=== PATIENT | female | born 1970 | race Caucasian/White ===

== ENCOUNTER 2019-06-14 15:24 | Outpatient (RCR) | payer MEDICARE, MEDICAID, SELFPAY | END 2019-06-28 00:01 | LOC: SPT 15:24 | PROVIDERS: Family Provider Family Medicine; Visit Provider Family Medicine | DX: M54.12 Radiculopathy, cervical region (principal) | CPT/HCPCS: 97110 ×2; 97140 ×2; 97161 ==

== ENCOUNTER 2019-06-29 09:11 | Outpatient (RCR) | payer MEDICARE, MEDICAID, SELFPAY | END 2019-07-29 23:59 | disposition home or self-care (01) | LOC: SPT 09:11 | PROVIDERS: Family Provider Family Medicine; PCP Family Medicine; Visit Provider Family Medicine | DX: M54.9 Dorsalgia, unspecified (principal) | CPT/HCPCS: 97110; 97140; 97164 ==

== ENCOUNTER 2019-08-01 06:00 | Outpatient (RCR) | payer MEDICARE, MEDICAID, SELFPAY | END 2019-08-27 23:59 | disposition home or self-care (01) | LOC: SPT 06:00 | PROVIDERS: Family Provider Family Medicine; PCP Family Medicine; Visit Provider Family Medicine | DX: M54.9 Dorsalgia, unspecified (principal) | CPT/HCPCS: 97110; 97124; 97140 ==

== ENCOUNTER 2019-08-28 06:00 | Outpatient (RCR) | payer MEDICARE, MEDICAID, SELFPAY | END 2019-09-27 23:59 | disposition home or self-care (01) | LOC: SPT 06:00 | PROVIDERS: Family Provider Family Medicine; PCP Family Medicine; Visit Provider Family Medicine | DX: M54.9 Dorsalgia, unspecified (principal) | CPT/HCPCS: 97110; 97112; 97140; 97530 ==

== ENCOUNTER 2019-09-06 11:32 | Emergency (ER) | payer MEDICARE, MEDICAID, SELFPAY ==
[2019-09-06 11:36] VITALS: BP 207/112; PULSE 81; RESP 20; TEMP 36.4; O2SAT 96; BMI 73.8
--- NOTE | 2019-09-06 11:46 | ED_ITS ---
Entered by Betty García, acting as scribe for Salud Robertson HPI - General Adult General: Chief complaint: General Medical Stated complaint: BLOOD PRESSURE, CHEST COLD Time Seen by Provider: 09/06/19 11:45 Source: patient Mode of arrival: ambulatory Limitations: no limitations History of Present Illness: HPI narrative: 49 yo Female presents to ED with complaint of elevated blood pressure and cold symptoms. Pt states that she hasn't been feeling well since last week. Pt states that she has had a head and chest cold but no fever. Pt states that she has had a productive cough with yellow sputum. MD complaint: Elevated blood pressure/cold symptoms Onset (ago): week(s) Location: head and chest Radiation: non-radiation Quality: constant Pain Consistency: constant Relieving factors: none Exacerbating factors: none Associated symptoms: Reports cough, dyspnea, malaise and short of breath; Deny chest pain, confusion, fevers/chills, headache(s), nausea, rash, palpitations, syncope or vomiting Treatments prior to arrival: none Review of Systems General: Reports: other (negative unless marked) Const: Reports: malaise; Denies: fever or chills Eyes: Denies: change in vision or blurry vision ENMT: Denies: throat pain, painful swallowing, hoarseness, ear pain, ear discharge, Change in hearing or nasal discharge Card: Reports: shortness of breath when lying down; Denies: chest pain, palpitations, irregular heart rhythm, syncope, pre-syncope or shortness of breath on exertion Resp: Reports: shortness of breath, productive cough, change in phlegm color and chest congestion GI: Denies: abdominal pain, nausea, vomiting, vomiting blood, coffee grounds in vomit, diarrhea, constipation, cramping, blood in stool or black tarry stool : Denies: flank pain, painful urination, urinary frequency, urinary urgency, decreased urine ouput, urinary incontinence or blood in urine Musc: Denies: neck pain, back pain, extremity pain, extremity swelling, joint pain, joint swelling, joint warmth or joint stiffness Skin/Breast: Denies: rash, skin tenderness or yellow skin Neuro: Denies: headache, numbness in extremities, weakness in extremities, changes in sensation, lack of coordination, difficulty walking, dizziness, vertigo or confusion Endo: Denies: excessive thirst, tired all the time, cold intolerance, excessive sweating, flushing or hot flashes Rahat/Lymph: Denies: easy bruising, easy bleeding, petechiae or enlarged lymph nodes All/Imm: Denies: hives, throat swelling, tongue swelling, facial swelling or acute wheezing PFSH ED PFSH: Medical History Asthma Calcium deposit in bursa of left hip CALCIUM DEPOSIT REMOVED FROM LEFT BUTTOCK 1991 X3. Carpal tunnel syndrome on both sides Cervical radiculopathy HTN (hypertension), benign Obesity Surgical History H/O exploratory laparotomy EXPLORATORY SURGERY ON FEMALE PART A INFANT Family History Mother Hypertension Grandmother Heart disease Mother Diabetes Family/Other Breast cancer Social History Smoking and tobacco status: former smoker Quit status (tobacco): has quit using tobacco Alcohol intake: current Alcohol intake frequency: holidays/special occasions only Desire information about substance/drug rehabilitation?: No Counseling given: No Female Reproductive History: Para: 0 Spontaneous abortions: Yes Physical Exam Const: COMMON NORMALS: no apparent distress, oriented x3, no limitations, healthy appearing and well nourished EXAM LIMITATIONS: no altered mental status GENERAL APPEARANCE: cooperative, well kempt and well developed ORIENTATION/CONSCIOUSNESS: Yes awake HENMT: COMMON NORMALS: normocephalic, head/scalp atraumatic, hearing grossly normal bilaterally, external ears normal, EAC's normal, external nose normal and moist oral mucous membranes HEAD & SCALP: normal to inspection, normocephalic and atraumatic FACE & SINUS: normal facial exam and face symmetric NOSE: external nose normal and nares normal EXTERNAL EAR: Yes external ears normal EXTERNAL AUDITORY CANAL: EAC's normal MOUTH: oral and palatal mucosa normal and tongue normal Eye: COMMON NORMALS: PERRL, EOMs intact bilaterally, conjunctivae normal and no scleral icterus GENERAL EYE: normal appearance of both eyes and normal light reflex CONJUNCTIVA: Yes conjunctivae normal SCLERA: sclerae normal CORNEA: Yes corneas normal PUPIL: Yes PERRL DIRECT OPHTHALMOSCOPY: Yes normal light reflex Neck/C-Spine: COMMON NORMALS: full ROM, no lymphadenopathy, supple, no meningeal signs and no JVD GENERAL: Yes normal visual inspection and Yes trachea midline CERVICAL SPINE: Yes cervical ROM normal Chest: COMMONS NORMALS: inspection of chest normal and palpation of chest normal Resp: COMMON NORMALS: normal respiratory effort, no retractions, no use of accessory muscles and clear to auscultation bilaterally EFFORT & INSPECTION: Yes able to speak in complete sentences AUSCULTATION: clear to auscultation bilaterally Cardio: COMMON NORMALS: no JVD, regular rate, regular rhythm, S1 normal heart sound, S2 normal heart sound, no gallops, no clicks, no murmurs and no rub JUGULAR VENOUS DISTENTION: no JVD RATE: regular rate RHYTHM: regular rhythm HEART SOUNDS: S1 normal and S2 normal GI: COMMON NORMALS: soft to palpation, non-tender, no hepatosplenomegaly and no masses INSPECTION: Yes normal to inspection PALPATION: Yes soft and Yes no hepatosplenomegaly : COMMON NORMALS: Yes no CVA tenderness BLADDER/KIDNEY EXAM: Yes no CVA tenderness Back/Pelvis: COMMON NORMALS: no CVA tenderness, thoracic and lumbar spine normal to inspection, no thoracic nor lumbar tenderness and thoraco-lumbar ROM normal Extremity: COMMON NORMALS: normal to inspection, full ROM, normal capillary refill, no joint enlargement, no clubbing, cyanosis or edema and no calf tenderness Neuro: COMMON NORMALS: oriented x3, CN's II-XII intact bilaterally, moves all extremities, no focal motor deficits and no sensory deficits noted MENINGEAL SIGNS: Yes no meningeal signs Psych: COMMON NORMALS: mental status grossly normal, thought process normal, cooperative, affect normal, speech normal and activity/motor behavior normal APPEARANCE: Yes well kempt SPEECH: Yes normal speech THOUGHT PROCESS: normal thought process Skin: COMMON NORMALS: no rashes or lesions noted, skin turgor normal, no jaundice, no petechiae and no mottling GENERAL SKIN EXAM: no rashes or lesions noted and turgor normal Course Vital Signs: Vital signs: Vital Signs Temperature 97.6 F 09/06/19 11:36 Pulse Rate 79 09/06/19 14:06 Respiratory Rate 16 09/06/19 13:41 Blood Pressure 207/112 09/06/19 11:36 Pulse Oximetry 98 09/06/19 13:41 MDM - General Adult MDM Narrative: Medical decision making narrative: Ms. Pollard is a 49-year-old female who comes in with cough, congestion and occasional shortness of breath. She states that she has a head and chest cold. Patient was concerned about her blood pressure today but she has no chest pain and her EKGs are normal and her chest x-ray shows no evidence of pulmonary edema or congestive heart failure. Patient is refusing a second blood draw for troponin but her first was completely normal. On exam she had wheezing inspiratory and expiratory but that is improved dramatically since her breathing treatment. She states she has albuterol at home. I will place her on prednisone as she agrees to follow-up with her doctor for further evaluation of her blood pressure. Lab Data: Attestation: I reviewed the patient's lab results. Labs: Lab Results 09/06/19 09/06/19 09/06/19 Range/Units 12:07 12:07 12:07 WBC 6.2 (4.0-10.0) 10^3/ uL RBC 4.93 (4.1-5.3) 10^6/u L Hgb 13.1 (11.5-15.3) g/dL Hct 41.9 (37.0-47.0) % MCV 85.0 (81-99) fL MCH 26.6 L (28.0-34.0) pg MCHC 31.3 (30.0-36.0) g/dL RDW 12.7 (12.1-15.1) % Plt Count 289 (130-400) 10^3/c mm MPV 10.0 (7.4-10.4) fL Neut % (Auto) 57.1 % Lymph % (Auto) 33.2 % [place] % (Auto) 5.7 % Eos % (Auto) 3.2 % Baso % (Auto) 0.5 % Neut # (Auto) 3.5 (1.8-7.7) 10^3/u L Lymph # (Auto) 2.1 (0.8-4.8) 10^3/u L [place] # (Auto) 0.4 (0.2-0.9) 10^3/u L Eos # (Auto) 0.2 (0.0-0.8) 10^3/u L Baso # (Auto) 0.0 (0.0-0.1) 10^3/u L Nucleated RBC % (a uto) 0 % Nucleated RBCs # 0.0 /100WBC Sodium 138 (136-145) mmol/L Potassium 4.2 (3.5-5.1) mmol/L Chloride 97 L (98-107) mmol/L Carbon Dioxide 30 H (22-29) mmol/L Anion Gap 15.2 (5-19) BUN 17 (6-20) mg/dL Creatinine 0.7 (0.5-0.9) mg/dL GFR Calculation 88.6 L (90-130) mL/min Glucose 100 (65-115) mg/dL Calculated Osmolal ity 282 L (285-295) mOsm/k g Calcium 9.8 (8.5-10.5) mg/dL Magnesium 2.1 (1.7-2.3) mg/dL Total Bilirubin 0.3 (0.15-1.2) mg/dL AST 18 (0-32) U/L ALT 14 (0-33) U/L Alkaline Phosphata se 92 (35-105) IU/L Troponin T Baselin e 6 (0-10) ng/mL Total Protein 6.8 (6.6-8.7) g/dL Albumin 4.2 (3.5-5.2) g/dL Globulin 2.6 (1.3-4.6) g/dL Urine Color (Yellow) Urine Appearance (CLEAR) Urine pH (5-7) Ur Specific Gravit y (1.005-1.030) Urine Protein (Negative) Urine Glucose (UA) (Normal) Urine Ketones (Negative) Urine Blood (Negative) Urine Nitrate (Negative) Urine Bilirubin (NEGATIVE) Urine Urobilinogen (Negative) mg/dL Ur Leukocyte Vera ase (Negative) Urine RBC (0-2) /hpf Urine WBC (0-5) /hpf Ur Squamous Epith Cells (0-5) Urine Bacteria (NONE) Influenza Type A A g (Negative) POC Influenza B Ag (Negative) 09/06/19 09/06/19 Range/Units 12:18 12:19 WBC (4.0-10.0) 10^3/ uL RBC (4.1-5.3) 10^6/u L Hgb (11.5-15.3) g/dL Hct (37.0-47.0) % MCV (81-99) fL MCH (28.0-34.0) pg MCHC (30.0-36.0) g/dL RDW (12.1-15.1) % Plt Count (130-400) 10^3/c mm MPV (7.4-10.4) fL Neut % (Auto) % Lymph % (Auto) % [place] % (Auto) % Eos % (Auto) % Baso % (Auto) % Neut # (Auto) (1.8-7.7) 10^3/u L Lymph # (Auto) (0.8-4.8) 10^3/u L [place] # (Auto) (0.2-0.9) 10^3/u L Eos # (Auto) (0.0-0.8) 10^3/u L Baso # (Auto) (0.0-0.1) 10^3/u L Nucleated RBC % (a uto) % Nucleated RBCs # /100WBC Sodium (136-145) mmol/L Potassium (3.5-5.1) mmol/L Chloride (98-107) mmol/L Carbon Dioxide (22-29) mmol/L Anion Gap (5-19) BUN (6-20) mg/dL Creatinine (0.5-0.9) mg/dL GFR Calculation (90-130) mL/min Glucose (65-115) mg/dL Calculated Osmolal ity (285-295) mOsm/k g Calcium (8.5-10.5) mg/dL Magnesium (1.7-2.3) mg/dL Total Bilirubin (0.15-1.2) mg/dL AST (0-32) U/L ALT (0-33) U/L Alkaline Phosphata se (35-105) IU/L Troponin T Baselin e (0-10) ng/mL Total Protein (6.6-8.7) g/dL Albumin (3.5-5.2) g/dL Globulin (1.3-4.6) g/dL Urine Color Straw (Yellow) Urine Appearance Clear (CLEAR) Urine pH 7 (5-7) Ur Specific Gravit y 1.005 (1.005-1.030) Urine Protein Neg (Negative) Urine Glucose (UA) Norm (Normal) Urine Ketones Negative (Negative) Urine Blood Neg (Negative) Urine Nitrate Negative (Negative) Urine Bilirubin Neg (NEGATIVE) Urine Urobilinogen Norm (Negative) mg/dL Ur Leukocyte Vera ase Negative (Negative) Urine RBC None (0-2) /hpf Urine WBC None (0-5) /hpf Ur Squamous Epith Cells Rare (0-5) Urine Bacteria Trace (NONE) Influenza Type A A g Negative (Negative) POC Influenza B Ag Negative (Negative) Imaging Data^: CXR: Radiologist's impression: [address] [address] XRay Report Signed Patient: Jaye Pollard #: [id number] : 1970Acct#:[id number] Age/Sex: 49 / FADM Date: 09/06/19 Loc: ERRoom/Bed: Attending Dr: Ordering Provider/Ordering MD: Salud Robertson DO Date of Service: 09/06/19 Procedure(s): XR chest 1V portable [id number] Accession Number(s): [id number] Report Number: [id number] WS: [id number] Portable AP upright chest, 09/06/2019 Clinical Data: cough Comparison: Portable chest, 06/25/2019. Findings: No nodules, masses or effusions are seen. The heart is normal. The pulmonary vascularity is not increased. No pneumonia or pneumothorax is seen. XR/XR chest 1V portable [id number] Impression: Negative chest. Dictated By:Nneka Gaona MD Signed By:Nneka Gaona MDSigned Date/Time:09/06/191212 DD/ 12 EKG Data^: EKG 1: Attestation: I personally reviewed and interpreted this EKG as follows: EKG interpretation date: 09/06/19 EKG interpretation time: 12:09 Interpretation: Normal sinus rhythm at 74 beats a minute, normal axis, no blocks, normal intervals, T wave inverted in V2 otherwise unremarkable. Similar to previous. Computer generated interpretation: Chest X-Ray 09/06/19 11:55 Impression: Negative chest. EKG 2: Attestation: I personally reviewed and interpreted this EKG as follows: EKG interpretation date: 09/06/19 EKG interpretation time: 13:43 Interpretation: Normal sinus rhythm at 72 beats a minute, no acute ST or T wave changes. Computer generated interpretation: Chest X-Ray 09/06/19 11:55 Impression: Negative chest. Discharge Plan Discharge Patient Disposition: Home, Self-Care Clinical Impression: Acute bronchitis with bronchospasm Hypertension Qualifiers: Hypertension type: unspecified Qualified Code(s): I10 - Essential (primary) hypertension Condition: Stable Prescriptions: New doxycycline hyclate 100 mg capsule 100 mg PO BID 10 Days Qty: 20 RF: 0 Zofran 4 mg tablet 4 mg PO Q6H PRN (Reason: nausea and vomiting) Qty: 20 RF: 0 prednisone 10 mg tablets,dose pack See Rx Instructions .ROUTE .COMPLEX Qty: 21 RF: 0 No Action metoprolol tartrate 25 mg tablet 25 mg PO BID 60 Days Qty: 120 RF: 0 albuterol sulfate [Ventolin HFA] 90 mcg/actuation HFA aerosol inhaler 2 puff INHALATION Q6H PRN (Reason: shortness of breath) Qty: 18 RF: 0 albuterol sulfate 2.5 mg /3 mL (0.083 %) Solution For Nebulization 2.5 mg INHALATION QID PRN (Reason: Shortness Of Breath) RF: 0 naproxen 500 mg Tablet,Delayed Release (Dr/Ec) 500 mg PO BID RF: 0 hydrochlorothiazide 12.5 mg Tablet 12.5 mg PO DAILY RF: 0 Adult Multivitamin Gummies 200 mcg Tablet,Chewable 400 mcg PO DAILY RF: 0 amitriptyline 25 mg tablet 25 mg PO BEDTIME RF: 0 cyclobenzaprine 10 mg Tablet 10 mg PO TID PRN (Reason: Spasms) RF: 0 Discharge Orders: Discharge Order (Routine); Ordered 09/06/19 Ordered By: Salud Robertson Referrals: Claudia Paniagua DO [Primary Care Provider] - 1-3 days Discharge Diet: Advance as tolerated Discharge Activity: Increase activity as tolerated Patient Instructions: Acute Bronchitis (ED), Hypertension (ED), Bronchospasm (ED) Activity Restrictions/Additional Instructions: Please return to the ER immediately for any of the signs or symptoms listed on your discharge instruction sheets, worsening/changing of your symptoms, you are not getting better as quickly as expected, or for ANY other cause or concerns. Call your doctor today for an appointment to be seen as soon as possible to evaluate further for your high blood pressure. If you develop chest pain, shortness of breath, leg swelling or edema or have any other symptoms please return to the ER immediately for recheck. Coding Level of Care Code ED Dial Lathe Operator for Chg Fwd Exam Comprehensive The documentation recorded by the Raquel davis Carmen, accurately reflects the service I personally performed and the decisions made by me, Salud Robertson
--- NOTE | 2019-09-06 11:55 | XR_ITS ---
WS: [id number] Portable AP upright chest, 09/06/2019 Clinical Data: cough Comparison: Portable chest, 06/25/2019. Findings: No nodules, masses or effusions are seen. The heart is normal. The pulmonary vascularity is not increased. No pneumonia or pneumothorax is seen. XR/XR chest 1V portable [id number] Impression: Negative chest.
--- NOTE | 2019-09-06 11:56 | ECG_ITS ---
Measurements Intervals [place] Rate: 74 P: 39 SC: 155 QRS: 45 QRSD: 89 T: 47 QT: 385 QTc: 429 SINUS RHYTHM LOW QRS VOLTAGE IN PRECORDIAL LEADS [QRS DEFLECTION < 1.0 mV IN CHEST LEADS] Compared to ECG 06/25/2019 11:58:01 No significant changes Electronically Signed On 09-07-2019 9:00:46 CDT by Slade Alexander M.D. [id number] f
[2019-09-06 12:18] LABS: Basophils % 0.5 %; Eosinophils # 0.2 10^3/uL (0.0-0.8); Eosinophils % 3.2 %; Hematocrit 41.9 % (37.0-47.0); Hemoglobin 13.1 g/dL (11.5-15.3); Lymphocytes # 2.1 10^3/uL (0.8-4.8); Lymphocytes % 33.2 %; Mean Corpuscular HGB Conc 31.3 g/dL (30.0-36.0); Mean Corpuscular Hemoglobin 26.6 pg (28.0-34.0); Monocytes # 0.4 10^3/uL (0.2-0.9); Monocytes % 5.7 %; Neutrophils # 3.5 10^3/uL (1.8-7.7); Neutrophils % 57.1 %; Nucleated Red Blood Cells % 0 %; Platelet Count 289 10^3/cmm (130-400); Red Blood Count 4.93 10^6/uL (4.1-5.3); Red Cell Distribution Width 12.7 % (12.1-15.1); White Blood Count 6.2 10^3/uL (4.0-10.0)
[2019-09-06 12:36] LABS: Alanine Aminotransferase 14 U/L (0-33); Albumin Level 4.2 g/dL (3.5-5.2); Alkaline Phosphatase 92 IU/L (35-105); Anion Gap 15.2 (5-19); Aspartate Amino Transferase 18 U/L (0-32); Blood Urea Nitrogen 17 mg/dL (6-20); Calcium 9.8 mg/dL (8.5-10.5); Carbon Dioxide 30 mmol/L (22-29); Chloride 97 mmol/L (98-107); Globulin 2.6 g/dL (1.3-4.6); Glomerular Filtration Rate 88.6 mL/min (90-130); Glucose 100 mg/dL (65-115); Magnesium 2.1 mg/dL (1.7-2.3); Osmolality Calculated 282 mOsm/kg (285-295); Potassium 4.2 mmol/L (3.5-5.1); Sodium 138 mmol/L (136-145); Total Bilirubin 0.3 mg/dL (0.15-1.2); Total Protein 6.8 g/dL (6.6-8.7)
[2019-09-06 12:37] LABS: Troponin(5th) Baseline 6 ng/mL (0-10)
[2019-09-06] MEDS: labetalol 5 mg/mL SDV 20mL 10 MG IVP (12:58)
[2019-09-06 13:12] LABS: Influenza A by IFA Negative (Negative); Influenza B by IFA Negative (Negative)
[2019-09-06 13:22] LABS: Bilirubin Urine Neg (NEGATIVE); Blood Urine Neg (Negative); Glucose Urine UA Norm (Normal); Ketones Urine Negative (Negative); Leukocyte Esterase Urine Negative (Negative); Nitrate Urine Negative (Negative); Protein Urine Neg (Negative); Specific Gravity, Urine 1.005 (1.005-1.030); Urine Appearance Clear (CLEAR); Urine Color Straw (Yellow); Urobilinogen Urine Norm (Negative); pH Urine 7 (5-7)
[2019-09-06 13:23] LABS: Add Urine Culture? No; Bacteria Urine TRACE; Squamous Epithelial Cell Urine RARE (0-5)
[2019-09-06] MEDS: ipratropium-albuterol 3 mL Neb 9 ML INHALATION (13:40)
[2019-09-06 13:41] VITALS: PULSE 74; RESP 16; O2SAT 98
--- NOTE | 2019-09-06 13:56 | ECG_ITS ---
Measurements Intervals [place] Rate: 72 P: 37 ND: 155 QRS: 35 QRSD: 94 T: 47 QT: 403 QTc: 442 SINUS RHYTHM LOW QRS VOLTAGE IN PRECORDIAL LEADS [QRS DEFLECTION < 1.0 mV IN CHEST LEADS] Compared to ECG 06/25/2019 11:58:01 No significant changes Electronically Signed On 09-07-2019 9:06:35 CDT by Slade Alexander M.D. [id number] f
[2019-09-06 14:06] VITALS: PULSE 79
[2019-09-06 15:28] VITALS: BP 211/107; PULSE 91; RESP 20; O2SAT 95
== END 2019-09-06 15:28 | disposition home or self-care (01) ==
PROVIDERS: Emergency Provider Emergency Medicine; Family Provider Family Medicine; PCP Family Medicine
DX: J20.9 Acute bronchitis, unspecified (principal); J45.909 Unspecified asthma, uncomplicated; I10 Essential (primary) hypertension; Z87.891 Personal history of nicotine dependence
CPT/HCPCS: 12345; 36415; 71045; 80053; 81001; 83735; 84484; 85025; 87804; 93005; 94640; 96374; 96375; 99283; 99284; A9270; J2930; J3490

== ENCOUNTER 2019-11-10 10:24 | Day surgery (SDC) | payer MEDICARE, MEDICAID, SELFPAY ==
[2019-11-08 12:16] VITALS: BMI 72.4
[2019-11-10 10:42] VITALS: BP 148/98; PULSE 104; RESP 18; TEMP 36.3; O2SAT 95
[2019-11-10 10:42] LABS: OR HCG Qualitative Urine Negative (Negative)
[2019-11-10] MEDS: sodium chloride 0.9% 1,000 ML 30 ML IV (10:50)
--- NOTE | 2019-11-10 11:06 | P.HP_ITS ---
Providers/Chief Complaint Primary Care Provider: Chuck Jerome MD Chief Complaint: Screening for colon cancer History of Present Illness Jaye Pollard is a 49 year old female who has been referred for screening colonoscopy Review of Systems General: Reports: 10 or more systems reviewed and unremarkable except in HPI and below Medications/Allergies Home Medications Medication Instructions Recorded Confirmed Last Taken Type albuterol sulfate 90 mcg/actuation 2 puff INHALATION Q6H PRN #18 gm 07/14/19 11/10/19 11/09/19 Rx aerosol inhaler albuterol sulfate 2.5 mg INHALATION QID PRN 09/06/19 11/10/19 11/07/19 History amitriptyline 25 mg PO BEDTIME 09/06/19 11/10/19 11/08/19 History multivit with min-folic acid 400 mcg PO DAILY 09/06/19 11/10/19 11/08/19 History [Adult Multivitamin Gummies] metoprolol tartrate 50 mg tablet 50 mg PO BID 90 Days #180 tab 09/07/19 11/10/19 11/09/19 09:00 Rx naproxen 500 mg tablet,delayed 750 mg PO BID 90 Days #270 tab 09/07/19 11/10/19 11/09/19 Rx release hydrochlorothiazide 25 mg tablet 25 mg PO DAILY 90 Days #90 tab 09/29/19 11/10/19 11/09/19 Rx cyclobenzaprine 10 mg PO BEDTIME 11/08/19 11/10/19 11/08/19 History Allergies Allergy/AdvReac Type Severity Reaction Status Date / Time lisinopril Allergy Intermediate lip Verified 11/10/19 10:40 swelling pregabalin [From Lyrica] Allergy Mild rash Verified 11/10/19 10:40 codeine Allergy HIVES Verified 11/10/19 10:40 hydrocortisone Allergy HIVES Verified 11/10/19 10:40 grapes Allergy Unknown Unknown Uncoded 11/10/19 10:40 PFSH PFSH: Medical History Asthma Calcium deposit in bursa of left hip CALCIUM DEPOSIT REMOVED FROM LEFT BUTTOCK 1991 X3. Carpal tunnel syndrome on both sides Cervical radiculopathy HTN (hypertension), benign Obesity Surgical History H/O exploratory laparotomy EXPLORATORY SURGERY ON FEMALE PART A Family History Mother Hypertension Grandmother Heart disease Mother Diabetes Family/Other Breast cancer Social History Smoking and tobacco status: former smoker Quit status (tobacco): has quit using tobacco Alcohol intake: current Alcohol intake frequency: holidays/special occasions only Desire information about substance/drug rehabilitation?: No Counseling given: No Female Reproductive History: Para: 0 Spontaneous abortions: Yes Vital Signs Vitals Signs: Last Vital Signs Temp 97.3 F L 11/10/19 10:42 Pulse 104 H 11/10/19 10:42 Resp 18 11/10/19 10:42 BP 148/98 11/10/19 10:42 Pulse Ox 95 11/10/19 10:42 Weight: Weight last 48 hrs Weight 295 lb Physical Exam Narrative: EXAM NARRATIVE: HEENT: Normocephalic Eye: Sclera /conjunctiva normal Respiratory and chest: Bilateral clear breath sounds on auscultation Cardiovascular: Normal S1 and S2 heart sounds Abdomen: Soft to palpation Neurological: Oriented to place person and time Skin: Intact, no lesions appreciated on gross exam A&P Assessment and plan (1) Encounter for screening colonoscopy: The patient is scheduled for colonoscopy under MAC. The procedure risks and benefits, including infection, bleeding and bowel injury, has been explained to the patient, who has consented to the procedure. Information about the prep has been provided to the patient. Status: Acute Coding Level of Care Code Acute Education Reporter for Chg Fwd Diagnoses Encounter for screening colonoscopy Z12.11
--- NOTE | 2019-11-10 11:16 | ANES.PREANE2 ---
Pre-Anesthetic Assessment Pre-Anesthetic Assessment: Height/Weight: Height 1.36 m Weight 133.81 kg Temp Pulse Resp BP Pulse Ox 97.3 F L 104 H 18 148/98 95 11/10/19 10:42 11/10/19 10:42 11/10/19 10:42 11/10/19 10:42 11/10/19 10:42 Preop Diagnosis: Screening Proposed Procedure: Operation Date: 11/10/19 11:50 Proposed Procedures p Colonoscopy 26349 Z12.11(Not Applicable) - Deshawn White MD Last intake: Intake Last Liquid Date 11/09/19 Last Solid Date 11/08/19 Social: Social History: Alcohol () and Tobacco (2015) Exam: Pre-Anes Outpt Exam: alert, oriented x 3, clear to auscultation bilaterally and regular rate & rhythm Airway: Submandibular: WNL Cervical ROM: WNL MP: 2 Dentition: Other (teeth ok) History/ROS: No significant history except as noted Pulmonary: Pulmonary: MICHELLE and Sleep apnea CV/HEM: CV/HEM: HTN : : None reported Hepatic: Hepatic: Hepatitis (H/O Hep C) GI: GI: GERD (occ) Metabolic: Metabolic: Morbid obesity Musc/skel: Musc/skel: Lower Back Pain and OA/DJD Neuropsych: Neuropsych: Anxiety and Depression Anesthetic Plan: ASA status: 3 Anesthesia: Anesthesia Evaluation and MAC Risk of > 500 ml blood loss (7ml/kg in children): No PFSH Anesthesia PFSH: Medical History Asthma Calcium deposit in bursa of left hip CALCIUM DEPOSIT REMOVED FROM LEFT BUTTOCK 1991 X3. Carpal tunnel syndrome on both sides Cervical radiculopathy HTN (hypertension), benign Obesity Surgical History H/O exploratory laparotomy EXPLORATORY SURGERY ON FEMALE PART A INFANT Family History Mother Hypertension Grandmother Heart disease Mother Diabetes Family/Other Breast cancer Social History Smoking and tobacco status: former smoker Quit status (tobacco): has quit using tobacco Alcohol intake: current Alcohol intake frequency: holidays/special occasions only Desire information about substance/drug rehabilitation?: No Counseling given: No Female Reproductive History: Para: 0 Spontaneous abortions: Yes Data Anesthesia Other Labs: Laboratory Results - last 48 hr 11/10/19 10:41 Urine HCG, Qual Negative Cardiac Studies: No Data to Display
[2019-11-10 13:08] VITALS: BP 134/90; PULSE 103; RESP 18; TEMP 36.1; O2SAT 93
== END 2019-11-10 13:45 | disposition home or self-care (01) ==
PROVIDERS: Anesthesiology; PCP Family Medicine; Visit Provider Surgery
PROC: 0DJD8ZZ Inspection of Lower Intestinal Tract, Via Natural or Artificial Opening Endoscopic (ICD-10-PCS; CPT 45378; principal; 2019-11-10 11:45)
DX: Z12.11 Encounter for screening for malignant neoplasm of colon (principal); K57.30 Diverticulosis of large intestine without perforation or abscess without bleeding; D12.5 Benign neoplasm of sigmoid colon; I10 Essential (primary) hypertension; Z86.19 Personal history of other infectious and parasitic diseases; E66.01 Morbid (severe) obesity due to excess calories; Z68.45 Body mass index [BMI] 70 or greater, adult; M19.90 Unspecified osteoarthritis, unspecified site; Z82.49 Family history of ischemic heart disease and other diseases of the circulatory system
CPT/HCPCS: G0121; 12345; 45380; 81025; 84703; 88305; J2704; J7030

== ENCOUNTER 2019-11-29 06:00 | Outpatient (RCR) | payer MEDICARE, MEDICAID, SELFPAY | END 2019-12-27 23:59 | disposition home or self-care (01) | LOC: SPT 06:00 | PROVIDERS: PCP Family Medicine; Referring Provider Family Medicine; Visit Provider Family Medicine | DX: M54.9 Dorsalgia, unspecified (principal) | CPT/HCPCS: 97110 ==

== ENCOUNTER 2019-11-30 16:13 | Emergency (ER) | payer MEDICARE, MEDICAID, SELFPAY ==
[2019-11-30 16:28] VITALS: BP 173/69; PULSE 88; RESP 18; O2SAT 97; BMI 76.3
--- NOTE | 2019-11-30 16:45 | XR_ITS ---
WS: [id number] XR chest 1V portable [id number] REASON FOR EXAM: SOB FINDINGS: Portable one view chest shows normal mediastinum and heart interfaces. The lung camejo are well aerated. The overall appearance the chest is similar to September 06, 2019. There was no definite pneumonia, pleural effusion, pulmonary edema, or pneumothorax. No osseous abnormalities. The hilum and apices normal. XR/XR chest 1V portable [id number] IMPRESSION: Negative chest for acute pathology.
--- NOTE | 2019-11-30 16:46 | ECG_ITS ---
Measurements Intervals [place] Rate: 78 P: 24 MS: 147 QRS: 31 QRSD: 103 T: 31 QT: 379 QTc: 432 SINUS RHYTHM LOW QRS VOLTAGE IN PRECORDIAL LEADS [QRS DEFLECTION < 1.0 mV IN CHEST LEADS] Compared to ECG 09/06/2019 13:43:56 No significant changes Electronically Signed On 11-30-2019 20:58:18 CDT by Nae Park M.D. [id number]
[2019-11-30 17:19] LABS: Basophils # 0.1 10^3/uL (0.0-0.1); Basophils % 0.6 %; Eosinophils # 0.2 10^3/uL (0.0-0.8); Eosinophils % 2.7 %; Hematocrit 42.6 % (37.0-47.0); Hemoglobin 13.3 g/dL (11.5-15.3); Lymphocytes # 2.5 10^3/uL (0.8-4.8); Lymphocytes % 28.1 %; Mean Corpuscular HGB Conc 31.2 g/dL (30.0-36.0); Mean Corpuscular Volume 86.4 fL (81-99); Mean Platelet Volume 10.2 fL (7.4-10.4); Monocytes # 0.6 10^3/uL (0.2-0.9); Monocytes % 6.1 %; Neutrophils # 5.6 10^3/uL (1.8-7.7); Neutrophils % 62.2 %; Nucleated Red Blood Cells % 0 %; Platelet Count 300 10^3/cmm (130-400); Red Blood Count 4.93 10^6/uL (4.1-5.3); Red Cell Distribution Width 12.8 % (12.1-15.1)
[2019-11-30 17:37] LABS: Troponin(5th) Baseline 6 ng/mL (0-10)
[2019-11-30 17:46] LABS: Alanine Aminotransferase 13 U/L (0-33); Albumin Level 4.2 g/dL (3.5-5.2); Alkaline Phosphatase 93 IU/L (35-105); Anion Gap 14.8 (5-19); Aspartate Amino Transferase 19 U/L (0-32); Blood Urea Nitrogen 19 mg/dL (6-20); Calcium 9.6 mg/dL (8.5-10.5); Carbon Dioxide 32 mmol/L (22-29); Chloride 97 mmol/L (98-107); Globulin 2.9 g/dL (1.3-4.6); Glomerular Filtration Rate 88.6 mL/min (90-130); Glucose 76 mg/dL (65-115); NT Pro B Type Natriuretic Pept 200 pg/mL (0-125); Osmolality Calculated 285 mOsm/kg (285-295); Potassium 3.8 mmol/L (3.5-5.1); Sodium 140 mmol/L (136-145); Total Bilirubin 0.2 mg/dL (0.15-1.2); Total Protein 7.1 g/dL (6.6-8.7)
--- NOTE | 2019-11-30 18:37 | W.ED.SOB ---
HPI - SOB/Dyspnea General: Chief Complaint: Shortness of Breath/Dyspnea Stated Complaint: abnormal weight gain/high bp Time Seen by Provider: 11/30/19 16:31 Source: patient Mode of arrival: ambulatory Limitations: no limitations History of Present Illness: HPI Narrative: Patient presents with progressively worsening shortness of breath. She says she has had this happen over the last 3 days. In that timeframe she has gained 15 pounds. She does not have a history of congestive heart failure but has had to take Lasix in the past due to leg swelling. She states her legs have increased in swelling over the last 3 days and especially last night was the worst. There is associated pain in the legs. MD elicited complaint: shortness of breath Onset (ago): day(s) (3) Timing: constant and progressively worsening Severity: moderate Exacerbating factors: nothing Relieving factors: nothing Associated symptoms: Reports other (leg swelling); Deny abdominal pain, fever(s), nausea, palpitations, polydipsia, polyuria or vomiting Treatment prior to arrival: none Review of Systems General: Reports: 10 or more systems reviewed and unremarkable except in HPI and below Const: Denies: fever(s), chills or body aches Card: Denies: palpitations, irregular heart rhythm, edema or swelling of feet/ankles Resp: Reports: dyspnea; Denies: productive cough or non-productive cough GI: Denies: abdominal pain, nausea or vomiting : Denies: flank pain, difficulty voiding, dysuria, urinary frequency, urinary urgency or urinary hesitancy Musc: Reports: extremity swelling; Denies: neck pain or back pain Skin/Breast: Denies: rash, pruritus or erythema Neuro: Denies: headache(s), numbness in extremities or weakness in extremities Endo: Denies: polyuria, polydipsia or tired all the time PFSH ED PFSH: Medical History (Updated 11/30/19 @ 20:01 by Kyle Small MD, [facility]) Asthma Calcium deposit in bursa of left hip CALCIUM DEPOSIT REMOVED FROM LEFT BUTTOCK 1991 X3. Carpal tunnel syndrome on both sides Cervical radiculopathy HTN (hypertension), benign Obesity Surgical History (Updated 11/10/19 @ 13:09 by Deshawn White MD) H/O exploratory laparotomy EXPLORATORY SURGERY ON FEMALE PART A INFANT Status post colonoscopy with polypectomy (11/10/19) Family History Mother Hypertension Grandmother Heart disease Mother Diabetes Family/Other Breast cancer Social History Smoking and tobacco status: former smoker Quit status (tobacco): has quit using tobacco Alcohol intake: current Alcohol intake frequency: holidays/special occasions only Desire information about substance/drug rehabilitation?: No Counseling given: No Female Reproductive History: Para: 0 Spontaneous abortions: Yes Physical Exam Const: COMMON NORMALS: no acute distress, average body habitus, patient oriented x3, no limitations, healthy appearing, alert and well nourished Neck/C-Spine: COMMON NORMALS: full ROM, supple, no meningeal signs, no JVD and No carotid bruits Resp: COMMON NORMALS: normal respiratory effort, No retractions, No use of accessory muscles, clear to auscultation bilaterally and percussion normal AUSCULTATION: clear to auscultation bilaterally PERCUSSION: percussion normal Cardio: COMMON NORMALS: no JVD, regular rate, regular rhythm, S1 normal heart sound present, S2 normal heart sound present, No gallops present (Cardio), No clicks present (Cardio), No murmurs present (Cardio), No rub (Cardio) and Peripheral pulses 2+ throughout RATE: regular rate RHYTHM: regular rhythm HEART SOUNDS: S1 normal heart sound present and S2 normal heart sound present PERIPHERAL PULSES: Peripheral pulses 2+ throughout GI: COMMON NORMALS: Normal to inspection, nondistended, normoactive bowel sounds present, Soft to palpation, non-tender, No hepatosplenomegaly present, no masses and no bruits PALPATION: Yes Soft to palpation and Yes No hepatosplenomegaly present : COMMON NORMALS: Yes no CVA tenderness BLADDER/KIDNEY EXAM: Yes no CVA tenderness Back/Pelvis: COMMON NORMALS: no CVA tenderness Extremity: COMMON NORMALS: normal to inspection, full ROM, capillary refill normal and no calf tenderness GENERAL: Yes edema (2+ bilateral) Neuro: COMMON NORMALS: patient oriented x3 SENSORIUM/ORIENTATION: Yes alert MENINGEAL SIGNS: Yes no meningeal signs Skin: COMMON NORMALS: no rashes or lesions noted, no wounds, turgor normal, no jaundice, no petechiae and no mottling GENERAL SKIN EXAM: no rashes or lesions noted and turgor normal Course Reevaluation(s): Reevaluation #1: Discussed her lab and imaging findings with her. proBNP very mildly elevated. Troponin negative x2. Other labs unremarkable. Chest x-ray negative for acute findings. She has started diuresing. I cannot tell the cause for her increased swelling and shortness of breath but will order an outpatient echocardiogram. She voiced understanding and is in agreement with the plan. Time: 19:55 Vital Signs: Vital signs: Vital Signs Pulse Rate 98 11/30/19 20:28 Respiratory Rate 18 11/30/19 20:28 Blood Pressure 173/69 11/30/19 16:28 Pulse Oximetry 97 11/30/19 20:28 MDM - SOB/Dyspnea MDM Narrative: Medical decision making narrative: 49-year-old female patient who presents with 15 pound weight gain, pedal edema, difficulty breathing. Evaluation in the emergency department is not consistent with congestive heart failure. She has had episodes similar to this in the past. At that time she was only given as needed doses of Lasix. She was given an intravenous dose of IV Lasix and then discharged home on oral Lasix. She will be scheduled for an outpatient echocardiogram. Differential Diagnosis: Shortness of Breath Differential Diagnosis: Likely acute exacerbation of chronic obstructive airways disease, congestive heart failure and community acquired pneumonia Medical Records: Attestation: I reviewed the patient's medical records. Lab Data: Attestation: I reviewed the patient's lab results. Labs: Lab Results 11/30/19 11/30/19 11/30/19 Range/Units 17:13 17:13 17:13 WBC 9.0 (4.0-10.0) 10^3/ uL RBC 4.93 (4.1-5.3) 10^6/u L Hgb 13.3 (11.5-15.3) g/dL Hct 42.6 (37.0-47.0) % MCV 86.4 (81-99) fL MCH 27.0 L (28.0-34.0) pg MCHC 31.2 (30.0-36.0) g/dL RDW 12.8 (12.1-15.1) % Plt Count 300 (130-400) 10^3/c mm MPV 10.2 (7.4-10.4) fL Neut % (Auto) 62.2 % Lymph % (Auto) 28.1 % [place] % (Auto) 6.1 % Eos % (Auto) 2.7 % Baso % (Auto) 0.6 % Neut # (Auto) 5.6 (1.8-7.7) 10^3/u L Lymph # (Auto) 2.5 (0.8-4.8) 10^3/u L [place] # (Auto) 0.6 (0.2-0.9) 10^3/u L Eos # (Auto) 0.2 (0.0-0.8) 10^3/u L Baso # (Auto) 0.1 (0.0-0.1) 10^3/u L Nucleated RBC % (a uto) 0 % Nucleated RBCs # 0.0 /100WBC D-Dimer (0-0.59) ug/mIFE U Sodium 140 (136-145) mmol/L Potassium 3.8 (3.5-5.1) mmol/L Chloride 97 L (98-107) mmol/L Carbon Dioxide 32 H (22-29) mmol/L Anion Gap 14.8 (5-19) BUN 19 (6-20) mg/dL Creatinine 0.7 (0.5-0.9) mg/dL GFR Calculation 88.6 L (90-130) mL/min Glucose 76 (65-115) mg/dL Calculated Osmolal ity 285 (285-295) mOsm/k g Calcium 9.6 (8.5-10.5) mg/dL Total Bilirubin 0.2 (0.15-1.2) mg/dL AST 19 (0-32) U/L ALT 13 (0-33) U/L Alkaline Phosphata se 93 (35-105) IU/L Troponin T Baselin e 6 (0-10) ng/mL Troponin T 120 Min misty (0-10) ng/mL Delta Troponin T (0-10) ABS# NT-Pro-B Natriuret Pep 200 H (0-125) pg/mL Total Protein 7.1 (6.6-8.7) g/dL Albumin 4.2 (3.5-5.2) g/dL Globulin 2.9 (1.3-4.6) g/dL 11/30/19 11/30/19 Range/Units 17:13 18:48 WBC (4.0-10.0) 10^3/ uL RBC (4.1-5.3) 10^6/u L Hgb (11.5-15.3) g/dL Hct (37.0-47.0) % MCV (81-99) fL MCH (28.0-34.0) pg MCHC (30.0-36.0) g/dL RDW (12.1-15.1) % Plt Count (130-400) 10^3/c mm MPV (7.4-10.4) fL Neut % (Auto) % Lymph % (Auto) % [place] % (Auto) % Eos % (Auto) % Baso % (Auto) % Neut # (Auto) (1.8-7.7) 10^3/u L Lymph # (Auto) (0.8-4.8) 10^3/u L [place] # (Auto) (0.2-0.9) 10^3/u L Eos # (Auto) (0.0-0.8) 10^3/u L Baso # (Auto) (0.0-0.1) 10^3/u L Nucleated RBC % (a uto) % Nucleated RBCs # /100WBC D-Dimer 0.51 (0-0.59) ug/mIFE U Sodium (136-145) mmol/L Potassium (3.5-5.1) mmol/L Chloride (98-107) mmol/L Carbon Dioxide (22-29) mmol/L Anion Gap (5-19) BUN (6-20) mg/dL Creatinine (0.5-0.9) mg/dL GFR Calculation (90-130) mL/min Glucose (65-115) mg/dL Calculated Osmolal ity (285-295) mOsm/k g Calcium (8.5-10.5) mg/dL Total Bilirubin (0.15-1.2) mg/dL AST (0-32) U/L ALT (0-33) U/L Alkaline Phosphata se (35-105) IU/L Troponin T Baselin e (0-10) ng/mL Troponin T 120 Min misty 6.00 (0-10) ng/mL Delta Troponin T 0 (0-10) ABS# NT-Pro-B Natriuret Pep (0-125) pg/mL Total Protein (6.6-8.7) g/dL Albumin (3.5-5.2) g/dL Globulin (1.3-4.6) g/dL EKG Data^: EKG 1: Attestation: I personally reviewed and interpreted this EKG as follows: EKG Interpretation Date: 11/30/19 EKG interpretation time: 17:53 Prior EKG tracings: not available for review Interpretation: Normal sinus rhythm. Heart rate [address] changes Normal axis. EKG 2: Attestation: I personally reviewed and interpreted this EKG as follows: EKG Interpretation Date: 11/30/19 EKG interpretation time: 19:19 Prior EKG tracings: available for review Interpretation: Sinus rhythm. Heart rate [address] changes. Unchanged from earlier today Discharge Plan Discharge Patient Disposition: Home, Self-Care Clinical Impression: Pedal edema, Shortness of breath Condition: Stable Prescriptions: New Lasix 40 mg tablet 40 mg PO QAM Qty: 5 RF: 0 Continued metoprolol tartrate 50 mg tablet 50 mg PO BID 90 Days Qty: 180 RF: 0 naproxen 500 mg tablet,delayed release (DR/EC) 750 mg PO BID 90 Days Qty: 270 RF: 0 hydrochlorothiazide 25 mg tablet 25 mg PO DAILY 90 Days Qty: 90 RF: 0 albuterol sulfate [Ventolin HFA] 90 mcg/actuation HFA aerosol inhaler 2 puff INHALATION Q6H PRN (Reason: shortness of breath) Qty: 18 RF: 0 cyclobenzaprine 10 mg Tablet 10 mg PO BEDTIME RF: 0 albuterol sulfate 2.5 mg /3 mL (0.083 %) Solution For Nebulization 2.5 mg INHALATION QID PRN (Reason: Shortness Of Breath) RF: 0 Adult Multivitamin Gummies 200 mcg Tablet,Chewable 400 mcg PO DAILY RF: 0 Discharge Orders: Discharge Order (Routine); Ordered 11/30/19 Ordered By: Kyle Small Other Ambulatory Orders: CV echo complete* [id number] (Routine) Timeframe: 1 Year Facility: [facility] - Location: Radiology Ordered By: Kyle Small Patient Instructions: Leg Edema (ED) Activity Restrictions/Additional Instructions: Return for any new or worsening symptoms. Follow-up with your primary care provider within 3 days. You will be contacted to schedule an echocardiogram. Take the Lasix as prescribed. Consume a low-salt diet Discharge Date/Time: 11/30/19 20:30 Coding Level of Care Code ED Rn Compliance for Chg Fwd Exam Comprehensive
[2019-11-30] MEDS: FUROsemide 10 mg/mL SDV 4mL 40 MG IVP (18:47)
[2019-11-30 19:00] LABS: D Dimer 0.51 ug/mIFEU (0-0.59)
[2019-11-30 19:18] LABS: Troponin 5 2HR Delta 0 ABS# (0-10)
--- NOTE | 2019-11-30 19:23 | PC.NURSE ---
EKG done at 1913 and shown to ER doctor
[2019-11-30 20:28] VITALS: PULSE 98; RESP 18; O2SAT 97
--- NOTE | 2019-11-30 22:46 | ECG_ITS ---
Measurements Intervals [place] Rate: 77 P: 33 VT: 148 QRS: 29 QRSD: 96 T: 31 QT: 383 QTc: 434 SINUS RHYTHM LOW QRS VOLTAGE IN PRECORDIAL LEADS [QRS DEFLECTION < 1.0 mV IN CHEST LEADS] Compared to ECG 09/06/2019 13:43:56 No significant changes Electronically Signed On 11-30-2019 21:02:44 CDT by Nae Park M.D. [id number]
--- NOTE | 2019-12-02 15:54 | DCPLANNER ---
Addendum entered by Samanta Aranda 12/07/19 10:45: Patient has an echo scheduled for Thursday, January 02, 2020 at 12:45. affiliate manager called the office of HOME HEALTH CAREGIVER, Gerri López, spoke with Chelo, a follow up appointment is scheduled for Sunday, January 05, 2020 at 9:00. affiliate manager called patient with appointment information, was asked to mail a letter to patient with the appointment information. affiliate manager mailed patient a letter with appointment information. Original Note: affiliate manager had message to schedule a out patient echo cardiogram for patient. affiliate manager called patient to confirm that patient wanted to have test and who patient seen for primary care. Patient stated that she does not have a primary care physician. affiliate manager will fax order to centralized scheduling and will get a follow up appointment for patient with HOME HEALTH CAREGIVER, Gerri López. affiliate manager will have the results to go to Rene. affiliate manager will call for appointment information.
--- NOTE | 2020-01-06 14:47 | DCPLANNER ---
Patient did attend appointment scheduled for 01.03.20 for an echo.
--- NOTE | 2020-01-09 14:34 | DCPLANNER ---
Appointment scheduled for 01.05.20 with AUTO ELECTRICAL TECHNICIAN, Gerri López, was cancelled.
== END 2019-11-30 20:30 | disposition home or self-care (01) ==
PROVIDERS: Emergency Provider Family Medicine
DX: R06.02 Shortness of breath (principal); R60.0 Localized edema; I10 Essential (primary) hypertension; J45.909 Unspecified asthma, uncomplicated; Z87.891 Personal history of nicotine dependence
CPT/HCPCS: 12345; 36415; 71045; 80053; 83880; 84484; 85025; 85378; 93005; 96374; 96375; 99282; 99284; J1940

== ENCOUNTER 2019-12-28 02:55 | Outpatient (RCR) | payer MEDICARE, MEDICAID, SELFPAY | END 2020-01-27 23:59 | disposition home or self-care (01) | LOC: SPT 02:55 | PROVIDERS: PCP Family Medicine; Referring Provider Family Medicine; Visit Provider Family Medicine | DX: M54.2 Cervicalgia (principal); M54.12 Radiculopathy, cervical region; M54.5 Low back pain | CPT/HCPCS: 97110 ==

== ENCOUNTER 2020-01-02 12:37 | Outpatient (CLI) | payer MEDICARE, MEDICAID, SELFPAY ==
--- NOTE | 2020-01-02 12:45 | USCV_ITS ---
Jaye Pollard Age: 49 Gender: F : 1970 Exam Date: 01/02/2020 12:55 Ordering Phys: Kyle Small MD [facility] Technologist: Pramod Werner Exam Location: [facility] [place] Indication: PEDAL EDEMA BP: 140 / 87 HR: 69 Rhythm: Sinus Technical Quality: Poor MEASUREMENTS (Male / Female) Normal Values 2D ECHO LV Diastolic Diameter PLAX 4.4 cm 4.2 - 5.9 / 3.9 - 5.3 cm LV Systolic Diameter PLAX 3.0 cm IVS Diastolic Thickness 1.2 cm 0.6 - 1.0 / 0.6 - 0.9 cm IVS Systolic Thickness 1.4 cm LVPW Diastolic Thickness 1.0 cm 0.6 - 1.0 / 0.6 - 0.9 cm LVPW Systolic Thickness 1.2 cm LVOT Diameter 2.5 cm LV Ejection Fraction 2D Teich 57.8 % LV Ejection Fraction MOD 2C 70.9 % LV Ejection Fraction 2C AL 70.5 % LA Diameter 4.2 cm LA Width 3.5 cm LA Height 4.9 cm RA Width 4.3 cm RA Height 3.6 cm Aorta at Sinotubular Diameter 2.4 cm M-MODE LV Diastolic Diameter MM 6.2 cm 4.2 - 5.9 / 3.9 - 5.3 cm LV Systolic Diameter MM 3.9 cm LV Ejection Fraction MM Teich 66.1 % IVS Diastolic Thickness MM 1.1 cm 0.6 - 1.0 / 0.6 - 0.9 cm IVS Systolic Thickness MM 1.8 cm LVPW Diastolic Thickness MM 1.1 cm 0.6 - 1.0 / 0.6 - 0.9 cm LVPW Systolic Thickness MM 1.7 cm RV Diastolic Diameter MM 1.4 cm Aortic Annulus Diameter 3.7 cm LA Ao Ratio MM 1.1 MV E Point Septal Separation 1.5 cm DOPPLER AV Peak Velocity 166.0 cm/s LVOT Peak Velocity 86.0 cm/s AV Area Cont Eq vti 3.0 cm squared AV Area Cont Eq pk 2.6 cm squared MV Area PHT 5.0 cm squared Mitral E to A Ratio 0.8 MV E' Velocity 13.0 cm/s Mitral E to MV E' Ratio 5.8 Mitral E to LV E' Lateral Ratio 5.0 Mitral E to LV E' Septal Ratio 6.9 TR Peak Velocity 146.0 cm/s TR Peak Gradient 8.5 mmHg PV Peak Velocity 120.0 cm/s FINDINGS Left Ventricle The ventricle is poorly seen. There is likely normal left ventricular size and function. No obvious wall motion disturbances. Ejection fraction approximately 65%. Grade 2 diastolic dysfunction. Right Ventricle Right ventricle not well visualized. Normal right ventricular size and systolic function. Right Atrium Mildly increased right atrial size. Left Atrium Mildly increased left atrial size. Mitral Valve Poorly seen. No obvious regurgitation or stenosis. Aortic Valve Poorly seen. No obvious regurgitation or stenosis. Tricuspid Valve Poorly seen. No obvious regurgitation. Pulmonic Valve Pulmonic valve not well visualized. Pericardium Normal pericardium without effusion. Aorta Normal ascending aorta dimension. CONCLUSIONS The ventricle is poorly seen. There is likely normal left ventricular size and function. No obvious wall motion disturbances. Ejection fraction approximately 65%. Grade 2 diastolic dysfunction. Mildly increased right atrial size. Mildly increased left atrial size. There are no prior echocardiogram studies to compare. Dr. Slade Alexander MD (Electronically Signed) Final Date: 02 January 2020 17:15 S
== END 2020-01-02 12:38 | disposition home or self-care (01) ==
LOC: US 12:39
PROVIDERS: PCP Family Medicine; Visit Provider Family Medicine
DX: R60.9 Edema, unspecified (principal); I51.81 Takotsubo syndrome; I51.7 Cardiomegaly
CPT/HCPCS: 93306

== ENCOUNTER 2020-06-13 20:00 | Outpatient (CLI) | payer MEDICARE, MEDICAID, SELFPAY | END 2020-06-13 20:01 | disposition home or self-care (01) | LOC: SLEEP 06-14 09:15 | PROVIDERS: PCP Family Medicine; Visit Provider Family Medicine | DX: G47.10 Hypersomnia, unspecified (principal); R06.83 Snoring; G47.33 Obstructive sleep apnea (adult) (pediatric) | CPT/HCPCS: 95810 ==

== ENCOUNTER 2020-07-18 20:00 | Outpatient (CLI) | payer MEDICARE, MEDICAID, SELFPAY | END 2020-07-18 20:01 | disposition home or self-care (01) | LOC: SLEEP 07-19 10:33 | PROVIDERS: PCP Family Medicine; Visit Provider Family Medicine | DX: G47.33 Obstructive sleep apnea (adult) (pediatric) (principal) | CPT/HCPCS: 95811 ==

== ENCOUNTER 2020-08-10 11:32 | Emergency (ER) | payer MEDICARE, MEDICAID, SELFPAY ==
[2020-08-10 11:37] VITALS: BP 147/92; PULSE 75; RESP 20; TEMP 36.2; O2SAT 98; BMI 72.4
--- NOTE | 2020-08-10 11:43 | XR_ITS ---
WS: [id number] Portable AP upright chest, 08/10/2020 Clinical Data: cp Comparison: Portable chest, 11/30/2019. Findings: No nodules, masses or effusions are seen. The heart is normal. The pulmonary vascularity is not increased. No pneumonia or pneumothorax is seen. XR/XR chest 1V portable [id number] Impression: Negative chest.
--- NOTE | 2020-08-10 11:43 | ECG_ITS ---
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 Measurements Intervals [place] Rate: 72 P: 18 [place]: 165 QRS: 32 QRSD: 98 T: 43 QT: 382 QTc: 418 Interpretive Statements SINUS RHYTHM LOW QRS VOLTAGE IN PRECORDIAL LEADS [QRS DEFLECTION < 1.0 mV IN CHEST LEADS] POSSIBLE ANTERIOR MYOCARDIAL INFARCTION , PROBABLY OLD [30 ms Q WAVE IN V3/V4, OR R < 0.2 mV IN V4] Compared to ECG 11/30/2019 19:19:06 Myocardial infarct finding now present Electronically Signed On 08-11-2020 19:17:19 [employer]. [employer]GER [employer] COMMUNICATIONS by Nae Park M.D. [id number]
--- NOTE | 2020-08-10 11:54 | W.ED.CHESTPA ---
HPI - Chest Pain General: Chief Complaint: Chest Pain Stated Complaint: CHEST PAIN, LOW BP 99/68, DIZZY Time Seen by Provider: 08/10/20 11:42 History of Present Illness: HPI narrative: The patient is a 50-year-old female who comes to the ER complaining of left-sided chest pain radiating to her left arm. She was formerly a smoker and is morbidly obese. She is tender to palpation in her left chest reproducing her chief complaint. She also says this morning she took her blood pressure and it was 99/68. She is a hypertensive patient on 3 different blood pressure medicines and she took them this morning. Blood pressure in the ER 156/91 MD complaint: chest pain Onset: during rest Pain location: left chest Pain radiation: left arm Severity: mild Quality: sharp Exacerbating factors: movement Associated symptoms: Reports no associated symptoms; Deny abdominal pain, dyspnea or palpitations Treatment prior to arrival: none Review of Systems General: Reports: 10 or more systems reviewed and unremarkable except in HPI and below Const: Denies: fatigue Eyes: Denies: change in vision, blurry vision or eye redness ENMT: Denies: throat pain, swelling of lips/tongue, ear or mastoid pain or nasal congestion Card: Denies: chest pain, palpitations, irregular heart rhythm, edema, dyspnea on exertion or orthopnea Resp: Denies: dyspnea, productive cough or non-productive cough GI: Denies: abdominal pain, diarrhea or GI cramping : Denies: flank pain, difficulty voiding, urinary frequency or urinary urgency Musc: Denies: neck pain, back pain, extremity pain, joint pain, joint redness, limited range of motion or muscle weakness Skin/Breast: Denies: rash, pruritus, erythema, skin pain or skin tenderness Neuro: Denies: headache(s), numbness in extremities, weakness in extremities, sensory changes, difficulty walking, dizziness, confusion or Slurred speech present Psych: Denies: anxiety or depression Endo: Denies: polyuria All/Imm: Denies: urticaria, throat swelling or tongue swelling PFSH ED PFSH: Medical History Asthma Calcium deposit in bursa of left hip CALCIUM DEPOSIT REMOVED FROM LEFT BUTTOCK 1991 X3. Carpal tunnel syndrome on both sides Cervical radiculopathy HTN (hypertension), benign Obesity Surgical History H/O exploratory laparotomy EXPLORATORY SURGERY ON FEMALE PART A INFANT Status post colonoscopy with polypectomy (11/10/19) Family History Mother Hypertension Grandmother Heart disease Mother Diabetes Family/Other Breast cancer Social History Smoking and tobacco status: former smoker Quit status (tobacco): has quit using tobacco Alcohol intake: current Alcohol intake frequency: holidays/special occasions only Desire information about substance/drug rehabilitation?: No Counseling given: No Female Reproductive History: Para: 0 Spontaneous abortions: Yes Physical Exam Const: COMMON NORMALS: no acute distress, average body habitus, patient oriented x3, no limitations, healthy appearing, alert and well nourished GENERAL APPEARANCE: cooperative, comfortable, well kempt and well developed ORIENTATION/CONSCIOUSNESS: Yes awake, Yes oriented to person, Yes oriented to place and Yes oriented to time HENMT: COMMON NORMALS: normocephalic, external ears normal and Normal external nose present HEAD & SCALP: normal to inspection and normocephalic NOSE: Normal external nose present EXTERNAL EAR: Yes external ears normal MOUTH: Normal oral and palatal mucosa present THROAT: posterior oropharynx normal Eye: COMMON NORMALS: Equal, round and reactive pupils present and EOMs intact bilaterally GENERAL EYE: appearance normal, both eyes and all related structures PUPIL: Yes Equal, round and reactive pupils present Neck/C-Spine: COMMON NORMALS: full ROM, no lymphadenopathy, no meningeal signs and no JVD GENERAL: Yes normal visual inspection Lymph: LYMPHATIC: no lymphadenopathy noted Chest: COMMONS NORMALS: normal inspection of the chest and normal palpation of entire chest wall Resp: COMMON NORMALS: normal respiratory effort, No retractions, No use of accessory muscles, clear to auscultation bilaterally and percussion normal EFFORT & INSPECTION: Yes able to speak in complete sentences AUSCULTATION: clear to auscultation bilaterally PERCUSSION: percussion normal Cardio: COMMON NORMALS: no JVD, regular rate, regular rhythm, S1 normal heart sound present, S2 normal heart sound present and Peripheral pulses 2+ throughout RATE: regular rate RHYTHM: regular rhythm HEART SOUNDS: S1 normal heart sound present and S2 normal heart sound present PERIPHERAL PULSES: Peripheral pulses 2+ throughout GI: COMMON NORMALS: Normal to inspection, nondistended, normoactive bowel sounds present, Soft to palpation, non-tender and no masses INSPECTION: Yes normal to inspection PALPATION: Yes Soft to palpation : COMMON NORMALS: Yes no CVA tenderness BLADDER/KIDNEY EXAM: Yes no CVA tenderness Back/Pelvis: COMMON NORMALS: no CVA tenderness, thoracic and lumbar spine normal to inspection, no thoracic nor lumbar tenderness and thoraco-lumbar ROM normal Extremity: COMMON NORMALS: normal to inspection, full ROM, capillary refill normal, no joint enlargement and no pedal edema GENERAL: Yes normal exam except as noted Neuro: COMMON NORMALS: patient oriented x3, CN's II-XII intact bilaterally, moves all extremities, no focal motor deficits, no sensory deficits noted and gait normal SENSORIUM/ORIENTATION: Yes alert, Yes oriented to person, Yes oriented to place and Yes oriented to time MENINGEAL SIGNS: Yes no meningeal signs Psych: COMMON NORMALS: mental status grossly normal, Normal thought process present, cooperative, normal affect and speech normal APPEARANCE: Yes well kempt ATTITUDE: Yes calm SPEECH: Yes normal speech THOUGHT PROCESS: Normal thought process present Skin: COMMON NORMALS: no rashes or lesions noted GENERAL SKIN EXAM: no rashes or lesions noted Course Vital Signs: Vital signs: Vital Signs Temperature 97.1 F L 08/10/20 11:37 Pulse Rate 67 08/10/20 14:19 Respiratory Rate 20 H 08/10/20 14:19 Blood Pressure 132/89 08/10/20 14:19 Pulse Oximetry 97 08/10/20 14:19 MDM - Chest Pain MDM Narrative: Medical decision making narrative: The patient comes in complaining of atypical left-sided chest pain. She is very tender in the area. Most likely musculoskeletal. First troponin and EKG are normal. We are unable to get a second troponin after a few different tries and she is refusing further attempts. I feel comfortable discharging her because it is so atypical. Recommended follow-up with primary care physician in a few days to discuss further and I placed a case management consult for a cardiology follow-up. ER with return of symptoms Lab Data: Labs: Lab Results 08/10/20 08/10/20 08/10/20 Range/Units 13:05 13:05 13:05 WBC 7.6 (4.0-10.0) 10^3/ uL RBC 5.27 (4.1-5.3) 10^6/u L Hgb 14.4 (11.5-15.3) g/dL Hct 45.2 (37.0-47.0) % MCV 85.8 (81-99) fL MCH 27.3 L (28.0-34.0) pg MCHC 31.9 (30.0-36.0) g/dL RDW 12.8 (12.1-15.1) % Plt Count 270 (130-400) 10^3/c mm MPV 10.8 H (7.4-10.4) fL Neut % (Auto) 53.4 % Lymph % (Auto) 37.4 % [place] % (Auto) 5.4 % Eos % (Auto) 2.9 % Baso % (Auto) 0.5 % Neut # (Auto) 4.03 (1.8-7.7) 10^3/u L Lymph # (Auto) 2.8 (0.8-4.8) 10^3/u L [place] # (Auto) 0.4 (0.2-0.9) 10^3/u L Eos # (Auto) 0.2 (0.0-0.8) 10^3/u L Baso # (Auto) 0.0 (0.0-0.1) 10^3/u L Nucleated RBC % (a uto) 0 % Nucleated RBCs # 0.0 /100WBC D-Dimer 0.43 (0-0.59) ug/mIFE U Sodium 139 (136-145) mmol/L Potassium 4.3 (3.5-5.1) mmol/L Chloride 97 L (98-107) mmol/L Carbon Dioxide 33 H (22-29) mmol/L Anion Gap 13.3 (5-19) BUN 18 (6-20) mg/dL Creatinine 0.5 (0.5-0.9) mg/dL GFR Calculation 130.1 H (90-130) mL/min Glucose 86 (65-115) mg/dL Calculated Osmolal ity 289 (285-295) mOsm/k g Calcium 9.1 (8.5-10.5) mg/dL Total Bilirubin 0.3 (0.15-1.2) mg/dL AST 15 (0-32) U/L ALT 12 (0-33) U/L Alkaline Phosphata se 105 (35-105) IU/L Troponin T Baselin e (0-10) ng/L NT-Pro-B Natriuret Pep 189 H (0-125) pg/mL Total Protein 7.2 (6.6-8.7) g/dL Albumin 4.2 (3.5-5.2) g/dL Globulin 3.0 (1.3-4.6) g/dL 08/10/20 Range/Units 13:05 WBC (4.0-10.0) 10^3/ uL RBC (4.1-5.3) 10^6/u L Hgb (11.5-15.3) g/dL Hct (37.0-47.0) % MCV (81-99) fL MCH (28.0-34.0) pg MCHC (30.0-36.0) g/dL RDW (12.1-15.1) % Plt Count (130-400) 10^3/c mm MPV (7.4-10.4) fL Neut % (Auto) % Lymph % (Auto) % [place] % (Auto) % Eos % (Auto) % Baso % (Auto) % Neut # (Auto) (1.8-7.7) 10^3/u L Lymph # (Auto) (0.8-4.8) 10^3/u L [place] # (Auto) (0.2-0.9) 10^3/u L Eos # (Auto) (0.0-0.8) 10^3/u L Baso # (Auto) (0.0-0.1) 10^3/u L Nucleated RBC % (a uto) % Nucleated RBCs # /100WBC D-Dimer (0-0.59) ug/mIFE U Sodium (136-145) mmol/L Potassium (3.5-5.1) mmol/L Chloride (98-107) mmol/L Carbon Dioxide (22-29) mmol/L Anion Gap (5-19) BUN (6-20) mg/dL Creatinine (0.5-0.9) mg/dL GFR Calculation (90-130) mL/min Glucose (65-115) mg/dL Calculated Osmolal ity (285-295) mOsm/k g Calcium (8.5-10.5) mg/dL Total Bilirubin (0.15-1.2) mg/dL AST (0-32) U/L ALT (0-33) U/L Alkaline Phosphata se (35-105) IU/L Troponin T Baselin e 6 (0-10) ng/L NT-Pro-B Natriuret Pep (0-125) pg/mL Total Protein (6.6-8.7) g/dL Albumin (3.5-5.2) g/dL Globulin (1.3-4.6) g/dL Discharge Plan Discharge Patient Disposition: Home Clinical Impression: Atypical chest pain Condition: Stable Prescriptions: No Action cyclobenzaprine 10 mg Tablet 10 mg PO DAILY@22 RF: 0 Wixela Inhub 250-50 mcg/dose blister with device 1 inh INHALATION BID RF: 0 metoprolol tartrate 100 mg tablet 100 mg PO Q12H RF: 0 nifedipine 60 mg tablet extended release 24hr 60 mg PO DAILY@08 RF: 0 Aleve 220 mg Tablet 660 mg PO BID RF: 0 montelukast 10 mg tablet 10 mg PO DAILY@22 RF: 0 hydrochlorothiazide 25 mg tablet 25 mg PO DAILY@08 RF: 0 Ventolin HFA 90 mcg/actuation HFA aerosol inhaler 2 puff INHALATION Q4H PRN (Reason: shortness of breath) RF: 0 albuterol sulfate 2.5 mg /3 mL (0.083 %) Solution For Nebulization 2.5 mg INHALATION QID PRN (Reason: Shortness Of Breath) RF: 0 Adult Multivitamin Gummies 200 mcg Tablet,Chewable 400 mcg PO DAILY@08 RF: 0 Discharge Orders: Discharge ED (Routine); Ordered 08/10/20 Ordered By: Tra Angel Referrals: Cande Nelson MD [Primary Care Provider] - Discharge Diet: Advance as tolerated Discharge Activity: Resume usual activity Patient Instructions: Chest Pain - Chest Wall, Chest Pain (ED), Opioid Safety Activity Restrictions/Additional Instructions: You most likely have pain in your chest wall which is giving you the feeling of chest pain. Please take ibuprofen at home and follow-up with your primary care physician. I have placed a referral with our supportive employment case manager who will help you get an appointment with a food service clerk. Please answer your phone so she can help arrange this. Return to the ER with worsening symptoms Coding Level of Care Code ED Electrical Appliance Mechanic for Jm Fwd Exam Comprehensive
[2020-08-10] MEDS: aspirin 81 mg Chew Tablet 324 MG PO (12:01)
[2020-08-10] MEDS: nitroglycerin 0.4 mg sublingual Tablet SUBLINGUAL ×2 (12:02→12:15)
--- NOTE | 2020-08-10 13:08 | PC.NURSE ---
US IV placed, blood drawn.
[2020-08-10] MEDS: sodium chloride 0.9% 1,000 ML 999 ML IV (13:09)
[2020-08-10 13:20] LABS: Basophils % 0.5 %; Eosinophils # 0.2 10^3/uL (0.0-0.8); Eosinophils % 2.9 %; Hematocrit 45.2 % (37.0-47.0); Hemoglobin 14.4 g/dL (11.5-15.3); Lymphocytes # 2.8 10^3/uL (0.8-4.8); Lymphocytes % 37.4 %; Mean Corpuscular HGB Conc 31.9 g/dL (30.0-36.0); Mean Corpuscular Hemoglobin 27.3 pg (28.0-34.0); Mean Corpuscular Volume 85.8 fL (81-99); Mean Platelet Volume 10.8 fL (7.4-10.4); Monocytes # 0.4 10^3/uL (0.2-0.9); Monocytes % 5.4 %; Neutrophils # 4.03 10^3/uL (1.8-7.7); Neutrophils % 53.4 %; Nucleated Red Blood Cells % 0 %; Platelet Count 270 10^3/cmm (130-400); Red Blood Count 5.27 10^6/uL (4.1-5.3); Red Cell Distribution Width 12.8 % (12.1-15.1); White Blood Count 7.6 10^3/uL (4.0-10.0)
--- NOTE | 2020-08-10 13:43 | ECG_ITS ---
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 Measurements Intervals [place] Rate: 65 P: 15 GA: 156 QRS: 23 QRSD: 98 T: 34 QT: 409 QTc: 428 Interpretive Statements SINUS RHYTHM LOW QRS VOLTAGE IN PRECORDIAL LEADS [QRS DEFLECTION < 1.0 mV IN CHEST LEADS] Poor R wave progression Compared to ECG 08/10/2020 11:42:16 Myocardial infarct finding no longer present Electronically Signed On 08-11-2020 19:32:23 CHANNEL MARKETING COORDINATOR by Nae Park M.D. [id number]
[2020-08-10 13:58] LABS: D Dimer 0.43 ug/mIFEU (0-0.59); Troponin(5th) Baseline 6 ng/L (0-10)
[2020-08-10 14:01] VITALS: PULSE 64; RESP 20; O2SAT 96
[2020-08-10 14:08] LABS: Alanine Aminotransferase 12 U/L (0-33); Albumin Level 4.2 g/dL (3.5-5.2); Alkaline Phosphatase 105 IU/L (35-105); Anion Gap 13.3 (5-19); Aspartate Amino Transferase 15 U/L (0-32); Blood Urea Nitrogen 18 mg/dL (6-20); Calcium 9.1 mg/dL (8.5-10.5); Carbon Dioxide 33 mmol/L (22-29); Chloride 97 mmol/L (98-107); Glomerular Filtration Rate 130.1 mL/min (90-130); Glucose 86 mg/dL (65-115); NT Pro B Type Natriuretic Pept 189 pg/mL (0-125); Osmolality Calculated 289 mOsm/kg (285-295); Potassium 4.3 mmol/L (3.5-5.1); Sodium 139 mmol/L (136-145); Total Bilirubin 0.3 mg/dL (0.15-1.2); Total Protein 7.2 g/dL (6.6-8.7)
[2020-08-10 14:19] VITALS: BP 132/89; PULSE 67; RESP 20; O2SAT 97
--- NOTE | 2020-08-10 14:45 | PC.NURSE ---
EKG done at 1445 and shown to ER doctor
[2020-08-10 16:12] VITALS: BP 138/84; PULSE 67; RESP 21; O2SAT 96
--- NOTE | 2020-08-13 09:55 | DCPLANNER ---
nonprofit manager received message to schedule cardiology follow up appointment. nonprofit manager called cardiology and schedule patient mackenzie. appointment with Dr. Leavitt for 08/22/20 @ 9:15am.
--- NOTE | 2020-09-05 13:38 | DCPLANNER ---
Patient had a follow up appointment scheduled for 08.22.20 with [facility] - patient did attend appointment.
== END 2020-08-10 16:13 | disposition home or self-care (01) ==
PROVIDERS: Emergency Provider Family Medicine; PCP Family Medicine
DX: R07.89 Other chest pain (principal); I10 Essential (primary) hypertension; Z87.891 Personal history of nicotine dependence
CPT/HCPCS: 71045; 80053; 83880; 84484; 85025; 85378; 93005; 96360; 99284; J7030

== ENCOUNTER 2020-11-22 09:51 | Outpatient (CLI) | payer MEDICARE, MEDICAID, SELFPAY ==
--- NOTE | 2020-11-22 09:55 | MM_ITS ---
WS: [id number] BILATERAL SCREENING DIGITAL MAMMOGRAM WITH CAD HISTORY: SCREENING COMPARISON: 01/30/2017 and 01/18/2016 Bilateral CC and MLO views submitted. Computer aided detection analyzed. Breast composition: There are scattered areas of fibroglandular density. No suspicious masses, microc alcifications or architectural distortion. Scattered asymmetries and calcifications are stable. MM/[id number] IMPRESSION: BI-RADS: 2-Benign FOLLOW UP: 1 Year Follow-up
== END 2020-11-22 09:52 | disposition home or self-care (01) ==
LOC: RADSHAW 09:54
PROVIDERS: PCP Family Medicine; Visit Provider Family Medicine
DX: Z12.31 Encounter for screening mammogram for malignant neoplasm of breast (principal)
CPT/HCPCS: 77067

== ENCOUNTER → 2020-12-20 10:32 | Outpatient (BNVA) | payer MEDICARE, MEDICAID, SELFPAY | PROVIDERS: PCP Family Medicine; Visit Provider Obstetrics & Gynecology | DX: N92.6 Irregular menstruation, unspecified (principal); N93.9 Abnormal uterine and vaginal bleeding, unspecified | CPT/HCPCS: 84443; 85025; 88305 ==

== ENCOUNTER → 2020-12-24 11:02 | Outpatient (BNVA) | payer MEDICARE, MEDICAID, SELFPAY | PROVIDERS: PCP Family Medicine; Visit Provider Obstetrics & Gynecology | DX: N93.9 Abnormal uterine and vaginal bleeding, unspecified (principal) | CPT/HCPCS: 76830 ==

== ENCOUNTER → 2021-01-24 11:18 | Outpatient (BNVA) | payer MEDICARE, MEDICAID, SELFPAY | PROVIDERS: PCP Family Medicine; Visit Provider Obstetrics & Gynecology | DX: N93.9 Abnormal uterine and vaginal bleeding, unspecified (principal) | CPT/HCPCS: 87635 ==

== ENCOUNTER 2021-01-29 11:09 | Day surgery (SDC) | payer MEDICARE, MEDICAID, SELFPAY ==
[2021-01-24 12:17] VITALS: BMI 75.6
[2021-01-24 12:45] LABS: Basophils % 0.5 %; Eosinophils # 0.3 10^3/uL (0.0-0.8); Hematocrit 45.1 % (37.0-47.0); Hemoglobin 14.1 g/dL (11.5-15.3); Lymphocytes # 2.4 10^3/uL (0.8-4.8); Lymphocytes % 28.3 %; Mean Corpuscular HGB Conc 31.3 g/dL (30.0-36.0); Mean Corpuscular Hemoglobin 27.4 pg (28.0-34.0); Mean Corpuscular Volume 87.6 fL (81-99); Mean Platelet Volume 9.5 fL (7.4-10.4); Monocytes # 0.4 10^3/uL (0.2-0.9); Monocytes % 4.2 %; Neutrophils # 5.29 10^3/uL (1.8-7.7); Neutrophils % 63.4 %; Nucleated Red Blood Cells % 0 %; Platelet Count 354 10^3/cmm (130-400); Red Blood Count 5.15 10^6/uL (4.1-5.3); Red Cell Distribution Width 12.6 % (12.1-15.1); White Blood Count 8.3 10^3/uL (4.0-10.0)
[2021-01-24 13:11] LABS: Alanine Aminotransferase 13 U/L (0-33); Albumin Level 3.9 g/dL (3.5-5.2); Alkaline Phosphatase 113 IU/L (35-105); Anion Gap 14.5 (5-19); Aspartate Amino Transferase 17 U/L (0-32); Blood Urea Nitrogen 17 mg/dL (6-20); Carbon Dioxide 30 mmol/L (22-29); Chloride 100 mmol/L (98-107); Globulin 3.7 g/dL (1.3-4.6); Glucose 88 mg/dL (65-115); Osmolality Calculated 291 mOsm/kg (285-295); Potassium 4.5 mmol/L (3.5-5.1); Sodium 140 mmol/L (136-145); Total Bilirubin 0.2 mg/dL (0.15-1.2); Total Protein 7.6 g/dL (6.6-8.7)
--- NOTE | 2021-01-24 14:16 | P.ANESASSM_ITS ---
Pre-Anesthetic Assessment Pre-Anesthetic Assessment: Height/Weight: Height 1.36 m Weight 139.706 kg Preop Diagnosis: AUB, thickened endometrium, morbid obesity Proposed Procedure: Operation Date: 01/29/21 11:25 Proposed Procedures p Hysteroscopy w/ Myosure Martha [id number] N93.9(Not Applicable) - Aurelia Barbosa MD s Dilation And Curettage (D&C)(Not Applicable) - Aurelia Barbosa MD Was Beta Edwar taken within 24 hours: Yes Was Clonidine taken within 24 hours: N/A Social: Social History: No alcohol and No tobacco Exam: Pre-Anes Outpt Exam: alert, oriented x 3, clear to auscultation bilaterally and regular rate & rhythm Airway: Submandibular: WNL Cervical ROM: WNL MP: 2 Dentition: Full Pulmonary: Pulmonary: Asthma and Sleep apnea CV/HEM: CV/HEM: CHF and HTN Metabolic: Metabolic: Morbid obesity Musc/skel: Musc/skel: Lower Back Pain Anesthetic Plan: ASA status: 3 Anesthesia: General Risk of > 500 ml blood loss (7ml/kg in children): No PFSH Anesthesia PFSH: Medical History Asthma Calcium deposit in bursa of left hip CALCIUM DEPOSIT REMOVED FROM LEFT BUTTOCK 1991 X3. Carpal tunnel syndrome on both sides Cervical radiculopathy CHF (congestive heart failure), NYHA class III HTN (hypertension), benign Obesity Surgical History H/O exploratory laparotomy EXPLORATORY SURGERY ON FEMALE PART A Status post colonoscopy with polypectomy (11/10/19) Family History Mother Hypertension Grandmother Heart disease Cancer Paternal -- stomach Mother Diabetes Family/Other Breast cancer Maternal Aunt Denies family history of Clotting disorder Hyperlipidemia Chronic kidney disease (CKD) Thyroid disease Stroke Female Reproductive History: Date of last menstrual period: 01/12/21 Para: 0 Spontaneous abortions: Yes Data Anesthesia CBC & Chem 7: 01/24/21 12:37 01/24/21 12:37 Other Labs: Laboratory Results - last 48 hr 07/29/21 07/29/21 12:37 12:37 WBC 8.3 RBC 5.15 Hgb 14.1 Hct 45.1 MCV 87.6 MCH 27.4 L MCHC 31.3 RDW 12.6 Plt Count 354 MPV 9.5 Neut % (Auto) 63.4 Lymph % (Auto) 28.3 [place] % (Auto) 4.2 Eos % (Auto) 3.0 Baso % (Auto) 0.5 Neut # (Auto) 5.29 Lymph # (Auto) 2.4 [place] # (Auto) 0.4 Eos # (Auto) 0.3 Baso # (Auto) 0.0 Nucleated RBC % (auto) 0 Nucleated RBCs # 0.0 Sodium 140 Potassium 4.5 Chloride 100 Carbon Dioxide 30 H Anion Gap 14.5 BUN 17 Creatinine 0.6 GFR Calculation 105.0 Glucose 88 Calculated Osmolality 291 Calcium 9.0 Total Bilirubin 0.2 AST 17 ALT 13 Alkaline Phosphatase 113 H Total Protein 7.6 Albumin 3.9 Globulin 3.7 Cardiac Studies: No Data to Display
[2021-01-29] VITALS (10 sets, daily range): BP systolic 102–161; BP diastolic 52–91; PULSE 65–72; RESP 12–18; TEMP 36.3–36.4; O2SAT 92–100
[2021-01-29] MEDS: sodium chloride 0.9% 1,000 ML 30 ML IV (11:44)
[2021-01-29 11:46] LABS: OR HCG Qualitative Urine Negative (Negative)
--- NOTE | 2021-01-29 12:27 | W.PM.OPSUD ---
Surgery/Procedure H&P Update DATE OF PROCEDURE: January 29, 2021 DATE H&P PERFORMED: 01/24/21 H&P UPDATE INFORMATION: I have reviewed H&P completed within last 30 days, I have examined patient prior to procedure and No changes to prior documentation PREOP DIAGNOSIS: AUB, thickened endometrium, morbid obesity PLANNED PROCEDURE: Operation Date: 01/29/21 12:40 Proposed Procedures p Hysteroscopy w/ Myosure Martha [id number] N93.9(Not Applicable) - Aurelia Barbosa MD s Dilation And Curettage (D&C)(Not Applicable) - Aurelia Barbosa MD
--- NOTE | 2021-01-29 12:50 | P.ANESUD_ITS ---
Pre-Anesthetic Update Pre-Anesthetic Assessment: Date of Surgery/Procedure: 01/29/21 Preop Jaimie gnosis: AUB, thickened endometrium, morbid obesity Proposed Procedure: Operation Date: 01/29/21 12:40 Proposed Procedures p Hysteroscopy w/ Myosure Martha [id number] N93.9(Not Applicable) - Aurelia Barbosa MD s Dilation And Curettage (D&C)(Not Applicable) - Aurelia Barbosa MD Any changes to Pre-Anesthetic Assessment?: No Last Intake: Intake Last Liquid Date 01/28/21 Last Liquid Time 21:00 Last Solid Date 01/28/21 Last Solid Time 21:00 Labs Last 48hrs: Laboratory Results - last 48 hr 01/29/21 11:45 Urine HCG, Qual Negative Vitals: Temperature 97.5 F L 01/29/21 11:31 Pulse Rate 65 01/29/21 11:31 Respiratory Rate 18 01/29/21 11:31 Blood Pressure 161/91 01/29/21 11:31 Blood Pressure Moon n 114 01/29/21 11:31 Pulse Oximetry 96 01/29/21 11:31 Oxygen Delivery Me thod 01/29/21 11:52 Exam: Pre-Anes Outpt Exam: alert, oriented x 3, clear to auscultation bilaterally and regular rate & rhythm Other Pertinent Information: Other Pertinent Information: super morbid obesity Cardiac Studies: No Data to Display
[2021-01-29] MEDS: ceFAZolin 3,000 MG in sodium chloride 0.9% (100 ml) 100 ML 200 MG IV (13:47)
--- NOTE | 2021-01-29 14:52 | P.OP_ITS ---
Operative Report Date of procedure: January 29, 2021 Pre-op Diagnosis: AUB, thickened endometrium, morbid obesity Post-op diagnosis: same Post-op Findings: right sided endometrial polyp Procedure Done: hysteroscopy, dilation and curettage with myosure Specimens removed/disposition: endometrial curettings and polyp to pathology Surgeon: Aurelia Barbosa Anesthesia: General Estimated blood loss (mL): 5 IV fluids (mL): 800 Complications: none Findings: thickened endometrium with endometrial polyp hysteroscopy deficit 370 Condition: stable Disposition: PACU Procedure: The patient was taken to the operating room where monitored anesthesia was administered and to be adequate. She was prepped and draped in the normal sterile fashion in the dorsal lithotomy position in [facility]. A weighted speculum was placed into the vagina and the anterior lip of the cervix grasped with a single-tooth tenaculum. The uterus was sounded to 9 cm. The cervix was dilated to 15 English. The hysteroscope was advanced into the endometrial cavity. There was a polyp near the right tubal ostia as well as excessive tissue visualized. The MyoSure device was activated and the tissue was removed. Pictures were taken pre and post procedure. All instruments were removed. The patient tolerated the procedure well. Sponge lap and needle counts were correct x3. She was taken to the recovery room in stable condition.
--- NOTE | 2021-01-29 15:01 | PM.DCS ---
Discharge Providers Date of Discharge: January 29, 2021 Attending Provider at Discharge: Aurelia Barbosa MD Primary Care Provider: Cande Nelson MD Diagnoses at Discharge Discharge Diagnosis (1) Postoperative state: Status: Acute Reason for Visit Reason for Visit: hysteroscopy, d and c Hospital Course Hospital Course The patient was admitted for surgery. she did well postoperatively and was ready for discharge. Discharge Data Data Completed and Pending: Pending at discharge Category Date Time Status ES surgery / GI i mages Routine Exams 01/29/21 12:14 Taken Pathology: Surgic al [PTH] Routine Pth 01/29/21 14:48 Ordered Labs from last 24 hours 01/29/21 11:45 Urine HCG, Qual Negative Vitals: Last Vital Signs Temp 97.5 F L 01/29/21 11:31 Pulse 65 01/29/21 11:31 Resp 18 01/29/21 11:31 BP 161/91 01/29/21 11:31 Pulse Ox 96 01/29/21 11:31 Discharge Plan Discharge Patient Disposition: Home Condition: Stable Prescriptions: Continued cyclobenzaprine 10 mg Tablet 10 mg PO DAILY@22 RF: 0 fluticasone propion-salmeterol [Wixela Inhub] 250-50 mcg/dose blister with device 1 inh INHALATION BID RF: 0 metoprolol tartrate 100 mg tablet 100 mg PO Q12H RF: 0 naproxen sodium [Aleve] 220 mg Tablet 660 mg PO BID RF: 0 montelukast 10 mg tablet 10 mg PO DAILY@22 RF: 0 albuterol sulfate [Ventolin HFA] 90 mcg/actuation HFA aerosol inhaler 2 puff INHALATION Q4H PRN (Reason: shortness of breath) RF: 0 furosemide 40 mg tablet 40 mg PO DAILY RF: 0 amlodipine 5 mg Tablet 5 mg PO DAILY RF: 0 albuterol sulfate 2.5 mg /3 mL (0.083 %) Solution For Nebulization 2.5 mg INHALATION QID PRN (Reason: Shortness Of Breath) RF: 0 Adult Multivitamin Gummies 200 mcg Tablet,Chewable 400 mcg PO DAILY@08 RF: 0 Discharge Orders: Discharge Order (Routine); Ordered 01/29/21 Ordered By: Aurelia Barbosa Discharge Attestations Time Spent in Discharge Care*: less than 30 min Quality Metrics Clinical Quality Measures During this hospital stay, did patient experience: None Coding Level of Care Code Acute Chg FW DC note Diagnoses Postoperative state Z98.890
--- NOTE | 2021-01-29 17:09 | ANE.PACU2 ---
Inpatient post-anesthesia follow up: Airway intact: Yes Vital signs: Temperature 97.6 F Pulse Rate 71 Respiratory Rate 18 Blood Pressure 132/56 Pulse Oximetry 94 Oxygen Delivery Me thod Room Air Oxygen Flow Rate 8 Fraction of Inspir ed Oxygen Hydration adequate: Yes Nausea and vomiting: No Pain level: 2 Mental status: Baseline
== END 2021-01-29 16:35 | disposition home or self-care (01) ==
PROVIDERS: Anesthesiology; PCP Family Medicine; Visit Provider Obstetrics & Gynecology
PROC: 0UDB8ZZ Extraction of Endometrium, Via Natural or Artificial Opening Endoscopic (ICD-10-PCS; CPT 58558; principal; 2021-01-29 12:40)
PROC: (CPT 58120; 2021-01-29 12:40)
DX: N93.9 Abnormal uterine and vaginal bleeding, unspecified (principal); R93.89 Abnormal findings on diagnostic imaging of other specified body structures; E66.01 Morbid (severe) obesity due to excess calories; Z68.45 Body mass index [BMI] 70 or greater, adult; I11.0 Hypertensive heart disease with heart failure; I50.9 Heart failure, unspecified; G47.30 Sleep apnea, unspecified
CPT/HCPCS: 58558; 36415; 80053; 84703; 85025; 87086; 88305; J0330; J0690; J1100; J2405; J2704; J3010; J7030

== ENCOUNTER → 2021-02-21 14:10 | Outpatient (BNVA) | payer MEDICARE, MEDICAID, SELFPAY | PROVIDERS: PCP Family Medicine; Visit Provider Obstetrics & Gynecology | DX: Z30.9 Encounter for contraceptive management, unspecified (principal); Z30.430 Encounter for insertion of intrauterine contraceptive device | CPT/HCPCS: 81025 ==

== ENCOUNTER → 2021-02-28 08:58 | Outpatient (BNVA) | payer MEDICARE, MEDICAID, SELFPAY | PROVIDERS: PCP Family Medicine; Visit Provider Obstetrics & Gynecology | DX: Z30.431 Encounter for routine checking of intrauterine contraceptive device (principal) | CPT/HCPCS: 76830 ==

== ENCOUNTER → 2021-03-11 14:54 | Outpatient (BNVA) | payer MEDICARE, MEDICAID, SELFPAY | PROVIDERS: PCP Family Medicine; Visit Provider Obstetrics & Gynecology | DX: Z30.431 Encounter for routine checking of intrauterine contraceptive device (principal); Z30.9 Encounter for contraceptive management, unspecified | CPT/HCPCS: 87070; 87205 ==

== ENCOUNTER 2021-06-19 10:12 | Emergency (ER) | payer MEDICARE, MEDICAID, SELFPAY ==
[2021-06-19 10:33] VITALS: BP 172/106; PULSE 107; RESP 22; TEMP 36.9; O2SAT 96
--- NOTE | 2021-06-19 10:38 | XRR_ITS ---
PROCEDURE INFORMATION: Exam: XR Chest Exam date and time: 06/19/2021 10:38 AM Age: 51 years old Clinical indication: Shortness of breath. History of COVID 19. Extreme shortness of breath. TECHNIQUE: Imaging protocol: XR of the chest. Views: 1 view. COMPARISON: CR XR chest 1V portable [id number] 08/10/2020 11:53 AM FINDINGS: Lungs: There is hazy opacity at the left base. Pleural spaces: No pleural effusion. No pneumothorax. Heart/Mediastinum: Cardiac silhouette is approximately unchanged. No gross evidence of pneumomediastinum. Bones/joints: No gross fracture. XR/XR chest 1V portable [id number] IMPRESSION: There is hazy opacity at the left base suspicious for pneumonia. Consider CT to better characterize.
--- NOTE | 2021-06-19 10:41 | W.ED.COVID ---
Documented by User: LAVERNE Perkins 06/19/21 11:04 HPI - COVID General: Chief Complaint: COVID symptoms Stated Complaint: COVID +/EXTREMELY SOB Time Seen by Provider: 06/19/21 10:37 Triage information: No fever, cough or shortness of breath. No known COVID + exposure last 14 days History of Present Illness: HPI Narrative: Patient states that she has been sick for the last 3 weeks. Said her oxygen level dropped down last night to the high 80s and she went to [facility] to get checked today and he tested Covid positive said she finished a round of doxycycline and prednisone yesterday. complaint: known COVID positive Prior covid testing: yes, results known Prior testing date: 06/19/21 COVID 19 common symptoms: positive non-productive cough and dyspnea; negative fever(s), chills, body aches, headache(s), throat pain, nasal congestion, nausea or vomiting COVID 19 other sytmptoms: negative chest pain Onset (ago): week(s) Severity: mild Pertinent comorbid conditions: hypertension Treatment prior to arrival: antibiotics and steroids COVID Results: Nasal/Oral Coronavirus 2019 PCR Not detected 01/24/21 11:18 01/24/21 Review of Systems Const: Denies: fever(s), chills or body aches Eyes: Denies: change in vision or blurry vision ENMT: Denies: throat pain or nasal congestion Card: Denies: chest pain or dyspnea on exertion Resp: Reports: dyspnea and non-productive cough GI: Denies: abdominal pain, nausea or vomiting Musc: Denies: extremity pain Skin/Breast: Denies: rash Neuro: Denies: headache(s) Psych: Denies: anxiety or depression Rahat/Lymph: Denies: easy bruising PFSH ED PFSH: Medical History Asthma Calcium deposit in bursa of left hip CALCIUM DEPOSIT REMOVED FROM LEFT BUTTOCK 1991 X3. Carpal tunnel syndrome on both sides Cervical radiculopathy CHF (congestive heart failure), NYHA class III HTN (hypertension), benign Obesity Surgical History H/O exploratory laparotomy EXPLORATORY SURGERY ON FEMALE PART A INFANT Status post colonoscopy with polypectomy (11/10/19) Family History Mother Hypertension Grandmother Heart disease Cancer Paternal -- stomach Mother Diabetes Family/Other Breast cancer Maternal Aunt Denies family history of Clotting disorder Hyperlipidemia Chronic kidney disease (CKD) Thyroid disease Stroke Female Reproductive History: Date of last menstrual period: 01/12/21 Para: 0 Spontaneous abortions: Yes Physical Exam Const: COMMON NORMALS: no acute distress, average body habitus and patient oriented x3 HENMT: COMMON NORMALS: normocephalic HEAD & SCALP: normal to inspection and normocephalic FACE & SINUS: normal facial exam Eye: COMMON NORMALS: conjunctivae normal GENERAL EYE: appearance normal, both eyes and all related structures CONJUNCTIVA: Yes conjunctivae normal Neck/C-Spine: COMMON NORMALS: no JVD Chest: COMMONS NORMALS: normal inspection of the chest Resp: COMMON NORMALS: normal respiratory effort Cardio: COMMON NORMALS: no JVD and regular rhythm RATE: tachycardic RHYTHM: regular rhythm GI: INSPECTION: Yes normal to inspection Extremity: COMMON NORMALS: normal to inspection and full ROM Neuro: COMMON NORMALS: patient oriented x3 Course Vital Signs: Vital signs: Vital Signs Temperature 98.5 F 06/19/21 10:33 Pulse Rate 124 H 06/19/21 10:47 Respiratory Rate 20 H 06/19/21 10:47 Blood Pressure 187/111 06/19/21 10:47 Pulse Oximetry 95 06/19/21 10:47 MDM - COVID MDM Narrative: Medical decision making narrative: Patient presents here with Covid positive test and shortness of breath related to Covid. Chest x-ray appears similar to previous. Patient size precludes self tachycardia and that she just finished a round of prednisone yesterday. Patient does also have hypertension and takes medication for that. Patient encouraged to follow back up primary care provider if worsening symptoms are return here. COVID Results: Nasal/Oral Coronavirus 2019 PCR Not detected 01/24/21 11:18 01/24/21 Discharge Plan Discharge Patient Disposition: Home Clinical Impression: COVID-19 Condition: Stable Prescriptions: New Decadron 6 mg tablet 6 mg PO DAILY Qty: 7 RF: 0 No Action cetirizine [Zyrtec] 10 mg tablet 10 mg PO DAILY PRNRF: 0 Neuriva Plus 0.85 mg-200 mcg-1.2 mcg tablet,chewable PO RF: 0 ultra co q 10 .Route RF: 0 calcium carbonate-vitamin D3 [Caltrate with Vitamin D3] 600 mg(1,500mg) -800 unit tablet 1 tab PO DAILY RF: 0 fluticasone propionate [Allergy Relief (fluticasone)] 50 mcg/actuation spray,suspension 1 spray intranasal DAILY RF: 0 medroxyprogesterone [Provera] 5 mg tablet 5 mg PO DAILY Qty: 30 RF: 5 amlodipine 5 mg tablet 5 mg PO DAILY Qty: 90 RF: 2 furosemide 40 mg tablet 60 mg PO DAILY Qty: 135 RF: 2 metoprolol tartrate 100 mg tablet 100 mg PO Q12H Qty: 180 RF: 2 cyclobenzaprine 10 mg Tablet 10 mg PO DAILY@22 RF: 0 fluticasone propion-salmeterol [Wixela Inhub] 250-50 mcg/dose blister with device 1 inh INHALATION BID RF: 0 naproxen sodium [Aleve] 220 mg Tablet 660 mg PO BID RF: 0 montelukast 10 mg tablet 10 mg PO DAILY@22 RF: 0 albuterol sulfate [Ventolin HFA] 90 mcg/actuation HFA aerosol inhaler 2 puff INHALATION Q4H PRN (Reason: shortness of breath) RF: 0 albuterol sulfate 2.5 mg /3 mL (0.083 %) Solution For Nebulization 2.5 mg INHALATION QID PRN (Reason: Shortness Of Breath) RF: 0 Adult Multivitamin Gummies 200 mcg Tablet,Chewable 400 mcg PO DAILY@08 RF: 0 Discharge Orders: Discharge ED (Routine); Ordered 06/19/21 Ordered By: Emigdio Senior Referrals: Cande Nelson MD [Primary Care Provider] - Discharge Diet: Usual diet Discharge Activity: Increase activity as tolerated Patient Instructions: COVID-19 (Coronavirus Disease 2019) (ED) Activity Restrictions/Additional Instructions: Follow-up with medical provider as directed. Take medications as prescribed. Return to the ER or your medical provider if condition worsens. Please read and understand discharge instructions. If any questions ask please. Coding Level of Care Code ED Speech/Language Therapist for Chg Fwd Exam Comprehensive Documented by User: Floyd Soliz MD 06/25/21 19:56 HPI - COVID General: Chief Complaint: COVID symptoms Stated Complaint: COVID +/EXTREMELY SOB Time Seen by Provider: 06/19/21 10:37 COVID Results: Nasal/Oral Coronavirus 2019 PCR Not detected 01/24/21 11:18 01/24/21 PFSH ED PFSH: Medical History Asthma Calcium deposit in bursa of left hip CALCIUM DEPOSIT REMOVED FROM LEFT BUTTOCK 1992 X3. Carpal tunnel syndrome on both sides Cervical radiculopathy CHF (congestive heart failure), NYHA class III HTN (hypertension), benign Obesity Surgical History H/O exploratory laparotomy EXPLORATORY SURGERY ON FEMALE PART A INFANT Status post colonoscopy with polypectomy (11/10/19) Family History Mother Hypertension Grandmother Heart disease Cancer Paternal -- stomach Mother Diabetes Family/Other Breast cancer Maternal Aunt Denies family history of Clotting disorder Hyperlipidemia Chronic kidney disease (CKD) Thyroid disease Stroke Course Vital Signs: Vital signs: Vital Signs Temperature 98.5 F 06/19/21 10:33 Pulse Rate 124 H 06/19/21 10:47 Respiratory Rate 20 H 06/19/21 10:47 Blood Pressure 187/111 06/19/21 10:47 Pulse Oximetry 95 06/19/21 10:47 MDM - COVID MDM Narrative: Medical decision making narrative: I reviewed this documentation. Floyd Soliz MD Emergency Medicine COVID Results: Nasal/Oral Coronavirus 2019 PCR Not detected 01/24/21 11:18 01/24/21 Discharge Plan Discharge Patient Disposition: Home Clinical Impression: COVID-19 Condition: Stable Prescriptions: New Decadron 6 mg tablet 6 mg PO DAILY Qty: 7 RF: 0 No Action cetirizine [Zyrtec] 10 mg tablet 10 mg PO DAILY PRNRF: 0 Neuriva Plus 0.85 mg-200 mcg-1.2 mcg tablet,chewable PO RF: 0 ultra co q 10 .Route RF: 0 calcium carbonate-vitamin D3 [Caltrate with Vitamin D3] 600 mg(1,500mg) -800 unit tablet 1 tab PO DAILY RF: 0 fluticasone propionate [Allergy Relief (fluticasone)] 50 mcg/actuation spray,suspension 1 spray intranasal DAILY RF: 0 medroxyprogesterone [Provera] 5 mg tablet 5 mg PO DAILY Qty: 30 RF: 5 amlodipine 5 mg tablet 5 mg PO DAILY Qty: 90 RF: 2 furosemide 40 mg tablet 60 mg PO DAILY Qty: 135 RF: 2 metoprolol tartrate 100 mg tablet 100 mg PO Q12H Qty: 180 RF: 2 cyclobenzaprine 10 mg Tablet 10 mg PO DAILY@22 RF: 0 fluticasone propion-salmeterol [Wixela Inhub] 250-50 mcg/dose blister with device 1 inh INHALATION BID RF: 0 naproxen sodium [Aleve] 220 mg Tablet 660 mg PO BID RF: 0 montelukast 10 mg tablet 10 mg PO DAILY@22 RF: 0 albuterol sulfate [Ventolin HFA] 90 mcg/actuation HFA aerosol inhaler 2 puff INHALATION Q4H PRN (Reason: shortness of breath) RF: 0 albuterol sulfate 2.5 mg /3 mL (0.083 %) Solution For Nebulization 2.5 mg INHALATION QID PRN (Reason: Shortness Of Breath) RF: 0 Adult Multivitamin Gummies 200 mcg Tablet,Chewable 400 mcg PO DAILY@08 RF: 0 Discharge Orders: Discharge ED (Routine); Ordered 06/19/21 Ordered By: Emigdio Senior Referrals: Cande Nelson MD [Primary Care Provider] - Discharge Diet: Usual diet Discharge Activity: Increase activity as tolerated Patient Instructions: COVID-19 (Coronavirus Disease 2019) (ED) Activity Restrictions/Additional Instructions: Follow-up with medical provider as directed. Take medications as prescribed. Return to the ER or your medical provider if condition worsens. Please read and understand discharge instructions. If any questions ask please. Coding Level of Care Code ED Speech/Language Therapist for Prateekg Fwd Exam Comprehensive
[2021-06-19 10:45] VITALS: O2SAT 95
[2021-06-19 10:47] VITALS: BP 187/111; PULSE 124; RESP 20; O2SAT 95
== END 2021-06-19 11:31 | disposition home or self-care (01) ==
PROVIDERS: Emergency Provider Nurse Practitioner Family; PCP Family Medicine
DX: U07.1 COVID-19 (principal); I11.0 Hypertensive heart disease with heart failure; I50.9 Heart failure, unspecified
CPT/HCPCS: 71045; 99283

== ENCOUNTER 2021-08-03 09:34 | Emergency (ER) | payer MEDICARE, MEDICAID, SELFPAY ==
[2021-08-03 09:47] VITALS: BP 144/70; PULSE 71; RESP 24; TEMP 37; O2SAT 95; BMI 75.0
--- NOTE | 2021-08-03 09:48 | XRR_ITS ---
PROCEDURE INFORMATION: Exam: XR Left Ribs with PA Chest Exam date and time: 08/03/2021 9:48 AM Age: 51 years old Clinical indication: Other: Left rib pain; Patient HX: Pain in lateral L rib area after sneezing TECHNIQUE: Imaging protocol: XR Left ribs with PA chest. Views: 3 views COMPARISON: CR XR chest 1V portable [id number] 06/19/2021 10:52 AM FINDINGS: Lungs: Minimal bibasilar atelectasis. No consolidation. Pleural spaces: Unremarkable. No pleural effusion. No pneumothorax. Heart/Mediastinum: Stable cardiomediastinal silhouette. Bones/joints: Degenerative changes of the spine seen. XR/XR ribs LT mn 3V w CXR1V [id number] IMPRESSION: No evidence of active cardiopulmonary disease.
--- NOTE | 2021-08-03 09:52 | W.ED.CHESTPA ---
HPI - Chest Pain General: Chief Complaint: General Medical Stated Complaint: L side pain Time Seen by Provider: 08/03/21 09:35 Source: patient Mode of arrival: ambulatory Limitations: no limitations History of Present Illness: 51-year-old morbidly obese female presents emergency room complaining of left lower rib pain. She was fine this morning and then had at what she describes a sneezing fit and has severe pain under the left breast it is reproducible with movement deep breath and extremely tender with palpation to that area. She has a history of asthma she is a former smoker she still uses albuterol as needed prior to this episode she was not having any shortness of breath or significant cough. MD complaint: chest pain Onset (ago): minute(s) Timing of current episode: episodic Onset: during rest (After sneezing) Relieving factors: nothing Exacerbating factors: nothing Associated symptoms: Reports dyspnea; Deny abdominal pain, diaphoresis, fever(s), leg edema, nausea, palpitations, sense of impending doom, syncope or vomiting Treatment prior to arrival: none Review of Systems Const: Denies: fever(s) or diaphoresis Card: Denies: palpitations or syncope Resp: Reports: dyspnea GI: Denies: abdominal pain, nausea or vomiting : Denies: flank pain, difficulty voiding, dysuria, urinary frequency or urinary urgency Skin/Breast: Denies: rash or pruritus [facility] ED PFSH: Medical History Asthma Calcium deposit in bursa of left hip CALCIUM DEPOSIT REMOVED FROM LEFT BUTTOCK 1991 X3. Carpal tunnel syndrome on both sides Cervical radiculopathy CHF (congestive heart failure), NYHA class III HTN (hypertension), benign Obesity Surgical History H/O exploratory laparotomy EXPLORATORY SURGERY ON FEMALE PART A INFANT Status post colonoscopy with polypectomy (11/10/19) Family History Mother Hypertension Grandmother Heart disease Cancer Paternal -- stomach Mother Diabetes Family/Other Breast cancer Maternal Aunt Denies family history of Clotting disorder Hyperlipidemia Chronic kidney disease (CKD) Thyroid disease Stroke Female Reproductive History: Date of last menstrual period: 07/17/21 Para: 0 Spontaneous abortions: Yes Physical Exam Const: COMMON NORMALS: no acute distress GENERAL APPEARANCE: cooperative and comfortable ORIENTATION/CONSCIOUSNESS: Yes awake, Yes oriented to person, Yes oriented to place and Yes oriented to time HENMT: COMMON NORMALS: normocephalic, atraumatic and hearing grossly normal bilaterally HEAD & SCALP: normocephalic and atraumatic Neck/C-Spine: COMMON NORMALS: no JVD Lymph: LYMPHATIC: no lymphadenopathy noted and no lymphedema noted Resp: COMMON NORMALS: normal respiratory effort, No retractions, No use of accessory muscles and clear to auscultation bilaterally AUSCULTATION: clear to auscultation bilaterally Cardio: COMMON NORMALS: no JVD, regular rate, regular rhythm and No murmurs present (Cardio) RATE: regular rate RHYTHM: regular rhythm Extremity: COMMON NORMALS: normal to inspection, capillary refill normal, no clubbing, cyanosis or edema, no calf tenderness and no pedal edema Neuro: SENSORIUM/ORIENTATION: Yes oriented to person, Yes oriented to place and Yes oriented to time Skin: COMMON NORMALS: no rashes or lesions noted GENERAL SKIN EXAM: no rashes or lesions noted Course Vital Signs: Vital signs: Vital Signs Temperature 98.0 F 08/03/21 11:17 Pulse Rate 65 08/03/21 11:17 Respiratory Rate 16 08/03/21 11:17 Blood Pressure 122/70 08/03/21 11:17 Pulse Oximetry 97 08/03/21 11:17 MDM - Chest Pain Medical Decision Making X-ray unremarkable pain very reproducible. Started on pain medications minimize activity that exacerbates follow-up as needed Lab Data Radiology Impressions Ribs X-Ray 08/03/21 09:48 IMPRESSION: No evidence of active cardiopulmonary disease. Discharge Plan Discharge Patient Disposition: Home Clinical Impression: Rib pain on left side Condition: Stable Prescriptions: New hydrocodone-acetaminophen 5-325 mg tablet 1 tab PO Q6H PRN (Reason: pain) Qty: 10 0RF diclofenac sodium 75 mg tablet,delayed release (DR/EC) 75 mg PO Q12H PRN (Reason: pain) Qty: 20 0RF Discontinued naproxen sodium [Aleve] 220 mg Tablet 660 mg PO BID 0RF No Action cetirizine [Zyrtec] 10 mg tablet 10 mg PO DAILY PRN0RF Neuriva Plus 0.85 mg-200 mcg-1.2 mcg tablet,chewable PO 0RF ultra co q 10 .Route 0RF Rx Instructions: OTC 1 tab/day calcium carbonate-vitamin D3 [Caltrate with Vitamin D3] 600 mg(1,500mg) -800 unit tablet 1 tab PO DAILY 0RF fluticasone propionate [Allergy Relief (fluticasone)] 50 mcg/actuation spray,suspension 1 spray intranasal DAILY 0RF Rx Instructions: administer into each nostril medroxyprogesterone [Provera] 5 mg tablet 5 mg PO DAILY Qty: 30 5RF Rx Instructions: take 1st-10th of month amlodipine 5 mg tablet 5 mg PO DAILY Qty: 90 2RF furosemide 40 mg tablet 60 mg PO DAILY Qty: 135 2RF metoprolol tartrate 100 mg tablet 100 mg PO Q12H Qty: 180 2RF cyclobenzaprine 10 mg Tablet 10 mg PO DAILY@22 0RF fluticasone propion-salmeterol [Wixela Inhub] 250-50 mcg/dose blister with device 1 inh INHALATION BID 0RF montelukast 10 mg tablet 10 mg PO DAILY@22 0RF albuterol sulfate [Ventolin HFA] 90 mcg/actuation HFA aerosol inhaler 2 puff INHALATION Q4H PRN (Reason: shortness of breath) 0RF albuterol sulfate 2.5 mg /3 mL (0.083 %) Solution For Nebulization 2.5 mg INHALATION QID PRN (Reason: Shortness Of Breath) 0RF Adult Multivitamin Gummies 200 mcg Tablet,Chewable 400 mcg PO DAILY@08 0RF Decadron 6 mg tablet 6 mg PO DAILY Qty: 7 0RF Discharge Orders: Discharge ED (Routine); Ordered 08/03/21 Ordered By: Cash Johnson Referrals: Cande Nelson MD [Primary Care Provider] - Discharge Diet: Usual diet Discharge Activity: Increase activity as tolerated Patient Instructions: Opioid Safety Coding Level of Care Code ED Gluing Machine Operator Automatic for Chg Fwd Exam Comprehensive
[2021-08-03 10:01] VITALS: BP 123/71; PULSE 63; RESP 16; TEMP 36.5; O2SAT 97
[2021-08-03] MEDS: ketorolac 30 mg/mL INJ IM (10:07)
[2021-08-03 10:08] VITALS: RESP 16; O2SAT 97
[2021-08-03] MEDS: morphine 4 mg/mL SDV 1 mL IM (10:08)
[2021-08-03 11:17] VITALS: BP 122/70; PULSE 65; RESP 16; TEMP 36.7; O2SAT 97
== END 2021-08-03 11:15 | disposition home or self-care (01) ==
PROVIDERS: Emergency Provider Family Medicine; PCP Family Medicine
DX: R07.81 Pleurodynia (principal); I11.0 Hypertensive heart disease with heart failure; I50.9 Heart failure, unspecified
CPT/HCPCS: 71101; 96372; 99283; J1885; J2270

== ENCOUNTER 2021-08-04 14:14 | Emergency (ER) | payer MEDICARE, MEDICAID, SELFPAY ==
--- NOTE | 2021-08-04 14:18 | ED_ITS ---
HPI - Abdominal Pain General: Chief Complaint: Abdominal Pain Stated Complaint: ABD PAIN Time Seen by Provider: 08/04/21 14:17 History of Present Illness: Ms. Pollard is a 51-year-old lady with significant past medical history of morbid obesity, heart failure, hypertension who presents emergency department due to severe left side pain. She presented yesterday after which she described as a sneezing fit where she had severe left lower rib pain. She was evaluated in the emergency department and had a x-ray that did not reveal acute fracture and she was discharged home. However, since discharge she reports progressive worsening of symptoms. She now has severe which she describes as back pain which is sharp and spasming. This radiates across her abdomen. Symptoms come in waves however at baseline are moderate and the waves are severe in intensity. Worse with movement and recurrent coughing or sneezing. No other specific change in health, exacerbating, relieving factors identified. Pertinent past history: other Onset (ago): day(s) Pain Consistency: constant and colicky Location: LUQ, LLQ, L flank and Other Severity: severe Quality: sharp and other Exacerbating factors: movement and other Relieving factors: nothing Treatments prior to arrival: NSAIDs and other Related Data: Date of Last Menstrual Period: 01/12/21 Review of Systems General: Reports: 10 or more systems reviewed and unremarkable except in HPI and below PFSH ED PFSH: Medical History Asthma Calcium deposit in bursa of left hip CALCIUM DEPOSIT REMOVED FROM LEFT BUTTOCK 1991 X3. Carpal tunnel syndrome on both sides Cervical radiculopathy CHF (congestive heart failure), NYHA class III HTN (hypertension), benign Obesity Surgical History H/O exploratory laparotomy EXPLORATORY SURGERY ON FEMALE PART A INFANT Status post colonoscopy with polypectomy (11/10/19) Family History Mother Hypertension Grandmother Heart disease Cancer Paternal -- stomach Mother Diabetes Family/Other Breast cancer Maternal Aunt Denies family history of Clotting disorder Hyperlipidemia Chronic kidney disease (CKD) Thyroid disease Stroke Female Reproductive History: Date of last menstrual period: 01/12/21 Para: 0 Spontaneous abortions: Yes Physical Exam Const: COMMON NORMALS: alert GENERAL APPEARANCE: cooperative, well developed and in distress (pain) NUTRITIONAL APPEARANCE: obese morbidly obese HENMT: COMMON NORMALS: normocephalic and atraumatic HEAD & SCALP: normocephalic and atraumatic THROAT: posterior oropharynx normal Eye: COMMON NORMALS: conjunctivae normal CONJUNCTIVA: Yes conjunctivae normal SCLERA: sclerae normal Neck/C-Spine: COMMON NORMALS: supple GENERAL: Yes trachea midline Resp: COMMON NORMALS: normal respiratory effort and clear to auscultation bilaterally EFFORT & INSPECTION: Yes able to speak in complete sentences AUSCULTATION: clear to auscultation bilaterally Cardio: COMMON NORMALS: regular rate and regular rhythm RATE: regular rate RHYTHM: regular rhythm GI: COMMON NORMALS: Soft to palpation PALPATION: Yes Soft to palpation and Yes Tenderness to palpation present (GI) Details: LLQ and LUQ Extremity: GENERAL: Yes normal exam except as noted and No edema Neuro: COMMON NORMALS: moves all extremities SENSORIUM/ORIENTATION: Yes alert and No Orientation impaired Psych: COMMON NORMALS: mental status grossly normal and Normal thought process present THOUGHT PROCESS: Normal thought process present Course ED course: - Patient was seen and evaluated by me at bedside - Patient placed on cardiac monitors, IV access obtained - Initial evaluation notable for distress due to pain - Analgesia and antispasm treatment ordered - Labs notable for no leukocytosis. Mild dehydration likely on metabolic panel, mild elevation in AST of unclear etiology. Lipase is mildly elevated. No e vidence of urinary tract infection. - With regards to elevated lipase the patient does not meet clinical diagnosis of pancreatitis nor do I believe that she requires additional evaluation with ultrasound of the biliary system given normal findings on CT scan. Elevated lipase was discussed with the patient. - Given patient's severe pain additional imaging is warranted. Imaging notable for no acute finding to explain symptoms. Pulmonary nodules follow-up given to patient. - Upon serial reexamination after treatment the patient was improved. She tolerated p.o. intake and was able to ambulate. - Based on patient history, evaluation, labs, and imaging as interpreted the most likely cause of the patient's condition is severe pain related to musculoskeletal injury/muscle spasms - The results of ED evaluation were discussed with the patient including prescriptions and/or symptomatic cares (if applicable) including appropriate and responsible use, followup plan, and return precautions. I discussed regarding prescriptions that the patient is high risk and should use medications extremely cautiously given her obesity and risk for EXTENSION PROFESSOR and respiratory depression. The patient verbalized understanding and felt safe for discharge. - Patient discharged in satisfactory condition. Note: Click bubbles or prepopulated camejo in note writing are used for assistance with data collection and billing and are inherently more limited than narrative and other text portions of this note. Please use narrative for additional clinical history and defer to narrative/free test for any case of contradictory information. If information appears in only free text or click bubble it should be considered present or absent as reported. Please contact note travel writer for clarifications of clinical information or contradictory information. MDM is a brief summary, contradictory or erroneous seeming information should be clarified and full note should be reviewed. Vital Signs: Vital signs: Vital Signs Temperature 97.6 F 08/04/21 14:22 Pulse Rate 79 08/04/21 17:32 Respiratory Rate 20 H 08/04/21 17:32 Blood Pressure 144/81 08/04/21 17:32 Pulse Oximetry 98 08/04/21 17:32 MDM - Abdominal Pain Medical Decision Making 51-year-old lady who returns to the emergency department after being seen 1 day ago for left rib pain after sneezing fit. Patient in marked distress upon arrival and required additional evaluation. Labs and imaging unremarkable for acute pathology to cause symptoms. Patient improved with symptom treatment and satisfactory for further outpatient management. Medical Records I reviewed the patient's medical records. Lab Data I reviewed the patient's lab results. : 08/04/21 15:15 08/04/21 15:15 Labs/Radiology: Radiology Impressions Chest/Abdomen/Pelvis CT 08/04/21 14:51 IMPRESSION: 1. No acute findings. 2. Scattered solid pulmonary nodules within both lungs measuring up to 8 mm on the right and 7 mm on the left. Fleischner criteria given below. IMPRESSION: No acute findings. Laboratory Results WBC 9.5 10^3/uL (4.0-10.0) 08/04/21 15:15 RBC 5.22 10^6/uL (4.1-5.3) 08/04/21 15:15 Hgb 14.2 g/dL (11.5-15.3) 08/04/21 15:15 Hct 44.9 % (37.0-47.0) 08/04/21 15:15 MCV 86.0 fl (81-99) 08/04/21 15:15 MCH 27.2 pg (28.0-34.0) L 08/04/21 15:15 MCHC 31.6 g/dL (30.0-36.0) 08/04/21 15:15 RDW 14.1 % (12.1-15.1) 08/04/21 15:15 Plt Count 367 10^3/cmm (130-400) 08/04/21 15:15 MPV 10.7 fL (7.4-10.4) H 08/04/21 15:15 Neut % (Auto) 77.4 % 08/04/21 15:15 Lymph % (Auto) 16.4 % 08/04/21 15:15 [place] % (Auto) 4.3 % 08/04/21 15:15 Eos % (Auto) 1.3 % 08/04/21 15:15 Baso % (Auto) 0.3 % 08/04/21 15:15 Neut # (Auto) 7.39 10^3/uL (1.8-7.7) 08/04/21 15:15 Lymph # (Auto) 1.6 10^3/uL (0.8-4.8) 08/04/21 15:15 [place] # (Auto) 0.4 10^3/uL (0.2-0.9) 08/04/21 15:15 Eos # (Auto) 0.1 10^3/uL (0.0-0.8) 08/04/21 15:15 Baso # (Auto) 0.0 10^3/uL (0.0-0.1) 08/04/21 15:15 Nucleated RBC % (auto) 0 % 08/04/21 15:15 Nucleated RBCs # 0.0 /100WBC 08/04/21 15:15 Sodium 136 mmol/L (136-145) 08/04/21 15:15 Potassium 4.4 mmol/L (3.5-5.1) 08/04/21 15:15 Chloride 95 mmol/L (98-107) L 08/04/21 15:15 Carbon Dioxide 25 mmol/L (22-29) 08/04/21 15:15 Anion Gap 20.4 (5-19) H 08/04/21 15:15 BUN 20 mg/dL (6-20) 08/04/21 15:15 Creatinine 0.7 mg/dL (0.5-0.9) 08/04/21 15:15 GFR Calculation 87.9 mL/min (90-130) L 08/04/21 15:15 Glucose 125 mg/dL (65-115) H 08/04/21 15:15 Calculated Osmolality 286 mOsm/kg (285-295) 08/04/21 15:15 Calcium 9.4 mg/dL (8.5-10.5) 08/04/21 15:15 Total Bilirubin 0.4 mg/dL (0.15-1.2) 08/04/21 15:15 AST 35 U/L (0-32) H 08/04/21 15:15 ALT 20 U/L (0-33) 08/04/21 15:15 Alkaline Phosphatase 113 IU/L (35-105) H 08/04/21 15:15 Total Protein 8.4 g/dL (6.6-8.7) 08/04/21 15:15 Albumin 4.5 g/dL (3.5-5.2) 08/04/21 15:15 Globulin 3.9 g/dL (1.3-4.6) 08/04/21 15:15 Lipase 71 U/L (13-60) H 08/04/21 15:15 Urine Color Straw (Yellow) 08/04/21 15:00 Urine Appearance Clear (CLEAR) 08/04/21 15:00 Urine pH 6 (5-7) 08/04/21 15:00 Ur Specific [place] 1.015 (1.005-1.030) 08/04/21 15:00 Urine Protein Neg (Negative) 08/04/21 15:00 Urine Glucose (UA) Norm (Normal) 08/04/21 15:00 Urine Ketones Negative (Negative) 08/04/21 15:00 Urine Blood Neg (Negative) 08/04/21 15:00 Urine Nitrate Negative (Negative) 08/04/21 15:00 Urine Bilirubin Neg (Negative) 08/04/21 15:00 Urine Urobilinogen Norm mg/dL (Negative) 08/04/21 15:00 Ur Leukocyte Esterase Negative (Negative) 08/04/21 15:00 Discharge Plan Discharge Patient Disposition: Home Clinical Impression: Back muscle spasm, Abdominal pain, Acute flank pain, Back pain, Multiple pulmonary nodules Condition: Stable Prescriptions: New Valium 5 mg tablet 5 mg PO TID PRN (Reason: muscle spasm) Qty: 6 0RF No Action fluticasone propionate [Allergy Relief (fluticasone)] 50 mcg/actuation spray,suspension 1 spray intranasal DAILY 0RF Rx Instructions: administer into each nostril medroxyprogesterone [Provera] 5 mg tablet 5 mg PO DAILY Qty: 30 5RF Rx Instructions: take 1st-10th of month amlodipine 5 mg tablet 5 mg PO DAILY Qty: 90 2RF furosemide 40 mg tablet 60 mg PO DAILY Qty: 135 2RF metoprolol tartrate 100 mg tablet 100 mg PO Q12H Qty: 180 2RF cyclobenzaprine 10 mg Tablet 10 mg PO DAILY@22 0RF fluticasone propion-salmeterol [Wixela Inhub] 250-50 mcg/dose blister with device 1 inh INHALATION BID 0RF montelukast 10 mg tablet 10 mg PO DAILY@22 0RF albuterol sulfate [Ventolin HFA] 90 mcg/actuation HFA aerosol inhaler 2 puff INHALATION Q4H PRN (Reason: shortness of breath) 0RF albuterol sulfate 2.5 mg /3 mL (0.083 %) Solution For Nebulization 2.5 mg INHALATION QID PRN (Reason: Shortness Of Breath) 0RF Adult Multivitamin Gummies 200 mcg Tablet,Chewable 400 mcg PO DAILY@08 0RF hydrocodone-acetaminophen 5-325 mg tablet 1 tab PO Q6H PRN (Reason: pain) Qty: 10 0RF diclofenac sodium 75 mg tablet,delayed release (DR/EC) 75 mg PO Q12H PRN (Reason: pain) Qty: 20 0RF Discharge Orders: Discharge ED (Routine); Ordered 08/04/21 Ordered By: Floyd Soliz Referrals: Cande Nelson MD [Primary Care Provider] - Discharge Diet: Advance as tolerated and Clear Liquid Discharge Activity: Increase activity as tolerated Patient Instructions: Diazepam (By mouth), Abdominal Pain (ED), Muscle Spasm (ED), Back Pain (ED), Opioid Safety Activity Restrictions/Additional Instructions: Thank you for visiting the emergency department. You were seen and evaluated for back pain and abdominal pain. The exact cause of the symptoms is unclear though based on your history likely related to muscle spasms. I am pleased that this has improved with treatment. As discussed your lipase is mildly elevated. This would be very atypical for your symptoms and no evidence of inflammation was found on CT. I will give you a prescription for Valium. As discussed do not combine this with your previously prescribed opioids or any other sedating medications. This can cause EXTENSION PROFESSOR and respiratory depression, I believe that you are at higher risk and this should be used extremely cautiously. Please follow-up with your primary care provider. Please return to the emergency department for uncontrolled symptoms or anything else that you are concerned about and feel needs emergency department evaluation. As incidental findings you were noted to have Scattered solid rounded nodules noted within both lungs. The largest on the right measures 8 mm in the superior aspect of the right lower lobe. The largest on the left measures 7 mm at the posterior left lung base. For patients without smoking or cancer history your most likely low risk and the following recommendations are given: Low-risk patients: CT at 3-6 months, then consider CT at 18-24 months High-risk patients: CT at 3-6 months, then CT at 18-24 months This can further be discussed with your primary care provider and CT scans can be ordered by your primary care provider. I do not believe that these nodules are related to your presenting symptoms/pain. Coding Level of Care Code ED Grounds Restoration Specialist for Jm Blank
[2021-08-04 14:22] VITALS: BP 143/94; PULSE 88; RESP 18; TEMP 36.4; O2SAT 96
[2021-08-04 14:26] VITALS: BMI 75.0
[2021-08-04 14:40] VITALS: BP 142/89; PULSE 77; RESP 20; O2SAT 97
--- NOTE | 2021-08-04 14:51 | CTR_ITS ---
PROCEDURE INFORMATION: Exam: CT Chest With Contrast; Diagnostic Exam date and time: 08/04/2021 2:51 PM Age: 51 years old Clinical indication: Abdominal pain; Left-sided; Patient HX: C/O L flank and rib pain w/o injury; Additional info: Severe left upper back, rib, flank, abd pain TECHNIQUE: Imaging protocol: Diagnostic computed tomography of the chest with contrast. Radiation optimization: All CT scans at this facility use at least one of these dose optimization techniques: automated exposure control; mA and/or kV adjustment per patient size (includes targeted exams where dose is matched to clinical indication); or iterative reconstruction. Contrast material: OMNI 300; Contrast volume: 95 ml; Contrast route: INTRAVENOUS (IV); COMPARISON: CR (CHEST, ) 08/03/2021 10:19 AM RADIATION DOSE METRICS: Total DLP (mGy-cm): 2445.94 FINDINGS: Lungs: No consolidation. Scattered solid rounded nodules noted within both lungs. The largest on the right measures 8 mm in the superior aspect of the right lower lobe as seen on series 2, image 25. The largest on the left measures 7 mm at the posterior left lung base series 2, image 42. Pleural spaces: Unremarkable. No pneumothorax. No pleural effusion. Heart: Unremarkable. No cardiomegaly. No pericardial effusion. Aorta: Unremarkable. No aortic aneurysm. Lymph nodes: Unremarkable. No enlarged lymph nodes. Bones/joints: No acute fracture. Soft tissues: Unremarkable. Low-risk patients: CT at 3-6 months, then consider CT at 18-24 months High-risk patients: CT at 3-6 months, then CT at 18-24 months PROCEDURE INFORMATION: Exam: CT Abdomen And Pelvis With Contrast Exam date and time: 08/04/2021 2:51 PM Age: 51 years old Clinical indication: Abdominal pain; Left-sided; Patient HX: C/O L flank and rib pain w/o injury; Additional info: Severe left upper back, rib, flank, abd pain TECHNIQUE: Imaging protocol: Computed tomography of the abdomen and pelvis with contrast. Radiation optimization: All CT scans at this facility use at least one of these dose optimization techniques: automated exposure control; mA and/or kV adjustment per patient size (includes targeted exams where dose is matched to clinical indication); or iterative reconstruction. Contrast material: OMNI 300; Contrast volume: 95 ml; Contrast route: INTRAVENOUS (IV); COMPARISON: CR (CHEST, ) 08/03/2021 10:19 AM RADIATION DOSE METRICS: Total DLP (mGy-cm): 2445.94 FINDINGS: Liver: Normal. No mass. Gallbladder and bile ducts: Normal. No calcified stones. No ductal dilation. Pancreas: Normal. No ductal dilation. Spleen: Normal. No splenomegaly. Adrenal glands: Normal. No mass. Kidneys and ureters: Normal. No hydronephrosis. No renal stones. Stomach and bowel: Colonic diverticulosis without findings of acute diverticulitis. No obstruction. No mucosal thickening. Appendix: No evidence of appendicitis. Intraperitoneal space: Unremarkable. No free air. No significant fluid collection. Vasculature: No abdominal aortic aneurysm. Lymph nodes: Unremarkable. No enlarged lymph nodes. Urinary bladder: Unremarkable as visualized. Reproductive: Linear coarse calcification in the uterine fundus, most likely a small fibroid. Bones/joints: No acute fracture. Soft tissues: Unremarkable. CT/CT chest abd pel w con* IMPRESSION: 1. No acute findings. 2. Scattered solid pulmonary nodules within both lungs measuring up to 8 mm on the right and 7 mm on the left. Fleischner criteria given below. IMPRESSION: No acute findings.
[2021-08-04 15:25] VITALS: RESP 20
[2021-08-04] MEDS: diazePAM 5 mg Tablet PO (15:25)
[2021-08-04] MEDS: fentaNYL 50 mcg/mL INJ 2mL IVP (15:25)
[2021-08-04 15:45] LABS: Basophils % 0.3 %; Eosinophils # 0.1 10^3/uL (0.0-0.8); Eosinophils % 1.3 %; Hematocrit 44.9 % (37.0-47.0); Hemoglobin 14.2 g/dL (11.5-15.3); Lymphocytes # 1.6 10^3/uL (0.8-4.8); Lymphocytes % 16.4 %; Mean Corpuscular HGB Conc 31.6 g/dL (30.0-36.0); Mean Corpuscular Hemoglobin 27.2 pg (28.0-34.0); Mean Platelet Volume 10.7 fL (7.4-10.4); Monocytes # 0.4 10^3/uL (0.2-0.9); Monocytes % 4.3 %; Neutrophils # 7.39 10^3/uL (1.8-7.7); Neutrophils % 77.4 %; Nucleated Red Blood Cells % 0 %; Platelet Count 367 10^3/cmm (130-400); Red Blood Count 5.22 10^6/uL (4.1-5.3); Red Cell Distribution Width 14.1 % (12.1-15.1); White Blood Count 9.5 10^3/uL (4.0-10.0)
[2021-08-04 15:49] LABS: Add Urine Microscopic? NO; Bilirubin Urine Neg (Negative); Blood Urine Neg (Negative); Charge for UA Resulting for Rev; Glucose Urine UA Norm (Normal); Ketones Urine Negative (Negative); Leukocyte Esterase Urine Negative (Negative); Nitrate Urine Negative (Negative); Protein Urine Neg (Negative); Specific Gravity, Urine 1.015 (1.005-1.030); Urine Appearance Clear (CLEAR); Urine Color Straw (Yellow); Urobilinogen Urine Norm (Negative); pH Urine 6 (5-7)
[2021-08-04 16:05] LABS: Alanine Aminotransferase 20 U/L (0-33); Albumin Level 4.5 g/dL (3.5-5.2); Alkaline Phosphatase 113 IU/L (35-105); Anion Gap 20.4 (5-19); Aspartate Amino Transferase 35 U/L (0-32); Blood Urea Nitrogen 20 mg/dL (6-20); Calcium 9.4 mg/dL (8.5-10.5); Carbon Dioxide 25 mmol/L (22-29); Chloride 95 mmol/L (98-107); Globulin 3.9 g/dL (1.3-4.6); Glomerular Filtration Rate 87.9 mL/min (90-130); Glucose 125 mg/dL (65-115); Lipase 71 U/L (13-60); Osmolality Calculated 286 mOsm/kg (285-295); Potassium 4.4 mmol/L (3.5-5.1); Sodium 136 mmol/L (136-145); Total Bilirubin 0.4 mg/dL (0.15-1.2); Total Protein 8.4 g/dL (6.6-8.7)
[2021-08-04] MEDS: iohexol 300 mg/mL 100 mL Btl IV (16:27)
[2021-08-04 17:32] VITALS: BP 144/81; PULSE 79; RESP 20; O2SAT 98
== END 2021-08-04 18:21 | disposition home or self-care (01) ==
PROVIDERS: Emergency Provider Emergency Medicine; PCP Family Medicine
DX: R10.9 Unspecified abdominal pain (principal); M62.830 Muscle spasm of back; R91.8 Other nonspecific abnormal finding of lung field; I11.0 Hypertensive heart disease with heart failure; I50.9 Heart failure, unspecified
CPT/HCPCS: 71260; 74177; 80053; 81003; 83690; 85025; 96374; 99283; J3010; Q9967

== ENCOUNTER 2021-10-10 14:01 | Outpatient (CLI) | payer MEDICARE, MEDICAID, SELFPAY ==
--- NOTE | 2021-10-10 14:10 | XR_ITS ---
WS: [id number] DEXA (DUAL ENERGY X-RAY ABSORPTIOMETRY) Bone mineral density was performed using a [employer] machine. HISTORY: POSTMENOPAUSAL COMPARISON: None available. Lumbar spine BMD (L1-L4): 1.679 g/cm2 T score: 4.2 Z score: 3.6 Total hip BMD: Left: 1.098 g/cm2. T score: 0.7 Z score: 0.4 Right: 1.074 g/cm2. T score: 0.5 Z score: 0.3 10 year probability of a major osteoporotic fracture is 3%. XR/XR DEXA axial skeleton* [id number] IMPRESSION: NORMAL BONE MINERAL DENSITY based upon the WHO classification for females.
== END 2021-10-10 14:02 | disposition home or self-care (01) ==
LOC: RAD 14:06
PROVIDERS: PCP Family Medicine; Visit Provider Nurse Practitioner Family
DX: Z78.0 Asymptomatic menopausal state (principal)
CPT/HCPCS: 77080

== ENCOUNTER 2021-10-23 13:37 | Outpatient (RCR) | payer MEDICARE, MEDICAID, SELFPAY | END 2021-10-26 23:59 | disposition home or self-care (01) | LOC: SPT 13:37 | PROVIDERS: PCP Family Medicine; Referring Provider Nurse Practitioner Family; Visit Provider Nurse Practitioner Family | DX: N39.46 Mixed incontinence (principal) | CPT/HCPCS: 97161 ==

== ENCOUNTER 2021-10-27 | Outpatient (RCR) | payer MEDICARE, MEDICAID, SELFPAY | END 2021-11-26 23:59 | disposition home or self-care (01) | LOC: SPT | PROVIDERS: PCP Family Medicine; Referring Provider Nurse Practitioner Family; Visit Provider Nurse Practitioner Family | DX: N39.46 Mixed incontinence (principal) | CPT/HCPCS: 97110; 97530 ==

== ENCOUNTER 2021-11-01 08:33 | Outpatient (CLI) | payer MEDICARE, MEDICAID, SELFPAY ==
--- NOTE | 2021-11-01 08:48 | CT_ITS ---
WS: [id number] CT CHEST TECHNIQUE: Contrast enhanced CT of the chest with coronal and sagittal reformatted images. CLINICAL INFORMATION: MULTIPLE PULMONARY NODULES DETERMINED BY CT LUNG COMPARISON: CT August 04, 2021 DLP: 731.[address] scans at [facility] use at least one of these dose optimization techniques: automated e xposure control; mA and/or kV adjustment per patient size (includes targeted exams where dose is matc hed to clinical indication); or iterative reconstruction. FINDINGS: Bilateral solid pulmonary nodules largest in the RIGHT measuring 8 mm and 7 mm in the LEFT are stable compared to previous. Nodular pleural thickening RIGHT lower lobe posterior medially has progressed compared to previous. A djacent subpleural pulmonary nodules some of which are new from previous. Subpleural nodule RIGHT brianna g base measuring 11 mm. Slight patchy infiltrates in the LEFT upper lobe laterally and lingula likely infectious or inflammatory. New nodules LEFT lower lobe laterally measuring 5 to 7 mm New hazy subpleural opacity in the RIGHT lower lobe laterally is new from previous near the fissure. Normal caliber thoracic aorta. Mild aortic calcification. No mediastinal or hilar lymphadenopathy. No axillary lymphadenopathy. Adrenal glands are normal. Hepatomegaly. Celiac and SMA are patent in the upper abdomen. Mild thoraci c curve. Mild thoracic kyphosis. Hypertrophic changes mid and lower thoracic spine. CT/CT chest w con* [id number] IMPRESSION: 1. New pleural thickening in the RIGHT lower lobe with subpleural nodularity t he largest nodule measuring 11 mm in the RIGHT lower lobe with a small amount o f patchy infiltrates in the RIGHT lower lobe near the diaphragm. Recommend 3 mo nth follow-up. Findings may be infectious or inflammatory. 2. Previously described pulmonary nodules are stable largest measuring 7-8mm. 3. Slight patchy infiltrates in the LEFT upper lobe laterally and lingula like ly infectious or inflammatory. 4. No mediastinal or hilar lymphadenopathy. No axillary lymphadenopathy.
[2021-11-01] MEDS: iohexol 350 mg/mL 100 mL Btl IV (09:17)
== END 2021-11-01 08:34 | disposition home or self-care (01) ==
LOC: RAD 08:39
PROVIDERS: PCP Family Medicine; Visit Provider Family Medicine
DX: R91.8 Other nonspecific abnormal finding of lung field (principal)
CPT/HCPCS: 71260

== ENCOUNTER → 2021-11-14 08:46 | Outpatient (BNVA) | payer MEDICARE, MEDICAID, SELFPAY | PROVIDERS: PCP Family Medicine; Referring Provider Family Medicine; Visit Provider Internal Medicine Rheumatology | DX: M05.79 Rheumatoid arthritis with rheumatoid factor of multiple sites without organ or systems involvement (principal); Z79.899 Other long term (current) drug therapy; Z11.59 Encounter for screening for other viral diseases; Z11.1 Encounter for screening for respiratory tuberculosis; Z86.19 Personal history of other infectious and parasitic diseases; Z71.85 Encounter for immunization safety counseling | CPT/HCPCS: 36415; 73130; 73630; 80076; 82306; 82565; 85025; 86140; 86200; 86480; 86704; 86803; 87340; 87522; 99204 ==

== ENCOUNTER 2021-11-27 06:00 | Outpatient (RCR) | payer MEDICARE, MEDICAID, SELFPAY | END 2021-12-26 23:59 | disposition home or self-care (01) | LOC: SPT 06:00 | PROVIDERS: PCP Family Medicine; Referring Provider Nurse Practitioner Family; Visit Provider Nurse Practitioner Family | DX: N39.46 Mixed incontinence (principal) | CPT/HCPCS: 97110; 97530 ==

== ENCOUNTER 2021-12-03 09:42 | Outpatient (CLI) | payer MEDICARE, MEDICAID, SELFPAY ==
--- NOTE | 2021-12-03 09:52 | MM_ITS ---
WS: [id number] BILATERAL SCREENING DIGITAL BREAST TOMOSYNTHESIS MAMMOGRAM WITH CAD HISTORY: SCREENING COMPARISON: 11/22/2020, 04/19/2014 and 01/30/2017 Bilateral CC and MLO views with tomosynthesis and synthetic mammography submitted. Computer aided det ection analyzed. Breast composition: There are scattered areas of fibroglandular density. No suspicious masses, microc alcifications or architectural distortion. Benign calcifications and nodules in the breast. MM/[place] [id number] IMPRESSION: BI-RADS: 2-Benign FOLLOW UP: 1 Year Follow-up
== END 2021-12-03 09:43 | disposition home or self-care (01) ==
LOC: RAD 09:45
PROVIDERS: PCP Family Medicine; Visit Provider Family Medicine
DX: Z12.31 Encounter for screening mammogram for malignant neoplasm of breast (principal)
CPT/HCPCS: 77063; 77067

== ENCOUNTER 2021-12-17 12:15 | Outpatient (CLI) | payer MEDICARE, MEDICAID, SELFPAY ==
[2021-12-17 12:42] LABS: Basophils % 0.3 %; Eosinophils # 0.1 10^3/uL (0.0-0.8); Eosinophils % 1.1 %; Hematocrit 42.8 % (37.0-47.0); Hemoglobin 13.7 g/dL (11.5-15.3); Lymphocytes # 1.4 10^3/uL (0.8-4.8); Lymphocytes % 21.4 %; Mean Corpuscular Volume 84.4 fl (81-99); Mean Platelet Volume 10.6 fL (7.4-10.4); Monocytes # 0.3 10^3/uL (0.2-0.9); Monocytes % 4.2 %; Neutrophils # 4.62 10^3/uL (1.8-7.7); Neutrophils % 72.5 %; Nucleated Red Blood Cells % 0 %; Platelet Count 285 10^3/cmm (130-400); Red Blood Count 5.07 10^6/uL (4.1-5.3); Red Cell Distribution Width 13.7 % (12.1-15.1); White Blood Count 6.4 10^3/uL (4.0-10.0)
[2021-12-17 13:05] LABS: Alanine Aminotransferase 21 U/L (0-33); Albumin Level 4.3 g/dL (3.5-5.2); Alkaline Phosphatase 105 IU/L (35-105); Aspartate Amino Transferase 16 U/L (0-32); C Reactive Protein 14.5 mg/L (0.0-4.9); Globulin 3.5 g/dL (1.3-4.6); Total Bilirubin 0.3 mg/dL (0.15-1.2); Total Protein 7.8 g/dL (6.6-8.7)
== END 2021-12-17 12:16 | disposition home or self-care (01) ==
LOC: LAB 12:22
PROVIDERS: PCP Family Medicine; Visit Provider Internal Medicine Rheumatology
DX: M05.79 Rheumatoid arthritis with rheumatoid factor of multiple sites without organ or systems involvement (principal); Z79.899 Other long term (current) drug therapy
CPT/HCPCS: 36415; 80076; 82565; 85025; 86140

== ENCOUNTER → 2021-12-25 15:32 | Outpatient (BNVA) | payer MEDICARE, MEDICAID, SELFPAY | PROVIDERS: PCP Family Medicine; Visit Provider Internal Medicine Cardiovascular Disease | DX: I11.0 Hypertensive heart disease with heart failure (principal); I50.9 Heart failure, unspecified; E66.9 Obesity, unspecified; Z68.45 Body mass index [BMI] 70 or greater, adult; M54.12 Radiculopathy, cervical region | CPT/HCPCS: 99214 ==

== ENCOUNTER 2021-12-26 06:00 | Outpatient (RCR) | payer MEDICARE, MEDICAID, SELFPAY | END 2021-12-26 23:55 | disposition home or self-care (01) | LOC: SPT 06:00 | PROVIDERS: PCP Family Medicine; Referring Provider Family Medicine; Visit Provider Family Medicine | DX: M25.562 Pain in left knee (principal) | CPT/HCPCS: 97161 ==

== ENCOUNTER 2021-12-27 06:00 | Outpatient (RCR) | payer MEDICARE, MEDICAID, SELFPAY | END 2022-01-26 23:59 | disposition home or self-care (01) | LOC: SPT 06:00 | PROVIDERS: PCP Family Medicine; Referring Provider Family Medicine; Visit Provider Family Medicine | DX: M25.562 Pain in left knee (principal) | CPT/HCPCS: 97110; 97530 ==

== ENCOUNTER 2022-01-19 08:48 | Emergency (ER) | payer MEDICARE, MEDICAID, SELFPAY ==
[2022-01-19 09:01] VITALS: BP 174/108; PULSE 72; RESP 16; TEMP 36.5; O2SAT 97; BMI 72.3
[2022-01-19 09:06] VITALS: BP 174/108; O2SAT 96
--- NOTE | 2022-01-19 09:23 | ECG_ITS ---
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 Measurements Intervals [place] Rate: 71 P: 34 OK: 146 QRS: 36 QRSD: 88 T: 43 QT: 379 QTc: 414 Interpretive Statements SINUS RHYTHM LOW QRS VOLTAGE IN PRECORDIAL LEADS [QRS DEFLECTION < 1.0 mV IN CHEST LEADS] Compared to ECG 08/10/2020 14:42:29 Poor R-wave progression no longer present Electronically Signed On 01-19-2022 20:59:30 CDT by Nae Park M.D. [id number]
--- NOTE | 2022-01-19 09:23 | XRR_ITS ---
PROCEDURE INFORMATION: Exam: XR Chest Exam date and time: 01/19/2022 9:58 AM Age: 52 years old Clinical indication: Pain; Chest pressure; Additional info: Chest pain TECHNIQUE: Imaging protocol: Radiologic exam of the chest. Views: 1 view. COMPARISON: CT chest w con* [id number] 11/01/2021 9:09 AM FINDINGS: Lungs: The lung parenchyma is clear. Pleural spaces: No pneumothorax. No pleural effusion. Heart/Mediastinum: The cardiomediastinal silhouette is within normal limits. Bones/joints: Unremarkable. XR/XR chest 1V portable [id number] IMPRESSION: No acute cardiopulmonary abnormality.
--- NOTE | 2022-01-19 09:24 | ED_ITS ---
HPI - Chest Pain General: Chief Complaint: Chest Pain Stated Complaint: cp Time Seen by Provider: 01/19/22 08:59 History of Present Illness: Patient comes in with chest pain. States that it started 2 days ago. Describes it as left-sided, dull ache with episodes of sharp. States it started about a day after she tripped and fell hitting that side of her chest on a piece of furniture. Denies sick symptoms including no fever, cough, vomiting, diarrhea. Associated symptoms: Deny abdominal pain, dyspnea, fever(s), nausea, palpitations or vomiting Review of Systems Const: Denies: fever(s) or body aches Eyes: Denies: change in vision or blurry vision ENMT: Denies: throat pain or odynophagia Card: Reports: chest pain; Denies: palpitations Resp: Denies: dyspnea or productive cough GI: Denies: abdominal pain, nausea or vomiting : Denies: flank pain or dysuria Musc: Denies: neck pain or back pain Skin/Breast: Denies: rash or pruritus Neuro: Denies: headache(s) or numbness in extremities Psych: Denies: anxiety or change in appetite Endo: Denies: polyuria or excessive sweating PFSH ED PFSH: Medical History Asthma Calcium deposit in bursa of left hip CALCIUM DEPOSIT REMOVED FROM LEFT BUTTOCK 1991 X3. Carpal tunnel syndrome on both sides Cervical radiculopathy CHF (congestive heart failure), NYHA class III High risk medication use HTN (hypertension), benign Immunization counseling Obesity Seropositive rheumatoid arthritis of multiple sites Surgical History H/O exploratory laparotomy EXPLORATORY SURGERY ON FEMALE PART A INFANT Status post colonoscopy with polypectomy (11/10/19) Family History Mother Hypertension Grandmother Heart disease Cancer Paternal -- stomach Mother Diabetes Family/Other Breast cancer Maternal Aunt Denies family history of Clotting disorder Hyperlipidemia Chronic kidney disease (CKD) Thyroid disease Stroke Social History Smoking and tobacco status: never smoked Female Reproductive History: Date of last menstrual period: 01/12/21 Para: 0 Spontaneous abortions: Yes Physical Exam Const: COMMON NORMALS: no acute distress, patient oriented x3, healthy appearing and alert HENMT: COMMON NORMALS: normocephalic and atraumatic HEAD & SCALP: normocephalic and atraumatic Eye: COMMON NORMALS: Equal, round and reactive pupils present and EOMs intact bilaterally PUPIL: Yes Equal, round and reactive pupils present Neck/C-Spine: COMMON NORMALS: full ROM and supple Resp: COMMON NORMALS: normal respiratory effort, No retractions and No use of accessory muscles Cardio: COMMON NORMALS: regular rate and regular rhythm RATE: regular rate RHYTHM: regular rhythm GI: COMMON NORMALS: Normal to inspection, nondistended, normoactive bowel sounds present, Soft to palpation and non-tender PALPATION: Yes Soft to palpation Back/Pelvis: COMMON NORMALS: thoracic and lumbar spine normal to inspection and no thoracic nor lumbar tenderness Extremity: COMMON NORMALS: normal to inspection and full ROM Neuro: COMMON NORMALS: patient oriented x3 SENSORIUM/ORIENTATION: Yes alert Psych: COMMON NORMALS: mental status grossly normal and cooperative Skin: COMMON NORMALS: no rashes or lesions noted and no wounds GENERAL SKIN EXAM: no rashes or lesions noted Course Vital Signs: Vital signs: Vital Signs Temperature 97.7 F 01/19/22 09:01 Pulse Rate 69 01/19/22 11:00 Respiratory Rate 13 01/19/22 10:15 Blood Pressure 170/101 01/19/22 11:00 Pulse Oximetry 97 01/19/22 11:00 MDM - Chest Pain Medical Decision Making Patient comes in with chest pain. States that it started 2 days ago. Describes it as left-sided, dull ache with episodes of sharp. States it started about a day after she tripped and fell hitting that side of her chest on a piece of furniture. Denies sick symptoms including no fever, cough, vomiting, diarrhea. Physical exam is unremarkable. Will check labs, EKG, x-ray, and reassess. On reassessment I talked to the patient about the test results. Will discharge home with precautions to return for worsening or changing symptoms. Lab Data : 01/19/22 09:18 01/19/22 09:18 Radiology Impressions Chest X-Ray 01/19/22 09:23 IMPRESSION: No acute cardiopulmonary abnormality. Laboratory Results WBC 6.2 10^3/uL (4.0-10.0) 01/19/22 09:18 RBC 4.63 10^6/uL (4.1-5.3) 01/19/22 09:18 Hgb 12.8 g/dL (11.5-15.3) 01/19/22 09:18 Hct 40.5 % (37.0-47.0) 01/19/22 09:18 MCV 87.5 fl (81-99) 01/19/22 09:18 MCH 27.6 pg (28.0-34.0) L 01/19/22 09:18 MCHC 31.6 g/dL (30.0-36.0) 01/19/22 09:18 RDW 13.7 % (12.1-15.1) 01/19/22 09:18 Plt Count 258 10^3/cmm (130-400) 01/19/22 09:18 MPV 11.6 fL (7.4-10.4) H 01/19/22 09:18 Neut % (Auto) 53.7 % 01/19/22 09:18 Lymph % (Auto) 32.3 % 01/19/22 09:18 [place] % (Auto) 7.9 % 01/19/22 09:18 Eos % (Auto) 5.1 % 01/19/22 09:18 Baso % (Auto) 0.8 % 01/19/22 09:18 Neut # (Auto) 3.34 10^3/uL (1.8-7.7) 01/19/22 09:18 Lymph # (Auto) 2.0 10^3/uL (0.8-4.8) 01/19/22 09:18 [place] # (Auto) 0.5 10^3/uL (0.2-0.9) 01/19/22 09:18 Eos # (Auto) 0.3 10^3/uL (0.0-0.8) 01/19/22 09:18 Baso # (Auto) 0.1 10^3/uL (0.0-0.1) 01/19/22 09:18 Nucleated RBC % (auto) 0 % 01/19/22 09:18 Nucleated RBCs # 0.0 /100WBC 01/19/22 09:18 Sodium 138 mmol/L (136-145) 01/19/22 09:18 Potassium 4.2 mmol/L (3.5-5.1) 01/19/22 09:18 Chloride 99 mmol/L (98-107) 01/19/22 09:18 Carbon Dioxide 28 mmol/L (22-29) 01/19/22 09:18 Anion Gap 15.2 (5-19) 01/19/22 09:18 BUN 21 mg/dL (6-20) H 01/19/22 09:18 Creatinine 0.6 mg/dL (0.5-0.9) 01/19/22 09:18 GFR Calculation 104.6 mL/min (90-130) 01/19/22 09:18 Glucose 85 mg/dL (65-115) 01/19/22 09:18 Calculated Osmolality 288 mOsm/kg (285-295) 01/19/22 09:18 Calcium 9.0 mg/dL (8.5-10.5) 01/19/22 09:18 Total Bilirubin 0.2 mg/dL (0.15-1.2) 01/19/22 09:18 AST 15 U/L (0-32) 01/19/22 09:18 ALT 16 U/L (0-33) 01/19/22 09:18 Alkaline Phosphatase 96 IU/L (35-105) 01/19/22 09:18 Troponin T Baseline 6 ng/L (0-10) 01/19/22 09:18 Total Protein 7.0 g/dL (6.6-8.7) 01/19/22 09:18 Albumin 4.0 g/dL (3.5-5.2) 01/19/22 09:18 Globulin 3.0 g/dL (1.3-4.6) 01/19/22 09:18 Discharge Plan Discharge Patient Disposition: Home Clinical Impression: Nonspecific chest pain Condition: Stable Prescriptions: No Action fluticasone propionate [Allergy Relief (fluticasone)] 50 mcg/actuation spray,suspension 1 spray intranasal DAILY 0RF Rx Instructions: administer into each nostril medroxyprogesterone [Provera] 5 mg tablet 5 mg PO DAILY Qty: 30 5RF Rx Instructions: take 1st-10th of month amlodipine 5 mg tablet 5 mg PO DAILY Qty: 90 2RF metoprolol tartrate 100 mg tablet 100 mg PO Q12H Qty: 180 2RF furosemide 40 mg tablet 40 mg PO DAILY 0RF naproxen sodium [Aleve] 220 mg tablet 440 mg PO BID 0RF omeprazole 40 mg capsule,delayed release(DR/EC) 40 mg PO DAILY Qty: 30 3RF leflunomide 20 mg tablet 20 mg PO DAILY Qty: 30 3RF prednisone 10 mg tablet See Rx Instructions PO .COMPLEX Qty: 90 1RF Rx Instructions: take 20mg daily [id number],then take 15mg daily [id number], then 10mg daily x10day then stay on 5mg daily PO; cyclobenzaprine 10 mg Tablet 10 mg PO DAILY@22 0RF fluticasone propion-salmeterol [Wixela Inhub] 250-50 mcg/dose blister with device 1 inh INHALATION BID 0RF montelukast 10 mg tablet 10 mg PO DAILY@22 0RF albuterol sulfate [Ventolin HFA] 90 mcg/actuation HFA aerosol inhaler 2 puff INHALATION Q4H PRN (Reason: shortness of breath) 0RF albuterol sulfate 2.5 mg /3 mL (0.083 %) Solution For Nebulization 2.5 mg INHALATION QID PRN (Reason: Shortness Of Breath) 0RF Adult Multivitamin Gummies 200 mcg Tablet,Chewable 400 mcg PO DAILY@08 0RF Discharge Orders: Discharge ED (Routine); Ordered 01/19/22 Ordered By: Leandro Galarza Referrals: Cande Nelson MD [Primary Care Provider] - Coding Level of Care Code ED Professor Of Biological Sciences for Chg Fwd Exam Comprehensive
--- NOTE | 2022-01-19 09:27 | PC.NURSE ---
PT PLACED ON CONTINUOUS NIBP, SPO2, AND CM
[2022-01-19 09:32] LABS: Basophils # 0.1 10^3/uL (0.0-0.1); Basophils % 0.8 %; Eosinophils # 0.3 10^3/uL (0.0-0.8); Eosinophils % 5.1 %; Hematocrit 40.5 % (37.0-47.0); Hemoglobin 12.8 g/dL (11.5-15.3); Lymphocytes % 32.3 %; Mean Corpuscular HGB Conc 31.6 g/dL (30.0-36.0); Mean Corpuscular Hemoglobin 27.6 pg (28.0-34.0); Mean Corpuscular Volume 87.5 fl (81-99); Mean Platelet Volume 11.6 fL (7.4-10.4); Monocytes # 0.5 10^3/uL (0.2-0.9); Monocytes % 7.9 %; Neutrophils # 3.34 10^3/uL (1.8-7.7); Neutrophils % 53.7 %; Nucleated Red Blood Cells % 0 %; Platelet Count 258 10^3/cmm (130-400); Red Blood Count 4.63 10^6/uL (4.1-5.3); Red Cell Distribution Width 13.7 % (12.1-15.1); White Blood Count 6.2 10^3/uL (4.0-10.0)
[2022-01-19 09:59] LABS: Troponin(5th) Baseline 6 ng/L (0-10)
[2022-01-19 10:06] LABS: Alanine Aminotransferase 16 U/L (0-33); Alkaline Phosphatase 96 IU/L (35-105); Anion Gap 15.2 (5-19); Aspartate Amino Transferase 15 U/L (0-32); Blood Urea Nitrogen 21 mg/dL (6-20); Carbon Dioxide 28 mmol/L (22-29); Chloride 99 mmol/L (98-107); Glomerular Filtration Rate 104.6 mL/min (90-130); Glucose 85 mg/dL (65-115); Osmolality Calculated 288 mOsm/kg (285-295); Potassium 4.2 mmol/L (3.5-5.1); Sodium 138 mmol/L (136-145); Total Bilirubin 0.2 mg/dL (0.15-1.2)
[2022-01-19 10:15] VITALS: BP 156/97; PULSE 67; RESP 13; O2SAT 98
[2022-01-19 11:00] VITALS: BP 170/101; PULSE 69; O2SAT 97
[2022-01-19 11:31] VITALS: PULSE 77; RESP 19; O2SAT 97
[2022-01-19 11:40] LABS: Troponin 5 2HR 6.84 ng/L (0-10)
[2022-01-19 11:47] LABS: Troponin 5 2HR Delta 0.84 ABS# (0-10)
== END 2022-01-19 11:32 | disposition home or self-care (01) ==
PROVIDERS: Emergency Provider Emergency Medicine; PCP Family Medicine
DX: R07.89 Other chest pain (principal); I11.0 Hypertensive heart disease with heart failure; I50.9 Heart failure, unspecified
CPT/HCPCS: 71045; 80053; 84484; 85025; 93005; 99285

== ENCOUNTER → 2022-01-23 10:43 | Outpatient (BNVA) | payer MEDICARE, MEDICAID, SELFPAY | PROVIDERS: PCP Family Medicine; Visit Provider Podiatrist Foot & Ankle Surgery | DX: L60.0 Ingrowing nail (principal) | CPT/HCPCS: 11750; A6219; A6446 ==

== ENCOUNTER 2022-01-27 06:00 | Outpatient (RCR) | payer MEDICARE, MEDICAID, SELFPAY | END 2022-02-26 23:59 | disposition home or self-care (01) | LOC: SPT 06:00 | PROVIDERS: PCP Family Medicine; Visit Provider Family Medicine | DX: M25.562 Pain in left knee (principal) | CPT/HCPCS: 97110 ==

== ENCOUNTER → 2022-02-13 11:45 | Outpatient (BNVA) | payer MEDICARE, MEDICAID, SELFPAY | PROVIDERS: PCP Family Medicine; Visit Provider Podiatrist Foot & Ankle Surgery | DX: L60.0 Ingrowing nail (principal) | CPT/HCPCS: 99213 ==

== ENCOUNTER → 2022-02-18 13:26 | Outpatient (BNVA) | payer MEDICARE, MEDICAID, SELFPAY | PROVIDERS: PCP Family Medicine; Visit Provider Internal Medicine Rheumatology | DX: M05.79 Rheumatoid arthritis with rheumatoid factor of multiple sites without organ or systems involvement (principal); Z79.899 Other long term (current) drug therapy; Z71.85 Encounter for immunization safety counseling; Z86.19 Personal history of other infectious and parasitic diseases; R91.8 Other nonspecific abnormal finding of lung field | CPT/HCPCS: 99214 ==

== ENCOUNTER 2022-02-19 09:22 | Outpatient (CLI) | payer MEDICARE, MEDICAID, SELFPAY ==
--- NOTE | 2022-02-19 09:30 | XR_ITS ---
WS: [id number] Left knee, 3 views, 02/19/2022 Clinical Data: M25.569 - Pain in unspecified knee Comparison: Left knee, 12/09/2021. Findings: No fractures or dislocations are seen. There is medial joint compartment narrowing. There is spurring of the medial and lateral femoral condyles and medial and lateral tibial plateau. There is posterior patellar spurring. The soft tissues are normal.. XR/XR knee LT 3V* [id number] Impression: Moderate osteoarthritis of the left knee unchanged. Kellgren-Raffaele Classification: grade 3 (moderate): moderate multiple osteoph ytes, definite narrowing of joint space and some sclerosis and possible deformi ty of bone ends
== END 2022-02-19 09:23 | disposition home or self-care (01) ==
LOC: RAD 09:26
PROVIDERS: PCP Family Medicine; Visit Provider Internal Medicine Rheumatology
DX: M17.12 Unilateral primary osteoarthritis, left knee
CPT/HCPCS: 73562

== ENCOUNTER 2022-02-27 06:00 | Outpatient (RCR) | payer MEDICARE, MEDICAID, SELFPAY | END 2022-03-28 23:59 | disposition home or self-care (01) | LOC: SPT 06:00 | PROVIDERS: PCP Family Medicine; Visit Provider Family Medicine | DX: M25.562 Pain in left knee (principal) | CPT/HCPCS: 97110; 97530 ==

== ENCOUNTER 2022-03-14 15:53 | Outpatient (CLI) | payer MEDICARE, MEDICAID, SELFPAY ==
--- NOTE | 2022-03-14 | CTR_ITS ---
PROCEDURE INFORMATION: Exam: CT Chest With Contrast; Diagnostic Exam date and time: 03/14/2022 4:11 PM Age: 52 years old Clinical indication: Condition or disease; Lung condition and disease; Other: Mulitple pulmonary nodules TECHNIQUE: Imaging protocol: Diagnostic computed tomography of the chest with contrast. Radiation optimization: All CT scans at this facility use at least one of these dose optimization techniques: automated exposure control; mA and/or kV adjustment per patient size (includes targeted exams where dose is matched to clinical indication); or iterative reconstruction. Contrast material: OMNI 350; Contrast volume: 80 ml; Contrast route: INTRAVENOUS (IV); COMPARISON: CT chest w con* [id number] 11/01/2021 9:09 AM RADIATION DOSE METRICS: Total DLP (mGy-cm): 821.5 FINDINGS: Lungs: Bibasilar atelectasis versus minimal infiltrate. Pleural spaces: Unremarkable. No pneumothorax. No pleural effusion. Heart: Minimal coronary artery atherosclerotic calcifications. Lymph nodes: Unremarkable. No enlarged lymph nodes. Vasculature: Unremarkable. No aortic aneurysm. Kidneys and ureters: Left kidney all upper pole 13 mm cystic lesion with some potential internal contrast enhancement, somewhat more prominent compared to exam from 08/04/2021, further evaluation with nonemergent ultrasound advised to determine cystic versus solid nature. Bones/joints: Unremarkable. No acute fracture. Soft tissues: Unremarkable. CT/CT chest w con* [id number] IMPRESSION: 1. Bibasilar atelectasis versus minimal infiltrate. 2. Left kidney all upper pole 13 mm cystic lesion with some potential internal contrast enhancement, somewhat more prominent compared to exam from 08/04/2021, further evaluation with nonemergent ultrasound advised to determine cystic versus solid nature. 3. Minimal coronary artery atherosclerotic calcifications.
[2022-03-14] MEDS: iohexol 350 mg/mL 100 mL Btl IV (16:02)
== END 2022-03-14 15:54 | disposition home or self-care (01) ==
LOC: RAD 15:54
PROVIDERS: PCP Family Medicine; Visit Provider Family Medicine
DX: R91.8 Other nonspecific abnormal finding of lung field (principal)
CPT/HCPCS: 71260

== ENCOUNTER → 2022-03-17 08:48 | Outpatient (BNVA) | payer MEDICARE, MEDICAID, SELFPAY | PROVIDERS: PCP Family Medicine; Referring Provider Internal Medicine Rheumatology; Visit Provider Internal Medicine Pulmonary Disease | DX: J45.909 Unspecified asthma, uncomplicated (principal); R06.09 Other forms of dyspnea; Z87.891 Personal history of nicotine dependence; M05.79 Rheumatoid arthritis with rheumatoid factor of multiple sites without organ or systems involvement; Z79.899 Other long term (current) drug therapy; I50.9 Heart failure, unspecified; E66.01 Morbid (severe) obesity due to excess calories; Z68.45 Body mass index [BMI] 70 or greater, adult; F12.90 Cannabis use, unspecified, uncomplicated; R91.8 Other nonspecific abnormal finding of lung field | CPT/HCPCS: 36415; 80076; 82565; 82785; 85025; 86003; 86140; 99204 ==

== ENCOUNTER 2022-03-29 19:05 | Outpatient (RCR) | payer MEDICARE, MEDICAID, SELFPAY | END 2022-04-28 23:59 | disposition home or self-care (01) | LOC: SPT 19:05 | PROVIDERS: PCP Family Medicine; Visit Provider Family Medicine | DX: M25.562 Pain in left knee (principal) | CPT/HCPCS: 97110; 97530 ==

== ENCOUNTER → 2022-04-01 15:51 | Outpatient (BNVA) | payer MEDICARE, MEDICAID, SELFPAY | PROVIDERS: PCP Family Medicine; Visit Provider Podiatrist Foot & Ankle Surgery | DX: L03.031 Cellulitis of right toe (principal); Z98.890 Other specified postprocedural states | CPT/HCPCS: 73630; 99214 ==

== ENCOUNTER → 2022-04-15 15:24 | Outpatient (BNVA) | payer MEDICARE, MEDICAID, SELFPAY | PROVIDERS: PCP Family Medicine; Visit Provider Podiatrist Foot & Ankle Surgery | DX: Z98.890 Other specified postprocedural states (principal) | CPT/HCPCS: 99213 ==

== ENCOUNTER 2022-04-22 12:43 | Outpatient (CLI) | payer MEDICARE, MEDICAID, SELFPAY | END 2022-04-22 12:44 | disposition home or self-care (01) | LOC: RT 12:43 | PROVIDERS: PCP Family Medicine; Visit Provider Internal Medicine Pulmonary Disease | DX: R06.09 Other forms of dyspnea (principal) | CPT/HCPCS: 94010; 94618; 94726; 94729 ==

== ENCOUNTER → 2022-04-28 11:40 | Outpatient (BNVA) | payer MEDICARE, MEDICAID, SELFPAY | PROVIDERS: PCP Family Medicine; Visit Provider Internal Medicine Rheumatology | DX: M05.79 Rheumatoid arthritis with rheumatoid factor of multiple sites without organ or systems involvement (principal); Z79.899 Other long term (current) drug therapy; Z71.85 Encounter for immunization safety counseling; Z86.19 Personal history of other infectious and parasitic diseases; Z79.52 Long term (current) use of systemic steroids | CPT/HCPCS: 99214 ==

== ENCOUNTER 2022-04-29 06:00 | Outpatient (RCR) | payer MEDICARE, MEDICAID, SELFPAY | END 2022-05-28 23:59 | disposition home or self-care (01) | LOC: SPT 06:00 | PROVIDERS: PCP Family Medicine; Visit Provider Family Medicine | DX: M25.562 Pain in left knee (principal) | CPT/HCPCS: 97110; 97530 ==

== ENCOUNTER 2022-05-29 06:00 | Outpatient (RCR) | payer MEDICARE, MEDICAID, SELFPAY | END 2022-06-28 23:59 | disposition home or self-care (01) | LOC: SPT 06:00 | PROVIDERS: PCP Family Medicine; Visit Provider Family Medicine | DX: M25.562 Pain in left knee (principal) | CPT/HCPCS: 97110; 97530 ==

== ENCOUNTER 2022-06-10 09:40 | Outpatient (CLI) | payer MEDICARE, MEDICAID, SELFPAY ==
[2022-06-10 10:10] LABS: Basophils % 0.5 %; Eosinophils # 0.2 10^3/uL (0.0-0.8); Eosinophils % 2.3 %; Hematocrit 41.3 % (37.0-47.0); Lymphocytes # 2.4 10^3/uL (0.8-4.8); Lymphocytes % 29.7 %; Mean Corpuscular HGB Conc 31.5 g/dL (30.0-36.0); Mean Corpuscular Hemoglobin 26.7 pg (28.0-34.0); Mean Platelet Volume 9.9 fL (7.4-10.4); Monocytes # 0.4 10^3/uL (0.2-0.9); Monocytes % 5.3 %; Neutrophils # 4.91 10^3/uL (1.8-7.7); Neutrophils % 61.3 %; Nucleated Red Blood Cells % 0 %; Platelet Count 329 10^3/cmm (130-400); Red Blood Count 4.86 10^6/uL (4.1-5.3)
[2022-06-10 10:37] LABS: Alanine Aminotransferase 13 U/L (0-33); Albumin Level 4.1 g/dL (3.5-5.2); Alkaline Phosphatase 106 U/L (35-105); Aspartate Amino Transferase 14 U/L (0-32); C Reactive Protein 25.1 mg/L (0.0-4.9); Globulin 3.4 g/dL (1.3-4.6); Glomerular Filtration Rate 87.5 mL/min (90-130); Total Bilirubin 0.2 mg/dL (0.15-1.2); Total Protein 7.5 g/dL (6.6-8.7)
== END 2022-06-10 09:41 | disposition home or self-care (01) ==
LOC: LAB 09:44
PROVIDERS: PCP Family Medicine; Visit Provider Internal Medicine Rheumatology
DX: M05.79 Rheumatoid arthritis with rheumatoid factor of multiple sites without organ or systems involvement (principal); Z79.899 Other long term (current) drug therapy
CPT/HCPCS: 36415; 80076; 82565; 85025; 86140

== ENCOUNTER 2022-06-13 15:42 | Outpatient (CLI) | payer MEDICARE, MEDICAID, SELFPAY ==
--- NOTE | 2022-06-13 | CTR_ITS ---
PROCEDURE INFORMATION: Exam: CT Abdomen Without And With Contrast Exam date and time: 06/13/2022 4:31 PM Age: 52 years old Clinical indication: Condition or disease; Kidney or ureter condition; Other: Renal cysts TECHNIQUE: Imaging protocol: Computed tomography of the abdomen without and with contrast. Radiation optimization: All CT scans at this facility use at least one of these dose optimization techniques: automated exposure control; mA and/or kV adjustment per patient size (includes targeted exams where dose is matched to clinical indication); or iterative reconstruction. Contrast material: OMNI 350; Contrast volume: 95 ml; Contrast route: INTRAVENOUS (IV); COMPARISON: 1. CT chest abd pel w con* 08/04/2021 4:28 PM 2. US renal BI* [id number] 04/09/2022 10:[address] abdomen pelvis w con* [id number] 02/08/2019 10:44 PM RADIATION DOSE METRICS: Total DLP (mGy-cm): 1580.21 FINDINGS: Liver: Normal. No mass. Gallbladder and bile ducts: Normal. No calcified stones. No ductal dilation. Pancreas: Normal. No ductal dilation. Spleen: Normal. No splenomegaly. Adrenal glands: Normal. No mass. Kidneys and ureters: 1.4 cm nonenhancing round cortical cyst in the superior left kidney. This is unchanged in retrospect when compared to the CT abdomen on 08/04/2021 and is new since the CT abdomen on 02/08/2019. The right kidney is normal. Stomach and bowel: Diverticulosis of the colon without diverticulitis. Intraperitoneal space: Unremarkable. No free air. No significant fluid collection. Vasculature: Unremarkable. No abdominal aortic aneurysm. Lymph nodes: Unremarkable. No enlarged lymph nodes. Bones/joints: Unremarkable. No acute fracture. No dislocation. Soft tissues: Unremarkable. CT/CT abdomen wo/w con [id number] IMPRESSION: 1. 1.4 cm benign nonenhancing cortical cyst in the superior left kidney. COMMENTS: Consistent with the [employer]'s Incidental Findings Committee white paper (J Am Trevor Radiol 2018): Any incidental renal lesion less than 1 cm or classified as too small to characterize, or any incidental cystic renal lesion characterized as simple-appearing, is likely benign. No follow-up imaging is recommended for these lesions per consensus recommendations based on imaging criteria.
[2022-06-13] MEDS: iohexol 350 mg/mL 500 mL Btl (per mL) IV (16:07)
== END 2022-06-13 15:43 | disposition home or self-care (01) ==
LOC: RAD 15:44
PROVIDERS: PCP Family Medicine; Visit Provider Family Medicine
DX: N28.1 Cyst of kidney, acquired (principal)
CPT/HCPCS: 74170; Q9967

== ENCOUNTER → 2022-06-26 14:19 | Outpatient (BNVA) | payer MEDICARE, MEDICAID, SELFPAY | PROVIDERS: PCP Family Medicine; Visit Provider Internal Medicine Pulmonary Disease | DX: R06.09 Other forms of dyspnea (principal); Z87.891 Personal history of nicotine dependence; I50.9 Heart failure, unspecified; M05.79 Rheumatoid arthritis with rheumatoid factor of multiple sites without organ or systems involvement; E66.01 Morbid (severe) obesity due to excess calories; Z68.45 Body mass index [BMI] 70 or greater, adult; J82.83 Eosinophilic asthma; J45.909 Unspecified asthma, uncomplicated; F12.929 Cannabis use, unspecified with intoxication, unspecified | CPT/HCPCS: 99214 ==

== ENCOUNTER → 2022-07-21 14:31 | Outpatient (BNVA) | payer MEDICARE, MEDICAID, SELFPAY | PROVIDERS: PCP Family Medicine; Visit Provider Internal Medicine Rheumatology | DX: M05.79 Rheumatoid arthritis with rheumatoid factor of multiple sites without organ or systems involvement (principal); Z79.899 Other long term (current) drug therapy; Z71.85 Encounter for immunization safety counseling; E66.9 Obesity, unspecified; Z68.45 Body mass index [BMI] 70 or greater, adult | CPT/HCPCS: 99214 ==

== ENCOUNTER → 2022-09-24 15:17 | Outpatient (BNVA) | payer MEDICARE, MEDICAID, SELFPAY | PROVIDERS: PCP Family Medicine; Visit Provider Nurse Practitioner Family | DX: I11.0 Hypertensive heart disease with heart failure (principal); I50.9 Heart failure, unspecified; Z87.891 Personal history of nicotine dependence | CPT/HCPCS: 99214 ==

== ENCOUNTER → 2022-10-21 13:02 | Outpatient (BNVA) | payer MEDICARE, MEDICAID, SELFPAY | PROVIDERS: PCP Family Medicine; Visit Provider Internal Medicine Rheumatology | DX: M05.79 Rheumatoid arthritis with rheumatoid factor of multiple sites without organ or systems involvement (principal); Z71.85 Encounter for immunization safety counseling; E66.9 Obesity, unspecified; Z79.899 Other long term (current) drug therapy; Z68.41 Body mass index [BMI] 40.0-44.9, adult | CPT/HCPCS: 36415; 80076; 82565; 85025; 86140; 99214 ==

== ENCOUNTER → 2022-12-01 15:50 | Outpatient (BNVA) | payer MEDICARE, MEDICAID, SELFPAY | PROVIDERS: PCP Family Medicine; Visit Provider Obstetrics & Gynecology | DX: Z01.419 Encounter for gynecological examination (general) (routine) without abnormal findings (principal) | CPT/HCPCS: 87624 ==

== ENCOUNTER → 2022-12-04 09:01 | Outpatient (BNVA) | payer MEDICARE, MEDICAID, SELFPAY | PROVIDERS: PCP Family Medicine; Visit Provider Anesthesiology Pain Medicine | DX: M51.16 Intervertebral disc disorders with radiculopathy, lumbar region (principal) | CPT/HCPCS: 99204 ==

== ENCOUNTER 2022-12-18 15:03 | Outpatient (CLI) | payer MEDICARE, MEDICAID, SELFPAY ==
--- NOTE | 2022-12-18 15:15 | MR_ITS ---
WS: [id number] MRI LUMBAR SPINE NONCONTRAST HISTORY: M54.50 - Low back pain, unspecified COMPARISON: 02/15/2013 TECHNIQUE: Sagittal and axial multisequence imaging is submitted. Mild degenerative changes in the cervical spine. Small central disc protrusion is suspected at T5-6. L4 anterolisthesis by 3.5 mm. Disc spaces are mildly narrowed and desiccated. Most significant at L3- 4. Marrow signal changes involving the endplates of L3-4. Conus terminates normally at L1-2 disc level. L1-L2: Moderate annular disc bulging and mild osteophytic ridging and facet arthritis. Very shallow L EFT paracentral disc protrusion. Mild bilateral subarticular recess encroachment, LEFT greater than R IGHT. L2-L3: Mild annular disc bulging. Moderate bilateral ligamentum flavum and facet arthritis. Facet dis ease encroaches into the central canal. Mild central, bilateral subarticular recess and RIGHT foramin al stenosis. Mild encroachment upon the traversing L3 nerve roots. L3-L4: Marked annular disc bulge with a RIGHT paracentral disc protrusion. Marked ligamentum flavum a nd facet joint arthritis. Moderate central, bilateral subarticular recess and foraminal stenosis. Mos t significant stenosis involving the RIGHT foramen and RIGHT subarticular recess. Disc contacts and d isplaces the RIGHT traversing L4 nerve root. L4-L5: Diffuse annular disc bulging with ligamentum flavum and facet arthritis. Moderate central, radha ateral subarticular recess and mild foraminal stenosis. Significant encroachment upon the L5 nerve ro ots. L5-S1: Diffuse annular disc bulging with moderate ligamentum flavum and facet arthritis. Fluid in the facet joints. Moderate central, bilateral subarticular recess and mild foraminal stenosis. LEFT renal cyst 1.5 cm. MR/MR lumbar spine wo con* [id number] IMPRESSION: 1. L3-4: Moderate central, bilateral subarticular recess and foraminal stenosi s. Disc contacts and displaces the RIGHT traversing L4 nerve root. 2. L5-S1: Moderate central, bilateral subarticular recess and mild foraminal s tenosis. 3. Moderate central, bilateral subarticular recess and mild foraminal stenosis at L4-5. More significant encroachment upon the L5 nerve roots. 4. Mild bilateral subarticular recess encroachment at L1-2. 5. L2-3: Mild central, bilateral subarticular recess and RIGHT foraminal steno sis. Mild encroachment upon the traversing L3 nerve roots. 6. L4 anterolisthesis by 3.5 mm.
== END 2022-12-18 15:04 | disposition home or self-care (01) ==
LOC: RAD 15:06
PROVIDERS: PCP Family Medicine; Visit Provider Anesthesiology Pain Medicine
DX: M48.061 Spinal stenosis, lumbar region without neurogenic claudication (principal); M54.50 Low back pain, unspecified
CPT/HCPCS: 72148; 99204

== ENCOUNTER 2022-12-25 10:23 | Outpatient (CLI) | payer MEDICARE, MEDICAID, SELFPAY ==
--- NOTE | 2022-12-25 10:27 | MM_ITS ---
WS: [id number] VIEWS: MLO and CC views both breasts. 3D digital tomosynthesis is also included in this exam. Comparison made with prior exam of 01/16/2015, 01/18/2016, 01/30/2017, 11/22/2020. 12/03/2021.. Findings: There was no sign of mass, architectural distortion or suspicious calcification in either breast. Sta ble appearing nodular densities in both breasts.The breasts are heterogeneously dense which may obscu re small masses MM/[place] [id number] Impression: BI-RADS: 2-Benign finding. FOLLOW-UP: 1 Year Follow-up This mammogram was also analyzed by the Computer [employer].
== END 2022-12-25 10:24 | disposition home or self-care (01) ==
LOC: RAD 10:24
PROVIDERS: PCP Family Medicine; Visit Provider Family Medicine
DX: Z12.31 Encounter for screening mammogram for malignant neoplasm of breast (principal); J45.909 Unspecified asthma, uncomplicated; J82.83 Eosinophilic asthma; Z87.891 Personal history of nicotine dependence; R06.09 Other forms of dyspnea; I50.9 Heart failure, unspecified; M05.79 Rheumatoid arthritis with rheumatoid factor of multiple sites without organ or systems involvement; E66.01 Morbid (severe) obesity due to excess calories; Z68.44 Body mass index [BMI] 60.0-69.9, adult
CPT/HCPCS: 77063; 77067; 99214

== ENCOUNTER → 2023-01-06 10:01 | Outpatient (BNVA) | payer MEDICARE, MEDICAID, SELFPAY | PROVIDERS: PCP Family Medicine; Visit Provider Anesthesiology Pain Medicine | DX: M51.16 Intervertebral disc disorders with radiculopathy, lumbar region (principal); M79.605 Pain in left leg; M79.604 Pain in right leg | CPT/HCPCS: 99214 ==

== ENCOUNTER → 2023-01-20 12:52 | Outpatient (BNVA) | payer MEDICARE, MEDICAID, SELFPAY | PROVIDERS: PCP Family Medicine; Visit Provider Internal Medicine Rheumatology | DX: Z71.85 Encounter for immunization safety counseling (principal); E66.9 Obesity, unspecified; M05.79 Rheumatoid arthritis with rheumatoid factor of multiple sites without organ or systems involvement; Z79.899 Other long term (current) drug therapy; Z68.44 Body mass index [BMI] 60.0-69.9, adult | CPT/HCPCS: 80076; 82565; 85025; 86140; 99214 ==

== ENCOUNTER → 2023-01-29 14:39 | Outpatient (BNVA) | payer MEDICARE, MEDICAID, SELFPAY | PROVIDERS: PCP Family Medicine; Visit Provider Anesthesiology Pain Medicine | DX: M51.16 Intervertebral disc disorders with radiculopathy, lumbar region | CPT/HCPCS: 62323; J1040 ==

== ENCOUNTER → 2023-02-17 09:25 | Outpatient (BNVA) | payer MEDICARE, MEDICAID, SELFPAY | PROVIDERS: PCP Family Medicine; Visit Provider Anesthesiology Pain Medicine | DX: M51.16 Intervertebral disc disorders with radiculopathy, lumbar region | CPT/HCPCS: 99214 ==

== ENCOUNTER 2023-03-31 12:24 | Outpatient (RCR) | payer MEDICARE, MEDICAID, SELFPAY | END 2023-04-28 23:59 | disposition home or self-care (01) | LOC: SPT 12:24 | PROVIDERS: PCP Family Medicine; Visit Provider Anesthesiology Pain Medicine | DX: M50.30 Other cervical disc degeneration, unspecified cervical region (principal) | CPT/HCPCS: 97113; 97161 ==

== ENCOUNTER 2023-04-21 13:41 | Emergency (ER) | payer MEDICARE, MEDICAID, SELFPAY ==
--- NOTE | 2023-04-21 13:51 | ECG_ITS ---
[facility] Test Date: 2023-04-21 Pat Name: Jaye Pollard Department: Room: Gender: Female Bmet: : 1970 Requested By: Cash Morfin Order Number: [id number] Lesia MD: Dean Hensley M.D. Measurements Intervals [place] Rate: 58 P: 24 AL: 142 QRS: 12 QRSD: 89 T: 15 QT: 403 QTc: 397 Interpretive Statements SINUS BRADYCARDIA LOW QRS VOLTAGE IN PRECORDIAL LEADS [QRS DEFLECTION < 1.0 mV IN CHEST LEADS] Compared to ECG 01/19/2022 09:12:34 Sinus rhythm no longer present Electronically Signed On 04-21-2023 16:07:05 CDT by Dean Hensley M.D. [email or web address] f
[2023-04-21 13:54] VITALS: BP 153/97; PULSE 58; O2SAT 100
--- NOTE | 2023-04-21 13:54 | XR_ITS ---
WS: [id number] Exam: XR chest 1V portable [id number] Date/Time of Exam: 04/21/2023 1:57 PM Reason For Exam: chest pain Comparison 01/19/2022. Findings: The lungs are clear and fully expanded. Costophrenic angles are sharp. No infiltrates. Bronchovascula r relief appears normal. Cardiac silhouette is unremarkable. Bony elements are intact. IMPRESSION: Unremarkable chest radiograph.
[2023-04-21 13:58] VITALS: BP 198/85; PULSE 67; RESP 18; TEMP 36.6; O2SAT 99
[2023-04-21] MEDS: aspirin 81 mg Chew Tablet 324 MG PO (14:02)
[2023-04-21 14:23] LABS: Basophils % 0.4 %; Eosinophils # 0.1 10^3/uL (0.0-0.8); Eosinophils % 1.6 %; Hematocrit 41.4 % (36-47); Lymphocytes # 2.1 10^3/uL (0.8-4.8); Mean Corpuscular HGB Conc 32.6 g/dL (30-55); Mean Corpuscular Hemoglobin 28.5 pg (27-33); Mean Corpuscular Volume 87.5 fl (85-98); Mean Platelet Volume 10.7 fL (7.4-10.4); Monocytes # 0.4 10^3/uL (0.2-0.9); Monocytes % 6.3 %; Neutrophils # 3.12 10^3/uL (1.8-7.7); Neutrophils % 54.5 %; Nucleated Red Blood Cells % 0 %; Platelet Count 283 10^3/cmm (157-399); Red Blood Count 4.73 10^6/uL (3.85-5.65); Red Cell Distribution Width 13.7 % (12.1-15.1); White Blood Count 5.71 10^3/uL (3.29-11.43)
[2023-04-21 14:32] VITALS: BP 160/118; PULSE 59; O2SAT 100
[2023-04-21 14:48] LABS: Troponin(5th) Baseline < 6 ng/L (0-10)
[2023-04-21 14:51] LABS: Alanine Aminotransferase 11 U/L (0-33); Albumin Level 4.4 g/dL (3.5-5.2); Alkaline Phosphatase 92 U/L (35-105); Anion Gap 13.3 (5-19); Aspartate Amino Transferase 14 U/L (0-32); Blood Urea Nitrogen 16 mg/dL (6-20); Calcium 9.3 mg/dL (8.5-10.5); Carbon Dioxide 24 mmol/L (22-29); Chloride 105 mmol/L (98-107); Glomerular Filtration Rate 104.2 mL/min (90-130); Glucose 94 mg/dL (65-115); Osmolality Calculated 287 mOsm/kg (285-295); Potassium 4.3 mmol/L (3.5-5.1); Sodium 138 mmol/L (136-145); Total Bilirubin 0.4 mg/dL (0.15-1.2); Total Protein 6.4 g/dL (6.6-8.7)
[2023-04-21 15:02] VITALS: BP 170/74; PULSE 66; O2SAT 99
--- NOTE | 2023-04-21 15:34 | W.ED.CHESTPA ---
HPI - Chest Pain General: Chief Complaint: Chest Pain Stated Complaint: chest pain Time Seen by Provider: 04/21/23 13:48 Source: patient Mode of arrival: ambulatory History of Present Illness: 53-year-old female presents emergency room complaint of left-sided chest pain after physical therapy. No known cardiac history no previous evaluation. Patient's pain is nonradiating. No associated shortness of breath. No fever sweats chills or cough. No abdominal pain. She is not having any significant discomfort at this time. MD complaint: chest pain Onset (ago): hour(s) Timing of current episode: episodic Prior episodes: Yes Onset: during exertion Pain location: substernal and left chest Pain radiation: none Severity: mild Quality: tightness and aching Relieving factors: nothing Exacerbating factors: nothing Associated symptoms: Deny abdominal pain, diaphoresis, dyspnea, fever(s), leg edema, nausea, palpitations, sense of impending doom, syncope or vomiting Review of Systems Const: Denies: fever(s) or diaphoresis Card: Denies: palpitations or syncope Resp: Denies: dyspnea GI: Denies: abdominal pain, nausea or vomiting : Denies: dysuria, urinary frequency or urinary urgency Musc: Denies: neck pain or back pain Skin/Breast: Denies: rash PFSH ED PFSH: Medical History Asthma Calcium deposit in bursa of left hip CALCIUM DEPOSIT REMOVED FROM LEFT BUTTOCK 1991 X3. Carpal tunnel syndrome on both sides Cervical radiculopathy CHF (congestive heart failure), NYHA class III High risk medication use HTN (hypertension), benign Immunization counseling Nocturnal hypoxemia Obesity Obstructive sleep apnea on CPAP Seropositive rheumatoid arthritis of multiple sites Surgical History H/O exploratory laparotomy EXPLORATORY SURGERY ON FEMALE PART A INFANT Status post colonoscopy with polypectomy (11/10/19) Family History Mother Hypertension Grandmother Heart disease Cancer Paternal -- stomach Mother Diabetes Family/Other Breast cancer Maternal Aunt Denies family history of Clotting disorder Hyperlipidemia Chronic kidney disease (CKD) Thyroid disease Stroke Social History Smoking and tobacco/nicotine status: former use of tobacco/nicotine Quit status (tobacco/nicotine): has quit using Year quit tobacco: 2018 Former quit date comment: 0.5 ppd x 36 years Second hand smoke exposure: No Alcohol intake: never Substance/Drug Use: current Substance/Drug use frequency: daily Female Reproductive History: Para: 0 Spontaneous abortions: Yes Physical Exam Const: GENERAL APPEARANCE: cooperative and comfortable ORIENTATION/CONSCIOUSNESS: Yes awake, Yes oriented to person, Yes oriented to place and Yes oriented to time HENMT: COMMON NORMALS: normocephalic, atraumatic and hearing grossly normal bilaterally HEAD & SCALP: normocephalic and atraumatic Resp: COMMON NORMALS: normal respiratory effort, No retractions, No use of accessory muscles and clear to auscultation bilaterally AUSCULTATION: clear to auscultation bilaterally Cardio: COMMON NORMALS: regular rate, regular rhythm and No murmurs present (Cardio) RATE: regular rate RHYTHM: regular rhythm GI: COMMON NORMALS: Soft to palpation and No hepatosplenomegaly present AUSCULTATION: Yes normoactive bowel sounds PALPATION: Yes Soft to palpation, No Tenderness to palpation present (GI), No Guarding due to palpation present (GI) and Yes No hepatosplenomegaly present Extremity: COMMON NORMALS: normal to inspection, capillary refill normal, no clubbing, cyanosis or edema, no calf tenderness and no pedal edema Neuro: SENSORIUM/ORIENTATION: Yes oriented to person, Yes oriented to place and Yes oriented to time Skin: COMMON NORMALS: no rashes or lesions noted GENERAL SKIN EXAM: no rashes or lesions noted Course Vital Signs: Vital signs: Vital Signs Temperature 97.8 F 04/21/23 13:58 Pulse Rate 69 04/21/23 16:57 Respiratory Rate 18 04/21/23 13:58 Blood Pressure 170/74 04/21/23 15:54 Pulse Oximetry 99 04/21/23 16:57 Oxygen Delivery Me thod Room Air 04/21/23 16:57 MDM - Chest Pain Medical Decision Making Labs and imaging reviewed. EKG does not show any acute ST changes. Cardiac enzymes trending negative will start on enteric-coated aspirin and set up for outpatient stress testing. Suspect some of this may be GI related to her previous bariatric surgery. No acute abdominal findings at this time. Medical Records I reviewed the patient's medical records. Lab Data I reviewed the patient's lab results. 04/21/23 14:15 04/21/23 14:15 Laboratory Results WBC 5.71 10^3/uL (3.29-11.43) 04/21/23 14:15 RBC 4.73 10^6/uL (3.85-5.65) 04/21/23 14:15 Hgb 13.50 g/dL (11.27-16.99) 04/21/23 14:15 Hct 41.4 % (36-47) 04/21/23 14:15 MCV 87.5 fl (85-98) 04/21/23 14:15 MCH 28.5 pg (27-33) 04/21/23 14:15 MCHC 32.6 g/dL (30-55) 04/21/23 14:15 RDW 13.7 % (12.1-15.1) 04/21/23 14:15 Plt Count 283 10^3/cmm (157-399) 04/21/23 14:15 MPV 10.7 fL (7.4-10.4) H 04/21/23 14:15 Neut % (Auto) 54.5 % 04/21/23 14:15 Lymph % (Auto) 37.0 % 04/21/23 14:15 [place] % (Auto) 6.3 % 04/21/23 14:15 Eos % (Auto) 1.6 % 04/21/23 14:15 Baso % (Auto) 0.4 % 04/21/23 14:15 Neut # (Auto) 3.12 10^3/uL (1.8-7.7) 04/21/23 14:15 Lymph # (Auto) 2.1 10^3/uL (0.8-4.8) 04/21/23 14:15 [place] # (Auto) 0.4 10^3/uL (0.2-0.9) 04/21/23 14:15 Eos # (Auto) 0.1 10^3/uL (0.0-0.8) 04/21/23 14:15 Baso # (Auto) 0.0 10^3/uL (0.0-0.1) 04/21/23 14:15 Nucleated RBC % (auto) 0 % 04/21/23 14:15 Nucleated RBCs # 0.0 /100WBC 04/21/23 14:15 Sodium 138 mmol/L (136-145) 04/21/23 14:15 Potassium 4.3 mmol/L (3.5-5.1) 04/21/23 14:15 Chloride 105 mmol/L (98-107) 04/21/23 14:15 Carbon Dioxide 24 mmol/L (22-29) 04/21/23 14:15 Anion Gap 13.3 (5-19) 04/21/23 14:15 BUN 16 mg/dL (6-20) 04/21/23 14:15 Creatinine 0.6 mg/dL (0.5-0.9) 04/21/23 14:15 GFR Calculation 104.2 mL/min (90-130) 04/21/23 14:15 Glucose 94 mg/dL (65-115) 04/21/23 14:15 Calculated Osmolality 287 mOsm/kg (285-295) 04/21/23 14:15 Calcium 9.3 mg/dL (8.5-10.5) 04/21/23 14:15 Total Bilirubin 0.4 mg/dL (0.15-1.2) 04/21/23 14:15 AST 14 U/L (0-32) 04/21/23 14:15 ALT 11 U/L (0-33) 04/21/23 14:15 Alkaline Phosphatase 92 U/L (35-105) 04/21/23 14:15 Troponin T Baseline < 6 ng/L (0-10) 04/21/23 14:15 Troponin T 120 Minute 6.49 ng/L (0-10) 04/21/23 16:09 Delta Troponin T 0.91041 ABS# (0-10) 04/21/23 16:09 Total Protein 6.4 g/dL (6.6-8.7) L 04/21/23 14:15 Albumin 4.4 g/dL (3.5-5.2) 04/21/23 14:15 Globulin 2.0 g/dL (1.3-4.6) 04/21/23 14:15 All radiology interpretation(s) finalized by discharge Discharge Plan Discharge Patient Disposition: Home Clinical Impression: Atypical chest pain Condition: Stable Prescriptions: New Enteric Coated Aspirin 81 mg tablet,delayed release (DR/EC) 81 mg PO DAILY Qty: 30 0RF Discontinued omeprazole 20 mg capsule,delayed release(DR/EC) 20 mg PO DAILY Qty: 90 1RF No Action diclofenac sodium 1 % gel 2 g topical QID Qty: 100 2RF Rx Instructions: apply to affected area as needed (DME) Cpap Supplies See Rx Instructions .Route .MEDSUPPLY Qty: 1 0RF Rx Instructions: As directed albuterol sulfate [Ventolin HFA] 90 mcg/actuation HFA aerosol inhaler 2 puff INHALATION Q4H PRN (Reason: shortness of breath) Qty: 6.7 6RF Xeljanz 5 mg tablet 5 mg PO BID Qty: 60 3RF prednisone 2.5 mg tablet 2.5 mg PO DAILY Qty: 90 1RF pantoprazole 40 mg tablet,delayed release (DR/EC) 40 mg PO DAILY Qty: 30 0RF montelukast 10 mg tablet 10 mg PO QPM albuterol sulfate 2.5 mg /3 mL (0.083 %) Solution For Nebulization 2.5 mg INHALATION QID PRN (Reason: Shortness Of Breath) cyclobenzaprine 10 mg tablet 10 mg PO QPM metoprolol tartrate 100 mg tablet 100 mg PO BID Topamax 100 mg tablet 100 mg PO BID amlodipine 5 mg tablet 2.5 mg PO QPM Discharge Orders: Discharge ED (Routine); Ordered 04/21/23 Ordered By: Cash Johnson Referrals: Christopher Collado DO [Primary Care Provider] - Discharge Diet: Usual diet Discharge Activity: Resume usual activity Patient Instructions: Opioid Safety, Pain Management Activity Restrictions/Additional Instructions: You were seen today for chest pain. account general manager will make arrangements for you to have an outpatient Lexiscan sestamibi stress test. Recommend you stop the omeprazole start pantoprazole 40 mg daily and take an enteric-coated baby aspirin. Contact the bariatric surgeon about the aspirin as well. It is very important that you use the enteric-coated baby aspirin not regular. Coding Level of Care Code ED Television Announcer for Jm Blnak
--- NOTE | 2023-04-21 15:46 | ECG_ITS ---
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 Measurements Intervals [place] Rate: 56 P: 27 TX: 149 QRS: 13 QRSD: 92 T: 20 QT: 417 QTc: 405 Interpretive Statements SINUS BRADYCARDIA WITH SINUS ARRHYTHMIA LOW QRS VOLTAGE IN PRECORDIAL LEADS [QRS DEFLECTION < 1.0 mV IN CHEST LEADS] Compared to ECG 04/21/2023 13:51:00 No significant changes Electronically Signed On 04-21-2023 16:07:17 CDT by Dean Hensley M.D. [email or web address]
[2023-04-21 15:54] VITALS: BP 170/74; PULSE 65; O2SAT 100
[2023-04-21 16:57] VITALS: PULSE 69; O2SAT 99
[2023-04-21 17:20] LABS: Troponin 5 2HR 6.49 ng/L (0-10); Troponin 5 2HR Delta 0.49001 ABS# (0-10)
--- NOTE | 2023-04-23 09:51 | DCPLANNER ---
Faxed stress test order to centralized scheduling on 04/23/23 at 0907. Centralized scheduling to contact patient.
== END 2023-04-21 17:52 | disposition home or self-care (01) ==
PROVIDERS: Emergency Provider Family Medicine; PCP Family Medicine
DX: R07.89 Other chest pain (principal); Z87.891 Personal history of nicotine dependence; I11.0 Hypertensive heart disease with heart failure; I50.9 Heart failure, unspecified; M05.79 Rheumatoid arthritis with rheumatoid factor of multiple sites without organ or systems involvement; Z79.899 Other long term (current) drug therapy; Z71.85 Encounter for immunization safety counseling; E66.9 Obesity, unspecified; R07.9 Chest pain, unspecified
CPT/HCPCS: 36415; 71045; 80053; 84484; 85025; 93005; 99214; 99285

== ENCOUNTER 2023-04-29 06:00 | Outpatient (RCR) | payer MEDICARE, MEDICAID, SELFPAY | END 2023-05-28 23:59 | disposition home or self-care (01) | LOC: SPT 06:00 | PROVIDERS: PCP Family Medicine; Visit Provider Anesthesiology Pain Medicine | DX: M50.30 Other cervical disc degeneration, unspecified cervical region (principal) | CPT/HCPCS: 97110; 97113 ==

== ENCOUNTER → 2023-05-13 11:35 | Outpatient (BNVA) | payer MEDICARE, MEDICAID, SELFPAY | PROVIDERS: PCP Family Medicine; Visit Provider Internal Medicine Rheumatology | DX: M05.79 Rheumatoid arthritis with rheumatoid factor of multiple sites without organ or systems involvement (principal); Z79.899 Other long term (current) drug therapy; Z71.85 Encounter for immunization safety counseling; E66.9 Obesity, unspecified | CPT/HCPCS: 99214 ==

== ENCOUNTER → 2023-05-28 09:33 | Outpatient (BNVA) | payer MEDICARE, MEDICAID, SELFPAY | PROVIDERS: PCP Family Medicine; Visit Provider Anesthesiology Pain Medicine | DX: M51.16 Intervertebral disc disorders with radiculopathy, lumbar region | CPT/HCPCS: 99214 ==

== ENCOUNTER 2023-05-29 06:00 | Outpatient (RCR) | payer MEDICARE, MEDICAID, SELFPAY | END 2023-06-28 23:59 | disposition home or self-care (01) | LOC: SPT 06:00 | PROVIDERS: PCP Family Medicine; Visit Provider Anesthesiology Pain Medicine | DX: M50.30 Other cervical disc degeneration, unspecified cervical region (principal) | CPT/HCPCS: 97110; 97113 ==

== ENCOUNTER → 2023-06-04 13:11 | Outpatient (BNVA) | payer MEDICARE, MEDICAID, SELFPAY | PROVIDERS: PCP Family Medicine; Visit Provider Anesthesiology Pain Medicine | DX: M54.16 Radiculopathy, lumbar region (principal) | CPT/HCPCS: 62323; J1040 ==

== ENCOUNTER → 2023-06-12 10:43 | Outpatient (BNVA) | payer MEDICARE, MEDICAID, SELFPAY | PROVIDERS: PCP Family Medicine; Referring Provider Family Medicine; Visit Provider Student in an Organized Health Care Education/Training Program | DX: M17.0 Bilateral primary osteoarthritis of knee | CPT/HCPCS: 20610; 73560; 73565; 99204; J3301 ==

== ENCOUNTER → 2023-06-18 08:39 | Outpatient (BNVA) | payer MEDICARE, MEDICAID, SELFPAY | PROVIDERS: PCP Family Medicine; Visit Provider Anesthesiology Pain Medicine | DX: M51.16 Intervertebral disc disorders with radiculopathy, lumbar region | CPT/HCPCS: 99214 ==

== ENCOUNTER 2023-06-29 06:00 | Outpatient (RCR) | payer MEDICARE, MEDICAID, SELFPAY | END 2023-07-29 23:59 | disposition home or self-care (01) | LOC: SPT 06:00 | PROVIDERS: PCP Family Medicine; Visit Provider Anesthesiology Pain Medicine | DX: M50.30 Other cervical disc degeneration, unspecified cervical region (principal) | CPT/HCPCS: 97110; 97113 ==

== ENCOUNTER → 2023-07-16 08:23 | Outpatient (BNVA) | payer MEDICARE, MEDICAID, SELFPAY | PROVIDERS: PCP Family Medicine; Visit Provider Podiatrist Foot & Ankle Surgery | DX: L60.8 Other nail disorders (principal) | CPT/HCPCS: 11750 ==

== ENCOUNTER → 2023-07-27 09:55 | Outpatient (BNVA) | payer MEDICARE, MEDICAID, SELFPAY | PROVIDERS: PCP Family Medicine; Visit Provider Internal Medicine Pulmonary Disease | DX: J82.83 Eosinophilic asthma (principal); Z87.891 Personal history of nicotine dependence; I11.0 Hypertensive heart disease with heart failure; I50.9 Heart failure, unspecified | CPT/HCPCS: 99214 ==

== ENCOUNTER 2023-07-30 06:00 | Outpatient (RCR) | payer MEDICARE, MEDICAID, SELFPAY | END 2023-08-27 23:59 | disposition home or self-care (01) | LOC: SPT 06:00 | PROVIDERS: PCP Family Medicine; Visit Provider Anesthesiology Pain Medicine | DX: Z98.890 Other specified postprocedural states (principal) | CPT/HCPCS: 97110; 99213 ==

== ENCOUNTER 2023-08-06 07:40 | Outpatient (CLI) | payer MEDICARE, MEDICAID, SELFPAY ==
--- NOTE | 2023-08-06 08:00 | US_ITS ---
WS: [id number] RIGHT UPPER QUADRANT ULTRASOUND HISTORY: RUQ pain, elevated LFT's. COMPARISON: None available. Liver: 13.0 cm in length. Normal size liver and echogenicity. No bile duct dilatation or mass. Portal Vein: Normal hepatopetal flow with monophasic waveform. Gallbladder: Gallbladder is redundant. No stones or wall thickening. CBD: 0.4 cm Pancreas: Normal size and echogenicity. Right kidney: 9.0 cm in length. Normal size and echogenicity. No hydronephrosis or mass. Aorta and IVC: Unremarkable abdominal aorta and IVC. No ascites. IMPRESSION: Negative RIGHT upper quadrant ultrasound. No abnormality identified.
== END 2023-08-06 07:41 | disposition home or self-care (01) ==
LOC: RAD 07:41
PROVIDERS: PCP Family Medicine; Visit Provider Family Medicine
DX: R79.89 Other specified abnormal findings of blood chemistry (principal); R10.11 Right upper quadrant pain
CPT/HCPCS: 76705; 80053

== ENCOUNTER → 2023-08-11 09:44 | Outpatient (BNVA) | payer MEDICARE, MEDICAID, SELFPAY | PROVIDERS: PCP Family Medicine; Visit Provider Nurse Practitioner Family | DX: J06.9 Acute upper respiratory infection, unspecified (principal) | CPT/HCPCS: 87400 ==

== ENCOUNTER 2023-08-28 06:00 | Outpatient (RCR) | payer MEDICARE, MEDICAID, SELFPAY | END 2023-09-27 23:59 | disposition home or self-care (01) | LOC: SPT 06:00 | PROVIDERS: PCP Family Medicine; Visit Provider Anesthesiology Pain Medicine | DX: Z98.890 Other specified postprocedural states (principal) | CPT/HCPCS: 97110 ==

== ENCOUNTER → 2023-09-15 14:08 | Outpatient (BNVA) | payer MEDICARE, MEDICAID, SELFPAY | PROVIDERS: PCP Family Medicine; Visit Provider Student in an Organized Health Care Education/Training Program | DX: M17.0 Bilateral primary osteoarthritis of knee | CPT/HCPCS: 20610; 99213; J3301 ==

== ENCOUNTER → 2023-09-21 10:59 | Outpatient (BNVA) | payer MEDICARE, MEDICAID, SELFPAY | PROVIDERS: Visit Provider Anesthesiology Pain Medicine | DX: M51.16 Intervertebral disc disorders with radiculopathy, lumbar region | CPT/HCPCS: 99214 ==

== ENCOUNTER 2023-09-28 06:00 | Outpatient (RCR) | payer MEDICARE, MEDICAID, SELFPAY | END 2023-10-27 23:59 | disposition home or self-care (01) | LOC: SPT 06:00 | PROVIDERS: PCP Family Medicine; Visit Provider Anesthesiology Pain Medicine | DX: Z98.890 Other specified postprocedural states (principal) | CPT/HCPCS: 97110 ==

== ENCOUNTER → 2023-10-01 14:34 | Outpatient (BNVA) | payer MEDICARE, MEDICAID, SELFPAY | PROVIDERS: PCP Family Medicine; Visit Provider Anesthesiology Pain Medicine | DX: M54.16 Radiculopathy, lumbar region (principal) | CPT/HCPCS: 62323; J1010 ==

== ENCOUNTER → 2023-10-21 08:49 | Outpatient (BNVA) | payer MEDICARE, MEDICAID, SELFPAY | PROVIDERS: PCP Family Medicine; Visit Provider Anesthesiology Pain Medicine | DX: M51.16 Intervertebral disc disorders with radiculopathy, lumbar region | CPT/HCPCS: 99214 ==

== ENCOUNTER 2023-10-28 06:00 | Outpatient (RCR) | payer MEDICARE, MEDICAID, SELFPAY | END 2023-11-27 23:59 | disposition home or self-care (01) | LOC: SPT 06:00 | PROVIDERS: PCP Family Medicine; Visit Provider Anesthesiology Pain Medicine | DX: Z98.890 Other specified postprocedural states (principal) | CPT/HCPCS: 97110 ==

== ENCOUNTER 2023-11-28 06:00 | Outpatient (RCR) | payer MEDICARE, MEDICAID, SELFPAY | END 2023-12-24 23:59 | disposition home or self-care (01) | LOC: SPT 06:00 | PROVIDERS: PCP Family Medicine; Visit Provider Anesthesiology Pain Medicine | DX: Z98.890 Other specified postprocedural states (principal) | CPT/HCPCS: 97110 ==

== ENCOUNTER → 2023-12-02 11:42 | Outpatient (BNVA) | payer MEDICARE, MEDICAID, SELFPAY | PROVIDERS: PCP Family Medicine; Visit Provider Family Medicine | DX: R23.3 Spontaneous ecchymoses (principal); Z79.899 Other long term (current) drug therapy; K90.9 Intestinal malabsorption, unspecified; R79.89 Other specified abnormal findings of blood chemistry; I50.9 Heart failure, unspecified | CPT/HCPCS: 80053; 80061; 82306; 82607; 82728; 82746; 83550; 83735; 84100; 84443; 85025; 85610; 85651; 86140 ==

== ENCOUNTER → 2023-12-17 09:01 | Outpatient (BNVA) | payer MEDICARE, MEDICAID, SELFPAY | PROVIDERS: PCP Family Medicine; Visit Provider Anesthesiology Pain Medicine | DX: M51.16 Intervertebral disc disorders with radiculopathy, lumbar region; M43.16 Spondylolisthesis, lumbar region; M48.061 Spinal stenosis, lumbar region without neurogenic claudication | CPT/HCPCS: 99214 ==

== ENCOUNTER → 2023-12-22 14:36 | Outpatient (BNVA) | payer MEDICARE, MEDICAID, SELFPAY | PROVIDERS: PCP Family Medicine; Visit Provider Student in an Organized Health Care Education/Training Program | DX: M17.0 Bilateral primary osteoarthritis of knee | CPT/HCPCS: 99214 ==

== ENCOUNTER 2024-01-01 10:50 | Outpatient (CLI) | payer MEDICARE, MEDICAID, SELFPAY ==
--- NOTE | 2024-01-01 11:07 | MM_ITS ---
WS: [id number] BILATERAL 3D TOMOSYNTHESIS DIGITAL SCREENING MAMMOGRAPHY WITH CAD CLINICAL INFORMATION: SCREEN HISTORY: Screening mammogram. No current complaints. COMPARISON: 2022 TECHNIQUE: Bilateral CC and MLO views. FINDINGS: The breasts are composed of heterogeneous fibroglandular density tissue, which can limit the detectio n of small underlying mass lesions. No suspicious mass, asymmetry, calcifications, or architectural d istortion. No evidence of malignancy. Punctate and lucent centered calcifications. MM/[place] [id number] IMPRESSION: BI-RADS: 2-Benign FOLLOW UP: 1 Year Follow-up Recommend return to annual screening mammography.
== END 2024-01-01 10:51 | disposition home or self-care (01) ==
LOC: RAD 10:52
PROVIDERS: PCP Family Medicine; Visit Provider Family Medicine
DX: Z12.31 Encounter for screening mammogram for malignant neoplasm of breast (principal); R92.323 Mammographic fibroglandular density, bilateral breasts; R92.1 Mammographic calcification found on diagnostic imaging of breast
CPT/HCPCS: 77063; 77067

== ENCOUNTER → 2024-01-06 11:06 | Outpatient (BNVA) | payer MEDICARE, MEDICAID, SELFPAY | PROVIDERS: PCP Family Medicine; Visit Provider Obstetrics & Gynecology | DX: N95.1 Menopausal and female climacteric states (principal) | CPT/HCPCS: 76830 ==

== ENCOUNTER → 2024-02-08 11:55 | Outpatient (BNVA) | payer MEDICARE, MEDICAID, SELFPAY | PROVIDERS: PCP Family Medicine; Visit Provider Family Medicine | DX: Z01.818 Encounter for other preprocedural examination (principal) | CPT/HCPCS: 80053; 81003; 85025 ==

== ENCOUNTER 2024-02-11 07:42 | Outpatient (CLI) | payer MEDICARE, MEDICAID, SELFPAY ==
--- NOTE | 2024-02-11 08:00 | CT_ITS ---
WS: [id number] CT RIGHT KNEE, NONCONTRAST [facility] TECHNIQUE: Noncontrast CT of the RIGHT knee to include the RIGHT hip and ankle. CLINICAL INFORMATION: M17.11 - Unilateral primary osteoarthritis, right knee COMPARISON: CT abdomen pelvis 08/04/2021 DLP: 815.[address] scans at [facility] use at least one of these dose optimization techniques: automated e xposure control; mA and/or kV adjustment per patient size (includes targeted exams where dose is matc hed to clinical indication); or iterative reconstruction. FINDINGS: Calcified uterine fibroid similar to the prior studies. Sigmoid diverticulosis. Advanced tricompartme nt arthritis RIGHT knee. Hypertrophic patella. Trace suprapatellar fluid. Hypertrophic changes along the joint line. Moderate degenerative arthritis sacroiliac joints. CT/CT knee RT WES [id number] IMPRESSION: Images obtained for preoperative purposes.
== END 2024-02-11 07:43 | disposition home or self-care (01) ==
LOC: RAD 07:42
PROVIDERS: PCP Family Medicine; Visit Provider Student in an Organized Health Care Education/Training Program
DX: M17.11 Unilateral primary osteoarthritis, right knee (principal)
CPT/HCPCS: 73700

== ENCOUNTER 2024-02-22 14:29 | Observation (INO) | payer MEDICARE, MEDICAID, SELFPAY ==
[2024-02-22] VITALS (16 sets, daily range): BP systolic 95–164; BP diastolic 60–85; PULSE 47–82; RESP 16–19; TEMP 35.6–36.7; O2SAT 92–100; BMI 39.5
[2024-02-22 09:59] LABS: Basophils % 0.4 %; Eosinophils # 0.1 10^3/uL (0.0-0.8); Eosinophils % 2.5 %; Hematocrit 45.3 % (36-47); Lymphocytes # 1.8 10^3/uL (0.8-4.8); Lymphocytes % 34.7 %; Mean Corpuscular HGB Conc 32.9 g/dL (30-55); Mean Corpuscular Hemoglobin 29.2 pg (27-33); Mean Corpuscular Volume 88.6 fl (85-98); Monocytes # 0.4 10^3/uL (0.2-0.9); Monocytes % 6.8 %; Neutrophils # 2.87 10^3/uL (1.8-7.7); Neutrophils % 55.4 %; Nucleated Red Blood Cells % 0 %; Platelet Count 290 10^3/cmm (157-399); Red Blood Count 5.11 10^6/uL (3.85-5.65); Red Cell Distribution Width 12.6 % (12.1-15.1); White Blood Count 5.18 10^3/uL (3.29-11.43)
[2024-02-22] MEDS: lactated ringers 500 ML IV (10:00)
--- NOTE | 2024-02-22 10:01 | P.ANESASSM_ITS ---
Pre-Anesthetic Assessment Height/Weight: Height 4 ft 6 in Weight 164 lb Temp Pulse Resp BP Pulse Ox O2 Del Method 97.4 F L 52 L 16 164/85 98 Room Air 02/22/24 09:20 02/22/24 09:20 02/22/24 09:20 02/22/24 09:20 02/22/24 09:20 02/22/24 09:20 Operation Date: 02/22/24 10:35 Proposed Procedures p Gilberto Robot Total Knee Arthroplasty(Right) - Jack Wei DO Last intake: Intake Last Liquid Date 02/21/24 Last Liquid Time 23:30 Last Solid Date 02/21/24 Last Solid Time 23:30 Social smokes rolando Exam alert, oriented x 3, clear to auscultation bilaterally and regular rate & rhythm Airway Submandibular: within normal limits Cervical ROM: within normal limits Mallampati: Class III Comments: Comments: missing bottom teeth Anesthetic Plan ASA status: 3 Anesthesia: MAC and Regional (specify below) Other: No prior issues with anesthesia NPO since midnight Patient has a history of lip swelling with lisinopril, no angioedema noted Labs 02/21 reviewed and acceptable for surgery EKG showing sinus bradycardia Asthma, controlled with inhalers Prior LUIS, patient states that she has lost significant weight and has not needed it since that time Plan for spinal anesthetic with adductor canal block Medications/Allergies Home Medications Medication Instructions Recorded Confirmed Last Taken Type albuterol sulfate 2.5 mg/3 mL 2.5 mg inhalation QID PRN 09/06/19 02/19/24 01/28/21 History (0.083 %) solution for nebulization Shortness Of Breath montelukast 10 mg tablet 10 mg PO QPM 08/10/20 02/19/24 02/18/24 History lorazepam 0.5 mg tablet 0.5 mg PO DAILY PRN anxiety #20 11/11/23 02/19/24 Unknown Rx tabs metoprolol tartrate 100 mg tablet 100 mg PO BID #60 tabs 11/27/23 02/19/24 02/21/24 07:00 Rx albuterol sulfate 90 mcg/actuation 2 puff inhalation Q4H PRN 12/23/23 02/19/24 Unknown Rx aerosol inhaler (Ventolin HFA) shortness of breath #6.7 grams diclofenac sodium 1 % topical gel See Rx Instructions .Route 01/13/24 02/19/24 Unknown Rx .COMPLEX #100 grams tofacitinib 5 mg tablet (Xeljanz) 5 mg PO BID #60 tabs 01/13/24 02/19/24 02/19/24 Rx cyclobenzaprine 10 mg tablet 10 mg PO QPM #60 tabs 01/26/24 02/19/24 02/18/24 Rx omeprazole 20 mg capsule,delayed 20 mg PO DAILY 02/19/24 02/19/24 02/19/24 History release topiramate 50 mg tablet (Topamax) 25 mg PO BID 02/19/24 02/19/24 02/19/24 History Allergies Allergy/AdvReac Type Severity Reaction Status Date / Time lisinopril Allergy Intermediate lip Verified 02/08/24 11:35 swelling pregabalin [From Lyrica] Allergy Mild rash Verified 02/08/24 11:35 codeine Allergy HIVES Verified 02/08/24 11:35 hydrocortisone Allergy HIVES Verified 02/08/24 11:35 [facility] Anesthesia Medical History (Updated 02/12/24 @ 07:14 by Christopher Collado DO) Nocturnal hypoxemia Obstructive sleep apnea on CPAP Immunization counseling High risk medication use Seropositive rheumatoid arthritis of multiple sites CHF (congestive heart failure), NYHA class III HTN (hypertension), benign Asthma Obesity Cervical radiculopathy Calcium deposit in bursa of left hip CALCIUM DEPOSIT REMOVED FROM LEFT BUTTOCK 1991 X3. Carpal tunnel syndrome on both sides Surgical History (Updated 02/19/24 @ 11:12 by Reema Garcia RN) Status post colonoscopy with polypectomy (11/10/19) H/O exploratory laparotomy EXPLORATORY SURGERY ON FEMALE PART A INFANT Family History Mother Hypertension Grandmother Heart disease Cancer Paternal -- stomach Mother Diabetes Family/Other Breast cancer Maternal Aunt Denies family history of Clotting disorder Hyperlipidemia Chronic kidney disease (CKD) Thyroid disease Stroke Social History Smoking and tobacco/nicotine status: never used tobacco/nicotine Quit status (tobacco/nicotine): has quit using Year quit tobacco: 2017 Former quit date comment: 0.5 ppd x 36 years Second hand smoke exposure: No Alcohol intake: never Substance/Drug Use: current Substance/Drug use frequency: daily Female Reproductive History Para: 0 Spontaneous abortions: Yes Data Anesthesia 02/22/24 09:45 02/22/24 09:45 Short CBC 02/22/24 Range/Units 09:45 WBC 5.18 (3.29-11.43) 10^3/uL Hgb 14.90 (11.27-16.99) g/dL Hct 45.3 (36-47) % MCV 88.6 (85-98) fl Plt Count 290 (157-399) 10^3/cmm Neut % (Auto) 55.4 % Neut # (Auto) 2.87 (1.8-7.7) 10^3/uL Cardiac Studies: 2 Echocardiogram Ultrasound 01/02/20
[2024-02-22] MEDS: scopolamine 1.5 Patch 1 PATCH TRANSDERMA (10:04)
--- NOTE | 2024-02-22 10:07 | P.HP_ITS ---
Same Day Surgery H&P Indication for Procedure/HPI DATE OF PROCEDURE: February 22, 2024 CHIEF COMPLAINT/INDICATIONFOR SURGICAL PROCEDURE: Right knee degenerative joint disease PREOP DIAGNOSIS: Right knee degenerative joint disease PLANNED PROCEDURE: Operation Date: 02/22/24 10:35 Proposed Procedures p Gilberto Robot Total Knee Arthroplasty(Right) - Jack Wei DO Medications/Allergies* Home Medications Medication Instructions Recorded Confirmed Type albuterol sulfate 2.5 mg/3 mL 2.5 mg inhalation QID PRN 09/06/19 02/19/24 History (0.083 %) solution for nebulization Shortness Of Breath montelukast 10 mg tablet 10 mg PO QPM 08/10/20 02/19/24 History omeprazole 20 mg capsule,delayed 20 mg PO DAILY 02/19/24 02/19/24 History release topiramate 50 mg tablet (Topamax) 25 mg PO BID 02/19/24 02/19/24 History Allergies/Adverse Reactions Allergy/AdvReac Type Severity Reaction Status Date / Time lisinopril Allergy Intermediate lip Verified 02/08/24 11:35 swelling pregabalin [From Lyrica] Allergy Mild rash Verified 02/08/24 11:35 codeine Allergy HIVES Verified 02/08/24 11:35 hydrocortisone Allergy HIVES Verified 02/08/24 11:35 Pertinent History/Comorbid Conditions* Medical History (Updated 02/12/24 @ 07:14 by Christopher Collado DO) Nocturnal hypoxemia Obstructive sleep apnea on CPAP Immunization counseling High risk medication use Seropositive rheumatoid arthritis of multiple sites CHF (congestive heart failure), NYHA class III HTN (hypertension), benign Asthma Obesity Cervical radiculopathy Calcium deposit in bursa of left hip CALCIUM DEPOSIT REMOVED FROM LEFT BUTTOCK 1991 X3. Carpal tunnel syndrome on both sides Surgical History (Updated 02/12/24 @ 07:14 by Christopher Collado DO) Status post colonoscopy with polypectomy (11/10/19) H/O exploratory laparotomy EXPLORATORY SURGERY ON FEMALE PART A Family History (Updated 12/20/20 @ 09:50 by Mariela Farris LPN) Diabetes Mother Heart disease Grandmother Breast cancer Family/Other Maternal Aunt Cancer Grandmother Paternal -- stomach Hypertension Mother Denies family history of Clotting disorder Hyperlipidemia Chronic kidney disease (CKD) Thyroid disease Stroke Social History Smoking and tobacco/nicotine status: never used tobacco/nicotine Quit status (tobacco/nicotine): has quit using Year quit tobacco: 2018 Former quit date comment: 0.5 ppd x 36 years Second hand smoke exposure: No Alcohol intake: never Substance/Drug Use: current Substance/Drug use frequency: daily Pertinent Exam Findings alert, oriented x 3, operative site marked and procedure specific exam findings Please refer to detailed orthopedic examination on 12/22/2023 detailed below: obese female, has continued to lose weight, BMI is 39.5 today Right knee, about 10 degrees of varus or bow that is correctable on exam. Range of motion, greater than 115 with pain at end ranges of motion. Significant medial joint spa ce tender to palpation. Tender over the lateral joint space. Positive crepitus of the patella on the range of motion. On the left knee, varus, valgus stress 0 to greater than 115, 5 degree varus, correctable on exam. Tender over the medial joint space. Tenderness over the lateral joint space. Crepitus of the patella on knee range of motion. Mild swelling of the bilateral knees. Recommendations Surgery/Procedure today Other Plans: Plan to proceed to the OR today for a right total knee arthroplasty?Gilberto robotic assisted. Patient understands the ins and outs procedure risk benefits complication alternatives with surgery and through shared decision make elects proceed with surgical invention. All questions been answered at this time she is clear the preoperative clearance process with her preoperative clearance team no change in her health since last visit. All questions answered. Coding Level of Care Code Acute Code for Chg Fwd
[2024-02-22 10:17] LABS: Anion Gap 16.1 (5-19); Blood Urea Nitrogen 19 mg/dL (6-20); Calcium 9.1 mg/dL (8.5-10.5); Carbon Dioxide 25 mmol/L (22-29); Chloride 104 mmol/L (98-107); Creatinine Clr Calc Pharmacy 124.4122; Glomerular Filtration Rate 103.8 mL/min (90-130); Glucose 112 mg/dL (65-115); Osmolality Calculated 295 mOsm/kg (285-295); Potassium 4.1 mmol/L (3.5-5.1); Sodium 141 mmol/L (136-145)
--- NOTE | 2024-02-22 10:17 | ANES.PROC ---
Anesthesia Procedures Procedure/Date: 02/22/24 Nerve Block ^: Nerve Block 1: Main Anesthesia: other Time Out Performed: Yes Consent: requested by attending/covering physician and from patient Nerve block location: adductor canal Anesthesia monitors applied: pulse oximetry, EKG, BP cuff and oxygen Nerve block position: supine Anesthetic Used: ropivicaine 0.5% Amount of anesthesia used (mL): 20 Ultrasound used to: recognize landmarks Interscalene/Femoral BLK: 4 stimuplex 21 g needle used for position and inplane approach Injection: neg aspiration of heme Patient Tolerated Procedure: well Complications: none Additional Comments: decadron 4mg added to block
[2024-02-22] MEDS: ketorolac 30 mg/mL INJ IVP (10:18)
[2024-02-22] MEDS: acetaminophen 1,000 MG/100 ML PIGGYBACK 400 MG IV ×3 (10:21→22:31)
[2024-02-22] MEDS: sodium chloride 0.9% 1,000 ML 30 ML IV (10:34)
[2024-02-22] MEDS: ceFAZolin 2,000 MG in sodium chloride 0.9% (plus) 50 ML 100 MG IV ×2 (10:34→17:20)
--- NOTE | 2024-02-22 10:39 | SUR.PREOP ---
10:10 RIGHT LEG NERVE BLOCK PERFORMED BY ANESTHESIA.PT ON O2 AND MONITOR. PT TOLERATED PROCEDURE WELL. GOOD ROM AND SENSATION RIGHT TOES.
[2024-02-22] MEDS: tranexamic acid 1,000 mg/10mL SDV 1000 MG IV (11:18)
[2024-02-22] MEDS: ROPivacaine 0.2% Premix 100 mL 200 MG INTRA-ARTI (11:40)
[2024-02-22] MEDS: tranexamic acid 1,000 mg/10mL SDV 1000 MG XX (11:40)
[2024-02-22] MEDS: EPINEPHrine 1 mg/mL INJ XX (11:40)
[2024-02-22] MEDS: ketorolac 30 mg/mL INJ XX (11:40)
[2024-02-22] MEDS: vancomycin 1,000 MG SDV 1000 MG XX (11:42)
--- NOTE | 2024-02-22 12:59 | PM.OP ---
Operative Report Date of procedure: February 22, 2024 Surgeon: Jack Wei DO Fire Extinguisher Repairer Inspector: Torsten Wei PA-C: PA was necessary for assistance in this case with leg positioning retraction and protection of neurovascular structures as well as assistance in implantation wound closure and dressing application. Procedure: Preoperative diagnosis: Right knee degenerative joint disease Post-op diagnosis: Same Procedure done: Right total knee arthroplasty, cemented?robotic assisted Gilberto Implants: [place] triathlon size 2 femur CR cemented?Right [place] triathlon size? 1 tibia universal baseplate cemented Aakash triathlon symmetric patella size 27 mm Aakash triathlon polyethylene 11mm x 2 ( 1 was wasted) Surgeon: Jack Wei DO Estimated blood?loss: 20 mL Tourniquet 80 minutes IV fluids: 600 mL Urine output: 200 mL Complications: None Condition: stable Disposition: floor Brief History: Patient is a 54-year-old female with with chronic?Right knee degenerative joint disease.? Patient has been worked up in the outpatient setting in the orthopedic office at this point time through shared decision making given? [id number] arthritis as well as failed conservative treatment, and pt would?like to proceed with a?Right total knee arthroplasty.? Through shared decision making elected to proceed with surgical intervention for?Right total knee arthroplasty.? We talked about continued conservative treatment and surgical intervention as far as the risk benefits complications alternatives surgical and nonsurgical treatment options.? At this point time understanding patient risks with surgery pt agrees to proceed with surgical intervention.? ? Understanding these risks patient agrees to proceed with surgical intervention consent was obtained.? All questions answered. Procedure: Patient was seen and evaluated in the preoperative holding area.? Consent was reviewed and signed with patient with plan for?Right total knee arthroplasty.? All questions answered.? Correct extremity marked.? Patient seen and evaluated by the anesthesia department and once cleared for surgery was taken back to the operative suite.? Patient was placed into a supine position on the OR table.? All bony prominences were well-padded.? Patient was appropriately secured to the bed.? Patient underwent anesthesia per the anesthesia department.? Patient received spinal anesthesia and? Schmidt catheter was placed.? A nonsterile tourniquet was applied to the?Right thigh.? At this point in time a final timeout performed.? Patient received appropriate preoperative antibiotics and TXA. Next the?Right?lower extremity was then prepped and draped in standard orthopedic fashion. Esmarch tourniquet was used exsanguinate the?Right?lower extremity.? Tourniquet was insufflated to 250 mmHg. A standard anterior incision was made over midline of the knee.? Sharp scalpel excision through skin and subcutaneous tissue full-thickness skin flaps were made.? Fascia was elevated off of the extensor retinaculum was stable with medial parapatellar arthrotomy was then made.? The performed standard sequential releases..? Immediately on entry into the joint patient was found to have severe eburnated bone and tricompartmental arthritic changes noted.? With significant osteophyte formation.? Next the the patella was then stuffed and the knee was then flexed.?? Rod was placed superiorly around the anterior aspect of the femur this was freed of synovium and I subsequently then placed by 2 femur pins to establish my femur arrays for the Gilberto robot.? These were then placed bicortically and? femur array was then appropriately secured with appropriate visualization.? Next attention was turned towards the tibial rays.? These were then drilled sequentially bicortically in parallel fashion and intraincisional.? I then placed my guide as well as my tibial array on in place.? This was appropriately secured and had excellent visualization with the Gilberto robot.? Next the tibial checkpoint as well as femur checkpoint were then placed.? At this point time I then subsequently established my head center as well as my medial?lateral malleoli as well as my checkpoints.? Next utilizing standard Atbrox technology I then mapped out the appropriate points and confirmation points around the femur as well as the tibia in standard fashion.? Once this was then done I then removed all osteophytes in preparation for dynamic testing.? All osteophytes were removed as well as I removed the ACL and the PCL was excised due to its significant tearing and degeneration noted.? At this point time the knee was brought into full extension and we performed our standard evaluation of our gap balancing stressing his?ligaments and extension as well as flexion appropriate adjustments were made to have appropriate gap balancing in both flexion and extension.? This plan for final counts.? We get a preoperative plan evaluating our implants which was a size 2 femur and a size 1 tibia.? Next we brought in the Gilberto robot and sequentially made our femur cuts.? All excess bony cuts were then removed.? Finally we made our tibial cut.? Once this was done a standard PCL retractor was then placed into this position I excised the medial and?lateral meniscus.? The tibial cut was then subsequently removed all excess bony debris was removed.? I then utilized a?lamina yolk spray drier and remove the posterior osteophytes.? Patient did have 1 small osteophyte that was embedded within the capsule and the posterior lateral aspect of the knee. Work to get this was able to get some of the edges off of this however given this embedded numbness within the Proximity to the Neurovascular Structure of the I Utilized My Finger and This Had Excellent Space and Plenty of Room for the Implant As a Result of Her to Not Cause Any More Harm and Left the Small Posterior Palpable Feeling Osteophyte/Possible Flabella Alone. At this point time sized the tibia and confirmed this was a size 1.? I utilized our blunt probe to establish rotation of tibial implant.? Once this was done I then placed my tibia size 1 trial in appropriate position and then subsequently placed tibial pins to hold this into place placed a size 11 mm poly as well as a size 2 femur which was appropriately impacted in place knee was then subsequently brought into extension. Trials were then assessed,? this was stable with varus valgus stress in extension as well as had symmetrical translation when brought into flexion demonstrating symmetrical gaps. I had excellent balance gaps in flexion and extension with varus and valgus stresses.? At this point I was satisfied with these implants these were then verified and opened on the back table size 1 tibia, size 2 femur,? size 11 mm polythickness.? We did confirm appropriate gap balancing and stresses as well as alignment utilizing? Gilberto and were satisfied with this plan.? ?At this point time with my trials in place I then towel clip the patella everted this made appropriate measurements subsequently utilizing freehand technique performed by patellar resurfacing this was confirmed to be appropriate resection and subsequently sized to be a 27mm symmetric.? My drill peg guides were then clamped and appropriate position and appropriate position in the patella for appropriate tracking and parallel with the joint.? Pegs were drilled trial implant was placed and the knee was then subsequently ranged and found to have excellent patellar tracking.? Femur pegs were then drilled.?All checkpoints as well as guidepins and arrays were removed and appropriate counts made. Satisfied with our tibial placement rotation I then utilized the keel punch and prepped the tibia.? At this point time all of our trial implants were removed.? ? The wound bed? was thoroughly irrigated and dried and prepped for cementation.? Cement was mixed on the back table.? Once cement was ready this was then covered onto the tibia and the tibial baseplate was then impacted and all excess cement was removed.? Next the polyethylene was then impacted into place on the tibial baseplate.? Next cement was placed onto the femur. I attempted to try and place the femur implant then at this point in standard fashion however given her size of her soft tissue approximate the femur impinging on the leg cm this inhibited my ability to clear the posterior condyles of the implant and aligned Femur implant as a result I had to snap out the impacted poly to allow me to get access to appropriate placement position of the femoral implant. Once the poly was removed make sure all metal fragments of the snapping and polyethylene was removed as well as any plastic fragments. I then placed the femur implant had excellent position and alignment with the femur pegs and now at this point went ahead and impacted it in to place and all excess cement was extruded and removed.? Knee was taken into full extension? to clear all excess cement was removed.? Warm saline was placed over the joint.? I then towel clip patella and dried for cementation. cemented the patella into place.? This was all clamped and the cement was allowed to cure. I then placed the trial poly back in to allow for appropriate tensioning while the cement cured. Thorough irrigation performed with pulse?lavage.? I then placed my periarticular injection while the cement was curing.? Once cured the knee was taken through range of motion and had excellent stability and gaps were balanced in flexion and extension with the trial poly and then subsequently opened the new 11 mm poly and impacted this into place with excellent fixation. Tourniquet was then deflated. This had excellent balance gaps stable with flexion and extension with varus valgus stress. Hemostasis satisfactory with electrocautery.? Vancomycin powder was placed in the wound bed for antibiotic prophylaxis. Next I then subsequently closed the capsule with Ethibond suture as well as a running strata fix suture.? Knee was then taken through range of motion 20 times.? Next the skin was then closed in?layered fashion of running stratifix sutures of deep and subcutaneous tissue and skin.? ?closed in flexion and Prineo glue was then placed over the incision this allowed to cure.? Incision was covered with kaur incisional VAC, with ABDs soft roll and Roque wrap.? Patient was then awakened from anesthesia and taken to PACU in stable condition. Disposition: Patient taken to PACU in stable condition will be admitted to the floor for pain control PT/OT weight-bear as tolerated?Right?lower extremity dressing changes as needed, DVT prophylaxis. Pain control. Patient will receive appropriate postoperative antibiotics. patient will be seen today by the internal medicine team for medical management.? Patient will follow up with the office in 2 weeks.? Patient understands agrees with current plan.? All questions answered.
--- NOTE | 2024-02-22 13:14 | XR_ITS ---
WS: [id number] Exam: XR knee RT 1-2V [id number] Date/Time of Exam: 02/22/2024 1:42 PM Reason For Exam: s/p r tka Comparison 06/12/2023. A RIGHT total knee arthroplasty is in place in excellent position. Postoperative changes in the adjac ent soft tissues. XR/XR knee RT 1-2V 45078 IMPRESSION: 1. Total knee arthroplasty in satisfactory position without obvious complicatio n.
--- NOTE | 2024-02-22 13:28 | W.PM.BPON ---
Date of Procedure: [02/22/2024] Surgeon: [Dr. Wei DO] Death Claim Examiner(s): [Torsten Wei PA-C] Procedure(s) performed: [Right total knee arthroplasty with Gilberto robotic assist] Findings of the procedure(s): [Right knee degenerative joint disease] Estimated blood loss: [20 ml] Specimen(s) removed: [N/A] Post-operative diagnosis: [Right knee degenerative joint disease]
--- NOTE | 2024-02-22 13:28 | P.CONIM_ITS ---
Providers/Reason For Consult 2 Consulting Physician/Specialty*: Frase/Hospitalist Reason for Consult*: medical management HTN, asthma Requesting Physician: Dr Wei Attending Physician: Jack Wei DO Primary Care Provider: Christopher Collado DO History of Present Illness History of Present Illness Jaye Pollard is a 54 year old female who presented to [facility] on the day of admission for planned elective right total knee arthroplasty by Dr. Wei. Patient's journey to get here is longstanding. She has had issues with osteoarthritis/knee pain for many years but was limited in surgical management due to a BMI greater than 70. In 2021 she underwent gastric bypass surgery and BMI is currently below 40, allowing her to proceed today. She has a known history of rheumatoid arthritis and is followed by Dr. Chandler in the rheumatology clinic. She is on Xeljanz which she takes twice daily and has been for the last 2 weeks. She has previously been on 2.5 mg of prednisone daily earlier this year but has been off of it due to swelling and weight gain. Her rheumatoid arthritis has been doing well without it. She underwent Gilberto robotic assisted arthroplasty with cement today by Dr. Wei under spinal anesthesia. Estimated blood loss 20 mL. No immediate perioperative complications. She does have a Schmidt catheter in place. She is chronically on beta-blockade. Postoperative pulse generally has been in the 50s. She has had some variable blood pressures. She previously had been on amlodipine but it was recently stopped due to well- controlled blood pressures after her weight loss. She was able to come off of diuretic therapy sometime ago due to weight loss. She has a known history of diastolic dysfunction, grade 2 on last echocardiogram in 2019. At home blood pressures have been running no more than 120 systolic. She carries a diagnosis of asthma but it has been well-controlled with most recent use during a cutting time. Asthma is primarily eosinophilic in nature brought on by allergens. Prior to her bypass surgery she was on CPAP/BiPAP for sleep apnea. With the amount of weight that she is lost she has not been able to find a nasal mask that does not leak and has stopped using PAP support with sleep. She has not had a repeat sleep study since losing so much weight. No known issues with significant apnea or persistent nocturnal hypoxemia but has not been monitored. At the present time she is just beginning to feel some pain. No GI symptoms. No specific complaints. History is obtained from her and and review of records. Case also discussed with Dr. Wei. Review of Systems 2 General: Reports: Other (ROS as per HPI or as noted here) Card: Denies: chest pain, palpitations or edema Resp: Denies: dyspnea Medications/Allergies Home Medications Medication Instructions Recorded Confirmed Last Taken Type albuterol sulfate 2.5 mg/3 mL 2.5 mg inhalation QID PRN 09/06/19 02/19/24 01/28/21 History (0.083 %) solution for nebulization Shortness Of Breath montelukast 10 mg tablet 10 mg PO QPM 08/10/20 02/19/24 02/18/24 History lorazepam 0.5 mg tablet 0.5 mg PO DAILY PRN anxiety #20 11/11/23 02/19/24 Unknown Rx tabs metoprolol tartrate 100 mg tablet 100 mg PO BID #60 tabs 11/27/23 02/19/24 02/21/24 07:00 Rx albuterol sulfate 90 mcg/actuation 2 puff inhalation Q4H PRN 12/23/23 02/19/24 Unknown Rx aerosol inhaler (Ventolin HFA) shortness of breath #6.7 grams diclofenac sodium 1 % topical gel See Rx Instructions .Route 01/13/24 02/19/24 Unknown Rx .COMPLEX #100 grams tofacitinib 5 mg tablet (Xeljanz) 5 mg PO BID #60 tabs 01/13/24 02/19/24 02/19/24 Rx cyclobenzaprine 10 mg tablet 10 mg PO QPM #60 tabs 01/26/24 02/19/24 02/18/24 Rx omeprazole 20 mg capsule,delayed 20 mg PO DAILY 02/19/24 02/19/24 02/19/24 History release topiramate 50 mg tablet (Topamax) 25 mg PO BID 02/19/24 02/19/24 02/19/24 History Allergies Allergy/AdvReac Type Severity Reaction Status Date / Time lisinopril Allergy Intermediate lip Verified 02/08/24 11:35 swelling pregabalin [From Lyrica] Allergy Mild rash Verified 02/08/24 11:35 codeine Allergy HIVES Verified 02/08/24 11:35 hydrocortisone Allergy HIVES Verified 02/08/24 11:35 Current Medications Generic Name Dose Route Start Last Admin Trade Name Jerelq PRN Reason Stop Dose Admin Sodium Chloride 1,000 mls @ 30 mls/hr 02/22/24 09:00 02/22/24 10:34 Sodium Chloride 0.9% IV 02/23/24 08:59 30 mls/hr .Q24H ELIZABETH Administration PFSH Acute 2 PFSH: Medical History (Updated 02/22/24 @ 15:08 by Isidra Zhong MD) Degenerative arthritis of knee, bilateral History of multiple pulmonary nodules q18-24m CT recommended for follow up by pulmonology History of hepatitis C treated Eosinophilic asthma Obstructive sleep apnea on CPAP No longer on CPAP/BiPAP since gastric bypass surgery and significant weight loss but has not had a formal post gastric bypass sleep study (01/2024) High risk medication use GUSTAVO inhibitor, has been on steroids Seropositive rheumatoid arthritis of multiple sites CHF (congestive heart failure), NYHA class III HTN (hypertension), benign Obesity BMI > 70 prior to gastric bypass surgery in 2021 Cervical radiculopathy Calcium deposit in bursa of left hip Calcium deposit removed from left buttock 1991 x3 Carpal tunnel syndrome on both sides Surgical History (Updated 02/22/24 @ 14:19 by Isidra Zhong MD) History of gastric bypass (07/2021) Status post total right knee replacement using cement (02/22/24) with Dr Eriberto HARVEY Status post colonoscopy with polypectomy (11/10/19) H/O exploratory laparotomy Exploratory surgery on female part as an Family History Mother Hypertension Grandmother Heart disease Cancer Paternal -- stomach Mother Diabetes Family/Other Breast cancer Maternal Aunt Denies family history of Clotting disorder Hyperlipidemia Chronic kidney disease (CKD) Thyroid disease Stroke Social History (Updated 02/22/24 @ 13:35 by Isidra Zhong MD) Smoking and tobacco/nicotine status: former use of tobacco/nicotine Quit status (tobacco/nicotine): has quit using Year quit tobacco: 2017 Former quit date comment: 0.5 ppd x 36 years Second hand smoke exposure: No Alcohol intake: never Substance/Drug Use: current Substance/Drug use frequency: daily Female Reproductive History: Para: 0 Spontaneous abortions: Yes Vitals/I&O/Wt Last Vital Signs Temp 97.4 F L 02/22/24 09:20 Pulse 58 L 02/22/24 10:09 Resp 16 02/22/24 10:09 BP 144/81 02/22/24 10:09 Pulse Ox 100 02/22/24 10:09 O2 Del Method Nasal Cannula 02/22/24 10:09 O2 Flow Rate 2 02/22/24 10:09 02/21/24 02/22/24 02/22/24 22:59 06:59 14:59 Intake Total 550 / 550 Balance 550 / 550 Weight last 48 hrs Weight 74.389 kg Physical Exam 2 Narrative: Patient is awake and alert. Able to provide history. Extraocular movements are intact. Pupils are equally round and reactive to light. Oropharynx with slightly dry mucous membranes. Lungs are clear to auscultation bilaterally without any rales rhonchi or wheezes noted. Cardiovascular exam reveals a regular rate and rhythm without any murmurs gallops or rubs. Pulses are 2+ x 3 with brisk capillary refill noted at right foot. With dressing in place, pulses are palpable but diminished comparatively I believe due to dressing. Right lower extremity with postoperative dressing intact. Ice packs on. Schmidt catheter noted. Patient is short in stature. Data 02/22/24 09:45 02/22/24 09:45 Other Labs: Laboratory Results WBC 5.18 10^3/uL (3.29-11.43) 02/22/24 09:45 RBC 5.11 10^6/uL (3.85-5.65) 02/22/24 09:45 Hgb 14.90 g/dL (11.27-16.99) 02/22/24 09:45 Hct 45.3 % (36-47) 02/22/24 09:45 MCV 88.6 fl (85-98) 02/22/24 09:45 MCH 29.2 pg (27-33) 02/22/24 09:45 MCHC 32.9 g/dL (30-55) 02/22/24 09:45 RDW 12.6 % (12.1-15.1) 02/22/24 09:45 Plt Count 290 10^3/cmm (157-399) 02/22/24 09:45 MPV 11.0 fL (7.4-10.4) H 02/22/24 09:45 Neut % (Auto) 55.4 % 02/22/24 09:45 Lymph % (Auto) 34.7 % 02/22/24 09:45 [place] % (Auto) 6.8 % 02/22/24 09:45 Eos % (Auto) 2.5 % 02/22/24 09:45 Baso % (Auto) 0.4 % 02/22/24 09:45 Neut # (Auto) 2.87 10^3/uL (1.8-7.7) 02/22/24 09:45 Lymph # (Auto) 1.8 10^3/uL (0.8-4.8) 02/22/24 09:45 [place] # (Auto) 0.4 10^3/uL (0.2-0.9) 02/22/24 09:45 Eos # (Auto) 0.1 10^3/uL (0.0-0.8) 02/22/24 09:45 Baso # (Auto) 0.0 10^3/uL (0.0-0.1) 02/22/24 09:45 Nucleated RBC % (auto) 0 % 02/22/24 09:45 Nucleated RBCs # 0.0 /100WBC 02/22/24 09:45 Sodium 141 mmol/L (136-145) 02/22/24 09:45 Potassium 4.1 mmol/L (3.5-5.1) 02/22/24 09:45 Chloride 104 mmol/L (98-107) 02/22/24 09:45 Carbon Dioxide 25 mmol/L (22-29) 02/22/24 09:45 Anion Gap 16.1 (5-19) 02/22/24 09:45 BUN 19 mg/dL (6-20) 02/22/24 09:45 Creatinine 0.6 mg/dL (0.5-0.9) 02/22/24 09:45 GFR Calculation 103.8 mL/min (90-130) 02/22/24 09:45 Glucose 112 mg/dL (65-115) 02/22/24 09:45 Calculated Osmolality 295 mOsm/kg (285-295) 02/22/24 09:45 Calcium 9.1 mg/dL (8.5-10.5) 02/22/24 09:45 Blood Type B Positive 02/22/24 09:45 Rho(D) Type Rh positive 02/22/24 09:45 Antibody Screen Negative 02/22/24 09:45 A&P Assessment and plan (1) Status post total right knee replacement using cement: POD#0 Doing well (2) HTN (hypertension), benign: Chronically on metoprolol. Amlodipine recently stopped as BPs have improved with weight loss after gastric bypass. Currently with bradycardia that may be secondary to beta-blockade plus or minus perioperative anesthesia/sedation. On review of old records, only a few instances of heart rate in the upper 50s noted. (3) CHF (congestive heart failure), NYHA class III: EF from echo in 2020 65% with grade 2 diastolic dysfunction, on betablocker, not on diuretics chronically Qualifiers: Congestive heart failure chronicity: chronic Congestive heart failure type: diastolic Qualified Code(s): I50.32 - Chronic diastolic (congestive) heart failure (4) Seropositive rheumatoid arthritis of multiple sites: Chronically on tofacitinib through rheumatology clinic (5) Lumbar back pain: Chonically on diclofenac gel, flexeril. Also in topamax as part of pain management regimen but this is being tapered by PCP due to issues with brain fog. (6) High risk medication use: GUSTAVO inhibitor which is immunosuppressant Has been on steroid therapy within the last year per review of rheumatology notes (7) Asthma: Eosinophilic asthma, has as needed inhalers for mild intermittent symptoms Qualifiers: Asthma complication type: uncomplicated Asthma persistence: i ntermittent Asthma severity: mild Qualified Code(s): J45.20 - Mild intermittent asthma, uncomplicated (8) BMI 39.0-39.9,adult: Down from significantly higher (70+) before gastric bypass surgery, currently BMI 39 Plan Usual postoperative management as per Dr. Wei Schmidt catheter will need to be removed Perioperative antibiotics as ordered with vancomycin and cefazolin Plan is for Eliquis for VTE prophylaxis to start tomorrow Status post tranexamic acid Calcium plus vitamin D ordered along with iron polysaccharide complex Discussed with Dr. Wei management of Xeljanz. Plan is to hold Xeljanz for 2 weeks postoperatively due to immunosuppression and potential impact on healing. Should patient require additional pharmacological management for her rheumatoid arthritis she can take prednisone 2.5 mg daily up to 5 mg daily. I will provide a prescription for such she can fill upon discharge. I am continuing metoprolol but at 75 mg p.o. twice daily rather than the 100 secondary to bradycardia noted currently Maybe and anesthesia effect so anticipate resumption of the 100 mg daily upon discharge Monitor for signs and symptoms of acute CHF Continue home Flexeril Currently holding diclofenac gel as has received Toradol order Has as needed hydromorphone IV and oxycodone p.o. along with tramadol p.o. for pain control Bowel regimen ordered Continue home Topamax As needed albuterol Continuing home Singulair Continuing home as needed Ativan for anxiety Continuing home PPI VTE prophylaxis: Eliquis planned GI Prophylaxis: PPI Antibiotics: Perioperative prophylaxis Pending studies: Morning labs Telemetry: Ordered secondary to bradycardia present currently Schmidt: Perioperative Line(s): peripheral IVs Disposition plan: Home with outpatient follow up and home health planned for tomorrow as per discussion with Dr. Wei. Discussed with Mrs. Pollard talking to Dr. Arora, her PCP regarding eventual post gastric bypass sleep study to discern if she needs to continue CPAP/BiPAP. Would also benefit from follow-up CT imaging secondary to pulmonary nodules previously monitored by Dr. Whitehead (Last CT chest in 2021) Code Status: Full Code Supportive care otherwise Findings, concerns and plans were discussed with patient and her /father present and they were given an opportunity to ask questions Diagnoses Status post total right knee replacement using cement Z96.651 HTN (hypertension), benign I10 Chronic diastolic congestive heart failure, NYHA class 3 I50.32 Congestive heart failure chronicity: chronic Congestive heart failure type: diastolic Seropositive rheumatoid arthritis of multiple sites M05.79 Lumbar back pain M54.50 High risk medication use Z79.899 Mild intermittent asthma without complication J45.20 Asthma complication type: uncomplicated Asthma persistence: intermittent Asthma severity: mild BMI 39.0-39.9,adult Z68.39
--- NOTE | 2024-02-22 13:29 | PM.PACU ---
PACU note Narrative: Patient is a 54-year female just underwent a right total knee arthroplasty. Pt transferred to PACU in stable condition. Dressing is dry. pt is awake and alert. Compartments are soft compressible. Distal pulses are palpable toes are warm and well-perfused. Cap refill is normal and under 2 seconds. Unable to do any further assessment of motor or sensory function due to residual spinal block. Pain is controlled. Exam: awake Disposition: admitted
[2024-02-22] MEDS: lactated ringers 1,000 ML 100 ML IV (15:17)
[2024-02-22] MEDS: ketorolac 30 mg/mL INJ 15 MG IVP ×2 (15:18→22:30)
[2024-02-22] MEDS: oxyCODONE 5 mg IR Tab/Cap PO ×2 (15:18→20:09)
--- NOTE | 2024-02-22 16:11 | ANE.PACU2 ---
Inpatient post-anesthesia follow up: Airway intact: Yes Vital signs: Temperature 96.0 F Pulse Rate 47 Respiratory Rate 16 Blood Pressure 150/67 Pulse Oximetry 99 Oxygen Delivery Me thod Room Air Oxygen Flow Rate 2 Fraction of Inspir ed Oxygen Hydration adequate: Yes Nausea and vomiting: No Pain level: 1 Mental status: Baseline
[2024-02-22] MEDS: HYDROmorphone 1 mg/mL INJ 1 mL 0.5 MG IVP (17:08)
[2024-02-22] MEDS: chlorhexidine gluconate 0.12% Btl 473 mL 30 ML MUCOUS MEM ×2 (17:09→20:10)
[2024-02-22] MEDS: montelukast sodium 10 mg Tablet PO (17:09)
[2024-02-22] MEDS: calcium carb-vit d 600mg/400unit 1 Tablet 1 EACH PO (17:09)
[2024-02-22] MEDS: cyclobenzaprine 10 mg Tablet PO (17:09)
[2024-02-22] MEDS: sennosides-docusate Tablet 2 TAB PO (17:09)
[2024-02-22] MEDS: iron polysaccharide complex 150 mg Capsule PO (17:09)
[2024-02-22] MEDS: tranexamic acid 1,000 MG/100 ML PREMIX 600 MG IV (20:02)
[2024-02-22] MEDS: topiramate 25 mg Tablet PO (20:03)
[2024-02-22] MEDS: metoprolol tartrate 50 mg Tablet 75 MG PO (20:03)
[2024-02-23] VITALS (10 sets, daily range): BP systolic 103–161; BP diastolic 62–88; PULSE 50–61; RESP 16–18; TEMP 36.6–36.7; O2SAT 96–100
[2024-02-23] MEDS: oxyCODONE 5 mg IR Tab/Cap PO ×3 (00:13→12:11)
[2024-02-23] MEDS: lactated ringers 1,000 ML 100 ML IV (00:13)
[2024-02-23] MEDS: ceFAZolin 2,000 MG in sodium chloride 0.9% (plus) 50 ML 100 MG IV ×2 (02:53→11:03)
[2024-02-23] MEDS: TRAMadol 50 mg Tablet PO (02:54)
[2024-02-23] MEDS: acetaminophen 1,000 MG/100 ML PIGGYBACK 400 MG IV (05:02)
[2024-02-23 05:29] LABS: Basophils % 0.4 %; Eosinophils % 0.2 %; Hematocrit 36.7 % (36-47); Lymphocytes # 1.4 10^3/uL (0.8-4.8); Lymphocytes % 16.2 %; Mean Corpuscular HGB Conc 32.2 g/dL (30-55); Mean Corpuscular Hemoglobin 29.8 pg (27-33); Mean Corpuscular Volume 92.7 fl (85-98); Mean Platelet Volume 11.4 fL (7.4-10.4); Monocytes # 0.5 10^3/uL (0.2-0.9); Monocytes % 6.5 %; Neutrophils # 6.38 10^3/uL (1.8-7.7); Neutrophils % 76.5 %; Nucleated Red Blood Cells % 0 %; Platelet Count 216 10^3/cmm (157-399); Red Blood Count 3.96 10^6/uL (3.85-5.65); Red Cell Distribution Width 12.7 % (12.1-15.1); White Blood Count 8.34 10^3/uL (3.29-11.43)
[2024-02-23 05:49] LABS: Anion Gap 13.3 (5-19); Blood Urea Nitrogen 14 mg/dL (6-20); Calcium 8.4 mg/dL (8.5-10.5); Carbon Dioxide 22 mmol/L (22-29); Chloride 106 mmol/L (98-107); Creatinine Clr Calc Pharmacy 146.0805; Glomerular Filtration Rate 103.8 mL/min (90-130); Glucose 103 mg/dL (65-115); Osmolality Calculated 285 mOsm/kg (285-295); Potassium 4.3 mmol/L (3.5-5.1); Sodium 137 mmol/L (136-145)
[2024-02-23] MEDS: ondansetron 2 mg/ML SDV 2 mL 4 MG IVP (09:15)
[2024-02-23] MEDS: mupirocin oint 22 gm 1 APPLIC NASAL (09:16)
[2024-02-23] MEDS: chlorhexidine gluconate 0.12% Btl 473 mL 30 ML MUCOUS MEM ×2 (09:16→12:12)
[2024-02-23] MEDS: sennosides-docusate Tablet 2 TAB PO (09:17)
[2024-02-23] MEDS: apixaban 5 mg Tablet 2.5 MG PO (09:17)
[2024-02-23] MEDS: calcium carb-vit d 600mg/400unit 1 Tablet 1 EACH PO (09:17)
[2024-02-23] MEDS: multivitamin therapeutic Tablet 1 TAB PO (09:18)
[2024-02-23] MEDS: iron polysaccharide complex 150 mg Capsule PO (09:18)
[2024-02-23] MEDS: pantoprazole DR 40 mg Tablet PO (09:18)
[2024-02-23] MEDS: metoprolol tartrate 50 mg Tablet PO (09:19)
--- NOTE | 2024-02-23 09:19 | PC.NURSE ---
Gave metoprolol for HR 54. Dr. Barba stated to give if above 50. Hold and notify Dr. Barba if less than 50
[2024-02-23] MEDS: topiramate 25 mg Tablet PO (09:25)
--- NOTE | 2024-02-23 11:04 | P.PN_ITS ---
Subjective 2 Subjective: Complains of some nausea, no vomiting. Happened after medications per nursing. Has received zofran which she takes at home. On low fat diet usually. Pain tolerable. Did okay with PT today. No complaints of shortness of breath or chest pain. No papitations. Passing gas but no BM this morning. Schmidt is out. Heart rate remains low at times. Blood pressure at lower range of normal. Got 75mg metoprolol last evening versus usual home dose of 100mg. Medications: Reviewed: Yes Vitals/I&O/Wt Last Vital Signs Temp 97.8 F 02/23/24 07:41 Pulse 54 L 02/23/24 07:41 Resp 18 02/23/24 07:41 BP 109/71 02/23/24 07:41 Pulse Ox 98 02/23/24 07:41 O2 Del Method Room Air 02/23/24 07:41 O2 Flow Rate 2 02/22/24 10:09 02/22/24 02/23/24 02/23/24 22:59 06:59 14:59 Intake Total 829 / 1379 1043.333 / 2422.333 480 / 480 Output Total 1600 / 1620 100 / 1720 Balance -771 / -241 943.333 / 702.333 480 / 480 Weight last 48 hrs Weight 87.345 kg Weight 74.389 kg Weight 74.389 kg Physical Exam 2 Narrative: Patient is awake and alert. 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 Lungs are clear. Able to lay flat in bed. Regular rhythm. No murmurs. Abd soft, nontender. Dressing intact to surgical leg. Moves toes, good cap refill. Urinary Catheter Management: Schmidt: Cath Placed During This Visit: yes, but has since been removed by the nurse Reason for Continuing Indwelling Catheter: Decision to DC Catheter Urinary Catheter Date of Insertion: 02/22/24 Urinary Catheter Time of Insertion: 09:00 Date Urinary Catheter Removed: 02/23/24 Time Urinary Catheter Discontinued: 05:22 Data 02/23/24 05:12 02/23/24 05:12 A&P Assessment and plan (1) Status post total right knee replacement using cement: POD#1 Nausea this am, but otherwise doing okay Did well with PT Need to hold diclofenac while on other nsadis post op Eliquis has started Schmidt out Antibiotics completed (2) HTN (hypertension), benign: Stable on lower dose of metoprolol Looks like will tolerate a lower dose even Given bradycardia at times, will plan on 50 mg bid at discharge until followup with PCP Discussed with patient (3) CHF (congestive heart failure), NYHA class III: Chronic not acute Qualifiers: Congestive heart failure type: diastolic Congestive heart failure chronicity: chronic Qualified Code(s): I50.32 - Chronic diastolic (congestive) heart failure (4) Seropositive rheumatoid arthritis of multiple sites: Xeljanz to be held for 2 weeks. Prednisone prn RA flare in interim. Reviewed with patient and sent message to Dr Chandler and Dr Collado (5) Lumbar back pain: Chronic flexeril continues Home diclofenac gel held while on toradol On a tapering does of topamax, which is part of her pain management regimen, per PCP (6) High risk medication use: GUSTAVO inhibitor which is immunosuppressant Prenisone PRN (7) Asthma: Chronic, mild intermittent, not acute Qualifiers: Asthma severity: mild Asthma persistence: intermittent Asthma complication type: uncomplicated Qualified Code(s): J45.20 - Mild intermittent asthma, uncomplicated (8) BMI 39.0-39.9,adult: S/P gastric bypass and down from peak BMI > 70 Plan Hold Xeljanz for 2 weeks postoperatively due to immunosuppression and potential impact on healing. Should patient require additional pharmacological management for her rheumatoid arthritis she can take prednisone 2.5 mg daily up to 5 mg daily. Changing metoprolol to 50mg p.o. twice daily rather than the 100 secondary to bradycardia and lower normal blood pressures VTE prophylaxis: Eliquis GI Prophylaxis: PPI chroncially Antibiotics: Perioperative prophylaxis completed Pending studies: none Telemetry: ordered due to bradycardia and history of sleep apnea, no significant issues overnight, will DC Schmidt: removed Line(s): peripheral IVs Disposition plan: Home with outpatient follow up and home health planned for today. F/U Dr Wei on 03/08 F/U Dr Collado 2 wks for BP check as cut home metoprolol in half and will need to check on RA off Xeljanz - may benefit from outpt sleep study (not using PAP since wt loss) and follow up CT chest (for pulmonary nodules) May need sooner follow up with Dr Chandler depending on how she does off Xeljanz - currently scheduled for 05/25/2024 Code Status: Full Code Currently see no indication to delay disposition assuming nausea is controlled with oral medications and no new complaints arise today Plans were discussed with patient and her and they were given an opportunity to ask questions Completed DC instructions, problem list reconciliation, medication list from my perspective Only medications still needing addressed before DC is pain medication for acute post op pain management, calcium, iron, multivitamin, stool softer/laxative and and decision regarding diclofenac gel Attestations 2 Medical Necessity Statement*: as per attending Coding Level of Care Code 02865 Moderate Time for a total of 40 minutes, includes examining/interviewing patient, placing orders, counseling patient/family/other support, discussing plan of care with staff and documenting encounter Diagnoses Status post total right knee replacement using cement Z96.651 HTN (hypertension), benign I10 Chronic diastolic congestive heart failure, NYHA class 3 I50.32 Congestive heart failure type: diastolic Congestive heart failure chronicity: chronic Seropositive rheumatoid arthritis of multiple sites M05.79 Lumbar back pain M54.50 High risk medication use Z79.899 Mild intermittent asthma without complication J45.20 Asthma severity: mild Asthma persistence: intermittent Asthma complication type: uncomplicated BMI 39.0-39.9,adult Z68.39
--- NOTE | 2024-02-23 13:18 | P.DS_ITS ---
Discharge Providers Date of Admission: 02/22/24 14:29 Date of Discharge: February 23, 2024 Attending Provider at Admission: Jack Wei DO Attending Provider at Discharge: Jack Wei DO Primary Care Provider: Christopher Collado DO Diagnoses at Discharge Discharge Diagnosis (1) Status post total right knee replacement using cement: Status: Acute Permanent problem details: with Dr Eriberto HARVEY (2) HTN (hypertension), benign: Status: Chronic (3) CHF (congestive heart failure), NYHA class III: Status: Chronic Qualifiers: Congestive heart failure type: diastolic Congestive heart failure chronicity: chronic Qualified Code(s): I50.32 - Chronic diastolic (congestive) heart failure (4) Seropositive rheumatoid arthritis of multiple sites: Status: Chronic (5) Lumbar back pain: Status: Chronic (6) High risk medication use: Status: Chronic Permanent problem details: GUSTAVO inhibitor, has been on steroids (7) Asthma: Status: Chronic Qualifiers: Asthma severity: mild Asthma persistence: intermittent Asthma complication type: uncomplicated Qualified Code(s): J45.20 - Mild intermittent asthma, uncomplicated (8) BMI 39.0-39.9,adult: Status: Acute Reason for Visit Reason for Visit: M25.562 Physical Exam Urinary Catheter Management: Schmidt: Cath Placed During This Visit: yes, but has since been removed by the nurse Reason for Continuing Indwelling Catheter: Decision to DC Catheter Urinary Catheter Date of Insertion: 02/22/24 Urinary Catheter Time of Insertion: 09:00 Date Urinary Catheter Removed: 02/23/24 Time Urinary Catheter Discontinued: 05:22 Discharge Data Studies Completed and Pending Completed Studies During Hospitalization Category Date Time Status XR knee RT 1-2V 74091 Routine Exams 02/22/24 13:14 Completed Pending at discharge Category Date Time Status Basic Metabolic Panel AM LABS Lab 02/24/24 04:00 Ordered Basic Metabolic Panel AM LABS Lab 02/25/24 04:00 Ordered Complete Blood Count w/Auto AM LABS Lab 02/24/24 04:00 Ordered Complete Blood Count w/Auto AM LABS Lab 02/25/24 04:00 Ordered Radiology Impressions Knee X-Ray 02/22/24 13:14 IMPRESSION: 1. Total knee arthroplasty in satisfactory position without obvious complication. Laboratory Results WBC 8.34 10^3/uL (3.29-11.43) 02/23/24 05:12 RBC 3.96 10^6/uL (3.85-5.65) 02/23/24 05:12 Hgb 11.80 g/dL (11.27-16.99) 02/23/24 05:12 Hct 36.7 % (36-47) 02/23/24 05:12 MCV 92.7 fl (85-98) 02/23/24 05:12 MCH 29.8 pg (27-33) 02/23/24 05:12 MCHC 32.2 g/dL (30-55) 02/23/24 05:12 RDW 12.7 % (12.1-15.1) 02/23/24 05:12 Plt Count 216 10^3/cmm (157-399) 02/23/24 05:12 MPV 11.4 fL (7.4-10.4) H 02/23/24 05:12 Neut % (Auto) 76.5 % 02/23/24 05:12 Lymph % (Auto) 16.2 % 02/23/24 05:12 Loíza % (Auto) 6.5 % 02/23/24 05:12 Eos % (Auto) 0.2 % 02/23/24 05:12 Baso % (Auto) 0.4 % 02/23/24 05:12 Neut # (Auto) 6.38 10^3/uL (1.8-7.7) 02/23/24 05:12 Lymph # (Auto) 1.4 10^3/uL (0.8-4.8) 02/23/24 05:12 Loíza # (Auto) 0.5 10^3/uL (0.2-0.9) 02/23/24 05:12 Eos # (Auto) 0.0 10^3/uL (0.0-0.8) 02/23/24 05:12 Baso # (Auto) 0.0 10^3/uL (0.0-0.1) 02/23/24 05:12 Nucleated RBC % (auto) 0 % 02/23/24 05:12 Nucleated RBCs # 0.0 /100WBC 02/23/24 05:12 Sodium 137 mmol/L (136-145) 02/23/24 05:12 Potassium 4.3 mmol/L (3.5-5.1) 02/23/24 05:12 Chloride 106 mmol/L (98-107) 02/23/24 05:12 Carbon Dioxide 22 mmol/L (22-29) 02/23/24 05:12 Anion Gap 13.3 (5-19) 02/23/24 05:12 BUN 14 mg/dL (6-20) 02/23/24 05:12 Creatinine 0.6 mg/dL (0.5-0.9) 02/23/24 05:12 GFR Calculation 103.8 mL/min (90-130) 02/23/24 05:12 Glucose 103 mg/dL (65-115) 02/23/24 05:12 Calculated Osmolality 285 mOsm/kg (285-295) 02/23/24 05:12 Calcium 8.4 mg/dL (8.5-10.5) L 02/23/24 05:12 Blood Type B Positive 02/22/24 09:45 Rho(D) Type Rh positive 02/22/24 09:45 Antibody Screen Negative 02/22/24 09:45 Vitals Last Vital Signs Temp 97.8 F 02/23/24 12:07 Pulse 50 L 02/23/24 12:07 Resp 18 02/23/24 12:11 BP 161/88 02/23/24 12:07 Pulse Ox 100 02/23/24 12:11 O2 Del Method Room Air 02/23/24 12:07 O2 Flow Rate 2 02/22/24 10:09 Discharge Plan Discharge Patient Disposition: Home Health Service Condition: Stable Prescriptions: New oxycodone 5 mg tablet 5 mg PO Q6H PRN (Reason: pain postop) 7 Days Qty: 28 0RF ondansetron 4 mg tablet,disintegrating 4 mg PO Q8H PRN (Reason: nausea and vomiting) 3 Days Qty: 9 0RF cephalexin 500 mg capsule 500 mg PO TID 10 Days Qty: 30 0RF Eliquis 2.5 mg tablet 2.5 mg PO BID 14 Days Qty: 28 0RF prednisone 5 mg tablet 5 mg PO DIRECTED PRN (Reason: RA flare) Qty: 30 0RF Rx Instructions: 2.5 mg daily by mouth as needed for RA flare, may increase to 5mg if needed Continued lorazepam 0.5 mg tablet 0.5 mg PO DAILY PRN (Reason: anxiety) Qty: 20 0RF cyclobenzaprine 10 mg tablet 10 mg PO QPM Qty: 60 5RF albuterol sulfate [Ventolin HFA] 90 mcg/actuation HFA aerosol inhaler 2 puff INHALATION Q4H PRN (Reason: shortness of breath) Qty: 6.7 6RF montelukast 10 mg tablet 10 mg PO QPM Hold Instructions: Adverse Reaction albuterol sulfate 2.5 mg /3 mL (0.083 %) Solution For Nebulization 2.5 mg INHALATION QID PRN (Reason: Shortness Of Breath) omeprazole 20 mg capsule,delayed release(DR/EC) 20 mg PO DAILY Rx Instructions: take 1 capsule BY MOUTH EVERY DAY Topamax 50 mg tablet 25 mg PO BID Rx Instructions: Taper dose 50mg BID x 2 weeks, then 25mg BID x 2 weeks, then 25 daily x 2 weeks. metoprolol tartrate 100 mg tablet 100 mg PO BID Qty: 60 3RF Rx Instructions: Take 1/2 tab (50mg) twice per day for blood pressure until follow up with Dr Collado. Monitor blood pressure and heart rate at home and take with you to Dr gan. Held Xeljanz 5 mg tablet 5 mg PO BID Qty: 60 5RF Hold Instructions: Resume on 03/07/24. diclofenac sodium 1 % gel See Rx Instructions .ROUTE .COMPLEX Qty: 100 2RF Hold Instructions: Hold until directed okay to resume by Dr Wei Dose Instruction: apply TWO grams topically TO THE affected area FOUR TIMES DAILY NEEDED Rx Instructions: apply TWO grams topically TO THE affected area FOUR TIMES DAILY NEEDED Discharge Orders: Discharge Order (Routine); Ordered 02/23/24 Ordered By: Jack Wei Other Ambulatory Orders: DME: [facility] (Order) Location: None Selected Ordered By: Jack Wei Referrals: [facility] [Outside] [facility] ([facility]) [Outside] Christopher Collado DO [Primary Care Provider] - 2 weeks (We have notified your physician's clinic of the need for a follow-up appointment to be scheduled. If you have not heard from them within the next 2 business days, please call them directly. ) Jack Wei DO [Physician] - 03/08/24 10:00 am Discharge Diet: Advance as tolerated Discharge Activity: Limit activity as instructed and Use walker/crutches as instructed Patient Instructions: Acute Wound Care (DC), Opioid Safety, Post Anesthesia Care Activity Restrictions/Additional Instructions: Orthopedist information: Alejandro Dressing--Keep dressing on and dry. After 3 days you can remove some of the dressing and shower. disconnect battery pack when showering. Alejandro dressing will stay on until follow up appt in 2 weeks. All can take off at 7 days and replace with a Silverlon dressing. the battery pack for the dressing will at 5-7 days. Battery pack can be removed and discarded once batteries . Patient may weight-bear as tolerate to the operative extremity Utilize crutches as needed Encourage knee range of motion Ice and elevate as needed for pain and swelling Take pain medication as prescribed Take antinausea medication as needed Take prescribed Eliquis twice daily for the next 14 days for blood clot prevention May supplement for pain with ibuprofen [id number] as needed No baths or soaks Follow-up in the orthopedic office in 2 weeks Contact the office for any questions or concerns Hospitalist information: Discuss Sleep study and follow up CT chest (recommended by Dr Whitehead previously) with Dr Collado Hold Xeljanz for 2 weeks. You can take prednisone 2.5mg daily for RA flare if needed during this time. If severe, can take 5mg daily. If you start prednisone, discuss taper with Dr Wei or Dr Chandler to start after Xeljanz resumed. I have decreased your metoprolol dosing to 50mg (half a tab) twice per day for now due to lower blood pressures and heart rate in hospital. Keep a log of your blood pressure and heart rate and take with you to follow up appointment with Dr Collado in a couple of weeks. If you notice your blood pressure or heart r ate consistently being elevated (above 160/90 for BP or >100 for HR) before follow up appointment, you may resume 100 mg (whole tab) twice per day as previously prescribed. Coding Level of Care Code Acute Code for Chg Fwd Diagnoses Status post total right knee replacement using cement Z96.651 HTN (hypertension), benign I10 Chronic diastolic congestive heart failure, NYHA class 3 I50.32 Congestive heart failure type: diastolic Congestive heart failure chronicity: chronic Seropositive rheumatoid arthritis of multiple sites M05.79 Lumbar back pain M54.50 High risk medication use Z79.899 Mild intermittent asthma without complication J45.20 Asthma severity: mild Asthma persistence: intermittent Asthma complication type: uncomplicated BMI 39.0-39.9,adult Z68.39
--- NOTE | 2024-02-23 15:31 | PC.NURSE ---
Discussed discharge with patient and family. Follow up appoints, new medications, held medications, signs and symptoms of infection for incision site were discussed. Silver[place]in dressing sent with patient as well as ice and extra Picco drain dressing. Patient verbalized understanding and all questions answered.
== END 2024-02-23 14:50 | disposition home health service (06) ==
LOC: MEDSURG 15:11
PROVIDERS: Physician Assistant; Admitting Provider Student in an Organized Health Care Education/Training Program; PCP Family Medicine; Visit Provider Student in an Organized Health Care Education/Training Program
PROC: 8E0Y0CZ Robotic Assisted Procedure of Lower Extremity, Open Approach (ICD-10-PCS; CPT 27447; principal; 2024-02-22 10:35)
DX: M17.11 Unilateral primary osteoarthritis, right knee (principal); I11.0 Hypertensive heart disease with heart failure; I50.32 Chronic diastolic (congestive) heart failure; M05.9 Rheumatoid arthritis with rheumatoid factor, unspecified; M54.50 Low back pain, unspecified; Z79.899 Other long term (current) drug therapy; J45.20 Mild intermittent asthma, uncomplicated; Z86.19 Personal history of other infectious and parasitic diseases; G47.33 Obstructive sleep apnea (adult) (pediatric); E66.9 Obesity, unspecified; Z68.42 Body mass index [BMI] 45.0-49.9, adult; Z98.84 Bariatric surgery status; Z87.891 Personal history of nicotine dependence
CPT/HCPCS: 20985; 27447; 36415; 51702; 73560; 80048; 85025; 86850; 86900; 97110; 97116; 97161; 97165; 97530; C1776; G0378; J0131; J0171; J0690; J1170; J1885; J2250; J2405; J2704; J2795; J3370; J7030; J7120

== ENCOUNTER → 2024-03-08 09:46 | Outpatient (BNVA) | payer MEDICARE, MEDICAID, SELFPAY | PROVIDERS: PCP Family Medicine; Visit Provider Physician Assistant | DX: Z96.651 Presence of right artificial knee joint (principal) | CPT/HCPCS: 73560; 73565; 99024 ==

== ENCOUNTER 2024-03-11 09:44 | Outpatient (CLI) | payer MEDICARE, MEDICAID, SELFPAY ==
--- NOTE | 2024-03-11 10:00 | CT_ITS ---
WS: [id number] LDCT LUNG CANCER SCREENING HISTORY: Cancer Screen TECHNIQUE: Axial imaging performed from the apices to 1 cm below the costophrenic angles. Coronal and sagittal reformats are submitted with axial MIP series. All CT scans at [facility] use at least one of these dose optimization techniques: automated exposure control; mA and/or kV adjustment per patient size (includes targeted exams where dose is matched to clinical indication); or iterativ e reconstruction. DLP: 52.32 mGy.cm DIvol: Mean CTDIvol: 1.30 (mGy) COMPARISON: 03/14/2022 Diagnostic quality: Satisfactory Lungs: Mild pulmonary hyperexpansion. No mass or pulmonary nodule. No endobronchial lesions. Heart: Normal size heart with no pericardial effusion.. Other findings: No mediastinal or hilar adenopathy. Mild atherosclerosis aorta. Normal pulmonary jumana ry size. Prior gastric bypass. No adrenal mass. Seen only on the last image through the upper abdomen is a low-attenuation area posterior to the stomach and adjacent to the pancreas. This was not identi fied on the prior CT from 06/13/2022. This may be volume averaging with the adjacent fat and organs. CT/CT lung screening [id number] IMPRESSION: LUNG-RADS: 1S-Negative with Significant Findings FOLLOW UP: 12 Month: Continue annual screening with LDCT OTHER FINDINGS (S MODIFIER): Low-attenuation region posterior to the stomach an d adjacent to the pancreas. No abnormality was noted in this location on a prio r CT from 2021. Recommend follow-up CT abdomen and pelvis with IV and oral cont rast to evaluate the pancreas better.
== END 2024-03-11 09:45 | disposition home or self-care (01) ==
LOC: RAD 09:44
PROVIDERS: PCP Family Medicine; Visit Provider Internal Medicine Critical Care Medicine
DX: Z12.2 Encounter for screening for malignant neoplasm of respiratory organs (principal); Z87.891 Personal history of nicotine dependence; Z98.890 Other specified postprocedural states
CPT/HCPCS: 71271

== ENCOUNTER 2024-03-15 07:23 | Outpatient (RCR) | payer MEDICARE, MEDICAID, SELFPAY | END 2024-03-28 23:59 | disposition home or self-care (01) | LOC: SPT 07:23 | PROVIDERS: PCP Family Medicine; Visit Provider Physician Assistant | DX: Z47.1 Aftercare following joint replacement surgery (principal); Z96.651 Presence of right artificial knee joint | CPT/HCPCS: 97110; 97161 ==

== ENCOUNTER 2024-03-29 06:30 | Outpatient (RCR) | payer MEDICARE, MEDICAID, SELFPAY | END 2024-04-28 23:59 | disposition home or self-care (01) | LOC: SPT 06:30 | PROVIDERS: PCP Family Medicine; Visit Provider Physician Assistant | DX: Z47.1 Aftercare following joint replacement surgery (principal); Z96.651 Presence of right artificial knee joint | CPT/HCPCS: 97110 ==

== ENCOUNTER → 2024-04-19 10:48 | Outpatient (BNVA) | payer MEDICARE, MEDICAID, SELFPAY | PROVIDERS: PCP Family Medicine; Visit Provider Physician Assistant | DX: Z96.651 Presence of right artificial knee joint (principal) | CPT/HCPCS: 73560; 73565; 99024 ==

== ENCOUNTER 2024-04-29 06:00 | Outpatient (RCR) | payer MEDICARE, MEDICAID, SELFPAY | END 2024-05-28 23:59 | disposition home or self-care (01) | LOC: SPT 06:00 | PROVIDERS: PCP Family Medicine; Visit Provider Physician Assistant | DX: Z47.1 Aftercare following joint replacement surgery (principal); Z96.651 Presence of right artificial knee joint | CPT/HCPCS: 97110; 97112 ==

== ENCOUNTER → 2024-05-25 10:53 | Outpatient (BNVA) | payer MEDICARE, MEDICAID, SELFPAY | PROVIDERS: PCP Family Medicine; Visit Provider Internal Medicine Rheumatology | DX: M05.79 Rheumatoid arthritis with rheumatoid factor of multiple sites without organ or systems involvement (principal); Z79.899 Other long term (current) drug therapy; Z71.85 Encounter for immunization safety counseling; E66.9 Obesity, unspecified; Z68.38 Body mass index [BMI] 38.0-38.9, adult | CPT/HCPCS: 36415; 80076; 82565; 85025; 85651; 86140; 99214 ==

== ENCOUNTER 2024-05-29 06:00 | Outpatient (RCR) | payer MEDICARE, MEDICAID, SELFPAY | END 2024-06-28 23:59 | disposition home or self-care (01) | LOC: SPT 06:00 | PROVIDERS: PCP Family Medicine; Visit Provider Physician Assistant | DX: Z47.1 Aftercare following joint replacement surgery (principal); Z96.651 Presence of right artificial knee joint | CPT/HCPCS: 97110 ==

== ENCOUNTER → 2024-05-31 10:06 | Outpatient (BNVA) | payer MEDICARE, MEDICAID, SELFPAY | PROVIDERS: PCP Family Medicine; Visit Provider Physician Assistant | DX: Z96.651 Presence of right artificial knee joint (principal) | CPT/HCPCS: 73560; 73565; 99213 ==

== ENCOUNTER 2024-06-06 20:00 | Outpatient (CLI) | payer MEDICARE, MEDICAID, SELFPAY | END 2024-06-06 20:01 | disposition home or self-care (01) | LOC: SLEEP 23:43 | PROVIDERS: PCP Family Medicine; Visit Provider Family Medicine | DX: G47.33 Obstructive sleep apnea (adult) (pediatric) (principal); G47.61 Periodic limb movement disorder | CPT/HCPCS: 95810 ==

== ENCOUNTER 2024-06-13 11:56 | Outpatient (CLI) | payer MEDICARE, MEDICAID, SELFPAY ==
[2024-06-13] MEDS: iohexol 350 mg/mL 500 mL Btl (per mL) PO (12:59)
--- NOTE | 2024-06-13 13:00 | CT_ITS ---
WS: [id number] CT ABDOMEN AND PELVIS WITH CONTRAST HISTORY: R19.02 - Left upper quadrant abdominal swelling, mass. TECHNIQUE: Imaging performed of the abdomen and pelvis with IV contrast. Single phase imaging of the abdomen. Coronal and sagittal reformats are submitted. All CT scans at [facility] use at [facility]ai [facility] one of these dose optimization techniques: automated exposure control; mA and/or kV adjustment per patient size (includes targeted exams where dose is matched to clinical indication); or iterative re construction. IV CONTRAST: Omnipaque 350; 100 mL IV. Oral contrast: Yes. DLP: 443.87 mGy.cm COMPARISON: 06/13/2022 Lower thorax: Lung bases are clear. Heart is normal size. Prior gastric bypass surgery. Liver/biliary system: Normal size with no intrahepatic dilatation. Gallbladder: Gallbladder is very well distended. No adjacent inflammation. No bile duct dilatation. Pancreas: Normal size pancreas and pancreatic duct. No adjacent inflammation. Spleen: Normal size spleen. No mass or infarct. Adrenal glands: Normal. Right kidney: Normal. Left kidney: Normal. Aorta: Mild atherosclerosis with no aneurysm. Lymphadenopathy: None. Free fluid: None. GI tract: Status post gastric bypass. No small bowel obstruction. Moderate constipation. There are a few diverticula in the distal colon. No acute diverticulitis. No obstructive pattern. Nonobstructing small bowel intussusception in the LEFT upper quadrant. This may be an intermittent, t ransient intussusception. A lead point is not identified. Abdominal wall: Fat containing umbilical hernia. Pelvis: Slightly lobulated uterus. There are several calcifications within the uterus. Consistent wit h a fibroid uterus. There is no free fluid. No adnexal masses. Bones: LEFT curvature lumbar spine. CT/CT abdomen pelvis w con* [id number] IMPRESSION: 1. No LEFT upper quadrant mass identified. 2. Short segment small bowel intussusception in the LEFT upper quadrant. This may be a transient intussusception. No obstruction. 3. Status post gastric bypass surgery. 4. No ascites or adenopathy. 5. Mild distal colonic diverticulosis without acute diverticulitis. 6. Fibroid uterus.
[2024-06-13] MEDS: iohexol 350 mg/mL 500 mL Btl (per mL) IV (13:22)
== END 2024-06-13 11:57 | disposition home or self-care (01) ==
PROVIDERS: PCP Family Medicine; Visit Provider Family Medicine
DX: R19.02 Left upper quadrant abdominal swelling, mass and lump (principal); K59.00 Constipation, unspecified; K56.1 Intussusception; K42.9 Umbilical hernia without obstruction or gangrene; M41.86 Other forms of scoliosis, lumbar region; D25.9 Leiomyoma of uterus, unspecified; Z98.84 Bariatric surgery status
CPT/HCPCS: 74177

== ENCOUNTER → 2024-06-16 10:21 | Outpatient (BNVA) | payer MEDICARE, MEDICAID, SELFPAY | PROVIDERS: PCP Family Medicine; Visit Provider Physician Assistant | DX: M25.551 Pain in right hip (principal); M25.552 Pain in left hip; M16.0 Bilateral primary osteoarthritis of hip; M51.16 Intervertebral disc disorders with radiculopathy, lumbar region; M54.50 Low back pain, unspecified | CPT/HCPCS: 73523; 99213 ==

== ENCOUNTER 2024-06-29 06:00 | Outpatient (RCR) | payer MEDICARE, MEDICAID, SELFPAY | END 2024-07-29 23:59 | disposition home or self-care (01) | LOC: SPT 06:00 | PROVIDERS: PCP Family Medicine; Visit Provider Physician Assistant | DX: Z47.1 Aftercare following joint replacement surgery (principal); Z96.651 Presence of right artificial knee joint | CPT/HCPCS: 97110 ==

== ENCOUNTER → 2024-07-11 09:30 | Outpatient (BNVA) | payer MEDICARE, MEDICAID, SELFPAY | PROVIDERS: PCP Family Medicine; Visit Provider Anesthesiology Pain Medicine | DX: M54.50 Low back pain, unspecified (principal); M51.16 Intervertebral disc disorders with radiculopathy, lumbar region; Z96.651 Presence of right artificial knee joint | CPT/HCPCS: 99214 ==

== ENCOUNTER → 2024-07-20 10:30 | Outpatient (BNVA) | payer MEDICARE, MEDICAID, SELFPAY | PROVIDERS: PCP Family Medicine; Visit Provider Anesthesiology Pain Medicine | DX: M54.16 Radiculopathy, lumbar region (principal); M54.9 Dorsalgia, unspecified | CPT/HCPCS: 64483; 64484; J1100; J3490 ==

== ENCOUNTER 2024-07-30 06:30 | Outpatient (RCR) | payer MEDICARE, MEDICAID, SELFPAY | END 2024-08-11 10:23 | disposition home or self-care (01) | LOC: SPT 06:30 | PROVIDERS: PCP Family Medicine; Visit Provider Physician Assistant | DX: Z47.1 Aftercare following joint replacement surgery (principal); Z96.651 Presence of right artificial knee joint | CPT/HCPCS: 97110 ==

== ENCOUNTER → 2024-08-08 10:36 | Outpatient (BNVA) | payer MEDICARE, MEDICAID, SELFPAY | PROVIDERS: PCP Family Medicine; Visit Provider Anesthesiology Pain Medicine | DX: M51.16 Intervertebral disc disorders with radiculopathy, lumbar region (principal) | CPT/HCPCS: 99214 ==

== ENCOUNTER → 2024-09-14 09:33 | Outpatient (BNVA) | payer MEDICARE, MEDICAID, SELFPAY | PROVIDERS: PCP Family Medicine; Visit Provider Student in an Organized Health Care Education/Training Program | DX: Z96.651 Presence of right artificial knee joint (principal); M17.12 Unilateral primary osteoarthritis, left knee; M25.562 Pain in left knee | CPT/HCPCS: 73560; 73565; 99214 ==

== ENCOUNTER → 2024-09-26 10:50 | Outpatient (BNVA) | payer MEDICARE, MEDICAID, SELFPAY | PROVIDERS: PCP Family Medicine; Visit Provider Internal Medicine Rheumatology | DX: Z01.818 Encounter for other preprocedural examination (principal); M05.79 Rheumatoid arthritis with rheumatoid factor of multiple sites without organ or systems involvement; Z79.899 Other long term (current) drug therapy; Z71.85 Encounter for immunization safety counseling; E66.9 Obesity, unspecified | CPT/HCPCS: 36415; 80053; 81003; 82248; 85025; 85651; 86140; 99214 ==

== ENCOUNTER 2024-10-03 16:15 | Outpatient (CLI) | payer MEDICARE, MEDICAID, SELFPAY ==
--- NOTE | 2024-10-03 16:45 | CT_ITS ---
WS: [id number] CT LEFT KNEE, NONCONTRAST [facility] TECHNIQUE: Noncontrast CT of the LEFT knee to include the LEFT hip and ankle. CLINICAL INFORMATION: DJD KNEE COMPARISON: None. DLP: 779.[address] scans at [facility] use at least one of these dose optimization techniques: automated exposure control; mA and/or kV adjustment per patient size (includes targeted exams where dose is matched to clinical indication); or iterative reconstruction. FINDINGS: Advanced tricompartment arthritis LEFT knee. Hypertrophic patella. Small suprapatellar effusion. Hypertrophic changes along the joint line. Fibroid uterus CT/CT knee LT WES [id number] IMPRESSION: Images obtained for preoperative purposes.
== END 2024-10-03 16:16 | disposition home or self-care (01) ==
LOC: RAD 16:16
PROVIDERS: PCP Family Medicine; Visit Provider Student in an Organized Health Care Education/Training Program
DX: M17.0 Bilateral primary osteoarthritis of knee (principal); M89.38 Hypertrophy of bone, other site
CPT/HCPCS: 73700

== ENCOUNTER → 2024-10-11 10:28 | Outpatient (BNVA) | payer MEDICARE, MEDICAID, SELFPAY | PROVIDERS: PCP Family Medicine; Visit Provider Physician Assistant | DX: M17.12 Unilateral primary osteoarthritis, left knee (principal) | CPT/HCPCS: 99213 ==

== ENCOUNTER 2024-10-27 10:45 | Outpatient (CLI) | payer MEDICARE, MEDICAID, SELFPAY ==
[2024-10-27 11:17] LABS: Basophils % 0.5 %; Eosinophils # 0.1 10^3/uL (0.0-0.8); Hematocrit 40.5 % (36-47); Lymphocytes # 1.9 10^3/uL (0.8-4.8); Lymphocytes % 45.4 %; Mean Corpuscular HGB Conc 32.6 g/dL (30-55); Mean Corpuscular Hemoglobin 28.4 pg (27-33); Mean Corpuscular Volume 87.1 fl (85-98); Mean Platelet Volume 9.6 fL (7.4-10.4); Monocytes # 0.3 10^3/uL (0.2-0.9); Neutrophils # 1.81 10^3/uL (1.8-7.7); Neutrophils % 44.1 %; Nucleated Red Blood Cells % 0 %; Platelet Count 256 10^3/cmm (157-399); Red Blood Count 4.65 10^6/uL (3.85-5.65); Red Cell Distribution Width 12.5 % (12.1-15.1)
[2024-10-27 11:18] LABS: Bilirubin Urine Negative (Negative); Blood Urine Negative (Negative); Glucose Urine UA Negative (Normal); Ketones Urine Trace (Negative); Leukocyte Esterase Urine Negative (Negative); Nitrate Urine Negative (Negative); Protein Urine Negative (Negative); Urine Appearance Clear (CLEAR); Urine Color Yellow (Yellow); pH Urine 5.5 (5-7)
[2024-10-27 11:20] LABS: Add Urine Microscopic? YES; Bacteria Urine None Seen /hpf; RBC Urine 0-2 /hpf (0-2); Squamous Epithelial Cell Urine 0-5 /hpf (0-5); WBC Urine 0-5 /hpf (0-5)
[2024-10-27 11:27] LABS: Add Urine Culture? No
[2024-10-27 11:33] LABS: Alanine Aminotransferase 15 U/L (0-33); Alkaline Phosphatase 86 U/L (35-105); Anion Gap 11.5 (5-19); Aspartate Amino Transferase 21 U/L (0-32); Blood Urea Nitrogen 21 mg/dL (6-20); Carbon Dioxide 30 mmol/L (22-29); Chloride 104 mmol/L (98-107); Globulin 2.7 g/dL (1.3-4.6); Glomerular Filtration Rate 103.8 mL/min (90-130); Glucose 80 mg/dL (65-115); Osmolality Calculated 294 mOsm/kg (285-295); Potassium 4.5 mmol/L (3.5-5.1); Sodium 141 mmol/L (136-145); Total Bilirubin 0.4 mg/dL (0.15-1.2); Total Protein 6.7 g/dL (6.6-8.7)
== END 2024-10-27 10:46 | disposition home or self-care (01) ==
PROVIDERS: PCP Family Medicine; Visit Provider Physician Assistant
DX: Z01.818 Encounter for other preprocedural examination (principal)
CPT/HCPCS: 36415; 80053; 81001; 85025

== ENCOUNTER 2024-10-31 09:17 | Observation (INO) | payer MEDICARE, MEDICAID, SELFPAY ==
[2024-10-31] VITALS (19 sets, daily range): BP systolic 105–158; BP diastolic 54–82; PULSE 57–79; RESP 15–21; TEMP 36.1–36.6; O2SAT 92–100; BMI 39.7
--- NOTE | 2024-10-31 06:22 | ANES.PREANE2 ---
Pre-Anesthetic Assessment Height/Weight: Height 4 ft 6 in Preop Diagnosis: Arthritis of knee Operation Date: 10/31/24 07:00 Proposed Procedures p LEFT Gilberto Robot Total Knee Arthroplasty(Left) - Jack Wei DO Was Beta Edwar taken within 24 hours: Yes Was Clonidine taken within 24 hours: N/A Social No alcohol and No tobacco Smokes marijuana Exam alert, oriented x 3, clear to auscultation bilaterally and regular rate & rhythm Airway Submandibular: within normal limits Cervical ROM: within normal limits Mallampati: Class II Dentition: full Comments: Comments: Multiple missing teeth, denies any loose Anesthetic Plan ASA status: 3 Anesthesia: MAC and Regional (specify below) Other: No prior issues with anesthesia NPO since yesterday evening History of LUIS but no longer needs CPAP/BiPAP since gastric bypass surgery Rheumatoid arthritis History of hypertension on metoprolol GERD on omeprazole Patient had previous knee replacement under spinal anesthetic and did well Labs from 10/27/2024 reviewed acceptable for procedure EKG showing sinus bradycardia Plan for spinal anesthesia with post induction nerve block Medications/Allergies Home Medications ?Medication ?Instructions ?Recorded ?Confirmed ?Last Taken ?Type albuterol sulfate 2.5 mg/3 mL 2.5 mg inhalation QID PRN 09/06/19 10/31/24 3 Weeks Ago History (0.083 %) solution for nebulization Shortness Of Breath ~10/10/24 montelukast 10 mg tablet 10 mg PO QPM 08/10/20 10/27/24 10/30/24 History albuterol sulfate 90 mcg/actuation 2 puff inhalation Q4H PRN 12/23/23 10/31/24 3 Weeks Ago Rx aerosol inhaler (Ventolin HFA) shortness of breath #6.7 grams ~10/10/24 omeprazole 20 mg capsule,delayed See Rx Instructions .Route 05/12/24 10/27/24 10/30/24 Rx release .COMPLEX #30 caps cyclobenzaprine 10 mg tablet 10 mg PO TID #90 tabs 05/31/24 10/27/24 10/30/24 Rx aoovtpkf-jrpblawr-oacy 45 mg-folic 1 cap PO DAILY 07/11/24 10/27/24 10/30/24 History acid 800 mcg-vit K 120 mcg capsule (Bariatric Multivitamins) metoprolol tartrate 100 mg tablet See Rx Instructions .Route 09/02/24 10/27/24 10/31/24 05:00 Rx .COMPLEX #60 tabs tofacitinib 5 mg tablet (Xeljanz) 5 mg PO BID #60 tabs 09/26/24 10/27/24 2 Weeks Ago Rx ~10/13/24 hydrocodone 5 mg-acetaminophen 325 1 tab PO BID PRN pain 30 days #60 10/24/24 10/27/24 10/31/24 05:00 Rx mg tablet tabs Allergies Allergy/AdvReac Type Severity Reaction Status Date / Time lisinopril Allergy Intermediate lip Verified 10/31/24 06:12 swelling pregabalin (From Lyrica) Allergy Mild rash Verified 10/31/24 06:12 codeine Allergy HIVES Verified 10/31/24 06:12 hydrocortisone Allergy HIVES Verified 10/31/24 06:12 [facility] Anesthesia Medical History Degenerative arthritis of knee, bilateral History of multiple pulmonary nodules q18-24m CT recommended for follow up by pulmonology History of hepatitis C treated Eosinophilic asthma Obstructive sleep apnea on CPAP No longer on CPAP/BiPAP since gastric bypass surgery and significant weight loss but has not had a formal post gastric bypass sleep study (01/2024) High risk medication use GUSTAVO inhibitor, has been on steroids Seropositive rheumatoid arthritis of multiple sites CHF (congestive heart failure), NYHA class III HTN (hypertension), benign Obesity BMI > 70 prior to gastric bypass surgery in 2021 Cervical radiculopathy Calcium deposit in bursa of left hip Calcium deposit removed from left buttock 1991 x3 Carpal tunnel syndrome on both sides Surgical History History of gastric bypass (07/2021) Status post total right knee replacement using cement (02/22/24) with Dr Eriberto HARVEY Status post colonoscopy with polypectomy (11/10/19) H/O exploratory laparotomy Exploratory surgery on female part as an Family History Mother Hypertension Grandmother Heart disease Cancer Paternal -- stomach Mother Diabetes Family/Other Breast cancer Maternal Aunt Denies family history of Clotting disorder Hyperlipidemia Chronic kidney disease (CKD) Thyroid disease Stroke Social History Smoking and tobacco/nicotine status: never used tobacco/nicotine Quit status (tobacco/nicotine): has quit using Year quit tobacco: 2018 Former quit date comment: 0.5 ppd x 36 years Second hand smoke exposure: No Alcohol intake: never Substance/Drug Use: current Substance/Drug use frequency: daily Female Reproductive History Para: 0 Spontaneous abortions: Yes Data Anesthesia Cardiac Studies: Echocardiogram Ultrasound 01/02/20
[2024-10-31] MEDS: scopolamine 1 mg PATCH 1 PATCH TRANSDERMA (06:47)
[2024-10-31] MEDS: ketorolac 30 mg/mL INJ IVP (06:47)
[2024-10-31] MEDS: sodium chloride 0.9% 1,000 ML 30 ML IV (06:49)
[2024-10-31] MEDS: acetaminophen 1,000 MG/100 ML PIGGYBACK 400 MG IV ×3 (06:51→21:31)
--- NOTE | 2024-10-31 06:55 | W.PM.OPSUD ---
Surgery/Procedure H&P Update DATE OF PROCEDURE: October 31, 2024 DATE H&P PERFORMED: 10/11/24 H&P UPDATE INFORMATION: I have reviewed H&P completed within last 30 days, I have examined patient prior to procedure and No changes to prior documentation CHANGES TO PREVIOUS DOCUMENTATION: Patient's been medically optimized per preoperative clinic team and ready proceed with surgical intervention she understands these notes procedure the risk benefits complication alternatives to surgery through shared decision making lets proceed with surgical invention. All questions answered at this time. We did receive patient's clearance from her dentist that she has no infection. Patient understands and agrees with current plan. All questions answered. PREOP DIAGNOSIS: Left knee DJD PRIMARY INDICATION FOR PROCEDURE: Left knee DJD PLANNED PROCEDURE: Operation Date: 10/31/24 07:00 Proposed Procedures p LEFT Gilberto Robot Total Knee Arthroplasty(Left) - Jack Wei DO
[2024-10-31] MEDS: ceFAZolin 2,000 MG in sodium chloride 0.9% (plus) 50 ML 100 MG IV ×3 (06:59→22:32)
--- NOTE | 2024-10-31 07:20 | XR_ITS ---
WS: [id number] XR knee LT 1-2V [id number] REASON FOR EXAM: post L TKA FINDINGS: Total left knee arthroplasty. Components of the arthroplasty are intact and in proper position and alignment. No focal bone abnormality. XR/XR knee LT 1-2V [id number] IMPRESSION: Total left knee arthroplasty without abnormality.
[2024-10-31 07:30] LABS: Anion Gap 13.4 (5-19); Blood Urea Nitrogen 14 mg/dL (6-20); Carbon Dioxide 27 mmol/L (22-29); Chloride 104 mmol/L (98-107); Creatinine Clr Calc Pharmacy 187.7572; Glomerular Filtration Rate 165.7 mL/min (90-130); Glucose 90 mg/dL (65-115); Osmolality Calculated 290 mOsm/kg (285-295); Potassium 4.4 mmol/L (3.5-5.1); Sodium 140 mmol/L (136-145)
[2024-10-31 07:34] LABS: Basophils % 0.5 %; Eosinophils # 0.1 10^3/uL (0.0-0.8); Eosinophils % 3.3 %; Hematocrit 38.2 % (36-47); Lymphocytes % 46.7 %; Mean Corpuscular HGB Conc 34.8 g/dL (30-55); Mean Corpuscular Hemoglobin 29.8 pg (27-33); Mean Corpuscular Volume 85.7 fl (85-98); Mean Platelet Volume 10.4 fL (7.4-10.4); Monocytes # 0.4 10^3/uL (0.2-0.9); Monocytes % 9.8 %; Neutrophils % 39.5 %; Nucleated Red Blood Cells % 0 %; Platelet Count 275 10^3/cmm (157-399); Red Blood Count 4.46 10^6/uL (3.85-5.65); Red Cell Distribution Width 12.6 % (12.1-15.1)
--- NOTE | 2024-10-31 07:37 | ANES.PROC ---
Anesthesia Procedures Procedure/Date: 10/31/24 Nerve Block ^: Nerve Block 1: Main Anesthesia: spinal anesthesia block Time Out Performed: Yes Consent: requested by attending/covering physician and from patient Nerve block location: adductor canal Anesthesia monitors applied: pulse oximetry, EKG, BP cuff and oxygen Nerve block position: supine Anesthetic Used: bupivacaine 0.5% Amount of anesthesia used (mL): 15 Ultrasound used to: recognize landmarks Nerve Stimulator Used?: No Interscalene/Femoral BLK: other needle (pjunk 4inch) Injection: neg aspiration of heme Patient Tolerated Procedure: well Complications: none
[2024-10-31] MEDS: tranexamic acid 1,000 mg/10mL SDV 1000 MG IV (07:42)
[2024-10-31] MEDS: tranexamic acid 1,000 mg/10mL SDV 1000 MG XX (08:10)
[2024-10-31] MEDS: ketorolac 30 mg/mL INJ XX (08:10)
[2024-10-31] MEDS: EPINEPHrine 1 mg/mL INJ XX (08:10)
[2024-10-31] MEDS: ROPivacaine 0.2% Premix 100 mL 200 MG XX (08:10)
[2024-10-31] MEDS: VANCOMYCIN ADD-Vantage 1,000 MG VIAL 1000 MG XX (09:16)
--- NOTE | 2024-10-31 09:37 | P.OP_ITS ---
Operative Report Date of procedure: October 31, 2024 Surgeon: Jack Wei DO Credit Collections Specialist: Torsten Wei PA-C: PA was necessary for assistance in this case with leg positioning retraction and protection of neurovascular structures as well as assistance in implantation wound closure and dressing application. Procedure: Preoperative diagnosis: Left knee degenerative joint disease Post-op diagnosis: Same Procedure done: Left total knee arthroplasty, cemented?robotic assisted Gilberto Implants: Middleton triathlon size 2 femur CR cemented?left Aakash triathlon size? 1 tibia universal baseplate cemented Aakash triathlon symmetric patella size 27 mm Middleton triathlon polyethylene 10mm Surgeon: Jack Wei DO Estimated blood?loss: 50 mL Tourniquet 73minutes IV fluids: 1300 mL Urine output: 200 mL Complications: None Condition: stable Disposition: floor Brief History: Patient is a 54-year-old female with with chronic?left knee degenerative joint disease.? Patient has been worked up in the outpatient setting in the orthopedic office at this point time through shared decision making given? rtaw-sw-heba arthritis as well as failed conservative treatment, and pt would?like to proceed with a?left total knee arthroplasty.? Through shared decision making elected to proceed with surgical intervention for?left total knee arthroplast Gilberto robotic assistedy.? We talked about continued conservative treatment and surgical intervention as far as the risk benefits complications alternatives surgical and nonsurgical treatment options.? At this point time understanding patient risks with surgery he agrees to proceed with surgical intervention.? Once again? risk with surgery include but are not?limited to make it better make it worse blood clot, heart attack, stroke, on the table, infection, injury to nerves or vessels, persistent pain, arthrofibrosis, implant failure.? Understanding these risks patient agrees to proceed with surgical intervention consent was obtained in the preoperative holding area.? All questions answered. Procedure: Patient was seen and evaluated in the preoperative holding area.? Consent was reviewed and signed with patient with plan for?left total knee arthroplasty.? All questions answered.? Correct extremity marked.? Patient seen and evaluated by the anesthesia department and once cleared for surgery was taken back to the operative suite.? Patient was placed into a supine position on the OR table.? All bony prominences were well-padded.? Patient was appropriately secured to the bed.? Patient underwent anesthesia per the anesthesia department.? Patient received spinal anesthesia and? Schmidt catheter was placed.? A nonsterile tourniquet was applied to the?left thigh.? At this point in time a final timeout performed.? Patient received appropriate preoperative antibiotics and TXA. Next the?left?lower extremity was then prepped and draped in standard orthopedic fashion. Esmarch tourniquet was used exsanguinate the?left?lower extremity.? Tourniquet was insufflated to 250 mmHg. A standard anterior incision was made over midline of the knee.? Sharp scalpel excision through skin and subcutaneous tissue full-thickness skin flaps were made.? Fascia was elevated off of the extensor retinaculum was stable with medial parapatellar arthrotomy was then made.? The performed standard sequential releases..? Immediately on entry into the joint patient was found to have severe eburnated bone and tricompartmental arthritic changes noted? With significant osteophyte formation.? Next the the patella was then stuffed and the knee was then flexed.?? Rod was placed superiorly around the anterior aspect of the femur this was freed of synovium and I subsequently then placed by 2 femur pins to establish my femur arrays for the Gilberto robot.? These were then placed bicortically and? femur array was then appropriately secured with appropriate visualization.? Next attention was turned towards the tibial rays.? These were then drilled sequentially bicortically in parallel fashion and intraincisional.? I then placed my guide as well as my tibial array on in place.? This was appropriately secured and had excellent visualization with the Gilberto robot.? Next the tibial checkpoint as well as femur checkpoint were then placed.? At this point time I then subsequently established my head center as well as my medial?lateral malleoli as well as my checkpoints.? Next utilizing standard Gilberto technology I then mapped out the appropriate points and confirmation points around the femur as well as the tibia in standard fashion.? Once this was then done I then removed all osteophytes in preparation for dynamic testing.? All osteophytes were removed as well as I removed the ACL and the PCL was excised due to its significant tearing and degeneration noted.? At this point time the knee was brought into full extension and we performed our standard evaluation of our gap balancing stressing his?ligaments and extension as well as flexion appropriate adjustments were made to have appropriate gap balancing in both flexion and extension.? We are able to correct patient's deformity of varus within the tolerance of her ligamentous. Patient did have significantly small bone in order to balance the gaps was a size 2 femur over 1 tibia. We did take off some of the posterior slope of the tibia to accommodate for more flexion on the femur with goals of not having too much combined flexion. This plan for final cuts.? we get a preoperative plan evaluating our implants which was a size 2 femur and a size 1 tibia.? Next we brought in the Gilberto robot and sequentially made our femur cuts. Patient did have a slight anterior bow on her hopi femur anatomy evident on her CT scan she did end up having a slightly larger anterior/grand piano. This did have good run out anteriorly. Cut all excess bony cuts were then removed.? Finally we made our tibial cut.? Once this was done a standard PCL retractor was then placed into this position I excised the medial and?lateral meniscus.? The tibial cut was then subsequently removed all excess bony debris was removed.? I then utilized a?lamina multi operation forming machine setter and remove the posterior osteophytes.? At this point time sized the tibia and confirmed this was a size 1.? I utilized our blunt probe to establish rotation of tibial implant.? Once this was done I then placed my tibia size 1 trial in appropriate position and then subsequently placed tibial pins to hold this into place placed and trialed up to a size 10 mm poly as well as a size 2 femur which was appropriately impacted in place knee was then subsequently brought into extension. Trials were then assessed,? this was stable with varus valgus stress in extension as well as had symmetrical translation when brought into flexion demonstrating symmetrical gaps. I had excellent balance gaps in flexion and extension with varus and valgus stresses.? At this point I was satisfied with these implants these were then verified and opened on the back table size 1 tibia, size2 femur,? size 10 mm polythickness.? We did confirm appropriate gap balancing and stresses as well as alignment utilizing? Gilberto and were satisfied with this plan.? ?At this point time with my trials in place I then towel clip the patella everted this made appropriate measurements subsequently utilizing freehand technique performed by patellar resurfacing this was confirmed to be appropriate resection and subsequently sized to be a 27 mm symmetric.? My drill peg guides were then clamped and appropriate position and appropriate position in the patella for appropriate tracking and parallel with the joint.? Pegs were drilled trial implant was placed and the knee was then subsequently ranged and found to have excellent patellar tracking.? Femur pegs were then drilled.? ? At this point time all of our trial implants were removed.? All checkpoints as well as guidepins and arrays were removed and appropriate counts made. Satisfied with our tibial placement rotation I then utilized the keel punch and prepped the tibia.? The wound bed? was thoroughly irrigated and dried and prepped for cementation.? Cement was mixed on the back table.? Once cement was ready this was then covered onto the tibia and the tibial baseplate was then impacted and all excess cement was removed.? Next cement was placed onto the femur as well as under the femur implants and impacted in to place and all excess cement was extruded and removed.?Next the polyethylene was then impacted into place on the tibial baseplate.? Knee was taken into full extension? to clear all excess cement was removed.? Warm saline was placed over the joint.? I then towel clip patella and dried for cementation. cemented the patella into place.? This was all clamped and the cement was allowed to cure.? Thorough irrigation performed with pulse?lavage.? I then placed my periarticular injection while the cement was curing.? Once cured the knee was taken through range of motion and had excellent stability and gaps were balanced in flexion and extension.? Tourniquet was then deflated. hemostasis satisfactory with electrocautery.? Vancomycin powder was placed in the wound bed for antibiotic infection prophylaxis. Next I then subsequently closed the capsule with Ethibond suture as well as a running strata fix suture.? Knee was then taken through range of motion 20 times.? Next the skin was then closed in?layered fashion of running stratifix sutures of deep and subcutenous tissue and skin.? ?closed in flexion and Prineo glue was then placed over the incision this allowed to cure.? Incision was covered with kaur incisional VAC dressing, with ABDs soft roll and Roque wrap.? Patient was then awakened from anesthesia and taken to PACU in stable condition. Disposition: Patient taken to PACU in stable condition will be admitted to the floor for pain control PT/OT weight-bear as tolerated?left?lower extremity dressing changes as needed, DVT prophylaxis. Pain control. Patient will receive appropriate postoperative antibiotics. patient will be seen today by the internal medicine team for medical management.? Patient will follow up with the office in 2 weeks.? Patient understands agrees with current plan.? All questions answered.
--- NOTE | 2024-10-31 10:07 | P.BOP_ITS ---
Date of Procedure: [October 31, 2024] Surgeon: [Dr. Wei DO] Registered Nurse Nursery(s): [Torsten Wei PA-C] Procedure(s) performed: [Left knee total arthroplasty with Gilberto robotic assist] Findings of the procedure(s): [Left knee degenerative joint disease. Procedure went well and as planned.] Estimated blood loss: [50 mL] Specimen(s) removed: [N/A] Post-operative diagnosis: [Left knee degenerative joint disease]
--- NOTE | 2024-10-31 10:09 | P.PCN_ITS ---
PACU note Narrative: Patient is a 54-year-old female just underwent a left knee total arthroplasty. Pt transferred to PACU in stable condition. Dressing is dry. pt is awake and alert. pt can wiggle toes Distal pulses are palpable toes are warm and well- perfused. Cap refill is normal and under 2 seconds. Unable to perform perform any further motor or sensory assessment due to residual spinal block. Pain is controlled. Exam: awake Disposition: admitted
--- NOTE | 2024-10-31 10:28 | PC.NURSE ---
1015 - pt complaining of numbness to left hand middle finger - noted scattered bruising and edema to finger - pt states that she did pinch her finger yesterday - SVETLANA Sarmiento at side to assess finger - no new orders noted
--- NOTE | 2024-10-31 10:38 | ANE.PACU2 ---
Inpatient post-anesthesia follow up: Airway intact: Yes Vital signs: Temperature 97.7 F Pulse Rate 65 Respiratory Rate 21 Blood Pressure 129/65 Pulse Oximetry 97 Oxygen Delivery Me thod Room Air Oxygen Flow Rate Fraction of Inspir ed Oxygen Hydration adequate: Yes Nausea and vomiting: No Pain level: 1 Mental status: Baseline
--- NOTE | 2024-10-31 11:00 | PC.NURSE ---
1045 - accepted into room 270 with HUSSAIN Bone - BP 126/65 - pulse 58 - 98% Room air - temp 97.6
[2024-10-31] MEDS: mupirocin oint 22 gm 1 APPLIC NASAL ×2 (11:06→16:53)
[2024-10-31] MEDS: iron polysaccharide complex 150 mg Capsule PO ×2 (11:07→16:52)
[2024-10-31] MEDS: calcium carb-vit d 600mg/400unit 1 Tablet 1 EACH PO ×2 (11:07→16:52)
[2024-10-31] MEDS: docusate sodium 100 mg Capsule PO ×2 (11:07→16:51)
[2024-10-31] MEDS: multivitamin therapeutic Tablet 1 TAB PO (11:07)
[2024-10-31] MEDS: oxyCODONE 5 mg IR Tab/Cap PO ×3 (11:07→21:31)
[2024-10-31] MEDS: chlorhexidine gluconate 0.12% Btl 473 mL 30 ML MUCOUS MEM ×3 (11:08→21:30)
[2024-10-31] MEDS: lactated ringers 1,000 ML 75 ML IV (11:09)
--- NOTE | 2024-10-31 14:00 | PICC.NOTE ---
Referred to vascular access nurse for US guided peripheral IV. 20 gauge peripheral IV started to right forearm without difficulty. Good blood return noted and flushed without difficulty. Report given to bedside nurse, HUSSAIN Rodriguez.
--- NOTE | 2024-10-31 14:05 | P.CONIM_ITS ---
Providers/Reason For Consult 2 Consulting Physician/Specialty*: Hospitalist Reason for Consult*: Medical management Attending Physician: Jack Wei DO Primary Care Provider: Christopher Collado DO History of Present Illness History of Present Illness Jaye Pollard is a 54 year old female Review of Systems 2 Const: Denies: fever(s), chills, body aches or malaise ENMT: Denies: throat pain Card: Denies: chest pain, edema, pre-syncope or dyspnea on exertion Resp: Denies: dyspnea, productive cough, change in phlegm color or hemoptysis GI: Denies: abdominal pain, nausea, vomiting, diarrhea, constipation, hematochezia or melena : Denies: flank pain, urinary frequency or hematuria Musc: Reports: other (Her feelings, back in her left leg and she is starting to feel postop pain.); Denies: back pain, joint swelling or joint redness Skin/Breast: Denies: rash or new lesions Neuro: Denies: headache(s) or confusion Medications/Allergies Home Medications ?Medication ?Instructions ?Recorded ?Confirmed ?Last Taken ?Type albuterol sulfate 2.5 mg/3 mL 2.5 mg inhalation QID PA N 09/06/19 10/31/24 3 Weeks Ago History (0.083 %) solution for nebulization Shortness Of Breat h ~10/10/24 montelukast 10 mg tablet 10 mg PO QPM 08/10/2010/30/24 History albuterol sulfate 90 mcg/actuation 2 puff inhalation Q 4H PRN 12/23/23 10/31/24 3 Weeks Ago Rx aerosol inhaler (Ventolin HFA) shortness of breath #6. 7 grams ~10/10/24 omeprazole 20 mg capsule,delayed See Rx Instructions . Route 05/12/24 10/27/24 10/30/24 Rx release .COMPLEX #30 caps cyclobenzaprine 10 mg tablet 10 mg PO TID #90 tabs 09/1910/27/24 10/30/24 Rx bxryusoy-svvzziuz-qirr 45 mg-folic 1 cap PO DAILY 06/2910/27/24 10/30/24 History acid 800 mcg-vit K 120 mcg capsule (Bariatric Multivitamins) metoprolol tartrate 100 mg tablet See Rx Instructions .Route 09/02/24 10/27/24 10/31/24 05:00 Rx .COMPLEX #60 tabs tofacitinib 5 mg tablet (Xeljanz) 5 mg PO BID #60 tabs 09/26/24 10/27/24 2 Weeks Ago Rx ~10/13/24 hydrocodone 5 mg-acetaminophen 325 1 tab PO BID PRN pa in 30 days #60 10/24/24 10/27/24 10/31/24 05:00 Rx mg tablet tabs Allergies Allergy/AdvReac Type Severity Reaction Status Date / Time lisinopril Allergy Intermediate lip Verified 10/31/24 06:12 swelling pregabalin (From Lyrica) Allergy Mild rash Verified 10/31/24 06:12 codeine Allergy HIVES Verified 10/31/24 06:12 hydrocortisone Allergy HIVES Verified 10/31/24 06:12 Current Medications Generic Name Dose Route Start Last Admin Trade Name Freq PRN Reason Stop Dose Admin Calcium Carbonate 1 each 10/31/24 10:42 10/31/24 11:07 Calcium Carb-Vit D 600mg/400unit 1 Tablet PO 1 each BID ELIZABETH Administration Chlorhexidine Gluconate 30 ml 10/31/24 10:42 10/31/24 11:16 Chlorhexidine Gluconate 0.12% Btl 473 Ml MUCOUS MEM Not Given QID ELIZABETH Docusate Sodium 100 mg 10/31/24 10:42 10/31/24 11:07 Docusate Sodium 100 Mg Capsule PO 100 mg BID ELIZABETH Administration Lactated Ringer's 1,000 mls @ 75 mls/hr 10/31/24 10:42 10/31/24 11:09 Lactated Ringers IV 75 mls/hr .[id number] ELIZABETH Administration Multivitamins Therapeutic 1 tab 10/31/24 10:42 10/31/24 11:07 Multivitamin Therapeutic Tablet PO 1 tab DAILY ELIZABETH Administration Mupirocin 1 applic 10/31/24 10:42 10/31/24 11:06 Mupirocin Oint 22 Gm NASAL 11/05/24 10:41 1 applic BID ELIZABETH Administration Protocol Oxycodone HCl 5 mg 10/31/24 10:42 10/31/24 11:07 Oxycodone 5 Mg Ir Tab/Cap PO 5 mg Q4H PRN Administration MODERATE PAIN Polysaccharide Iron Complex 150 mg 10/31/24 10:42 10/31/24 11:07 Iron Polysaccharide Complex 150 Mg Capsule PO 150 mg BIDWM ELIZABETH Administration PFSH Acute 2 PFSH: Medical History Degenerative arthritis of knee, bilateral History of multiple pulmonary nodules q18-24m CT recommended for follow up by pulmonology History of hepatitis C treated Eosinophilic asthma Obstructive sleep apnea on CPAP No longer on CPAP/BiPAP since gastric bypass surgery and significant weight loss but has not had a formal post gastric bypass sleep study (01/2024) High risk medication use GUSTAVO inhibitor, has been on steroids Seropositive rheumatoid arthritis of multiple sites CHF (congestive heart failure), NYHA class III HTN (hypertension), benign Obesity BMI > 70 prior to gastric bypass surgery in 2021 Cervical radiculopathy Calcium deposit in bursa of left hip Calcium deposit removed from left buttock 1991 x3 Carpal tunnel syndrome on both sides Surgical History History of gastric bypass (07/2021) Status post total right knee replacement using cement (02/22/24) with Dr Eriberto HARVEY Status post colonoscopy with polypectomy (11/10/19) H/O exploratory laparotomy Exploratory surgery on female part as an infant Family History Mother Hypertension Grandmother Heart disease Cancer Paternal -- stomach Mother Diabetes Family/Other Breast cancer Maternal Aunt Denies family history of Clotting disorder Hyperlipidemia Chronic kidney disease (CKD) Thyroid disease Stroke Social History Smoking and tobacco/nicotine status: never used tobacco/nicotine Quit status (tobacco/nicotine): has quit using Year quit tobacco: 2018 Former quit date comment: 0.5 ppd x 36 years Second hand smoke exposure: No Alcohol intake: never Substance/Drug Use: current Substance/Drug use frequency: daily Female Reproductive History: Para: 0 Spontaneous abortions: Yes Vitals/I&O/Wt Last Vital Signs Temp 97.7 F 10/31/24 10:29 Pulse 65 10/31/24 10:34 Resp 21 H 10/31/24 10:34 BP 129/65 10/31/24 10:34 Pulse Ox 97 10/31/24 10:34 O2 Del Method Room Air 10/31/24 10:34 10/30/24 10/31/24 10/31/24 22:59 06:59 14:59 Intake Total 1500 / 1500 Output Total 250 / 250 Balance 1250 / 1250 Weight last 48 hrs Weight 74.843 kg Weight 74.843 kg Physical Exam 2 Narrative: Accompanied by her life partner and brother Const: COMMON NORMALS: patient oriented x3 and alert GENERAL APPEARANCE: c ooperative ORIENTATION/CONSCIOUSNESS: Yes awake HENMT: COMMON NORMALS: oropharynx normal Neck/C-Spine: COMMON NORMALS: no JVD Resp: COMMON NORMALS: normal respiratory effort and clear to auscultation bilaterally AUSCULTATION: clear to auscultation bilaterally Cardio: COMMON NORMALS: no JVD, regular rhythm, S1 normal heart sound present, S2 normal heart sound present and No murmurs present (Cardio) RHYTHM: regular rhythm HEART SOUNDS: S1 normal heart sound present and S2 normal heart sound present GI: COMMON NORMALS: Normal to inspection, nondistended, normoactive bowel sounds present, Soft to palpation and non-tender PALPATION: Yes Soft to palpation Extremity: COMMON NORMALS: no joint enlargement and no pedal edema N ARRATIVE EXTREMITY EXAM: LLE post-op dressing. No ankle swelling. No proximal swelling or bruising. Neuro: COMMON NORMALS: patient oriented x3 and moves all extremities S ENSORIUM/ORIENTATION: Yes alert Skin: COMMON NORMALS: no rashes or lesions noted GENERAL SKIN EXAM: no rashes or lesions noted Urinary Catheter Management: Schmidt: Cath Placed During This Visit: yes Urinary Catheter Date of Insertion: 10/31/24 Urinary Catheter Time of Insertion: 07:21 Data 10/31/24 06:40 10/31/24 06:40 A&P Assessment and plan (1) Status post total left knee replacement: She is doing well postoperatively. Her anesthesia is wearing off and she started to feel some pain in her left leg/knee. Dilaudid IV as needed for severe breakthrough pain. Reviewed vitals, CBC, BMP, orthopedic provider note, knee x-ray, discussed with orthopedic provider. Reported uneventful procedure, EBL 65 mL, repeat CBC is pending for the morning. She has since gotten up and ambulated. Pending Schmidt removal. Tentative plans for return home tomorrow if no further issues with Eliquis for DVT prophylaxis. Ortho planning to hold Xeljanz for additional 2 weeks. Would avoid NSAIDs given history of gastric bypass surgery. DC Toradol. On tramadol as needed for moderate pain, would monitor for risk of bleeding with anticoagulation and tramadol. Would resume her gastric bypass supplements. Plan Reported history of CHF, however, she denies any past exacerbation, has not been requiring active treatment. Rheumatoid arthritis, some worsening of joint swelling in her hands after holding Xeljanz. This is anticipated to be on hold for additional 2 weeks. Sleep apnea: Has resolved ever since she has lost significant weight. HTN: With improvement following weight loss History of gastric bypass, would resume her supplements as soon as safe. 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 Has not been an active issue. Nebulizer as needed. Other medical problems PDMP PDMP Reviewed: Not Reviewed Consult Attestations 2 Medical Necessity Statement: Continue hospitalization for postoperative management after left TKA and High MDM includes amount and/or complexity of data reviewed/ordered [ previous or external records, resulted lab(s)/test(s) and other healthcare professional discussion] and described risk of complication, morbidity or mortality of management as documented Diagnoses Status post total left knee replacement Z96.652
[2024-10-31] MEDS: HYDROmorphone 0.5 MG/0.5 ML INJ IVP (14:46)
[2024-10-31] MEDS: tranexamic acid 1,000 MG/100 ML PREMIX 600 MG IV (14:46)
--- NOTE | 2024-10-31 14:58 | PC.NURSE ---
Pt noted to have gastric bypass in her history. This RN notes that pt has Toradol ordered for pain, which is contraindicated d/t being NSAID. Notified Dr. Meehan. Medication removed from AUG.
[2024-11-01 01:42] VITALS: RESP 18; O2SAT 96
[2024-11-01] MEDS: oxyCODONE 5 mg IR Tab/Cap PO ×3 (01:42→09:39)
[2024-11-01 03:50] LABS: Basophils % 0.4 %; Eosinophils # 0.1 10^3/uL (0.0-0.8); Hematocrit 38.9 % (36-47); Lymphocytes # 1.4 10^3/uL (0.8-4.8); Lymphocytes % 24.6 %; Mean Corpuscular HGB Conc 32.6 g/dL (30-55); Mean Corpuscular Hemoglobin 28.3 pg (27-33); Mean Corpuscular Volume 86.6 fl (85-98); Mean Platelet Volume 9.8 fL (7.4-10.4); Monocytes # 0.5 10^3/uL (0.2-0.9); Monocytes % 8.4 %; Neutrophils % 64.4 %; Nucleated Red Blood Cells % 0 %; Platelet Count 225 10^3/cmm (157-399); Red Blood Count 4.49 10^6/uL (3.85-5.65); Red Cell Distribution Width 12.7 % (12.1-15.1); White Blood Count 5.58 10^3/uL (3.29-11.43)
[2024-11-01 04:14] LABS: Anion Gap 14.1 (5-19); Blood Urea Nitrogen 12 mg/dL (6-20); Calcium 8.8 mg/dL (8.5-10.5); Carbon Dioxide 26 mmol/L (22-29); Chloride 102 mmol/L (98-107); Creatinine Clr Calc Pharmacy 150.2057; Glomerular Filtration Rate 128.1 mL/min (90-130); Glucose 110 mg/dL (65-115); Osmolality Calculated 286 mOsm/kg (285-295); Potassium 4.1 mmol/L (3.5-5.1); Sodium 138 mmol/L (136-145)
[2024-11-01 04:18] VITALS: BP 126/62; PULSE 68; RESP 17; TEMP 36.8; O2SAT 94
[2024-11-01] MEDS: acetaminophen 1,000 MG/100 ML PIGGYBACK 400 MG IV (05:58)
[2024-11-01 06:04] VITALS: RESP 20; O2SAT 96
[2024-11-01] MEDS: ceFAZolin 2,000 MG in sodium chloride 0.9% (plus) 50 ML 100 MG IV (06:24)
[2024-11-01] MEDS: docusate sodium 100 mg Capsule PO (08:00)
[2024-11-01] MEDS: apixaban 5 mg Tablet 2.5 MG PO (08:01)
[2024-11-01] MEDS: iron polysaccharide complex 150 mg Capsule PO (08:01)
[2024-11-01] MEDS: calcium carb-vit d 600mg/400unit 1 Tablet 1 EACH PO (08:01)
[2024-11-01] MEDS: chlorhexidine gluconate 0.12% Btl 473 mL 30 ML MUCOUS MEM (08:01)
[2024-11-01] MEDS: multivitamin therapeutic Tablet 1 TAB PO (08:01)
--- NOTE | 2024-11-01 08:52 | P.DS_ITS ---
Discharge Providers Date of Admission: 10/31/24 09:17 Date of Discharge: November 01, 2024 Attending Provider at Admission: Jack Wei DO Attending Provider at Discharge: Jack Wei DO Consults: Dr. Meehan?hospitalist Primary Care Provider: Christopher Collado DO Diagnoses at Discharge Discharge Diagnosis (1) Status post total left knee replacement: Status: Acute Reason for Visit Reason for Visit: M17.12 Brief History: Status post left TKA Gilberto robotic assisted Hospital Course Hospital Course Patient presented to the preoperative holding area with plan for left total knee arthroplasty after patient has been worked up in the outpatient setting for failed conservative treatment of left knee degenerative joint disease. Once cleared by anesthesia for surgery patient subsequently was taken back to the operative suite underwent anesthesia per anesthesia department and then subsequently underwent a left total knee arthroplasty. Procedure was performed without any complications patient was taken to PACU in stable condition patient recovered well in PACU and then was admitted to the floor postoperatively internal medicine was consulted and on board for medical management and assistance with care. Patient received appropriate PT/OT, postoperative antibiotics, postoperative TXA, pain control, postoperative DVT prophylaxis. Elevation and ice. Patient encouraged for knee range of motion allowed weightbearing as tolerated to the operative lower extremity. Dressing was changed as needed, labs were monitored daily. Patient recovered well postoperatively and worked well and progressed well with therapy. It was determined on postoperative day 1 the patient was stable for discharge from an orthopedic standpoint and medicine. Patient was comfortable with discharge and plan was discharged home. Patient received appropriate discharge instructions as well as pain medication and DVT prophylaxis postoperatively. Patient will hold her RA medication for 2 weeks until incisions healed given appropriate instructions for dressing management. Patient will follow-up with Dr. Wei/orthopedics in the office in 2 weeks. All questions answered. Understand if there is any issues questions or concerns and contact the office. Physical Exam Narrative: Left knee examination: Dressing on in place, clean dry and intact. No evidence of saturation. Patient has normal postoperative swelling and tenderness to palpation to the knee. Compartments are soft compressible,'s calf soft and nontender. Sensations intact to light touch distally. Distal pulses are palpable. Patient is able to wiggle toes as well as plantarflex and dorsiflex ankle. Urinary Catheter Management: Schmidt: Cath Placed During This Visit: yes, but has since been removed by the nurse Reason for Continuing Indwelling Catheter: Decision to DC Catheter Urinary Catheter Date of Insertion: 10/31/24 Urinary Catheter Time of Insertion: 07:21 Date Urinary Catheter Removed: 10/31/24 Time Urinary Catheter Discontinued: 17:00 Discharge Data Studies Completed and Pending Completed Studies During Hospitalization Category Date Time Status XR knee LT 1-2V [id number] Routine Exams 10/31/24 07:20 Completed Pending at discharge Category Date Time Status Basic Metabolic Panel AM LABS Lab 11/02/24 04:00 Ordered Basic Metabolic Panel AM LABS Lab 11/03/24 04:00 Ordered Complete Blood Count w/Auto AM LABS Lab 11/02/24 04:00 Ordered Complete Blood Count w/Auto AM LABS Lab 11/03/24 04:00 Ordered Radiology Impressions Knee X-Ray 10/31/24 07:20 IMPRESSION: Total left knee arthroplasty without abnormality. Laboratory Results WBC 5.58 10^3/uL (3.29-11.43) 11/01/24 03:01 RBC 4.49 10^6/uL (3.85-5.65) 11/01/24 03:01 Hgb 12.70 g/dL (11.27-16.99) 11/01/24 03:01 Hct 38.9 % (36-47) 11/01/24 03:01 MCV 86.6 fl (85-98) 11/01/24 03:01 MCH 28.3 pg (27-33) 11/01/24 03:01 MCHC 32.6 g/dL (30-55) D 11/01/24 03:01 RDW 12.7 % (12.1-15.1) 11/01/24 03:01 Plt Count 225 10^3/cmm (157-399) 11/01/24 03:01 MPV 9.8 fL (7.4-10.4) 11/01/24 03:01 Neut % (Auto) 64.4 % 11/01/24 03:01 Lymph % (Auto) 24.6 % 11/01/24 03:01 Garrett % (Auto) 8.4 % 11/01/24 03:01 Eos % (Auto) 2.0 % 11/01/24 03:01 Baso % (Auto) 0.4 % 11/01/24 03:01 Neut # (Auto) 3.60 10^3/uL (1.8-7.7) 11/01/24 03:01 Lymph # (Auto) 1.4 10^3/uL (0.8-4.8) 11/01/24 03:01 Garrett # (Auto) 0.5 10^3/uL (0.2-0.9) 11/01/24 03:01 Eos # (Auto) 0.1 10^3/uL (0.0-0.8) 11/01/24 03:01 Baso # (Auto) 0.0 10^3/uL (0.0-0.1) 11/01/24 03:01 Nucleated RBC % (auto) 0 % 11/01/24 03:01 Nucleated RBCs # 0.0 /100WBC 11/01/24 03:01 Sodium 138 mmol/L (136-145) 11/01/24 03:01 Potassium 4.1 mmol/L (3.5-5.1) 11/01/24 03:01 Chloride 102 mmol/L (98-107) 11/01/24 03:01 Carbon Dioxide 26 mmol/L (22-29) 11/01/24 03:01 Anion Gap 14.1 (5-19) 11/01/24 03:01 BUN 12 mg/dL (6-20) 11/01/24 03:01 Creatinine 0.5 mg/dL (0.5-0.9) 11/01/24 03:01 GFR Calculation 128.1 mL/min (90-130) 11/01/24 03:01 Glucose 110 mg/dL (65-115) 11/01/24 03:01 Calculated Osmolality 286 mOsm/kg (285-295) 11/01/24 03:01 Calcium 8.8 mg/dL (8.5-10.5) 11/01/24 03:01 Blood Type B Positive 10/31/24 06:40 Rho(D) Type Rh positive 10/31/24 06:40 Antibody Screen Negative 10/31/24 06:40 Vitals Last Vital Signs Temp 98.3 F 11/01/24 04:18 Pulse 68 11/01/24 04:18 Resp 20 H 11/01/24 06:04 BP 126/62 11/01/24 04:18 Pulse Ox 96 11/01/24 06:04 O2 Del Method Room Air 10/31/24 15:53 Discharge Plan Discharge Patient Disposition: Home Health Service Condition: Stable Prescriptions: New oxycodone 5 mg tablet 5 mg PO Q6H PRN (Reason: pain postop) 7 Days Qty: 28 0RF Eliquis 2.5 mg tablet 2.5 mg PO BID 14 Days Qty: 28 0RF ondansetron 4 mg tablet,disintegrating 4 mg PO Q8H PRN (Reason: nausea and vomiting) 3 Days Qty: 9 0RF Continued Bariatric Multivitamins 45 mg iron- 800 mcg-120 mcg capsule 1 cap PO DAILY albuterol sulfate [Ventolin HFA] 90 mcg/actuation HFA aerosol inhaler 2 puff INHALATION Q4H PRN (Reason: shortness of breath) Qty: 6.7 6RF omeprazole 20 mg capsule,delayed release(DR/EC) See Rx Instructions .ROUTE .COMPLEX Qty: 30 5RF Dose Instruction: take 1 capsule BY MOUTH EVERY DAY Rx Instructions: take 1 capsule BY MOUTH EVERY DAY cyclobenzaprine 10 mg tablet 10 mg PO TID Qty: 90 5RF metoprolol tartrate 100 mg tablet See Rx Instructions .ROUTE .COMPLEX Qty: 60 3RF Dose Instruction: take ONE-HALF tablet BY MOUTH TWICE DAILY Rx Instructions: take ONE-HALF tablet BY MOUTH TWICE DAILY montelukast 10 mg tablet 10 mg PO QPM albuterol sulfate 2.5 mg /3 mL (0.083 %) Solution For Nebulization 2.5 mg INHALATION QID PRN (Reason: Shortness Of Breath) Held Xeljanz 5 mg tablet 5 mg PO BID Qty: 60 5RF Hold Instructions: Resume on 11/15/24. Discontinued hydrocodone-acetaminophen 5-325 mg tablet 1 tab PO BID PRN (Reason: pain) 30 Days Qty: 60 0RF Discharge Orders: Discharge Order (Routine); Ordered 11/01/24 Ordered By: Jack Wei Referrals: Jack Wei, [Physician, Orthopedics] Discharge Diet: Regular Discharge Activity: Limit activity as instructed Patient Instructions: Acute Wound Care (DC), Opioid Safety, Post Anesthesia Care Activity Restrictions/Additional Instructions: Orthopedic discharge instructions Alejandro Dressing--Keep dressing on and dry. After 3 days you can remove some of the dressing and shower. disconnect battery pack when showering. Alejandro dressing will stay on until follow up appt in 2 weeks. The battery pack for the dressing will at 5-7 days. Battery pack can be removed and discarded once batteries . Hold tofacitinib for 2 weeks until incisions healed Patient may weight-bear as tolerate to the operative extremity Utilize walker as needed Encourage knee range of motion Ice and elevate as needed for pain and swelling Take pain medication as prescribed Take antinausea medication as needed Pain medication can cause constipation. take [id number] stool softeners and or MiraLAX. Take prescribed Eliquis twice daily for the next 14 days for blood clot prevention May supplement for pain with Tylenol [id number] as needed(1000 mg every 8 hours-do not exceed more than 3000mg in 24-hour period) No baths or soaks Follow-up in the orthopedic office in 2 weeks Contact the office for any questions or concerns Discharge Attestations Time Spent in Discharge Care*: less than 30 min Quality Metrics Clinical Quality Measures [ No reported AMI, CVA or VTE this stay] Coding Level of Care Code Acute Code for Chg Fwd Diagnoses Status post total left knee replacement Z96.652
[2024-11-01 09:39] VITALS: RESP 16
[2024-11-01 10:48] VITALS: BP 126/62; PULSE 68; RESP 16; TEMP 36.8; O2SAT 94
--- NOTE | 2024-11-01 15:51 | P.PN_ITS ---
Subjective 2 Subjective: She reports she is doing well, although did have to have pain medication overnight due to worsened pain in her left leg. Is doing better this morning. She states will need pain medications to go home with. Vitals/I&O/Wt Last Vital Signs Temp 98.3 F 11/01/24 10:48 Pulse 68 11/01/24 10:48 Resp 16 11/01/24 10:48 BP 126/62 11/01/24 10:48 Pulse Ox 94 11/01/24 10:48 O2 Del Method Room Air 10/31/24 15:53 11/01/24 11/01/24 11/01/24 06:59 14:59 22:59 Intake Total 200 / 3250 360 / 360 Balance 200 / 3000 360 / 360 Weight last 48 hrs Weight 121.109 kg Weight 74.843 kg Weight 74.843 kg Physical Exam 2 Narrative: Accompanied by her life partner and brother Const: COMMON NORMALS: patient oriented x3 and alert GENERAL APPEARANCE: c ooperative ORIENTATION/CONSCIOUSNESS: Yes awake HENMT: COMMON NORMALS: oropharynx normal Neck/C-Spine: COMMON NORMALS: no JVD Resp: COMMON NORMALS: normal respiratory effort and clear to auscultation bilaterally AUSCULTATION: clear to auscultation bilaterally Cardio: COMMON NORMALS: no JVD, regular rhythm, S1 normal heart sound present, S2 normal heart sound present and No murmurs present (Cardio) RHYTHM: regular rhythm HEART SOUNDS: S1 normal heart sound present and S2 normal heart sound present GI: COMMON NORMALS: Normal to inspection, nondistended, normoactive bowel sounds present, Soft to palpation and non-tender PALPATION: Yes Soft to palpation Extremity: COMMON NORMALS: no joint enlargement and no pedal edema N ARRATIVE EXTREMITY EXAM: LLE post-op dressing. No ankle swelling. No proximal swelling or bruising. Neuro: COMMON NORMALS: patient oriented x3 and moves all extremities S ENSORIUM/ORIENTATION: Yes alert Skin: COMMON NORMALS: no rashes or lesions noted GENERAL SKIN EXAM: no rashes or lesions noted Urinary Catheter Management: Schmidt: Cath Placed During This Visit: yes, but has since been removed by the nurse Reason for Continuing Indwelling Catheter: Decision to DC Catheter Urinary Catheter Date of Insertion: 10/31/24 Urinary Catheter Time of Insertion: 07:21 Date Urinary Catheter Removed: 10/31/24 Time Urinary Catheter Discontinued: 17:00 Data 11/01/24 03:01 11/01/24 03:01 A&P Assessment and plan (1) Status post total left knee replacement: She is sitting up in chair. She is doing well. Did have pain overnight. No issues with breathing, chest pain or pressure, she is doing well on room air. She had been seen by orthopedics and then gotten up and ambulated with physical therapy. Reviewed vitals, CBC, BMP, mild drop in hemoglobin from 13.8-12.7. She has been using incentive spirometer. IV fluids discontinued. Discussed with her to follow-up with primary provider. She is continuing on Eliquis for VTE prophylaxis. Avoiding NSAIDs due to prior gastric surgery. Ortho planning to hold Xeljanz for additional 2 weeks. Would avoid NSAIDs given history of gastric bypass surgery. On tramadol as needed for moderate pain, would monitor for risk of bleeding with anticoagulation and tramadol. Would resume her gastric bypass supplements. Reviewed orthopedic note. Plan Reported history of CHF, however, she denies any past exacerbation, has not been requiring active treatment. Rheumatoid arthritis, some worsening of joint swelling in her hands after holding Xeljanz. This is anticipated to be on hold for additional 2 weeks. Sleep apnea: Has resolved ever since she has lost significant weight. HTN: With improvement following weight loss History of gastric bypass, would resume her supplements as soon as safe. 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 Has not been an active issue. Nebulizer as needed. Other medical problems PDMP PDMP Reviewed: Not Reviewed Attestations 2 Medical Necessity Statement*: Returning home. Diagnoses Status post total left knee replacement Z96.652
== END 2024-11-01 11:00 | disposition home health service (06) ==
LOC: MEDSURG 09:17
PROVIDERS: Physician Assistant; Admitting Provider Student in an Organized Health Care Education/Training Program; PCP Family Medicine; Visit Provider Student in an Organized Health Care Education/Training Program
PROC: 8E0Y0CZ Robotic Assisted Procedure of Lower Extremity, Open Approach (ICD-10-PCS; CPT 27447; principal; 2024-10-31 07:00)
DX: M17.12 Unilateral primary osteoarthritis, left knee (principal); K21.9 Gastro-esophageal reflux disease without esophagitis; R91.8 Other nonspecific abnormal finding of lung field; I11.0 Hypertensive heart disease with heart failure; I50.9 Heart failure, unspecified; G47.33 Obstructive sleep apnea (adult) (pediatric); E66.9 Obesity, unspecified; Z68.44 Body mass index [BMI] 60.0-69.9, adult; Z96.651 Presence of right artificial knee joint; J45.909 Unspecified asthma, uncomplicated; M06.9 Rheumatoid arthritis, unspecified
CPT/HCPCS: 27447; 20985; 36415; 51702; 73560; 80048; 85025; 86850; 86900; 97110; 97116; 97161; 97165; A4216; C1713; C1776; G0378; J0131; J0171; J0690; J1171; J1885; J2250; J2371; J2704; J2795; J3370; J3490; J7030; J7120; J9999; L8699

== ENCOUNTER 2024-11-06 12:27 | Emergency (ER) | payer MEDICARE, MEDICAID, SELFPAY ==
[2024-11-06 12:45] VITALS: BP 135/81; PULSE 74; TEMP 36.7; O2SAT 98; BMI 39.7
--- NOTE | 2024-11-06 13:07 | W.ED.EXTPRO ---
HPI - Extremity Problem General: Chief complaint: Extremity Injury, Lower Stated complaint: itching on lft knee, yellow drainage - knee sx 10/31 Time Seen by Provider: 11/06/24 13:02 History of Present Illness: 54-year-old female with history of obesity, asthma, obstructive sleep apnea, CHF, hypertension and degenerative knee who had a recent knee replacement who presents emergency room with complaint of rash around the dressing site, some yellow drainage seen on dressing and that her wound VAC is not working. Says she tried to call orthopedics but could not get an answer. She had some initial pain issues but that seems to be better under control at this point. No fevers. No visible cellulitic type erythema or warmth. Related Data Home Medications ?Medication ?Instructions ?Recorded ?Confirmed montelukast 10 mg tablet 10 mg PO QPM 08/10/20 11/06/24 [id number] 45 mg-folic 1 cap PO DAILY 07/11/24 11/06/24 acid 800 mcg-vit K 120 mcg capsule (Bariatric Multivitamins) diphenhydramine HCl 25 mg capsule 25 mg PO TID PRN Itching 11/06/24 11/06/24 (Benadryl) metoprolol tartrate 100 mg tablet 50 mg PO BID 11/06/24 11/06/24 omeprazole 20 mg capsule,delayed 20 mg PO DAILY 11/06/24 11/06/24 release ondansetron 4 mg disintegrating 4 mg PO Q8H PRN Nausea And Vomiting 11/06/24 11/06/24 tablet Previous Rx's ?Medication ?Instructions ?Recorded albuterol sulfate 90 mcg/actuation 2 puff inhalation Q4H PRN 12/23/23 aerosol inhaler (Ventolin HFA) shortness of breath #6.7 grams cyclobenzaprine 10 mg tablet 10 mg PO TID #90 tabs 05/31/24 tofacitinib 5 mg tablet (Xeljanz) 5 mg PO BID #60 tabs 09/26/24 Held on 11/01/24. Instructions: Resume on 11/15/24. apixaban 2.5 mg tablet (Eliquis) 2.5 mg PO BID 2 weeks #28 tabs 10/31/24 hydrocodone 7.5 mg-acetaminophen 1 tab PO Q4H PRN pain postop total 11/02/24 325 mg tablet knee 7 days #42 tabs hydroxyzine HCl 25 mg tablet 25 mg PO BID PRN itching #30 tabs 11/06/24 triamcinolone acetonide 0.1 % 1 applic topical TID #30 grams 11/06/24 topical ointment Allergies Allergy/AdvReac Type Severity Reaction Status Date / Time lisinopril Allergy Intermediate lip Verified 11/06/24 12:52 swelling pregabalin (From Lyrica) Allergy Mild rash Verified 11/06/24 12:52 codeine Allergy HIVES Verified 11/06/24 12:52 hydrocortisone Allergy HIVES Verified 11/06/24 12:52 Review of Systems Narrative: Constitutional symptoms: Negative except as documented in HPI. Skin symptoms: Negative except as documented in HPI. Eye symptoms: Negative except as documented in HPI. ENMT symptoms: Negative except as documented in HPI. Respiratory symptoms: Negative except as documented in HPI. Cardiovascular symptoms: Negative except as documented in HPI. Gastrointestinal symptoms: Negative except as documented in HPI. Genitourinary symptoms: Negative except as documented in HPI. Musculoskeletal symptoms: Negative except as documented in HPI. Neurologic symptoms: Negative except as documented in HPI. Psychiatric symptoms: Negative except as documented in HPI. Endocrine symptoms: Negative except as documented in HPI. PFSH ED PFSH: Medical History Degenerative arthritis of knee, bilateral History of multiple pulmonary nodules q18-24m CT recommended for follow up by pulmonology History of hepatitis C treated Eosinophilic asthma Obstructive sleep apnea on CPAP No longer on CPAP/BiPAP since gastric bypass surgery and significant weight loss but has not had a formal post gastric bypass sleep study (01/2024) High risk medication use GUSTAVO inhibitor, has been on steroids Seropositive rheumatoid arthritis of multiple sites CHF (congestive heart failure), NYHA class III HTN (hypertension), benign Obesity BMI > 70 prior to gastric bypass surgery in 2021 Cervical radiculopathy Calcium deposit in bursa of left hip Calcium deposit removed from left buttock 1991 x3 Carpal tunnel syndrome on both sides Surgical History History of gastric bypass (07/2021) Status post total right knee replacement using cement (02/22/24) with Dr Eriberto HARVEY Status post colonoscopy with polypectomy (11/10/19) H/O exploratory laparotomy Exploratory surgery on female part as an infant Family History Mother Hypertension Grandmother Heart disease Cancer Paternal -- stomach Mother Diabetes Family/Other Breast cancer Maternal Aunt Denies family history of Clotting disorder Hyperlipidemia Chronic kidney disease (CKD) Thyroid disease Stroke Social History Smoking and tobacco/nicotine status: never used tobacco/nicotine Quit status (tobacco/nicotine): has quit using Year quit tobacco: 2017 Former quit date comment: 0.5 ppd x 36 years Second hand smoke exposure: No Alcohol intake: never Substance/Drug Use: current Substance/Drug use frequency: daily Female Reproductive History: Para: 0 Spontaneous abortions: Yes Physical Exam Narrative: EXAM NARRATIVE: General: Alert, no acute distress. Skin: warm and dry, contact dermatitis to tape as in picture below. Wound appears clean dry and intact. Head: Normocephalic Neck: Trachea midline Eye: Extraocular movements are intact. Ears, nose, mouth and throat: Oral mucosa moist Respiratory: Respirations are non-labored Musculoskeletal: Some limitation in range of motion, but patient does ambulate to the room with a walker. Dressing is in place. There is some yellowish drainage on the lateral distal end of the dressing. There is a wound VAC in place that she says is not working. Some mild patchy erythematous rash on her thigh and her leg. Gastrointestinal abdomen does not appear distended Neurological: Alert and oriented, No focal neurological deficit observed. Psychiatric: Cooperative, appropriate mood & affect. Course Vital Signs: Vital signs: Vital Signs Temperature 98.1 F 11/06/24 12:45 Pulse Rate 72 11/06/24 14:26 Blood Pressure 154/90 11/06/24 14:26 Pulse Oximetry 98 11/06/24 14:26 Oxygen Delivery Me thod Room Air 11/06/24 14:26 MDM - Extremity (Nontraumatic) Medical Decision Making Consultation: I spoke Dr. Wei who recommended removing the dressing. He agrees with triamcinolone and hydroxyzine. He will see the patient in clinic at her scheduled appointment. Also recommends a dry dressing with an Roque bandage. Assessment and plan: Contact dermatitis ? Hydroxyzine, triamcinolone in the emergency room. Also a single dose of Decadron. Dressing changed by nursing. - Discharged home - Discussed plan with patient. Answered any questions. - Evaluation and treatment of this problem were appropriate in the emergency setting. No radiology studies performed this visit Discharge Plan Discharge Patient Disposition: Home Clinical Impression: Contact dermatitis Condition: Stable Prescriptions: New hydroxyzine HCl 25 mg tablet 25 mg PO BID PRN (Reason: itching) Qty: 30 0RF triamcinolone acetonide 0.1 % ointment 1 applic topical TID Qty: 30 0RF No Action Xeljanz 5 mg tablet 5 mg PO BID Qty: 60 5RF Bariatric Multivitamins 45 mg iron- 800 mcg-120 mcg capsule 1 cap PO DAILY albuterol sulfate [Ventolin HFA] 90 mcg/actuation HFA aerosol inhaler 2 puff INHALATION Q4H PRN (Reason: shortness of breath) Qty: 6.7 6RF cyclobenzaprine 10 mg tablet 10 mg PO TID Qty: 90 5RF hydrocodone-acetaminophen 7.5-325 mg tablet 1 tab PO Q4H PRN (Reason: pain postop total knee) 7 Days Qty: 42 0RF montelukast 10 mg tablet 10 mg PO QPM Eliquis 2.5 mg tablet 2.5 mg PO BID 14 Days Qty: 28 0RF diphenhydramine HCl [Benadryl] 25 mg Capsule 25 mg PO TID PRN (Reason: Itching) ondansetron 4 mg tablet,disintegrating 4 mg PO Q8H PRN (Reason: Nausea And Vomiting) metoprolol tartrate 100 mg tablet 50 mg PO BID omeprazole 20 mg capsule,delayed release(DR/EC) 20 mg PO DAILY Discharge Orders: Discharge ED (Routine); Ordered 11/06/24 Ordered By: Renetta Madrigal Referrals: Christopher Collado DO [Primary Care Provider, Family Practice] Discharge Diet: Usual diet Discharge Activity: Increase activity as tolerated Patient Instructions: Contact Dermatitis (ED), Opioid Safety, Pain Management Activity Restrictions/Additional Instructions: Apply triamcinolone to rash area a couple times a day and leave there for about an hour while open. White free and make sure your wound area is dry prior to replacing your dressing. Keep your follow-up with orthopedics. Thank you for choosing [facility] for your healthcare needs today. You have been screened and evaluated and felt safe for discharge. Health conditions do change or evolve sometimes and as such it is important that you follow up with your Primary Doctor to be re checked, 3-5 days is a general good time frame for follow up. You are always welcome to return to the ED for re assessment if your symptoms are worsening or you have new concerns Print Language: South Korean Coding Level of Care Code ED Waiver Analyst for Jm Blank
[2024-11-06 14:26] VITALS: BP 154/90; PULSE 72; O2SAT 98
[2024-11-06] MEDS: hyDRALAzine 25 mg Tablet 50 MG PO (14:44)
[2024-11-06] MEDS: dexamethasone 10 mg/mL INJ IM (14:46)
[2024-11-06 14:59] VITALS: BP 126/83; PULSE 75; O2SAT 96
== END 2024-11-06 15:03 | disposition home or self-care (01) ==
PROVIDERS: Emergency Provider Emergency Medicine; PCP Family Medicine
DX: L25.9 Unspecified contact dermatitis, unspecified cause (principal); Z79.01 Long term (current) use of anticoagulants; Z96.652 Presence of left artificial knee joint; I11.0 Hypertensive heart disease with heart failure; I50.9 Heart failure, unspecified; Z87.891 Personal history of nicotine dependence
CPT/HCPCS: 96372; 99284; J1100; J9999

== ENCOUNTER → 2024-11-11 10:32 | Outpatient (BNVA) | payer MEDICARE, MEDICAID, SELFPAY | PROVIDERS: PCP Family Medicine; Visit Provider Physician Assistant | DX: Z96.653 Presence of artificial knee joint, bilateral (principal) | CPT/HCPCS: 73560; 73565 ==

== ENCOUNTER 2024-11-11 11:32 | Emergency (ER) | payer MEDICARE, MEDICAID, SELFPAY ==
[2024-11-11] VITALS (7 sets, daily range): BP systolic 120–152; BP diastolic 71–93; PULSE 77–83; RESP 16; TEMP 36.6; O2SAT 95–100; BMI 39.7
--- NOTE | 2024-11-11 12:20 | USCV_ITS ---
Jaye Pollard Age: 54 Gender: F : 1970 Exam Date: 11/11/2024 13:14 Ordering Phys: Christos Meraz DO Technologist: Kyle Lee [place]am Location[place] [facility] [place]: R.O DVT PROCEDURES: Venous duplex imaging was performed in only the left lower extremity. The following venous structures were evaluated: common femoral vein, profunda vein, proximal portion of the greater saphenous vein, superficial femoral vein, and the popliteal vein. In addition, the posterior tibial and peroneal trunk were evaluated. Serial compression, augmentation maneuvers, and spectral Doppler flow evaluation were performed. FINDINGS: Normal 2-D Doppler and augmentation and compressibility throughout the lower extremity venous structures. Additional imaging through the proximal calf veins also reveals no thrombus. Limited evaluation of the greater saphenous vein is patent with no thrombus. CONCLUSIONS No DVT left lower extremity. Dr. Yara Bojorquez DO (Electronically Signed) Final Date: 11 Nov 2024 14:56 S
--- NOTE | 2024-11-11 12:24 | W.ED.EXTPRO ---
HPI - Extremity Problem General: Chief complaint: Extremity Problem,Nontraumatic Stated complaint: tenderness behind left knee-post surgery Time Seen by Provider: 11/11/24 12:14 History of Present Illness: Jaye Pollard, a patient with a recent knee replacement surgery, presents to the ER with concerns of leg pain and potential blood clot. The patient was referred by Dr. Russell for expedited evaluation. The patient reports experiencing pain behind the leg, which has been present since the knee replacement surgery. The pain has worsened today, localized from the upper part of the leg to just above the knee. The patient describes the area as tender and notes a significant bruise behind the knee. Ice application has provided some relief. In addition to the leg pain, the patient mentions a recent allergic reaction to tape used post-surgery. This resulted in a previous ER visit, and today the tape was removed and replaced with steri-strips. The patient is currently taking hydrocodone for pain management. Related Data Home Medications ?Medication ?Instructions ?Recorded ?Confirmed montelukast 10 mg tablet 10 mg PO QPM 08/10/20 11/11/24 nciljrvy-kmarlunh-zjyc 45 mg-folic 1 cap PO DAILY 07/11/24 11/11/24 acid 800 mcg-vit K 120 mcg capsule (Bariatric Multivitamins) diphenhydramine HCl 25 mg capsule 25 mg PO TID PRN Itching 11/06/24 11/11/24 (Benadryl) metoprolol tartrate 100 mg tablet 50 mg PO BID 11/06/24 11/11/24 omeprazole 20 mg capsule,delayed 20 mg PO QAM 11/06/24 11/11/24 release ondansetron 4 mg disintegrating 4 mg PO Q8H PRN Nausea And Vomiting 11/06/24 11/11/24 tablet triamcinolone acetonide 0.1 % 1 applic topical TID PRN skin rash 11/11/24 11/11/24 topical ointment Previous Rx's ?Medication ?Instructions ?Recorded albuterol sulfate 90 mcg/actuation 2 puff inhalation Q4H PRN 12/23/23 aerosol inhaler (Ventolin HFA) shortness of breath #6.7 grams cyclobenzaprine 10 mg tablet 10 mg PO TID #90 tabs 05/31/24 tofacitinib 5 mg tablet (Xeljanz) 5 mg PO BID #60 tabs 09/26/24 Held on 11/01/24. Instructions: Resume on 11/15/24. apixaban 2.5 mg tablet (Eliquis) 2.5 mg PO BID 2 weeks #28 tabs 10/31/24 hydroxyzine HCl 25 mg tablet 25 mg PO BID PRN itching #30 tabs 11/06/24 hydrocodone 7.5 mg-acetaminophen 1 tab PO Q4H PRN pain postop total 11/11/24 325 mg tablet knee 5 days #30 tabs Allergies Allergy/AdvReac Type Severity Reaction Status Date / Time lisinopril Allergy Intermediate lip Verified 11/11/24 10:31 swelling pregabalin (From Lyrica) Allergy Mild rash Verified 11/11/24 10:31 codeine Allergy HIVES Verified 11/11/24 10:31 hydrocortisone Allergy HIVES Verified 11/11/24 10:31 Review of Systems General: Reports: 10 or more systems reviewed and unremarkable except in HPI and below PFSH ED PFSH: Medical History Degenerative arthritis of knee, bilateral History of multiple pulmonary nodules q18-24m CT recommended for follow up by pulmonology History of hepatitis C treated Eosinophilic asthma Obstructive sleep apnea on CPAP No longer on CPAP/BiPAP since gastric bypass surgery and significant weight loss but has not had a formal post gastric bypass sleep study (01/2024) High risk medication use GUSTAVO inhibitor, has been on steroids Seropositive rheumatoid arthritis of multiple sites CHF (congestive heart failure), NYHA class III HTN (hypertension), benign Obesity BMI > 70 prior to gastric bypass surgery in 2021 Cervical radiculopathy Calcium deposit in bursa of left hip Calcium deposit removed from left buttock 1991 x3 Carpal tunnel syndrome on both sides Surgical History History of gastric bypass (07/2021) Status post total right knee replacement using cement (02/22/24) with Dr Eriberto HARVEY Status post colonoscopy with polypectomy (11/10/19) H/O exploratory laparotomy Exploratory surgery on female part as an Family History Mother Hypertension Grandmother Heart disease Cancer Paternal -- stomach Mother Diabetes Family/Other Breast cancer Maternal Aunt Denies family history of Clotting disorder Hyperlipidemia Chronic kidney disease (CKD) Thyroid disease Stroke Social History Smoking and tobacco/nicotine status: never used tobacco/nicotine Quit status (tobacco/nicotine): has quit using Year quit tobacco: 2017 Former quit date comment: 0.5 ppd x 36 years Second hand smoke exposure: No Alcohol intake: never Substance/Drug Use: current Substance/Drug use frequency: daily Female Reproductive History: Para: 0 Spontaneous abortions: Yes Physical Exam Const: COMMON NORMALS: no acute distress and alert Resp: COMMON NORMALS: normal respiratory effort and No retractions Cardio: COMMON NORMALS: Peripheral pulses 2+ throughout PERIPHERAL PULSES: Peripheral pulses 2+ throughout Extremity: NARRATIVE EXTREMITY EXAM: Left knee-incision site is healing well and no signs of infection noted. no erythema, warmth or purulent drainage seen. no signs of septic joint. Active ROM 0-85 degrees. pt can perform straight leg raise, dorsiflex and plantarflex foot. pedal pulse 2. compartments are soft and compressible. pt does have some palpable tenderness of left calf. sensation to foot intact. Small pruritic appearing macular papular rash on edges of dressing. Neuro: SENSORIUM/ORIENTATION: Yes alert Skin: GENERAL SKIN EXAM: dry skin Course Vital Signs: Vital signs: Vital Signs Temperature 97.9 F 11/11/24 11:36 Pulse Rate 78 11/11/24 15:04 Respiratory Rate 16 11/11/24 15:04 Blood Pressure 152/93 11/11/24 15:04 Pulse Oximetry 99 11/11/24 15:04 Oxygen Delivery Me thod Room Air 11/11/24 11:36 MDM - Extremity (Nontraumatic) Medical Decision Making 54-year-old female presents to the emergency department for evaluation of left lower leg pain. She was sent to the emergency department by her orthopedic surgeons office for concern of DVT. Patient's leg was painful not swollen or erythematous. Ultrasound was negative for DVT. Patient's pain is likely normal postop pain. Encouraged her to follow-up with her orthopedic surgeon as further management of her leg pain. Discharged home in stable condition. All radiology interpretation(s) finalized by discharge ED provider radiology interpretation(s): Negative left lower extremity ultrasound Discharge Plan Discharge Patient Disposition: Home Clinical Impression: Left knee pain Qualifiers: Chronicity: acute Qualified Code(s): M25.562 - Pain in left knee Condition: Stable Prescriptions: No Action Xeljanz 5 mg tablet 5 mg PO BID Qty: 60 5RF Bariatric Multivitamins 45 mg iron- 800 mcg-120 mcg capsule 1 cap PO DAILY hydrocodone-acetaminophen 7.5-325 mg tablet 1 tab PO Q4H PRN (Reason: pain postop total knee) 5 Days Qty: 30 0RF albuterol sulfate [Ventolin HFA] 90 mcg/actuation HFA aerosol inhaler 2 puff INHALATION Q4H PRN (Reason: shortness of breath) Qty: 6.7 6RF cyclobenzaprine 10 mg tablet 10 mg PO TID Qty: 90 5RF montelukast 10 mg tablet 10 mg PO QPM Eliquis 2.5 mg tablet 2.5 mg PO BID 14 Days Qty: 28 0RF diphenhydramine HCl [Benadryl] 25 mg Capsule 25 mg PO TID PRN (Reason: Itching) ondansetron 4 mg tablet,disintegrating 4 mg PO Q8H PRN (Reason: Nausea And Vomiting) metoprolol tartrate 100 mg tablet 50 mg PO BID omeprazole 20 mg capsule,delayed release(DR/EC) 20 mg PO QAM hydroxyzine HCl 25 mg tablet 25 mg PO BID PRN (Reason: itching) Qty: 30 0RF triamcinolone acetonide 0.1 % ointment 1 applic topical TID PRN (Reason: skin rash) Discharge Orders: Discharge ED (Routine); Ordered 11/11/24 Ordered By: Christos Law Referrals: Christopher Collado DO [Primary Care Provider, Family Practice] Discharge Diet: Advance as tolerated Discharge Activity: Limit activity as instructed Patient Instructions: Opioid Safety, Pain Management Activity Restrictions/Additional Instructions: Please return to the emergency department with any new or worsening symptoms. Please follow-up with your orthopedic surgeon for persistent symptoms. Print Language: Malay Coding Level of Care Code ED Event Coordinator for Jm Blank
== END 2024-11-11 15:18 | disposition home or self-care (01) ==
PROVIDERS: Emergency Provider General Practice; PCP Family Medicine
DX: M25.562 Pain in left knee (principal); M79.605 Pain in left leg; Z79.01 Long term (current) use of anticoagulants; Z98.890 Other specified postprocedural states; Z87.891 Personal history of nicotine dependence; I11.0 Hypertensive heart disease with heart failure; I50.9 Heart failure, unspecified
CPT/HCPCS: 93971; 99024; 99284

== ENCOUNTER 2024-11-29 14:40 | Outpatient (RCR) | payer MEDICARE, MEDICAID, SELFPAY | END 2024-12-26 23:59 | disposition home or self-care (01) | LOC: SPT 14:40 | PROVIDERS: PCP Family Medicine; Visit Provider Physician Assistant | DX: Z47.1 Aftercare following joint replacement surgery (principal); Z96.652 Presence of left artificial knee joint | CPT/HCPCS: 97110; 97161; 99024 ==

== ENCOUNTER → 2024-12-21 12:53 | Outpatient (BNVA) | payer MEDICARE, MEDICAID, SELFPAY | PROVIDERS: PCP Family Medicine; Visit Provider Student in an Organized Health Care Education/Training Program | DX: Z96.653 Presence of artificial knee joint, bilateral (principal) | CPT/HCPCS: 73560; 73565; 99024 ==

== ENCOUNTER 2024-12-27 05:00 | Outpatient (RCR) | payer MEDICARE, MEDICAID, SELFPAY | END 2025-01-26 23:59 | disposition home or self-care (01) | LOC: SPT 05:00 | PROVIDERS: PCP Family Medicine; Visit Provider Physician Assistant | DX: Z47.1 Aftercare following joint replacement surgery (principal); Z96.652 Presence of left artificial knee joint | CPT/HCPCS: 97110 ==

== ENCOUNTER 2025-01-02 10:52 | Outpatient (CLI) | payer MEDICARE, MEDICAID, SELFPAY ==
--- NOTE | 2025-01-02 11:00 | MM_ITS ---
WS: [id number] VIEWS: MLO and CC views both breasts. 3D digital tomosynthesis is also included in this exam. Comparison made with prior exam of 01/30/2017, 01/16/2015, 01/18/2016, 11/22/2020, 12/03/2021, 12/25/2022, 01/01/2024.. Findings: The breasts are heterogeneously dense, which may obscure small masses. No suspicious mass, tumor calcification or architectural distortion. MM/MM scr BI tomosynthesis [id number] Impression: BI-RADS: 2 - Benign FOLLOW-UP: 1 Year Follow-up This mammogram was also analyzed by the Computer Aided Detection System R2 Imag e Business Development Consultant.
== END 2025-01-02 10:53 | disposition home or self-care (01) ==
LOC: RAD 10:55
PROVIDERS: PCP Family Medicine; Visit Provider Family Medicine
DX: Z12.31 Encounter for screening mammogram for malignant neoplasm of breast (principal); R92.333 Mammographic heterogeneous density, bilateral breasts
CPT/HCPCS: 77063; 77067

== ENCOUNTER → 2025-01-10 13:16 | Outpatient (BNVA) | payer MEDICARE, MEDICAID, SELFPAY | PROVIDERS: PCP Family Medicine; Visit Provider Internal Medicine Rheumatology | DX: M05.79 Rheumatoid arthritis with rheumatoid factor of multiple sites without organ or systems involvement (principal); Z79.899 Other long term (current) drug therapy; Z71.85 Encounter for immunization safety counseling; E66.9 Obesity, unspecified | CPT/HCPCS: 80076; 82306; 82565; 86140; 86480; 86704; 86803; 87340; 99214 ==

== ENCOUNTER → 2025-01-11 00:25 | Outpatient (BNVA) | payer MEDICARE, MEDICAID, SELFPAY | PROVIDERS: PCP Family Medicine; Visit Provider Internal Medicine Rheumatology | DX: Z79.899 Other long term (current) drug therapy (principal) | CPT/HCPCS: 87522 ==

== ENCOUNTER → 2025-01-18 08:38 | Outpatient (BNVA) | payer MEDICARE, MEDICAID, SELFPAY | PROVIDERS: PCP Family Medicine; Visit Provider Student in an Organized Health Care Education/Training Program | DX: Z96.653 Presence of artificial knee joint, bilateral (principal) | CPT/HCPCS: 73560; 73565; 99024 ==

== ENCOUNTER 2025-01-25 08:29 | Outpatient (CLI) | payer MEDICARE, MEDICAID, SELFPAY ==
--- NOTE | 2025-01-25 08:45 | USCV_ITS ---
Jaye Pollard Age: 55 Gender: F : 1970 Exam Date: 01/25/2025 08:59 Ordering Phys: Michael Padilla MD Technologist: MERCY Exam Location: [facility] [place] Indication: HF BP: 130 / 68 HR: 58 Rhythm: Sinus Technical Quality: Adequate MEASUREMENTS (Male / Female) Normal Values 2D ECHO LV Diastolic Diameter PLAX 3.8 cm 4.2 - 5.9 / 3.9 - 5.3 cm IVS Diastolic Thickness 1.0 cm 0.6 - 1.0 / 0.6 - 0.9 cm IVS Systolic Thickness 1.6 cm LVPW Diastolic Thickness 1.0 cm 0.6 - 1.0 / 0.6 - 0.9 cm LVPW Systolic Thickness 1.8 cm LVOT Diameter 2.0 cm LV Ejection Fraction 2D Teich 62.9 % LV Ejection Fraction MOD 4C 67.1 % LV Ejection Fraction MOD 2C 58.0 % LV Ejection Fraction 2C AL 56.1 % LA Diameter 3.8 cm RA Systolic Volume 4C AL 32.9 ml RA Systolic Volume 4C MOD 32.1 ml LA Sys Volume AL 47.4 cm cubed LA Sys Volume Index AL 27.4 cm cubed/m squared Aorta at Sinotubular Diameter 2.3 cm IVC Diameter 2.6 cm M-MODE LA Ao Ratio MM 1.4 AV Cusp Separation MM 1.7 cm DOPPLER AV Peak Velocity 144.0 cm/s LVOT Peak Velocity 105.0 cm/s AV Area Cont Eq vti 2.2 cm squared AV Area Cont Eq pk 2.2 cm squared MV Peak Velocity 98.0 cm/s MV Area PHT 4.3 cm squared Mitral E to A Ratio 1.4 TV Peak Velocity 172.0 cm/s TR Peak Velocity 243.0 cm/s TR Peak Gradient 23.6 mmHg TV Peak E Velocity 75.0 cm/s PV Peak Velocity 91.0 cm/s FINDINGS Left Ventricle Normal left ventricular size, systolic function and wall thickness, with no regional wall motion abnormalities. Normal diastolicfunction Right Ventricle The right ventricle is normal in size and function. Right Atrium The right atrium is normal in size. Left Atrium The left atrium is normal in size. Mitral Valve Normal mitral valve structure and function Aortic Valve . Normal aortic valve structure and function Tricuspid Valve Normal tricuspid valve structure and function. TR jet not adequate to accurately measure the pulmonary pressure. Pulmonic Valve Normal pulmonary valve structure and function. Pericardium Normal pericardium without effusion. Aorta Normal ascending aorta dimension. IVC The inferior vena cava is not well-visualized. CONCLUSIONS 1. Normal left ventricular size and systolic function 2. No significant valvular abnormalities. Nicolás Iraheta MD, FACC (Electronically Signed) Final Date: 28 January 2025 21:07 S
== END 2025-01-25 08:30 | disposition home or self-care (01) ==
LOC: RAD 08:30
PROVIDERS: PCP Family Medicine; Visit Provider Internal Medicine Rheumatology
DX: I50.9 Heart failure, unspecified (principal)
CPT/HCPCS: 93306

== ENCOUNTER 2025-01-27 05:00 | Outpatient (RCR) | payer MEDICARE, MEDICAID, SELFPAY | END 2025-02-15 11:26 | disposition home or self-care (01) | LOC: SPT 05:00 | PROVIDERS: PCP Family Medicine; Visit Provider Physician Assistant | DX: Z47.1 Aftercare following joint replacement surgery (principal); Z96.652 Presence of left artificial knee joint | CPT/HCPCS: 97110 ==

== ENCOUNTER → 2025-02-21 10:58 | Outpatient (BNVA) | payer OTHER, MEDICAID, SELFPAY | PROVIDERS: PCP Family Medicine; Visit Provider Student in an Organized Health Care Education/Training Program | DX: Z96.651 Presence of right artificial knee joint (principal); Z47.1 Aftercare following joint replacement surgery | CPT/HCPCS: 73560; 73565; 99213 ==

== ENCOUNTER 2025-03-02 14:34 | Outpatient (CLI) | payer OTHER, MEDICAID, SELFPAY ==
[2025-03-02 15:26] LABS: Alanine Aminotransferase 9 U/L (0-33); Albumin Level 3.8 g/dL (3.5-5.2); Alkaline Phosphatase 114 U/L (35-105); Anion Gap 13.1 (5-19); Aspartate Amino Transferase 13 U/L (0-32); Blood Urea Nitrogen 20 mg/dL (6-20); Calcium 8.8 mg/dL (8.5-10.5); Carbon Dioxide 28 mmol/L (22-29); Chloride 101 mmol/L (98-107); Cholesterol 202 mg/dL (0-200); Globulin 3.0 g/dL (1.3-4.6); Glucose 116 mg/dL (65-115); HDL Cholesterol 45 mg/dL (60-100); Osmolality Calculated 290 mOsm/kg (285-295); Potassium 4.1 mmol/L (3.5-5.1); Sodium 138 mmol/L (136-145); Thyroid Stimulating Hormone 0.86 uIU/mL (0.27-4.20); Total Protein 6.8 g/dL (6.6-8.7); Triglycerides 127 mg/dL (0-150)
== END 2025-03-02 14:35 | disposition home or self-care (01) ==
LOC: LAB 14:36
PROVIDERS: PCP Family Medicine; Visit Provider Family Medicine
DX: I50.32 Chronic diastolic (congestive) heart failure (principal); I10 Essential (primary) hypertension; E55.9 Vitamin D deficiency, unspecified
CPT/HCPCS: 36415; 80053; 80061; 82306; 84443

== ENCOUNTER 2025-03-03 16:34 | Emergency (ER) | payer OTHER, MEDICAID, SELFPAY ==
[2025-03-03 16:36] VITALS: BP 105/56; PULSE 103; RESP 16; TEMP 36.9; O2SAT 96; BMI 39.2
--- OUTSIDE RECORDS SUMMARY | 2025-03-03 16:41 | XMS_ITS | Encounter Summary ---
Author Organization [facility] Address [address] [place] [address] Care Team Providers Care Promotions Executive Producer Name Role Phone Nik Yuen MD Primary Care Provider Encounter Details Date Type Department Care Team (Late st Contact Info) Description 02/28/2025 External Device Data [place] ABSTRACTION Provider, Abstract NO ADDRESS ON FILE Social History Tobacco Use Types Packs/Day Years Used Date Smoking Tobacco: Former Cigarettes 0.5 30 0 06/29/1987 - 06/29/2017 Smokeless Tobacco: Never Alcohol Use Standard Drinks/Week Comments Yes 0 (1 standard drink = 0.6 oz pure alcohol) rarely 1 drink every 3-4 months Comments No Sex and Gender Information Value Date Recorded Sex Assigned at Female 06/25/2024 11:09 AM LIME PULLER Legal Sex Female 12:22 AM LIME PULLER Gender Identity Female 06/25/2024 11:09 AM LIME PULLER Sexual Orientation Straight 06/25/2024 11 :09 AM LIME PULLER documented as of this encounter Plan of Treatment Upcoming Encounters Date Type Department Care Team (Late st Contact Info) Description 07/25/2025 11:40 AM LIME PULLER Office Visit [facility] Gen Spec Surg [address] [place] [id number] Arash Duenas FNP [address] [facility] [address] [place] [address] documented as of this encounter Visit Diagnoses Not on filedocumented in this encounter Care Teams Promotions Executive Producer Relationship Specialty Start Date End Date Nik Yuen MD [address] [place] [address] PCP - General 07/31/07 documented as of this encounter
--- OUTSIDE RECORDS SUMMARY | 2025-03-03 16:42 | XMS_ITS | Encounter Summary ---
Author Organization [facility] Address [address] [place] [address] Care Team Providers Care Product Analyst Name Role Phone Nik Yuen MD Primary Care Provider [phone] Encounter Details Date Type Department Care Team (Late st Contact Info) Description 10/28/2006 Outpatient Historical [facility] Orthopedics- 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
--- OUTSIDE RECORDS SUMMARY | 2025-03-03 16:42 | XMS_ITS | Encounter Summary ---
Author Organization [facility] Address [address] [place] [address] Care Team Providers Care Game Developer Name Role Phone Nik Yuen MD Primary Care Provider Encounter Details Date Type Department Care Team (Late st Contact Info) Description 10/23/2006 Outpatient Historical [facility] Orthopedics- 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
--- OUTSIDE RECORDS SUMMARY | 2025-03-03 16:42 | XMS_ITS | Clinical Summary ---
Author Organization [facility] Address [address] 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 Gender Identity Not on file Sexual Orientation Not on file Plan of Treatment Health Maintenance Due Date Last Done Comments DTAP/TDAP/TD VACCINES (1 - Tdap) 01/13/1988 HEPATITIS B VACCINES (1 of 3 - 19+ 3-dose series) 12/27 HPV/Cotest (21-29) 1990 CERVICAL CANCER SCREENING 1999 HPV/Cotest (30-65) 1999 PAP SMEAR 1999 BREAST CANCER SCREENING 2009 COLORECTAL SCREENING 2014 Colorectal Cancer Screening 2014 FIT-DNA Q 3 years 2014 FIT/FOBT Q 1 year 2014 Flex Sig/CT Colonography Q 5 years 2014 ZOSTER VACCINE (1 of 2) 2019 INFLUENZA VACCINE (#1) 2025 Care Teams Site Leasing Agent Relationship Specialty Start Date End Date Nik Yuen MD [address] [place] [id number] PCP - General 07/31/07
--- OUTSIDE RECORDS SUMMARY | 2025-03-03 16:42 | XMS_ITS | Encounter Summary ---
Author Organization [facility] Address [address] [place] [address] Care Team Providers Care Roll Hauler Name Role Phone Nik Yuen MD Primary Care Provider [phone] Encounter Details Date Type Department Care Team (Late st Contact Info) Description 08/04/2007 Outpatient Historical [facility] Orthopedics[address] [place] [address] Mc Schreiber MD [address] [place] [address] Social History Tobacco Use Types Packs/Day Years Used Date Smoking Tobacco: Never Assessed Comments Unknown Sex and Gender Information Value Date Recorded Sex Assigned at Not on file Legal Sex Female 5:51 AM RELIGIOUS EDUCATION DIRECTOR Gender Identity Not on file Sexual Orientation Not on file documented as of this encounter Progress Notes * Claudia Whyte - 08/04/2007 12:00 AM CST Patient Name: Jaye Pollard DOS: 08/04/2007 : 1970 For additional information regarding past medical history, present medications, allergies, completereview of systems, past surgical history, family history, and social history, please refer to the orthopedic health questionnaire completed by the patient, which I have reviewed in detail today. SUBJECTIVE: Mrs. Pollard returns today with complaint of right knee pain. She says that she slipped and fell again in the middle of June and it has been sore ever since. She says that the whole knee hurts and it has swelled somewhat. She denies locking and catching. She says that the Hyalgan injections that we gave her last year may have helped some, but she really feels like it was the physical therapy that helped her the most. She really liked the hydrotherapy. PSYCH: The patient is alert and oriented times three with normal mood and affect. CONSTITUTIONAL: The patient is well developed, well nourished, and in no acute distress. SKIN: The skin is of normal color and texture. PHYSICAL EXAMINATION: She is obese. Examination of the right knee. It is difficult with her size toevaluate her for effusion, but no effusion is appreciated. Range of motion is 0-90?? and appears melany limited secondary to pain. Knee is diffusely tender, but is mainly tender over the medial and lateral joint lines. There is no erythema or warmth. Her ligamentous exam is stable. NEUROLOGICAL: Grossly intact motor sensory examination. RADIOGRAPHIC FINDINGS: None taken. MRI: MRI from [facility] dated 07/23/2007 shows interval progression of degenerative changes about the medial and lateral compartments of the knee as well as the patellofemoral joint. There is marked degenerative tear of the posterior horn and mid body of the medial meniscus which was also present on a prior MRI from August of 2006. There is no acute ligamentous injury. ASSESSMENT: Right knee tri-compartmental degenerative changes with degenerative medial meniscus tear. TREATMENT AND PLAN: Discussed MRI findings with Jaye and told her that there is no significant change from her previous MRI. Given the degenerative changes in her knee and her size, Dr. Schreiber would be reluctant to scope her knee. She said that physical therapy really worked last time and would like to try that. I have sent to physical therapy for hydrotherapy and modalities and range of motionand strengthening. Also given her a corticosteroid injection in the right knee today. We will see her back as needed. PROCEDURE NOTE: After sterile prepping of the skin w/ 3 ChloraPrep swabs, ethyl chloride was used to sterilize the skin and through an anterior lateral approach, the knee was injected with 80mg of Depo Medrol and 5cc of 1% Lidocaine, w/ a 10cc syringe and 22 gauge needle. SVETLANA Parnell M.D. [facility] Electronically Signed by SVETLANA Parnell 08/06/2007 14:09 , P, mm1 Job #: Document #: [id number] cc: documented in this encounter Plan of Treatment Not on file documented as of this encounter Visit Diagnoses Not on filedocumented in this encounter Care Teams Roll Hauler Relationship Specialty Start Date End Date Nik Yuen MD [address] [facility] [address] [place] [id number] PCP - General 07/31/07 documented as of this encounter
--- OUTSIDE RECORDS SUMMARY | 2025-03-03 16:42 | XMS_ITS | Encounter Summary ---
Author Organization [facility] Address [address] [place] [address] Care Team Providers Care Environmental Sustainability Manager Name Role Phone Nik Yuen MD Primary Care Provider [phone] Encounter Details Date Type Department Care Team (Late st Contact Info) Description 11/04/2006 Outpatient Historical [facility] Orthopedics- 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
--- OUTSIDE RECORDS SUMMARY | 2025-03-03 16:42 | XMS_ITS | Clinical Summary ---
Author Organization [facility] Address [address] [place]: [place] [address] Care Team Providers Care Hat Finisher Name Role Phone Nik Yuen MD Primary Care Provider [phone] Allergies Active Allergy Reactions Criticality Noted Date Comments Codeine Hives High 05/27/2022 Grape Juice Itching High 05/27/2022 Itchy and swelling throat with Whyte's grape juice Lisinopril Swelling Low 08/04/2022 At the lips area Medications metoprolol tartrate 100 mg tablet Take 50 mg by mouth 2 times daily. Active montelukast 10 mg tablet Take 10 mg by mouth daily at bedtime. Active cyclobenzaprine 10 mg tablet Take 10 mg by mouth 3 times daily as needed for Spasm. Active omeprazole 40 mg capsule,delayed release Take 20 mg by mouth daily. Active albuterol sulfate concentrate 2.5 mg/0.5 mL solution for nebulization Take 2.5 mg by inhalation one time only. Active fluticasone 100 mcg-salmeteroL 50 mcg/dose blistr powdr for inhalation Take 1 Puff by inhalation 2 times daily. Active ondansetron (Zofran) 4 mg Tablet Take 1 Tablet (4 mg) by mouth every 6 hours as needed for Nausea. 20 Tablet 08/05/2022 5:14 PM CORN SHELLER 3 Active OTHER Tofacitinib (xeljanz ) 5mg Active OTHER Take 1 Capsule by mouth daily. Fusion Bariatric Multivitamin with Iron Active Active Problems Problem Noted Date Diagnosed Date Morbid obesity with BMI of 60.0-69.9, adult 12/2022 GERD (gastroesophageal reflux disease) 3 Benign hypertension 08/05/2022 Encounters Date Type Department Care Team Description 02/28/2025 External Device Data ST[facility] ABSTRACTION Provider, Abstract 02/14/2025 External Device Data [facility] ABSTRACTION Provider, Abstract 02/14/2025 External Device Data [facility] ABSTRACTION Provider, Abstract 02/07/2025 External Device Data [facility] ABSTRACTION Provider, Abstract 12/20/2024 External Device Data [facility] ABSTRACTION Provider, Abstract from Last 3 Months Immunizations Immunization Administration Dates Next Due (ADACEL/BOOSTRIX)(10 YR UP) TDAP VACCINE, 0.5ML, IM 01/10/2016,12/08/2014 (PNEUMOVAX 23)(50 YRS UP) PN EUMOCOCCAL POLYSACCHARIDE (PPV23) 0.5 ML, IM 01/10/2016 Hepatitis A Vaccine 07/06/2017,08/12/2016 Hepatitis B Vaccine 07/06/2017,08/05/2016,2015 INFLUENZA VACCINE QUADRIVALE NT 6 MOS UP CELL DERIVED PF IM 05/18/2017 INFLUENZA VACCINE QUADRIVALENT 6 MOS UP IM 07/03 INFLUENZA VACCINE QUADRIVALE NT 6 MOS UP PF IM 07/03/2016 Influenza, Unspecified Formulation 07/03/2016, Social History Tobacco Use Types Packs/Day Years Used Date Smoking Tobacco: Former Cigarettes 0.5 30 0 06/29/1987 - 06/29/2017 Smokeless Tobacco: Never Tobacco Cessation:Counseling Given: No Alcohol Use Standard Drinks/Week Comments Yes 0 (1 standard drink = 0.6 oz pure alcohol) rarely 1 drink every 3-4 months Comments No Sex and Gender Information Value Date Recorded Sex Assigned at Female 06/25/2024 11:09 AM CORN SHELLER Legal Sex Female 12:22 AM CORN SHELLER Gender Identity Female 06/25/2024 11:09 AM CORN SHELLER Sexual Orientation Straight 06/25/2024 11 :09 AM CORN SHELLER Last Filed Vital Signs Vital Sign Reading Time Taken Comments Blood Pressure 112/70 07/25/2024 10:05 AM CORN SHELLER Pulse 64 07/25/2024 10:05 AM CORN SHELLER Temperature 36.4 C (97.6 F) 07/23/2023 1:21 PM CORN SHELLER Respiratory Rate 18 07/25/2024 10:05 AM CORN SHELLER Oxygen Saturation 96% 07/25/2024 10:05 AM CORN SHELLER Inhaled Oxygen Concentration - - Weight 73 kg (161 lb) 07/25/2024 10:05 AM CORN SHELLER Height 137.2 cm (4' 6 ) 07/25/2024 10:05 AM CORN SHELLER Body Mass Index 38.82 07/25/2024 10:05 AM CORN SHELLER Plan of Treatment Upcoming Encounters Date Type Department Care Team (Late st Contact Info) Description 07/25/2025 11:40 AM CORN SHELLER Office Visit [facility] [place] [address] [address] [address] [address] [place] [address] Arash Duenas FNP [address] [address] Health Maintenance Due Date Last Done Comments Pre-Diabetes and Diabetes Screening 1970 HEPATITIS B VACCINES (1 of 3 - 19+ 3-dose series) 01/13/1988 07/06/2017, 08/05/2016, 06/03/2016 HPV/Cotest (21-29) 1990 HPV/Cotest (30-65) 1999 COLORECTAL SCREENING 2014 Colorectal Cancer Screening 2014 FIT-DNA Q 3 years 2014 FIT/FOBT Q 1 year 2014 Flex Sig/CT Colonography Q 5 years 2014 CERVICAL CANCER SCREENING 12/08/2017 PAP SMEAR 12/08/2017 12/08/2014 BREAST CANCER SCREENING 01/30/2018 01/31/20 17, 01/30/2017, 01/16/2015, Additional history exists ZOSTER VACCINE (1 of 2) 2019 [place]) Preventative Visit/Annual Wellness Visit 06/29/2024 12/08/2016, 12/08/2014 INFLUENZA VACCINE (#1) 2025 4, 05/18/2017, 07/03/2016, Additional history exists COVID-19 Vaccine (3 - 2024-2 6 season) 2025 02/14/2021, 01/17/2021 DTAP/TDAP/TD VACCINES (3 - T d or Tdap) 01/09/2026 01/10/2016, 12/08/2014 Insurance [facility] DUAL COMPLETE O [facility] [id number] MEDICAID [place] RX [employer] RX Member Subscriber Plan / Payer (Ef fective 2022-Present) Name:Jaye Pollard Relation to Subscriber:Self Name:Jaye Pollard Subscriber ID:Not on file Payer ID:Not on file Group ID:[id number] Type:RX Medicare Part D Address: [place] [address] [facility] DUAL COMPLETE HMO DSNP [facility] [id number] Advance Directives For more information, please contact: [phone] * Full Code (Latest Code Status on File) Date Activated Date Inactivated Comments 08/04/2022 2:22 PM 08/05/2022 7:20 PM * Full Code Date Activated Date Inactivated Comments 08/04/2022 7:43 AM 08/04/2022 2:21 PM Care Teams Hat Finisher Relationship Specialty Start Date End Date Nik Yuen MD [address] [place] [id number] PCP - General 07/31/07
--- OUTSIDE RECORDS SUMMARY | 2025-03-03 16:42 | XMS_ITS | Encounter Summary ---
Author Organization [facility] Address [address] [place] [address] Care Team Providers Care Slitter Service And Setter Name Role Phone Nik Yuen MD Primary Care Provider [phone] Encounter Details Date Type Department Care Team (Late st Contact Info) Description 11/11/2006 Outpatient Historical [facility] [address] [place] [address] [place] [address] Mc Schreiber MD [address] [place] [address] Primary Localized Osteoarthrosis, Lower Leg (Primary Dx) Social History Tobacco Use Types Packs/Day Years Used Date Smoking Tobacco: Never Assessed Comments Unknown Sex and Gender Information Value Date Recorded Sex Assigned at Not on file Legal Sex Female 5:51 AM FIBERGLASS ROLLER Gender Identity Not on file Sexual Orientation Not on file documented as of this encounter Plan of Treatment Not on file documented as of this encounter Visit Diagnoses Diagnosis Primary localized osteoarthrosis, lower leg- Primary documented in this encounter Care Teams Slitter Service And Setter Relationship Specialty Start Date End Date Nik Yuen MD [address] [facility] [address] [place] [id number] PCP - General 07/31/07 documented as of this encounter
--- OUTSIDE RECORDS SUMMARY | 2025-03-03 16:42 | XMS_ITS | Encounter Summary ---
Author Organization [facility] Address [address] [place] [address] Care Team Providers Care Instructional Supervisor Name Role Phone Nik Yuen MD Primary Care Provider [phone] Encounter Details Date Type Department Care Team (Late st Contact Info) Description 10/02/2006 Outpatient Historical [facility] [address] [place] [address] [place] [address] Mc Schreiber MD [address] [place] [address] Primary Localized Osteoarthrosis, Lower Leg (Primary Dx); Pain in Joint, Lower Leg; Morbid Obesity (CMS/HCC) Social History Tobacco Use Types Packs/Day Years Used Date Smoking Tobacco: Never Assessed Comments Unknown Sex and Gender Information Value Date Recorded Sex Assigned at Not on file Legal Sex Female 5:51 AM CUSTOMER RESOLUTION SPECIALIST Gender Identity Not on file Sexual Orientation Not on file documented as of this encounter Plan of Treatment Not on file documented as of this encounter Visit Diagnoses Diagnosis Primary localized osteoarthrosis, lower leg- Primary Pain in joint, lower leg Morbid obesity (CMS/HCC) Morbid obesity documented in this encounter Care Teams Instructional Supervisor Relationship Specialty Start Date End Date Nik Yuen MD [address] [place] [address] [address] [place] [address] PCP - General 07/31/07 documented as of this encounter
--- OUTSIDE RECORDS SUMMARY | 2025-03-03 16:42 | XMS_ITS | Encounter Summary ---
Author Organization [facility] Address [address] [place] [address] Care Team Providers Care Chief Enterprise Architect Name Role Phone Nik Yuen MD Primary Care Provider [phone] Encounter Details Date Type Department Care Team (Late st Contact Info) Description 11/18/2006 Outpatient Historical [facility] [address] [place] [address] [place] [address] Mc Schreiber MD [address] [place] [address] Primary Localized Osteoarthrosis, Lower Leg (Primary Dx) Social History Tobacco Use Types Packs/Day Years Used Date Smoking Tobacco: Never Assessed Comments Unknown Sex and Gender Information Value Date Recorded Sex Assigned at Not on file Legal Sex Female 5:51 AM CORE STRIPPER Gender Identity Not on file Sexual Orientation Not on file documented as of this encounter Plan of Treatment Not on file documented as of this encounter Visit Diagnoses Diagnosis Primary localized osteoarthrosis, lower leg- Primary documented in this encounter Care Teams Chief Enterprise Architect Relationship Specialty Start Date End Date Nik Yuen MD [address] [facility] [address] [place] [phone] PCP - General 07/31/07 documented as of this encounter
--- NOTE | 2025-03-03 17:11 | ED_ITS ---
HPI - Back Pain/Injury 2 General: Chief Complaint: Back Pain/Injury Stated Complaint: incision came open Time Seen by Provider: 03/03/25 16:45 Source: patient Mode of arrival: ambulatory Limitations: no limitations History of Present Illness: Patient is a 55-year-old female who presents emergency department complaining of wound dehiscence to low back. On February 22, she had laminectomy performed at [facility] in [place], states that today she took a hot shower and afterwards had the sensation of coolness and liquid running down her back. States that pain overall has been uncontrolled since the surgery, has been taking [place] with no relief. States that after checking on her wound following the shower, noted dressing to be filled with blood and spouse in the room states that there was also evidence of purulence. Patient has been running subjective intermittent fevers at home, afebrile here at this time and overall nontoxic-appearing. She is not endorsing any symptoms of cauda equina such as bowel or bladder incontinence or saddle anesthesia. Noted to be ambulatory here in the emergency department. No other symptoms noted at this time. MD elicited complaint: back pain and other (possible wound dehiscence) Pertinent past history: back surgery Onset (ago): hour(s) Timing: constant Location: lumbar spine Context: other (after hot shower) Associated symptoms: Reports fever(s); Deny abdominal pain, difficulty walking, fecal incontinence or syncope Related Data Home Medications ?Medication ?Instructions ?Recorded ?Confirmed montelukast 10 mg tablet 10 mg PO QPM 08/10/20 [id number] 45 mg-folic 1 cap PO DAILY 06/2902/28/25 acid 800 mcg-vit K 120 mcg capsule (Bariatric Multivitamins) diphenhydramine HCl 25 mg capsule 25 mg PO TID PRN Itc vaibhav 11/06/24 02/28/25 (Benadryl) metoprolol tartrate 100 mg tablet 50 mg PO BID 5 02/28/25 Previous Rx's ?Medication ?Instructions ?Recorded albuterol sulfate 90 mcg/actuation 2 puff inhalation Q 4H PRN 12/23/23 aerosol inhaler (Ventolin HFA) shortness of breath #6. 7 grams cyclobenzaprine 10 mg tablet See Rx Instructions .Rout e 11/15/24 .COMPLEX #90 tabs omeprazole 20 mg capsule,delayed See Rx Instructions . Route 11/15/24 release .COMPLEX #30 caps spinosad 0.9 % topical suspension 30 ml topical Q7D 2 doses #30 mL 01/18/25 upadacitinib 15 mg tablet,extended 15 mg PO DAILY #30 tabs 02/06/25 release 24 hr (Rinvoq) hydrocodone 7.5 mg-acetaminophen 1 tab PO Q4H PRN pain postop total 02/08/25 325 mg tablet knee 5 days #30 tabs cephalexin 500 mg capsule 500 mg PO Q6H 7 days #28 cap s 03/03/25 Allergies Allergy/AdvReac Type Severity Reaction Status Date / Time lisinopril Allergy Intermediate lip Verified 02/28/25 14:47 swelling pregabalin (From Lyrica) Allergy Mild rash Verified 02/28/25 14:47 adhesive Allergy ALGY-Rash Verified 03/03/25 16:44 codeine Allergy HIVES Verified 02/28/25 14:47 hydrocortisone Allergy HIVES Verified 02/28/25 14:47 Review of Systems 2 General: Reports: 10 or more systems reviewed and unremarkable except in HPI and below Const: Reports: fever(s) and other (denies trauma); Denies: change in weight or night sweats Card: Denies: chest pain, lightheadedness or syncope Resp: Denies: dyspnea GI: Denies: abdominal pain or fecal incontinence : Denies: urinary incontinence Musc: Reports: back pain; Denies: neck pain or extremity pain Skin/Breast: Reports: skin pain and changing lesions (Reports possible wound dehiscence); Denies: rash Neuro: Denies: headache(s), numbness in extremities, weakness in extremities, sensory changes, lack of coordination, difficulty walking, frequent falls or involuntary movements PFSH ED 2 PFSH: Medical History Degenerative arthritis of knee, bilateral History of multiple pulmonary nodules q18-24m CT recommended for follow up by pulmonology History of hepatitis C treated Eosinophilic asthma Obstructive sleep apnea on CPAP No longer on CPAP/BiPAP since gastric bypass surgery and significant weight loss but has not had a formal post gastric bypass sleep study (01/2024) High risk medication use GUSTAVO inhibitor, has been on steroids Seropositive rheumatoid arthritis of multiple sites Chronic diastolic congestive heart failure, NYHA class 3 HTN (hypertension), benign Obesity BMI > 70 prior to gastric bypass surgery in 2021 Cervical radiculopathy Calcium deposit in bursa of left hip Calcium deposit removed from left buttock 1991 x3 Carpal tunnel syndrome on both sides Surgical History History of gastric bypass (07/2021) Status post total right knee replacement using cement (02/22/24) with Dr Eriberto HARVEY Status post colonoscopy with polypectomy (11/10/19) H/O exploratory laparotomy Exploratory surgery on female part as an infant Family History Mother Hypertension Grandmother Heart disease Cancer Paternal -- stomach Mother Diabetes Family/Other Breast cancer Maternal Aunt Denies family history of Clotting disorder Hyperlipidemia Chronic kidney disease (CKD) Thyroid disease Stroke Social History Smoking and tobacco/nicotine status: never used tobacco/nicotine Quit status (tobacco/nicotine): has quit using Year quit tobacco: 2017 Former quit date comment: 0.5 ppd x 36 years Second hand smoke exposure: No Alcohol intake: never Substance/Drug Use: current Substance/Drug use frequency: daily Female Reproductive History: Para: 0 Spontaneous abortions: Yes Physical Exam 2 Const: COMMON NORMALS: patient oriented x3, no limitations, healthy appearing and alert ORIENTATION/CONSCIOUSNESS: Yes awake OTHER: Ambulatory, appears uncomfortable Resp: COMMON NORMALS: normal respiratory effort, No retractions, No use of accessory muscles and clear to auscultation bilaterally AUSCULTATION: clear to auscultation bilaterally Cardio: COMMON NORMALS: regular rate, regular rhythm, S1 normal heart sound present and S2 normal heart sound present RATE: regular rate RHYTHM: r egular rhythm HEART SOUNDS: S1 normal heart sound present and S2 normal heart sound present Back/Pelvis: OTHER: Postoperative incision with no active wound dehiscence to lumbar spine, no current purulent or bloody drainage. Mild surrounding erythema to the incision, no significant tenderness to palpation. No spinous process tenderness or paracervical, parathoracic, or paralumbar tenderness to palpation. Full active range of motion. Extremity: COMMON NORMALS: normal to inspection and full ROM Neuro: COMMON NORMALS: patient oriented x3, moves all extremities, no focal motor deficits, no sensory deficits noted, deep tendon reflexes 2+ bilaterally and gait normal SENSORIUM/ORIENTATION: Yes alert OTHER: L3, L4, L5, and S1 nerve sensations intact. Normal knee jerk and ankle jerk reflexes. Skin: NARRATIVE SKIN EXAM: See back exam Course 2 Vital Signs: Vital signs: Vital Signs Temperature 98.5 F 03/03/25 16:36 Pulse Rate 74 03/03/25 20:52 Respiratory Rate 16 03/03/25 20:52 Blood Pressure 109/61 03/03/25 20:52 Pulse Oximetry 98 03/03/25 20:52 Oxygen Delivery Me thod Room Air 03/03/25 16:36 MDM - Back Pain/Injury Medical Decision Making Patient with concerns of bruising or bleeding from her postoperative wound, which she recently underwent laminectomy at [facility] in [place]. On exam there is no active drainage of blood or pus, and she had no symptoms of cauda equina by history or on exam. Noted to be ambulatory. Some mild erythema was noted around the wound however, and I have little concern for deep space infection. With lab work, slight elevation in her white count and CRP 1-2.4, which is a little concerning being that she is a week since surgery. For this I spoke to on-call neurosurgery at [facility], agreeing that this is likely not deep tissue and we will treat with Keflex and they will see the patient in the office. Informed the patient of this plan, pain controlled after oxycodone here and she will be allowed discharge home with strict return precautions. Labs 03/03/25 17:30 03/03/25 17:30 Laboratory Results WBC 13.85 10^3/uL (3.29-11.43) H 03/03/25 17:30 RBC 4.06 10^6/uL (3.85-5.65) 03/03/25 17:30 Hgb 11.40 g/dL (11.27-16.99) 03/03/25 17:30 Hct 34.3 % (36-47) L 03/03/25 17:30 MCV 84.5 fl (85-98) L 03/03/25 17: MCH 28.1 pg (27-33) 03/03/25 17: MCHC 33.2 g/dL (30-55) 03/03/25 17:30 RDW 11.8 % (12.1-15.1) L 03/03/25 17:30 Plt Count 393 10^3/cmm (157-399) 03/03/25 17:30 MPV 9.4 fL (7.4-10.4) 03/03/25 17:30 Neut % (Auto) 86.6 % 03/03/25 17:30 Lymph % (Auto) 6.9 % 03/03/25 17:30 [place] % (Auto) 5.8 % 03/03/25 17:30 Eos % (Auto) 0.0 % 03/03/25 17:30 Baso % (Auto) 0.3 % 03/03/25 17:30 Neut # (Auto) 12.00 10^3/uL (1.8-7.7) H 03/03/25 17:30 Lymph # (Auto) 1.0 10^3/uL (0.8-4.8) 03/03/25 17:30 [place] # (Auto) 0.8 10^3/uL (0.2-0.9) 03/03/25 17:30 Eos # (Auto) 0.0 10^3/uL (0.0-0.8) 03/03/25 17:30 Baso # (Auto) 0.0 10^3/uL (0.0-0.1) 03/03/25 17:30 Nucleated RBC % (auto) 0 % 03/03/25 17: Nucleated RBCs # 0.0 /100WBC 03/03/25 17:30 ESR 32 mm/hr (0-15) H 03/03/25 17:30 Sodium 138 mmol/L (136-145) 03/03/25 17:30 Potassium 3.8 mmol/L (3.5-5.1) 03/03/25 17:30 Chloride 99 mmol/L (98-107) 03/03/25 17:30 Carbon Dioxide 25 mmol/L (22-29) 03/03/25 17:30 Anion Gap 17.8 (5-19) 03/03/25 17:30 BUN 15 mg/dL (6-20) 03/03/25 17:30 Creatinine 0.7 mg/dL (0.5-0.9) 03/03/25 17:30 GFR Calculation 86.6 mL/min (90-130) L 03/03/25 17:30 Glucose 155 mg/dL (65-115) H 03/03/25 17:30 Calculated Osmolality 290 mOsm/kg (285-295) 03/03/25 17:30 Calcium 8.7 mg/dL (8.5-10.5) 03/03/25 17:30 C-Reactive Protein 102.4 mg/L (0.0-4.9) H 03/03/25 17:30 No radiology studies performed this visit Discharge Plan Discharge Patient Disposition: Home Clinical Impression: Cellulitis Qualifiers: Site of cellulitis: trunk Site of cellulitis of trunk: back Qualified Code(s): L03.312 - Cellulitis of back [any part except buttock] Condition: Stable Prescriptions: New cephalexin 500 mg capsule 500 mg PO Q6H 7 Days Qty: 28 0RF No Action Bariatric Multivitamins 45 mg iron- 800 mcg-120 mcg capsule 1 cap PO DAILY spinosad 0.9 % suspension 30 ml topical Q7D Qty: 30 1RF albuterol sulfate [Ventolin HFA] 90 mcg/actuation HFA aerosol inhaler 2 puff INHALATION Q4H PRN (Reason: shortness of breath) Qty: 6.7 6RF cyclobenzaprine 10 mg tablet See Rx Instructions .ROUTE .COMPLEX Qty: 90 5RF Dose Instruction: TAKE 1 TABLET BY MOUTH THREE TIMES DAILY Rx Instructions: TAKE 1 TABLET BY MOUTH THREE TIMES DAILY omeprazole 20 mg capsule,delayed release(DR/EC) See Rx Instructions .ROUTE .COMPLEX Qty: 30 5RF Dose Instruction: take 1 capsule BY MOUTH EVERY DAY Rx Instructions: take 1 capsule BY MOUTH EVERY DAY Rinvoq 15 mg tablet extended release 24 hr 15 mg PO DAILY Qty: 30 3RF hydrocodone-acetaminophen 7.5-325 mg tablet 1 tab PO Q4H PRN (Reason: pain postop total knee) 5 Days Qty: 30 0RF montelukast 10 mg tablet 10 mg PO QPM diphenhydramine HCl [Benadryl] 25 mg Capsule 25 mg PO TID PRN (Reason: Itching) metoprolol tartrate 100 mg tablet 50 mg PO BID Discharge Orders: Discharge ED (Routine); Ordered 03/03/25 Ordered By: Tom Troncoso Referrals: Christopher Collado DO [Primary Care Provider, [facility]] Patient Instructions: Patient Portal & Zulema Instructions Activity Restrictions/Additional Instructions: Cellulitis Discharge Instructions Diagnosis: Cellulitis involving a previous lumbar laminectomy incision, without evidence of deep or necrotizing infection. Antibiotic Therapy: - Cephalexin 500 mg orally every 6 hours for 7 days. - This regimen is consistent with IDSA guidelines for mild to moderate nonpurulent cellulitis, targeting streptococci and methicillin-sensitive S taphylococcus aureus (MSSA).[1] https://Ob[employer]/beth/article- lookup/doi/10.1093/beth/gwu819 [2] https://jamaContentWatch.Aivo/sofie urnals/nakul/fullarticle/10.1001/nakul.2016.8825?utm_source=openevidence&utm_mediu m=referral [3] https://www.ne.org/doi/full/10.1056/NHDLmw571594 - Duration may be extended if clinical improvement is not observed within 5?7 days.[1] https://[employer]/beth/article-lookup/doi/10.1093/beth/hlt323 [2] https://NativeEnergy.Aivo/sofie urnals/nakul/fullarticle/10.1001/nakul.2016.8825?utm_source=openevidence&utm_mediu m=referral Wound Care and Supportive Measures: - Maintain the incision site clean and dry. - Inspect the wound daily for changes. - Elevate the affected area if feasible to reduce edema.[1] https://[employer]/beth/article-lookup/doi/10.1093/beth/lnr182 - Avoid manipulation or application of topical agents unless specifically directed. Follow-Up: - Schedule outpatient follow-up with neurosurgery within 7?10 days, or sooner if symptoms worsen, to assess wound healing and exclude deep infection or hardware involvement.[4] https://pubmed.ncbi.nlm.nih.gov/11883585 Strict Return Precautions: Immediate medical attention is warranted for any of the following: - Fever >38?C (100.4?F) or chills.[2] https://jamanetwork.com/journals/nakul/fullarticle/10.1001/nakul.2016.8825?utm_sou rce=openevidence&utm_medium=referral [5] https://jamanetwork.com/journals/nakul/fullarticle/10.1001/nakul.2017.5653?utm _source=openevidence&utm_medium=referral - Rapidly increasing redness, swelling, or pain at the incision site. - New or worsening purulent drainage. - Signs of systemic illness: confusion, hypotension, tachycardia, or respiratory distress.[1] https://[employer]/beth/article-lookup/doi/10.1093/beth/xko266 [2] https://jamanetwork.com/sofie urnals/nakul/fullarticle/10.1001/nakul.2016.8825?utm_source=openevidence&utm_mediu m=referral - Neurologic symptoms: new weakness, numbness, loss of bowel or bladder control, or severe back pain suggestive of possible epidural involvement.[4] https://pubmed.ncbi.nlm.nih.gov/21033235 [6] https://www.nejm.org/doi/full/10.1056/FABAvq2528163 - Failure of erythema, swelling, or tenderness to improve after 3?4 days of therapy, or increase in maximal dimension of erythema by >25% from baseline.[5] https://jamanetwork.com/journals/nakul/fullarticle/10.1001/nakul.2017.5653?utm_sou rce=openevidence&utm_medium=referral Additional Considerations: - Monitor for adverse reactions to cephalexin (rash, gastrointestinal upset, anaphylaxis). - Address predisposing factors for recurrence, such as chronic edema or skin breakdown, as feasible.[1] https://Ob[employer] Engineering/beth/article- lookup/doi/10.1093/beth/qho449 [7] https://pubmed.ncbi.nlm.nih.gov/78171405 - Instruct the patient to avoid strenuous activity or heavy lifting until cleared by neurosurgery. Summary: This regimen and follow-up plan are supported by the Infectious Diseases Society of [place] and recent reviews in NAKUL and NEJM, which recommend oral cephalexin for uncomplicated cellulitis, close monitoring for progression, and prompt evaluation for deep infection in postoperative spinal wounds.[1] https://[employer].Aivo/beth/article-lookup/doi/10.1093/beth/jjf493 [2] https://jamanetwork.com/sofie urnals/nakul/fullarticle/10.1001/nakul.2016.8825?utm_source=openevidence&utm_mediu m=referral [3] https://www.nejm.org/doi/full/10.1056/RCTBjk590338 [4] https://pubmed.ncbi.nlm.nih.gov/33497419 References * Practice Guidelines for the Diagnosis and Management of Skin and Soft Tissue Infections: 2014 Update by the Infectious Diseases Society of [place] https://[employer].Bit[employer].Aivo/beth/article-lookup/doi/10.1093/beth/lyg819 . Kuldip DL, Daphne AL, Chambers HF, et al. Clinical Infectious Diseases : An Official Publication of the Infectious Diseases Society of [place]. 2014;59(2):147-59. doi:10.1093/beth/yxh392. * Cellulitis: A Review https://jamanetwork.com/journals/nakul/fullarticle/10.1001/nakul.2016.8825?utm_s ource=openevidence&utm_medium=referral . Cristobal AB, Lu Gordon. NAKUL. 2016;316(3):325-37. doi:10.1001/nakul.2016.8825. * Cellulitis https://www.nejm.org/doi/full/10.1056/FHWFwj703535 . [place] SIDHU. The [place] Journal of Medicine. 2004;350(9):904-12. doi:10.1056/CTAXrw415383. * Postoperative Infections of the Lumbar Spine: Presentation and Management https://pubmed.ncbi.nlm.nih.gov/19964244 . Phylicia DS, Tenzin CK, Ray RC, Braodell BD, Alayna O. [employer]. 2012;36(2):439-44. doi:10.1007/s15472-331-4336-l. * Effect of Cephalexin Plus Trimethoprim-Sulfamethoxazole vs Cephalexin Alone on Clinical Cure of Uncomplicated Cellulitis: A Randomized Clinical Trial https://jamanetwork.com/journals/nakul/fullarticle/10.1001/nakul.2017.5653?utm_s ource=openevidence&utm_medium=referral . Astrid GJ, Blanen A, Moifrah WR, et al. NAKUL. 2017;317(20):2445-2079. doi:10.1001/nakul.2017.5653. * Acute Spinal Cord Compression https://www.nejm.org/doi/full/10.1056/IVWDpu2552755 . Ropper AE, Roparturo AH. The [place] Journal of Medicine. 2017;376(14):5502-4430. doi:10.1056/SGXNey1706338. * Cellulitis https://pubmed.ncbi.nlm.nih.gov/40005728 . Zac GALEAS. [facility] [place]. 2020;35(1):49-60. doi:10.1016/j.idc.2020.10.002. Print Language: Tajik Coding Level of Care Code ED Leather Coater for Jm Blank
[2025-03-03 17:55] LABS: Hematocrit 34.3 % (36-47); Hemoglobin 11.40 g/dL (11.27-16.99); Mean Corpuscular HGB Conc 33.2 g/dL (30-55); Mean Corpuscular Hemoglobin 28.1 pg (27-33); Mean Corpuscular Volume 84.5 fl (85-98); Nucleated Red Blood Cells % 0 %; Platelet Count 393 10^3/cmm (157-399); Red Blood Count 4.06 10^6/uL (3.85-5.65); White Blood Count 13.85 10^3/uL (3.29-11.43)
[2025-03-03] MEDS: oxyCODONE-APAP 5-325 mg Tablet 1 TAB PO (18:03)
[2025-03-03 18:17] LABS: Anion Gap 17.8 (5-19); Blood Urea Nitrogen 15 mg/dL (6-20); Calcium 8.7 mg/dL (8.5-10.5); Carbon Dioxide 25 mmol/L (22-29); Chloride 99 mmol/L (98-107); Creatinine Clr Calc Pharmacy 104.7427; Glucose 155 mg/dL (65-115); Osmolality Calculated 290 mOsm/kg (285-295); Potassium 3.8 mmol/L (3.5-5.1); Sodium 138 mmol/L (136-145)
[2025-03-03 20:52] VITALS: BP 109/61; PULSE 74; RESP 16; O2SAT 98
== END 2025-03-03 20:53 | disposition home or self-care (01) ==
PROVIDERS: Emergency Provider Physician Assistant; PCP Family Medicine
DX: L03.312 Cellulitis of back [any part except buttock and flank] (principal); Z87.891 Personal history of nicotine dependence; I10 Essential (primary) hypertension
CPT/HCPCS: 36415; 80048; 85025; 85651; 86140; 96372; 99284; J1885; J9999

== ENCOUNTER → 2025-04-18 09:43 | Outpatient (BNVA) | payer OTHER, MEDICAID, SELFPAY | PROVIDERS: PCP Family Medicine; Visit Provider Student in an Organized Health Care Education/Training Program | DX: Z96.652 Presence of left artificial knee joint (principal); Z01.89 Encounter for other specified special examinations | CPT/HCPCS: 73560; 73565 ==

== ENCOUNTER → 2025-04-20 09:00 | Outpatient (BNVA) | payer OTHER, MEDICAID, SELFPAY | PROVIDERS: Visit Provider Family Medicine | DX: T81.89XA Other complications of procedures, not elsewhere classified, initial encounter (principal); X58.XXXA Exposure to other specified factors, initial encounter; B95.61 Methicillin susceptible Staphylococcus aureus infection as the cause of diseases classified elsewhere | CPT/HCPCS: 80053; 85025; 85651; 86140 ==

== ENCOUNTER 2025-05-04 13:17 | Outpatient (RCR) | payer OTHER, MEDICAID, SELFPAY | END 2025-05-28 23:59 | disposition home or self-care (01) | LOC: SPT 13:17 | PROVIDERS: Visit Provider Family Medicine | DX: M46.26 Osteomyelitis of vertebra, lumbar region (principal) | CPT/HCPCS: 97110; 97161 ==

== ENCOUNTER 2025-05-29 05:00 | Outpatient (RCR) | payer MEDICARE, MEDICAID, SELFPAY | END 2025-06-28 23:59 | disposition home or self-care (01) | LOC: SPT 05:00 | PROVIDERS: Visit Provider Family Medicine | DX: M46.26 Osteomyelitis of vertebra, lumbar region (principal) | CPT/HCPCS: 97110 ==

== ENCOUNTER → 2025-06-01 11:17 | Outpatient (BNVA) | payer MEDICARE, MEDICAID, SELFPAY | PROVIDERS: Visit Provider Internal Medicine Rheumatology | DX: M05.79 Rheumatoid arthritis with rheumatoid factor of multiple sites without organ or systems involvement (principal); Z79.899 Other long term (current) drug therapy; Z71.85 Encounter for immunization safety counseling; E66.9 Obesity, unspecified | CPT/HCPCS: 99214 ==